=== PATIENT | male | born 1970 | race Caucasian/White ===

== ENCOUNTER 2020-06-01 19:39 | Emergency (ER) | payer MEDICAID, SELFPAY ==
--- NOTE | 2020-06-01 | CT_ITS ---
EXAMINATION: CT ABDOMEN AND PELVIS WITHOUT CONTRAST CLINICAL INFORMATION: Abdominal pain COMPARISON: None TECHNIQUE: Multidetector volumetric imaging was performed from the superior aspect of the liver through the pubic symphysis. Sagittal and coronal reformatted images were obtained on the technologist's workstation. This CT examination was performed using dose optimization techniques as appropriate, variously including the following: *Automated exposure control *Adjustment of mA and/or kV according to patient size (this includes techniques or standardized protocols for targeted exams where dose is matched to indication/reason for exam; i.e. extremities or head) *Use of iterative reconstruction technique DLP: 393 mGy-cm FINDINGS: LUNG BASES: The visualized lung bases are unremarkable. LIVER, GALLBLADDER, AND BILIARY TREE: The liver is normal in size, shape, and attenuation. No focal hepatic lesion or biliary ductal dilatation is present. The gallbladder is unremarkable with no evidence of radiopaque gallstones, gallbladder wall thickening, or obvious pericholecystic inflammatory changes. PANCREAS: Noncontrast appearance of the pancreas is normal. SPLEEN: Normal. ADRENAL GLANDS: No adrenal mass. KIDNEYS AND URETERS: 2 mm right lower pole nonobstructing renal calculus. No hydronephrosis. No hydroureter BLADDER: Streak artifact limits evaluation of the urinary bladder. GASTROINTESTINAL TRACT: Stomach and small bowel are nondilated. Normal appendix. No evidence of colitis or diverticulitis. ABDOMINAL WALL: No significant hernia is appreciated. LYMPH NODES: Normal. VASCULAR: Normal caliber abdominal aorta. PELVIC VISCERA: Prostate obscured by streak artifact. OSSEOUS STRUCTURES: Bilateral hip arthroplasties. No acute osseous abnormality. IMPRESSION: No acute CT findings. 2 mm nonobstructing right lower pole renal calculus.
[2020-06-01 20:00] VITALS: PULSE 61; RESP 18; TEMP 36.6; O2SAT 97; BMI 18.1
--- NOTE | 2020-06-01 20:25 | ED_ITS ---
HPI - Abdominal Pain General Chief Complaint: Abdominal Pain Stated Complaint: ABD PAIN Time Seen by Provider: 06/01/20 20:23 History of Present Illness HPI narrative: Patient is a 49-year-old male presents today having diffuse abdominal pain the pain is been ongoing for about a month. Getting worse the last few days. Patient had an endoscopy and colonoscopy done. Patient claims it was positive for a bacteria. He was subsequently given antibiotics. At 1st was making it better. Now the pain is getting worse again. It is cramping like it is diffuse over the entire abdomen. It is not associated with any diarrhea. His stool is normal. He is complaining of some nausea no vomiting. No travel history. No coughing or congestion or upper respiratory symptoms. No diaphoresis no chest pain. Not related with exertion. MD elicited complaint: abdominal pain Pertinent past history: gastritis Location: none Severity: moderate Pain scale (0-10): 5 Quality: cramping Radiation: none Exacerbating factors: nothing Relieving factors: nothing Associated symptoms: denies other symptoms Treatments prior to arrival: other ( Antibiotics.) Related Data Previous Rx's Medication Instructions Recorded omeprazole magnesium [Prilosec] 20 mg PO DAILY #30 ea 06/01/20 Allergies Allergy/AdvReac Type Severity Reaction Status Date / Time No Known Allergies Allergy Unverified 05/18/20 18:10 [No Known Allergies*] Review of Systems Review of Systems Yes all other systems are reviewed and are negative Eyes: Reports as per HPI Reports system reviewed and no additional complaints, except as documented Cardiovascular: Reports as per HPI Respiratory: Reports as per HPI and Reports no additional respiratory complaints Gastrointestinal: Reports as per HPI and Reports no additional gastrointestinal complaints Musculoskeletal: Reports no additional musculoskeletal complaints Reports system reviewed and no additional complaints, except as documented Psychiatric: Reports no additional psychiatric complaints Endocrine: Reports no additional endocrine complaints Hematologic/Lymphatic: Reports no additional hematologic/lymphatic complaints Allergic/Immunologic: Reports no additional allergic/immunologic complaints Physical Exam Vital Signs and I&O and Narrative: Vital Signs and I&O: Vital Signs Temp 98 F 06/01/20 20:00 Pulse 54 06/01/20 22:01 Resp 18 06/01/20 22:01 BP 134/84 06/01/20 22:01 Pulse Ox 97 06/01/20 20:00 Intake & Output 06/01/20 06/01/20 06/02/20 06:59 18:59 06:59 Weight 57.181 kg Body Mass Index 18.1 Const: General: cooperative Orientation/consciousness: oriented to person HENMT: Head: Yes normal to inspection General nose exam: Normal external nose present Face and sinus: Yes normal facial exam Eyes: General: appearance normal, both eyes and all related structures Neck: Neck: Yes normal visual inspection Chest: Chest palpation & inspection: normal inspection of the chest Resp: Effort & Inspection: normal respiratory effort Auscultation: clear to auscultation bilaterally Cardio: Jugular venous distension: no JVD GI: Inspection: Yes normal to inspection Palpation (GI): Soft to palpation, nontender, no guarding and not rigid : General: Yes no CVA tenderness Back/Spine/Pelvis: Back: no CVA tenderness Skin: General skin exam: no rashes or lesions noted Neuro: General: oriented to person Extrem: General: Yes normal to inspection Psych: Appearance: grossly normal MDM - Abdominal Pain MDM Narrative Medical decision making narrative: Patient well-appearing labs unremarkable. CT scan of the abdomen negative for any acute evidence of obstruction, abscess, perforation. No abdominal aortic aneurysm. Repeat abdominal exam is soft nontender. Patient has a history of H pylori. Has follow-up on an outpatient basis. Will discharge patient home. In stable condition. Differential Diagnosis Differential diagnosis: Likely abdominal pain, aortic dissection, acute appendicitis, bowel perforation, calculus of kidney, constipation, diverticulitis and gastroenteritis Lab Data Result diagrams: 06/01/20 21:41 06/01/20 21:41 Labs: Lab Results 06/01/20 06/01/20 06/01/20 Range/Units 21:41 21:41 21:41 WBC 5.2 (4.8-10.8) X10*3/uL RBC 4.05 L (4.60-5.80) X10*6/uL Hgb 11.4 L (14.0-18.0) g/dl Hct 34.9 L (42-52) % MCV 86.2 (80-98) fL MCH 28.1 (27.0-33.0) pg MCHC 32.7 (31.0-36.0) g/dl RDW 12.8 (11.0-16.0) % Plt Count 134 L (160-400) X10*3/uL MPV 9.1 L (9.4-12.4) fL Immature Gran % (Auto) 0.0 (0.0-0.4) % Neut % (Auto) 47.9 (45-73) % Lymph % (Auto) 40.7 H (20-40) % [place] % (Auto) 8.5 (2-11) % Eos % (Auto) 2.3 (0-4) % Baso % (Auto) 0.6 (0-2) % Neut # (Auto) 2.5 (2.0-8.3) X10*3/uL Lymph # (Auto) 2.1 (1.2-4.9) X10*3/uL [place] # (Auto) 0.4 (0.1-1.2) X10*3/uL Eos # (Auto) 0.1 (0.0-0.4) X10*3/uL Baso # (Auto) 0.0 (0.0-0.2) X10*3/uL Abs Immat Gran (auto) 0.00 (0.00-0.03) X10*3/uL Absolute Nucleated RBC 0.000 (0.0-0.012) X10*3/uL Nucleated RBC % (auto) 0.0 (0.0-0.2) /100WBC Hold Blue Top SEE NOTE Sodium 140 (135-145) mmol/L Potassium 4.1 (3.3-5.1) mmol/l Chloride 106 (96-108) mmol/L Carbon Dioxide 29 (22-29) mmol/L Anion Gap 9 L (12-20) BUN 13 (9-16) mg/dL Creatinine 0.93 (0.5-1.4) mg/dL Estim Creat Clear Calc 78.5 Estimated GFR > 60 Random Glucose 94 (60-115) mg/dL Calcium 8.7 (8.4-10.2) mg/dL Total Bilirubin 0.4 (0.0-1.0) mg/dL AST 19 (5-37) U/L ALT 10 (0-40) U/L Alkaline Phosphatase 77 (39-117) U/L Total Protein 7.0 (6.5-8.0) g/dL Albumin 4.4 (3.5-5.0) g/dL Lipase 122 H (8-78) U/L Discharge Plan Discharge Clinical Impression: Abdominal pain Patient Disposition: Home, Self-Care Instructions: Abdominal Pain (ED) Prescriptions: New Prilosec 10 mg susp,delayed release for recon 20 mg PO DAILY Qty: 30 RF: 0 Referrals: Bharath Welch MD [Primary Care Provider] - 2 days Ryanne Maharaj [Emergency Nurse] - 2 days Print Language: [facility] Past Medical History Attestation statement: The following information was validated with the patient. Social History Social History Advance Directives: No Advance Directives Information Provided: No
[2020-06-01] MEDS: Ketorolac Tromethamine 15 MG/ML VIAL IV (21:41)
[2020-06-01] MEDS: ondansetron HCL 4 MG/2 ML VIAL IVPUSH (21:42)
--- NOTE | 2020-06-01 21:43 | PC.NURSE ---
Pt resting in stretcher. pt c/o lower abd pain rating pain 7/10. pt a very difficult stick. MD aware. and labs drawn by tado. Pt states i usually get an IV in my neck Pt medicated by IM injections, for pain. Will continue to monitor pt.
[2020-06-01 21:45] LABS: MANUAL DIFF FLAG NO
[2020-06-01 21:46] LABS: Basophils Percent Auto 0.6 % (0-2); Eosinophils Absolute Auto 0.1 X10*3/uL (0.0-0.4); Eosinophils Percent Auto 2.3 % (0-4); Hematocrit 34.9 % (42-52); Hemoglobin 11.4 g/dl (14.0-18.0); Lymphocytes Absolute Auto 2.1 X10*3/uL (1.2-4.9); Lymphocytes Percent Auto 40.7 % (20-40); Mean Corpuscular HGB Conc 32.7 g/dl (31.0-36.0); Mean Corpuscular Hemoglobin 28.1 pg (27.0-33.0); Mean Corpuscular Volume 86.2 fL (80-98); Mean Platelet Volume 9.1 fL (9.4-12.4); Monocytes Absolute Auto 0.4 X10*3/uL (0.1-1.2); Monocytes Percent Auto 8.5 % (2-11); Neutrophils Absolute Auto 2.5 X10*3/uL (2.0-8.3); Neutrophils Percent Auto 47.9 % (45-73); Platelet Count 134 X10*3/uL (160-400); Red Blood Count 4.05 X10*6/uL (4.60-5.80); Red Cell Distribution Width 12.8 % (11.0-16.0); White Blood Count 5.2 X10*3/uL (4.8-10.8)
[2020-06-01 22:01] VITALS: BP 134/84; PULSE 54; RESP 18
[2020-06-01 22:22] LABS: Alanine Aminotransferase 10 U/L (0-40); Albumin Level 4.4 g/dL (3.5-5.0); Alkaline Phosphatase 77 U/L (39-117); Anion Gap 9 (12-20); Aspartate Amino Transferase 19 U/L (5-37); Bilirubin Total 0.4 mg/dL (0.0-1.0); Blood Urea Nitrogen 13 mg/dL (9-16); Calcium 8.7 mg/dL (8.4-10.2); Carbon Dioxide 29 mmol/L (22-29); Chloride 106 mmol/L (96-108); Creatinine Clr Calc Pharmacy 78.5; Estimated Glomerular Filt Rate > 60; Glucose Random 94 mg/dL (60-115); Potassium 4.1 mmol/l (3.3-5.1); Sodium 140 mmol/L (135-145)
[2020-06-01 22:33] LABS: Lipase 122 U/L (8-78)
== END 2020-06-02 00:22 | disposition home or self-care (01) ==
PROVIDERS: Emergency Provider Emergency Medicine Emergency Medical Services; PCP Internal Medicine
DX: R10.9 Unspecified abdominal pain (principal)
CPT/HCPCS: 36415; 74176; 80053; 83690; 85025; 96361; 96374; 96375; 99283; 99284; J1885; J2405

== ENCOUNTER 2020-06-19 12:16 | Outpatient (REF) | payer MEDICAID, SELFPAY ==
[2020-06-19 13:48] LABS: MANUAL DIFF FLAG NO
[2020-06-19 13:57] LABS: Basophils Absolute Auto 0.1 X10*3/uL (0.0-0.2); Basophils Percent Auto 1.1 % (0-2); Eosinophils Percent Auto 0.4 % (0-4); Hemoglobin 11.7 g/dl (14.0-18.0); Imm Gran Abs Auto 0.01 X10*3/uL (0.00-0.03); Imm Gran Pct Auto 0.2 % (0.0-0.4); Lymphocytes Absolute Auto 1.4 X10*3/uL (1.2-4.9); Lymphocytes Percent Auto 30.2 % (20-40); Mean Corpuscular HGB Conc 31.6 g/dl (31.0-36.0); Mean Corpuscular Hemoglobin 27.3 pg (27.0-33.0); Mean Corpuscular Volume 86.4 fL (80-98); Monocytes Absolute Auto 0.5 X10*3/uL (0.1-1.2); Neutrophils Absolute Auto 2.6 X10*3/uL (2.0-8.3); Neutrophils Percent Auto 57.1 % (45-73); Platelet Count 149 X10*3/uL (160-400); Red Blood Count 4.28 X10*6/uL (4.60-5.80); White Blood Count 4.5 X10*3/uL (4.8-10.8)
== END 2020-06-19 12:17 | disposition home or self-care (01) ==
LOC: HO.LAB 12:16
PROVIDERS: PCP Internal Medicine; Visit Provider Internal Medicine Gastroenterology
DX: K92.1 Melena (principal)
CPT/HCPCS: 36415; 85025

== ENCOUNTER 2020-06-28 19:30 | Emergency (ER) | payer MEDICAID, SELFPAY ==
--- NOTE | 2020-06-28 | XR_ITS ---
EXAMINATION: XR CHEST CLINICAL INFORMATION: Chest wall pain. Fever. COMPARISON: Chest x-ray 03/18/2016 TECHNIQUE: 2 views of the chest were obtained. FINDINGS: No significant abnormality is noted involving the heart, lungs, mediastinum, bony thorax or soft tissues. Orthopedic plate and screw at lower cervical spine. XR/XR chest 2V IMPRESSION: Unremarkable examination.
[2020-06-28 20:03] VITALS: BP 150/72; PULSE 80; RESP 18; TEMP 37.8; O2SAT 96; BMI 19.3
[2020-06-28 21:06] VITALS: BP 130/83; PULSE 69; RESP 17; TEMP 37.1; O2SAT 99
--- NOTE | 2020-06-28 21:08 | ED_ITS ---
HPI - General Adult General Chief complaint: General Medical Stated complaint: abdominal pain Time Seen by Provider: 06/28/20 21:08 Source: patient and interpreter and translator Mode of arrival: ambulatory Limitations: no limitations History of Present Illness HPI narrative: states 5 years ago was doing drugs and felt he had pneumonia never sought treatment and has chronic L chest sided pain daily, last two days much worse MD complaint: chronic left chest wall pain Onset (ago): year(s) (5) Location: chest Radiation: non-radiation Severity: moderate Quality: aching Pain Consistency: constant Relieving factors: none Exacerbating factors: none Associated symptoms: denies other symptoms Treatments prior to arrival: none Related Data Previous Rx's Medication Instructions Recorded omeprazole magnesium [Prilosec] 20 mg PO DAILY #30 ea 06/01/20 cyclobenzaprine 10 mg PO TID PRN #14 tab 06/28/20 lidocaine 1 patch TOPICAL DAILY PRN #10 ea 06/28/20 Allergies Allergy/AdvReac Type Severity Reaction Status Date / Time No Known Allergies Allergy Verified 06/28/20 20:03 [No Known Allergies*] Review of Systems Review of Systems: Constitutional : No Weight loss, No Fever, No Chills ENT/Mouth : No sore throat, No Rhinorrhea Eyes: No Eye Pain, No Swelling Cardiovascular : pos Chest Pain, no SOB, no Dyspnea on Exertion, No Orthopnea, No Edema, No Palpitations Respiratory : posCough, No Sputum Gastrointestinal : no Nausea, No Vomiting, No Diarrhea, No abdominal Pain, No Hematochezia, No Melena Genitourinary : No Dysuria, No Urinary Frequency Musculoskeletal : No joint pain, No Myalgias, No Joint Swelling Skin : No Skin Lesions, No rash Neuro : No Weakness, No Numbness, No Dizziness, No Headache Psych : No Anxiety/Panic, No Depression Heme/Lymph: No Bruising, No Lymphadenopathy Endocrine : No Polyuria, No Polydipsia All other systems reviewed and are negative PMFSH Past Medical History Medical History (Updated 06/28/20 @ 21:36 by Jemima Mondragon DO) Substance abuse Social History Social History Alcohol intake: never Smoked in Last 30 Days: No Use of substances other than those prescribed or required for medical reasons: Yes Substance Use Type: Marijuana Advance Directives: No Advance Directives Information Provided: No Physical Exam Vital Signs: Vital Signs: Vital Signs Temp Pulse Resp BP Pulse Ox 06/28/20 21:06 98.7 F 69 17 130/83 99 06/28/20 20:03 100.1 F 80 18 150/72 H 96 Body Mass Index 19.3 Appearance: Alert. Oriented X3. No acute distress. Eyes: Pupils equal, round and reactive to light. ENT: Pharynx normal. Neck: Normal inspection. Neck supple. CVS: Normal heart rate and rhythm. Pulses normal. Respiratory: No respiratory distress. Breath sounds normal. Abdomen: Soft and nontender. Skin: Skin warm and dry. Normal skin color. Normal skin turgor. Extremities: No lower extremity edema. No calf ttp Neuro: Oriented X 3. No motor deficit. No sensory deficit. Course Course Course Narrative: 5 years of pain, just had negative CT scan L side this month, CXR negative as well at this time will DC home with pain patches and PCP follow up Medical Decision Making MDM Narrative Medical decision making narrative: 49 yo male with chronic L sided chest pain x 5 years and cough - no prior workup, doubt ACS given chronicity, PE seems unlikely given 5 years duration, CXR ordered at this time Discharge Plan Discharge Clinical Impression: Chronic chest wall pain Patient Disposition: Home, Self-Care Instructions: Chest Wall Pain (ED) Additional Instructions: your CHEST xray was normal Prescriptions: New cyclobenzaprine 10 mg tablet 10 mg PO TID PRN (Reason: muscle spasm) Qty: 14 RF: 0 lidocaine 4 % adhesive patch,medicated 1 patch topical DAILY PRN (Reason: pain) Qty: 10 RF: 0 No Action Prilosec 10 mg susp,delayed release for recon 20 mg PO DAILY Qty: 30 RF: 0 Referrals: Bharath Welch MD [Primary Care Provider] - 2 days Stand Alone Forms: Work/School Release Print Language: [place]
== END 2020-06-28 22:45 | disposition home or self-care (01) ==
PROVIDERS: Emergency Provider Emergency Medicine; PCP Internal Medicine
DX: R07.89 Other chest pain (principal); Z79.899 Other long term (current) drug therapy
CPT/HCPCS: 71046; 99283; 99284

== ENCOUNTER 2020-07-24 09:49 | Outpatient (REF) | payer MEDICAID, SELFPAY ==
--- NOTE | 2020-07-24 09:52 | US_ITS ---
EXAMINATION: US ABDOMEN COMPLETE CLINICAL INFORMATION: Epigastric pain. COMPARISON: CT abdomen and pelvis 06/01/2020. Ultrasound abdomen 09/10/2013 and 09/23/2011. TECHNIQUE: Real-time imaging of the abdominal viscera. FINDINGS: PANCREAS: Normal in size and contour and echogenicity. Pancreatic duct is within normal, under 3 mm. There is a questionable 2 mm cyst pancreatic body. No peripancreatic fluid collection or retroperitoneal effusion. ABDOMINAL AORTA: The proximal, mid, and distal segments are normal in caliber. INFERIOR VENA CAVA: Visualized portions are normal. LIVER: Liver is normal in size and smooth in contour. The hepatic parenchymal echogenicity is borderline increased. No focal hepatic parenchymal lesion. No intrahepatic ductal dilatation. Color Doppler shows portal flow towards the liver. GALLBLADDER: No stone or sludge or wall thickening. No pericholecystic fluid. Negative sonographic Ayala's sign. COMMON BILE DUCT: Normal in caliber measuring 0.5 cm in diameter. RIGHT KIDNEY: Normal. No hydronephrosis. No renal calculi or focal parenchymal lesions. The kidney measures 10.3 cm in maximum dimension. LEFT KIDNEY: Normal. No hydronephrosis. No renal calculi or focal parenchymal lesions. The kidney measures 10.2 cm in maximum dimension. SPLEEN: Normal. The spleen measures 9.5 cm in maximum dimension. FREE FLUID: None. US/US abdomen complete IMPRESSION: 1. No cholelithiasis or biliary ductal dilatation. 2. Questionable punctate cyst pancreatic body, 2 mm. Suggest follow-up ultrasound in one year. 3. No hydronephrosis.
== END 2020-07-24 09:50 | disposition home or self-care (01) ==
LOC: HO.US 09:49
PROVIDERS: PCP Internal Medicine; Visit Provider Family Medicine
DX: R10.13 Epigastric pain (principal)
CPT/HCPCS: 76700

== ENCOUNTER 2020-07-31 09:26 | Outpatient (REF) | payer MEDICAID, SELFPAY ==
[2020-08-03 13:53] LABS: H Pylori Breath Test NOT DETECTED (NOT DETECTED)
== END 2020-07-31 09:27 | disposition home or self-care (01) ==
LOC: HO.LNP 09:26
PROVIDERS: PCP Internal Medicine; Visit Provider Internal Medicine Gastroenterology
DX: R10.13 Epigastric pain (principal); Z11.0 Encounter for screening for intestinal infectious diseases
CPT/HCPCS: 83013; 99211

== ENCOUNTER → 2020-09-14 14:36 | Outpatient (BNVA) | payer MEDICAID, SELFPAY | PROVIDERS: PCP Internal Medicine; Visit Provider Internal Medicine Pulmonary Disease | DX: R05 Cough (principal); R06.00 Dyspnea, unspecified; J47.9 Bronchiectasis, uncomplicated; Z86.11 Personal history of tuberculosis | CPT/HCPCS: 99202 ==

== ENCOUNTER 2020-09-15 | Outpatient (REF) | payer MEDICAID, SELFPAY | END 2020-09-15 00:01 | disposition home or self-care (01) | LOC: HO.LNP | PROVIDERS: Visit Provider Internal Medicine Pulmonary Disease | DX: Z13.89 Encounter for screening for other disorder (principal) | CPT/HCPCS: 87205 ==

== ENCOUNTER 2020-10-12 11:10 | Outpatient (REF) | payer MEDICAID, SELFPAY ==
--- NOTE | ~2020-10-12 | CT_ITS ---
EXAMINATION: CT CHEST WITHOUT CONTRAST CLINICAL INFORMATION: Bronchiectasis. COMPARISON: None TECHNIQUE: Multidetector volumetric CT imaging of the chest was done. Axial MIP volume rendering provided. Sagittal and coronal reformatted images were obtained. This CT examination was performed using dose optimization techniques as appropriate, variously including the following: *Automated exposure control *Adjustment of mA and/or kV according to patient size (this includes techniques or standardized protocols for targeted exams where dose is matched to indication/reason for exam; i.e. extremities or head) *Use of iterative reconstruction technique DLP: 215 mGy-cm FINDINGS: LEAD LEVEL DESIGNER: Hyperinflated lungs. LUNGS: The lungs are with mild emphysema. There is no acute pneumonic consolidation. There is no pulmonary nodule, mass or consolidation. Minimal focal atelectatic changes are seen in the right middle lobe, lingula and left lower lobe. Tiny pulmonary cysts measuring 6 mm and less are visualized in the right lower lobe. MEDIASTINUM: The thyroid lobes are symmetrical and normal. The central trachea and the bronchi are widely patent. Heart size and the great vessels are normal caliber. There are coronary artery calcifications present. No pericardial effusion seen. PLEURA: There is no pleural effusion. No pleural mass or thickening. AXILLA: There are small shotty lymph nodes in the axilla. The chest wall appears unremarkable. UPPER ABDOMEN: Visualized liver, spleen, pancreas, and bilateral adrenal glands are unremarkable. OSSEOUS STRUCTURES: Mild superior endplate deformities seen in T1 and T2 vertebra. CT/CT chest wo con IMPRESSION: Mild emphysema. Minimal atelectatic changes. There is no bronchiectasis, pulmonary nodule or abnormal lymphadenopathy. Minimal coronary artery atherosclerosis.
== END 2020-10-12 11:11 | disposition home or self-care (01) ==
LOC: HO.CT 11:10
PROVIDERS: Visit Provider Internal Medicine Pulmonary Disease
DX: J47.9 Bronchiectasis, uncomplicated (principal)
CPT/HCPCS: 71250

== ENCOUNTER 2020-10-25 07:40 | Day surgery (SDC) | payer MEDICAID, SELFPAY ==
[2020-10-19 15:29] VITALS: BMI 47.3
--- NOTE | 2020-10-23 14:28 | P.CONAN_ITS ---
Documented by User: Skylar Martins 10/24/20 14:16 HPI - Anesthesia Eval Consult details Narrative: 50yo M for Upper Endoscopy Pt seen by pulmo 09/2020 for SOB/productive cough. Chest CT obtained (see report below). Per Dr Mendez text, OK to proceed if cough has improved. Per telehealth eval, pt denies cough, SOB, or phlegm. Suboxone daily for h/o polysub abuse PMFSH Active Problems Active Problems: All Active Problems (Updated 10/19/20 @ 15:19 by Jessy Martino) Complaint of melena (Acute) Chronic cough (Acute) History of treatment for tuberculosis (Acute) Dyspnea (Acute) Bronchiectasis (Acute) Past Medical History Medical History Ambulates with cane Back pain GERD (gastroesophageal reflux disease) History of anemia History of head injury History of pineal cyst History of TB (tuberculosis) HTN (hypertension) Hx of cirrhosis Hx of hepatitis C Productive cough Seizure disorder Substance abuse Surgical History Surgical History History of bilateral total hip arthroplasty History of cervical discectomy History of esophagogastroduodenoscopy (EGD) Hx of colonoscopy Social History Social History Are you a primary respiratory care technician to a significant other at home: No Do you presently have visiting nurse or other home services: No Alcohol intake: never Smoking Status: Former smoker Smoking Quit Date: 2008 Use of substances other than those prescribed or required for medical reasons: Yes Substance Use Type: Marijuana Substance Use Type Other:: on Suboxone - Hx Heroin and Cocaine abuse Advance Directives: No Advance Directives Information Provided: No Advance Directives on File: No Recently lost weight without trying: No Meds Allergies Allergy/AdvReac Type Severity Reaction Status Date / Time No Known Allergies Allergy Verified 10/19/20 15:25 [No Known Allergies*] Home Medications Medication Instructions Recorded Confirmed Last Taken Type acetaminophen 1 - 2 tab PO Q6-8H PRN 10/19/20 10/19/20 Unknown History amitriptyline 1 - 2 tab PO BEDTIME 10/19/20 10/19/20 Unknown History buprenorphine-naloxone [Suboxone] 1 strip SUBLINGUAL BID 10/19/20 10/19/20 10/25/20 History cholecalciferol (vitamin D3) 1 tab PO DAILY 10/19/20 10/19/20 Unknown History diclofenac potassium 1 tab PO BID 10/19/20 10/19/20 Unknown History divalproex 1 tab PO BID 10/19/20 10/19/20 Unknown History duloxetine 1 cap PO DAILY 10/19/20 10/19/20 Unknown History famotidine [Acid Classification Inspector 1 tab PO BEDTIME 10/19/20 10/19/20 Unknown History (famotidine)] nystatin 5 ml PO QID 10/19/20 10/19/20 Unknown History Exam Exam Date and Time: October 23, 2020 1428 Height,Weight and Vital Signs: Height 5 ft 6 in Weight 133 kg Pertinent Lab Results Pertinent Lab Results: Laboratory Tests 06/01/20 06/19/20 21:41 13:05 WBC 4.5 L Hgb 11.7 L Hct 37.0 L Plt Count 149 L Sodium 140 Potassium 4.1 Chloride 106 Carbon Dioxide 29 BUN 13 Creatinine 0.93 Narrative Narrative: Chest CT 10/2019 CT chest wo con IMPRESSION: Mild emphysema. Minimal atelectatic changes. There is no bronchiectasis, pulmonary nodule or abnormal lymphadenopathy. Minimal coronary artery atherosclerosis. Assessment and Plan Assessment Anesthesia Assessment: Chart Reviewed Documented by User: Paulette Black 10/25/20 08:58 [facility] Past Medical History Medical History Ambulates with cane Back pain GERD (gastroesophageal reflux disease) History of anemia History of head injury History of pineal cyst History of TB (tuberculosis) HTN (hypertension) Hx of cirrhosis Hx of hepatitis C Productive cough Seizure disorder Substance abuse Surgical History Surgical History History of bilateral total hip arthroplasty History of cervical discectomy History of esophagogastroduodenoscopy (EGD) Hx of colonoscopy Social History Social History Are you a primary respiratory care technician to a significant other at home: No Do you presently have visiting nurse or other home services: No Alcohol intake: never Smoking Status: Former smoker Smoking Quit Date: 2008 Use of substances other than those prescribed or required for medical reasons: Yes Substance Use Type: Marijuana Substance Use Type Other:: on Suboxone - Hx Heroin and Cocaine abuse Advance Directives: No Advance Directives Information Provided: No Advance Directives on File: No Recently lost weight without trying: No Meds Allergies Allergy/AdvReac Type Severity Reaction Status Date / Time No Known Allergies Allergy Verified 10/19/20 15:25 [No Known Allergies*] Home Medications Medication Instructions Recorded Confirmed Last Taken Type acetaminophen 1 - 2 tab PO Q6-8H PRN 10/19/20 10/19/20 Unknown History amitriptyline 1 - 2 tab PO BEDTIME 10/19/20 10/19/20 Unknown History buprenorphine-naloxone [Suboxone] 1 strip SUBLINGUAL BID 10/19/20 10/19/20 10/25/20 History cholecalciferol (vitamin D3) 1 tab PO DAILY 10/19/20 10/19/20 Unknown History diclofenac potassium 1 tab PO BID 10/19/20 10/19/20 Unknown History divalproex 1 tab PO BID 10/19/20 10/19/20 Unknown History duloxetine 1 cap PO DAILY 10/19/20 10/19/20 Unknown History famotidine [Acid Classification Inspector 1 tab PO BEDTIME 10/19/20 10/19/20 Unknown History (famotidine)] nystatin 5 ml PO QID 10/19/20 10/19/20 Unknown History Exam Airway Mallampati Class: III TM Dist: >3cm Neck ROM: Full Heart: RRR Lungs: CTA
[2020-10-25 08:11] VITALS: BP 127/82; PULSE 69; RESP 16; TEMP 37; O2SAT 97
--- NOTE | 2020-10-25 08:40 | PC.NURSE ---
patient is a difficult stick md irvin by bedside attempting an iv insertion. patient was stuck multiple times last procedure. i attempted only once.
--- NOTE | 2020-10-25 09:06 | MHC.SHP ---
Pre-Procedural Eval Section B Chief Complaint: nausea Relevant Family History (Specify if Yes): No Relevant Social History: Other (specify) (thc) Present Medications: see Short Stay Collaborative assessment Medical History: Significant History (Ambulates with cane Back pain GERD (gastroesophageal reflux disease) History of anemia History of head injury History of pineal cyst History of TB (tuberculosis) HTN (hypertension) Hx of cirrhosis Hx of hepatitis C Productive cough Seizure disorder Substance abuse) History of Previous Operations: Relevant previous surgery/procedure and date(s) (hip and neck surgery) Allergies: Allergies Allergy/AdvReac Type Severity Reaction Status Date / Time No Known Allergies Allergy Verified 10/19/20 15:25 [No Known Allergies*] Review of Systems Sugical H&P ROS: Negative: Constitution, Cardiovascular, Respiratory, Neurological, Psychiatric, Hem-Onc, Allergic/Immunologic, Gastrointestinal, Genitourinary, Musculoskeletal, Integumentary, Endocrine and Eyes/Ears/Nose/Throat Exam Surgical H&P Exam: Normal: HEENT, Normal: Heart, Normal: Lungs, Normal: Extremities, Normal: Abdomen, Normal: Skin and Normal: Neurological Plan Diagnosis/Plan: Unchanged I have reviewed the history and physical and performed a pertinent physical examination on my patient. No changes have occurred unless specified.
--- NOTE | 2020-10-25 09:13 | PC.NURSE ---
multiple attempts by anesthesia unable to get an iv inserted for his procedure. another md to attempt. md walsh aware.
--- NOTE | 2020-10-25 09:25 | PC.NURSE ---
ANESTHESIA BY BEDSIDE WITH THE ULTRASOUND MACHINE.
--- NOTE | 2020-10-25 10:03 | PC.NURSE ---
ANESTHESIA SPOKE TO MD LAM AND MD LAM ORDERED A PICC LINE INSERTION. HE ALREADY SPOKE TO RADIOLOGY. AWAITING FOR HIS PROCEDURE.
--- NOTE | 2020-10-25 10:35 | PC.NURSE ---
Patient awaiting PICC placement with Radiology. Currently resting quietly in Pre-Op. Will continue to monitor.
--- NOTE | 2020-10-25 11:37 | PC.NURSE ---
1119AM JAYME RAZA RN IN RADIOLOGY. AWAITING FOR PROCEDURE. PATIENT REMAINS SLEEPING. AWARE OF PLAN OF CARE.
--- NOTE | 2020-10-25 11:53 | PC.NURSE ---
LUZ MARINA MCCLAIN AT THE BEDSIDE PERFORMING A PICC LINE INSERTION PER MD LAM.
--- NOTE | 2020-10-25 12:34 | HO.MIDLINE_ITS ---
PICC Line Insertion Diagnosis: PREOPERATIVE Indication: DIFFICULT IV ACCESS; NEEDS IV ACCESS PREPROCEDURE Pertinent Labs: N/A Technique: Using sterile technique including cap and mask, glove and arm drape, the RIGHT arm was prepped and draped in the usual sterile fashion of full barrier technique with [facility]. Using ultrasound guidance, CEPHALIC vein access was obtained. Over an 0.018 wire through peel-away sheath, a SINGLE LUMEN, (20G x 8CM) MIDLINE was positioned. Ultrasound was used to assess vein patency and for needle entry. Vascular [facility] Lab Technician has released the line for use and it is currently dressed with a StatLock, Tegaderm, and CHG disc. Verification has been performed for blood return and line patency. Equipment: power glide pro midline Catheter Type: 20g X 8cm single lumen non-pasv Lot #: [id number]
--- NOTE | 2020-10-25 12:47 | PM.OP ---
Brief Operative Note Date of Service: 10/25/20 Pre-op diagnosis: nausea, hx of h pylori Post-op diagnosis: same Procedure: see op note Surgeon: Heath Paniagua MD Anesthesia: MAC Estimated blood loss (mL): 0 Condition: stable Disposition: PACU
--- NOTE | 2020-10-25 12:48 | W.PM.OPN ---
Operative Note Operative Note Date of Service: 10/25/20 Narrative: Procedure Description: EGD FLEXIBLE TRANSORAL UPPER GASTROINTESTINAL ENDOSCOPY UPPER ENDOSCOPY Consent: Indications for the procedure and potential complications of bleeding, perforation, reaction to medications and missed diagnosis were discussed with the patient and informed consent was obtained. Instrument: Olympus GIF H 190 J mid size upper endoscope Monitoring: Vital signs and clinical assessment, continuous EKG monitoring, Pulse oximetry, Carbon Dioxide monitoring and blood pressure monitoring were done throughout the procedure. Procedure: The patient was placed in the left lateral decubitis position and pre-procedure medications were administered and a bite block was placed. The endoscope was inserted into the mouth and advanced under direct vision to the third part of duodenum. A careful inspection was made as the upper endoscope was withdrawn including a retroflexed examination of the proximal stomach; Findings and interventions are described below. Findings: Larynx:normal Esophagus: GE junction at 40 cm, diaphragm hiatus at 40 cm, irregular Z line with some esophagitis and possibel barretts, bx taken Stomach: Patchy gastric erythema. Biopsies were obtained as well as specimens for h pylori culture. Grade 2 flap valve on retroflexed examination of the cardia. Duodenum: Normal bulb and descending duodenum, bx taken Intervention: Biopsies as noted above Impression/Findings: gastritis esophagitis PLAN: await path results cont with PPI meantime, may have to increase dose or change preparation
[2020-10-25] MEDS: Lactated Ringers 1,000 ML 100 ML IVCONT (12:50)
--- NOTE | 2020-10-25 13:16 | HO.ANESPROP2 ---
[facility] Active Problems Active Problems: All Active Problems (Updated 10/19/20 @ 15:19 by Jessy Martino) Complaint of melena (Acute) Chronic cough (Acute) History of treatment for tuberculosis (Acute) Dyspnea (Acute) Bronchiectasis (Acute) Past Medical History Medical History Ambulates with cane Back pain GERD (gastroesophageal reflux disease) History of anemia History of head injury History of pineal cyst History of TB (tuberculosis) HTN (hypertension) Hx of cirrhosis Hx of hepatitis C Productive cough Seizure disorder Substance abuse Surgical History Surgical History History of bilateral total hip arthroplasty History of cervical discectomy History of esophagogastroduodenoscopy (EGD) Hx of colonoscopy Social History Social History Are you a primary property caretaker to a significant other at home: No Do you presently have visiting nurse or other home services: No Alcohol intake: never Smoking Status: Former smoker Smoking Quit Date: 2008 Use of substances other than those prescribed or required for medical reasons: Yes Substance Use Type: Marijuana Substance Use Type Other:: on Suboxone - Hx Heroin and Cocaine abuse Advance Directives: No Advance Directives Information Provided: No Advance Directives on File: No Recently lost weight without trying: No Meds Allergies Allergy/AdvReac Type Severity Reaction Status Date / Time No Known Allergies Allergy Verified 10/19/20 15:25 [No Known Allergies*] Active Medications: Current Medications Generic Name Dose Route Start Last Admin Trade Name Sanyaq PRN Reason Stop Dose Admin Lactated Ringer's 1,000 mls @ 100 mls/hr 10/25/20 08:00 10/25/20 12:50 Lr IVCONT 100 mls/hr .Q10H MILANA Administration Home Medications Medication Instructions Recorded Confirmed Last Taken Type acetaminophen 1 - 2 tab PO Q6-8H PRN 10/19/20 10/19/20 Unknown History amitriptyline 1 - 2 tab PO BEDTIME 10/19/20 10/19/20 Unknown History buprenorphine-naloxone [Suboxone] 1 strip SUBLINGUAL BID 10/19/20 10/19/20 10/25/20 History cholecalciferol (vitamin D3) 1 tab PO DAILY 10/19/20 10/19/20 Unknown History diclofenac potassium 1 tab PO BID 10/19/20 10/19/20 Unknown History divalproex 1 tab PO BID 10/19/20 10/19/20 Unknown History duloxetine 1 cap PO DAILY 10/19/20 10/19/20 Unknown History famotidine [Acid Endocrinology Specialist 1 tab PO BEDTIME 10/19/20 10/19/20 Unknown History (famotidine)] nystatin 5 ml PO QID 10/19/20 10/19/20 Unknown History Exam Exam Date and Time: October 25, 2020 1316 Height,Weight and Vital Signs: Height 5 ft 6 in Weight 133 kg Last Vital Signs Temp 98.6 F 10/25/20 08:11 Pulse 69 10/25/20 08:11 Resp 16 10/25/20 08:11 BP 127/82 10/25/20 08:11 Pulse Ox 97 10/25/20 08:11 Airway Mallampati Class: II TM Dist: >3cm Denture: Upper and Lower Heart: RRR Lungs: CTA
[2020-10-25 13:25] VITALS: BP 116/77; PULSE 73; RESP 16; TEMP 36.3; O2SAT 98
[2020-10-25 13:40] VITALS: BP 127/88; PULSE 69; RESP 17; TEMP 36.3; O2SAT 98
--- NOTE | 2020-10-25 14:22 | PC.NURSE ---
refused offerred cream tester AT DISCHARGE
== END 2020-10-25 13:59 | disposition home or self-care (01) ==
PROVIDERS: PCP Internal Medicine; Visit Provider Internal Medicine Gastroenterology
PROC: 0DJ08ZZ Inspection of Upper Intestinal Tract, Via Natural or Artificial Opening Endoscopic (ICD-10-PCS; CPT 43235; principal; 2020-10-25 09:20)
DX: K21.00 Gastro-esophageal reflux disease with esophagitis, without bleeding (principal); K29.50 Unspecified chronic gastritis without bleeding; K44.9 Diaphragmatic hernia without obstruction or gangrene; I10 Essential (primary) hypertension; G40.909 Epilepsy, unspecified, not intractable, without status epilepticus; Z79.899 Other long term (current) drug therapy; Z96.643 Presence of artificial hip joint, bilateral; F11.20 Opioid dependence, uncomplicated; Z87.891 Personal history of nicotine dependence; Z86.11 Personal history of tuberculosis
CPT/HCPCS: 43239; 36410; 36415; 88305; 88342

== ENCOUNTER → 2020-10-27 12:50 | Outpatient (BNVA) | payer MEDICAID, SELFPAY | PROVIDERS: PCP Internal Medicine; Visit Provider Internal Medicine Pulmonary Disease | DX: R06.00 Dyspnea, unspecified (principal); R05 Cough; J45.909 Unspecified asthma, uncomplicated | CPT/HCPCS: 99212 ==

== ENCOUNTER → 2020-11-06 08:30 | Outpatient (BNVA) | payer MEDICAID, SELFPAY | PROVIDERS: PCP Internal Medicine; Referring Provider Internal Medicine; Visit Provider Internal Medicine Gastroenterology ==

== ENCOUNTER → 2020-11-10 10:49 | Outpatient (BNVA) | payer MEDICAID, SELFPAY | PROVIDERS: PCP Internal Medicine; Visit Provider Internal Medicine Gastroenterology ==

== ENCOUNTER 2020-11-17 12:54 | Outpatient (REF) | payer MEDICAID, SELFPAY ==
--- NOTE | 2020-11-17 16:35 | PFT_ITS ---
Forced vital capacity, FEV1, BED47-84, and MVV are all normal. Post bronchodilator therapy, there is no significant change. Total lung capacity normal. Residual volume slightly increased. Diffusion capacity is slightly decreased. CONCLUSION: Normal pulmonary function test except for slight decrease in diffusion capacity. This should be correlated with clinical picture. MD SAVANAH Lopez/RENEEL / [id number]
== END 2020-11-17 12:55 | disposition home or self-care (01) ==
LOC: HO.RESP 12:54
PROVIDERS: PCP Internal Medicine; Visit Provider Internal Medicine Pulmonary Disease
DX: J45.909 Unspecified asthma, uncomplicated (principal)
CPT/HCPCS: 94060; 94727; 94729

== ENCOUNTER → 2020-11-24 09:55 | Outpatient (BNVA) | payer MEDICAID, SELFPAY | PROVIDERS: PCP Internal Medicine; Visit Provider Internal Medicine Pulmonary Disease | DX: J44.9 Chronic obstructive pulmonary disease, unspecified (principal); R05 Cough; Z87.891 Personal history of nicotine dependence | CPT/HCPCS: 99212 ==

== ENCOUNTER → 2021-01-17 07:53 | Outpatient (REF) | payer MEDICAID, SELFPAY ==
--- NOTE | ~2021-01-17 | NM_ITS ---
EXAMINATION: NM RADIONUCLIDE SOLID FOOD GASTRIC EMPTYING 4-HOUR STUDY CLINICAL INFORMATION: Epigastric pain COMPARISON: None TECHNIQUE: A standard meal consisting of 1-2 oz of Egg Beaters brand tagged with 0.79 microcuries Tc-99m Sulfur Colloid, 8 oz water and 2 slices of toast with jelly was administered orally to the patient. Images were obtained using a dual head gamma camera in the anterior and posterior projections over of the stomach immediately post ingestion and at hourly intervals up to 4 hours post ingestion. The anterior and posterior counts at each time interval were averaged using the geometric mean and expressed as percentage of the immediate post ingestion counts. FINDINGS: There is good visualization of activity in the stomach immediately post ingestion. As the study progresses, there is good clearance of activity from the stomach and visualization of progressively increasing small bowel activity. By the end of the study, there is almost no retention noted in the stomach. Retention in the stomach at each time interval was: 1 hour 81% (normal 37%-90%) 2 hours 66% (normal 30%-60%) 3 hours 26% 4 hours 9% (normal 0%-10%) NM/NM gastric emptying study IMPRESSION: Normal 4-hour solid food gastric emptying study.
== END ==
LOC: HO.NUCMED 07:53
PROVIDERS: Visit Provider Internal Medicine Gastroenterology
DX: R10.13 Epigastric pain (principal); G89.29 Other chronic pain
CPT/HCPCS: 78264; A9541

== ENCOUNTER → 2021-02-06 14:53 | Outpatient (BNVA) | payer MEDICAID, SELFPAY | PROVIDERS: PCP Internal Medicine; Visit Provider Internal Medicine Pulmonary Disease | DX: J44.9 Chronic obstructive pulmonary disease, unspecified (principal); R05 Cough | CPT/HCPCS: 99212 ==

== ENCOUNTER → 2021-03-02 10:28 | Outpatient (BNVA) | payer MEDICAID, SELFPAY | PROVIDERS: PCP Internal Medicine; Visit Provider Internal Medicine Gastroenterology ==

== ENCOUNTER → 2021-05-01 13:59 | Outpatient (BNVA) | payer MEDICAID, SELFPAY | PROVIDERS: PCP Internal Medicine; Visit Provider Internal Medicine Gastroenterology ==

== ENCOUNTER 2021-08-13 09:51 | Outpatient (REF) | payer MEDICAID, SELFPAY ==
[2021-08-15 14:10] LABS: H Pylori Breath Test Negative (Negative)
== END 2021-08-13 09:52 | disposition home or self-care (01) ==
LOC: HO.LNP 09:51
PROVIDERS: PCP Internal Medicine; Referring Provider Internal Medicine; Visit Provider Internal Medicine Gastroenterology
DX: Z11.0 Encounter for screening for intestinal infectious diseases (principal)
CPT/HCPCS: 83013; 99211

== ENCOUNTER → 2021-08-15 14:54 | Outpatient (BNVA) | payer MEDICAID, SELFPAY | PROVIDERS: PCP Internal Medicine; Visit Provider Internal Medicine Pulmonary Disease | DX: J44.9 Chronic obstructive pulmonary disease, unspecified (principal) | CPT/HCPCS: 99212 ==

== ENCOUNTER 2023-05-07 13:18 | Outpatient (AMB) | payer MEDICAID, SELFPAY ==
[2023-05-07 13:21] VITALS: BP 108/62; PULSE 75; O2SAT 96; BMI 18.8
--- NOTE | 2023-05-07 13:21 | MHC.OFFVIS ---
Intake Vital Signs 05/07/23 13:21 Height 5 ft 10 in Weight 131 lb 2.801 oz BMI 18.8 BP 108/62 Blood Pressure Location Lt brachial Position Sitting Pulse 75 Pulse Source Doppler Pulse Oximetry (%) 96 Oxygen Delivery Method Room Air Intake Visit Reasons: Asthma Allergies No Known Allergies [No Known Allergies*] Allergy (Verified 05/07/23 13:25) HPI Asthma HPI Details 52-year-old gentleman, former 25+ years smoker, quit 2007, with underlying history treated latent tuberculosis at 16 years of age followed for underlying asthma/COPD overlap syndrome. ? He continues to use Breo and albuterol MDI with good control of his underlying symptoms.? He denies any recent exacerbations. [facility] Medical History Ambulates with cane Back pain GERD (gastroesophageal reflux disease) History of anemia History of head injury History of pineal cyst History of TB (tuberculosis) HTN (hypertension) Hx of cirrhosis Hx of hepatitis C Productive cough Seizure disorder Substance abuse Surgical History History of bilateral total hip arthroplasty History of cervical discectomy History of esophagogastroduodenoscopy (EGD) Hx of colonoscopy Family History Father Cancer Social History Household Members: Other Are you a primary career guidance technician to a significant other at home: No Do you presently have visiting nurse or other home services: No Alcohol intake: current Alcohol intake frequency: does not drink Substance Use Type: Marijuana Review of Systems Const Denies daytime sleepiness, Denies excessive sweating, Denies fatigue, Denies fever(s), Denies lethargy, Denies malaise, Denies night sweats, Denies snoring and Denies weight loss Eyes Denies blurry vision and Denies itchy eyes ENT Denies nasal congestion, Denies post nasal drip, Denies sinus pain, Denies sinus pressure and Denies other ( Thrush) Card Denies chest pain, Denies pedal edema, Denies dyspnea, Denies orthopnea and Denies paroxysmal nocturnal dyspnea Resp Denies cough, Denies hemoptysis, Denies excessive phlegm production, Denies dyspnea, Denies snoring and Denies wheezing GI Denies abdominal pain and Denies heartburn Musc Denies myalgias, Denies arthralgias and Denies joint swelling Skin/Breast Denies rash Neuro Denies memory loss and Denies seizure-like activity Psych Denies abnormal sleep pattern, Denies anxiety and Denies memory loss Endo Denies excessive sweating, Denies fatigue and Denies heat intolerance Rich/Lymph Denies easy bruising Aller/Immun Denies itchy eyes, Denies seasonal rhinorrhea and Denies wheezing Physical Exam Vital Signs: Last Vital Signs Pulse 75 05/07/23 13:21 BP 108/62 05/07/23 13:21 Pulse Ox 96 05/07/23 13:21 Oxygen Delivery Method Room Air 05/07/23 13:21 BMI result Body Mass Index 18.8 Const General: no acute distress and alert Nutritional Appearance: not obese Orientation/consciousness: Other orientation findings ( oriented) HEENT Head: Yes atraumatic Eyes General: appearance normal, both eyes and all related structures Sclerae: sclerae normal EOM: EOMs intact bilaterally Neck Neck: Yes supple Lymphatic: no lymphadenopathy noted Resp Effort & Inspection: normal respiratory effort and no use of accessory muscles Auscultation: clear to auscultation bilaterally Cardio Rate: regular rate Rhythm: regular rhythm Heart sounds: no gallops, no murmurs and no rubs Skin General skin exam: other ( warm) Extrem General: No clubbing, No cyanosis and No edema Assessment & Plan Assessment & Plan (1) Asthma-COPD overlap syndrome: Code(s): J44.9 - Chronic obstructive pulmonary disease, unspecified Plan: Well controlled on current regimen of Breo and albuterol MDI. Continue current regimen. Coding Level of Care Code Est Pt Level 3 (08585) Diagnoses Asthma-COPD overlap syndrome J44.9
== END 2023-05-07 13:58 | disposition home or self-care (01) ==
PROVIDERS: PCP Internal Medicine; Visit Provider Internal Medicine Pulmonary Disease
DX: J44.9 Chronic obstructive pulmonary disease, unspecified (principal)
CPT/HCPCS: 99213

== ENCOUNTER → 2023-05-07 13:18 | Outpatient (BNVA) | payer MEDICAID, SELFPAY | PROVIDERS: PCP Internal Medicine; Visit Provider Internal Medicine Pulmonary Disease | DX: J44.9 Chronic obstructive pulmonary disease, unspecified (principal) | CPT/HCPCS: 99212 ==

== ENCOUNTER 2024-02-04 09:11 | Outpatient (REF) | payer MEDICAID, SELFPAY ==
[2024-02-04 11:48] LABS: Appearance Urine Clear; Color Urine Yellow; Glucose Urine UA Negative (Negative); Leukocyte Esterase Urine Negative (Negative); MANUAL DIFF FLAG NO; Nitrite Urine Negative (Negative); Urine Blood Negative (Negative); Urine Ketones Negative (Negative); Urine Protein Negative (Neg-Trace)
[2024-02-04 11:57] LABS: Bacteria Urine None Seen (None Seen); Basophils Absolute Auto 0.1 X10*3/uL (0.0-0.2); Eosinophils Absolute Auto 0.1 X10*3/uL (0.0-0.4); Eosinophils Percent Auto 2.3 % (0-4); Hematocrit 37.6 % (42.0-52.0); Hemoglobin 12.3 g/dl (14.0-18.0); Hyaline Casts Urine 0-2 /LPF (0-2); Imm Gran Abs Auto 0.01 X10*3/uL (0.00-0.03); Imm Gran Pct Auto 0.2 % (0.0-0.4); Lymphocytes Percent Auto 40.8 % (20-40); Mean Corpuscular HGB Conc 32.7 g/dl (31.0-36.0); Mean Corpuscular Hemoglobin 28.7 pg (27.0-33.0); Mean Corpuscular Volume 87.6 fL (80.0-98.0); Mean Platelet Volume 10.2 fL (9.4-12.4); Monocytes Absolute Auto 0.4 X10*3/uL (0.1-1.2); Neutrophils Absolute Auto 2.2 x10*3/uL (2.0-8.3); Neutrophils Percent Auto 46.7 % (45-73); Platelet Count 146 X10*3/uL (160-400); RBC Urine 0-2 /HPF (0-2); Red Blood Count 4.29 X10*6/uL (4.60-5.80); Red Cell Distribution Width 13.8 % (11.0-16.0); Squamous Epithelial Cell Urine 0-2 /HPF (0-2); WBC Urine 0-5 /HPF (0-5); White Blood Count 4.8 X10*3/uL (4.8-10.8)
[2024-02-04 12:15] LABS: Alanine Aminotransferase 12 U/L (0-40); Albumin Level 4.7 g/dL (3.5-5.0); Alkaline Phosphatase 74 U/L (39-117); Anion Gap 13 (12-20); Aspartate Amino Transferase 25 U/L (5-37); Bilirubin Total 0.5 mg/dL (0.0-1.0); Blood Urea Nitrogen 8 mg/dL (9-16); Calcium 9.6 mg/dL (8.4-10.2); Carbon Dioxide 25 mmol/L (22-29); Chloride 107 mmol/L (96-108); Estimated Glomerular Filt Rate > 60; Glucose Random 103 mg/dL (60-115); Lipase 59 U/L (8-78); Potassium 4.4 mmol/L (3.3-5.1); Sodium 141 mmol/L (135-145); Total Protein 7.6 g/dL (6.5-8.0)
[2024-02-04 12:35] LABS: HIV AB/AG Nonreactive (Nonreactive); HIV Num 1 0.06 S/CO (0.00-0.99)
[2024-02-06 14:28] LABS: HCV Log PCR <1.18 NOT DETECTED Log IU/mL (NOT DETECTED); HepC Viral Load <15 NOT DETECTED IU/mL (NOT DETECTED)
== END 2024-02-04 09:12 | disposition home or self-care (01) ==
LOC: HO.HHCL 09:11
PROVIDERS: Visit Provider Pediatrics
DX: R63.4 Abnormal weight loss (principal)
CPT/HCPCS: 36415; 80053; 81001; 83690; 84153; 84443; 85025; 87389; 87522

== ENCOUNTER 2025-02-02 13:55 | Outpatient (AMB) | payer MEDICAID, SELFPAY ==
--- OUTSIDE RECORDS SUMMARY | 2025-02-02 14:00 | XMS_ITS | Encounter Summary ---
Author Organization [facility] Address [address] [place] [address] Care Team Providers Care Vp Cardiovascular Name Role Phone Bharath Welch MD Primary Care Provider Reason for Visit * Reason Onset Date Comments Med Refill 01/31/2025 Encounter Details Date Type Department Care Team (Late st Contact Info) Description 01/31/2025 Refill [facility] [address] [place] [address] [phone] Batsheva Gates MD [address] [place] [phone] Uncomplicated opioid dependence (CMS/HCC) Social History Tobacco Use Types Packs/Day Years Used Date Smoking Tobacco: Former Cigarettes Smokeless Tobacco: Never Depression Answer Date Recorded Patient Health Questionnaire-9 Score 6 04/01/2024 Patient Health Questionnaire-9 Score 6 04/01/2024 Last PHQ-9: Questionnaire Data Not on file 0 04/01/2024 Depression Answer Date Recorded Patient Health Questionnaire-2 Score 0 04/01/2024 Sex and Gender Information Value Date Recorded Sex Assigned at Male 07/01/2022 10:21 AM EDT Legal Sex Male 10:21 AM EDT Gender Identity Male 07/01/2022 10:21 AM EDT Sexual Orientation Straight 07/01/2022 10 :21 AM EDT documented as of this encounter Plan of Treatment Upcoming Encounters Date Type Department Care Team (Late st Contact Info) Description 02/10/2025 11:00 AM EDT Clinical Support [facility] [address] [place] [phone] Fredo Solis RN [address] [place] [phone] 04/07/2025 9:30 AM EDT Clinical Support [facility] [address] [place] [phone] Rosita Calderon RN documented as of this encounter Visit Diagnoses Diagnosis Uncomplicated opioid dependence (CMS/HCC) documented in this encounter Additional Health Concerns Assessment Noted Time PHQ-9 Depression Total Score: 6 04/01/20 9:31 AM EDT documented as of this encounter Care Teams Vp Cardiovascular Relationship Specialty Start Date End Date Bharath Welch MD [address] [place] [phone] PCP - General Internal Medicine 01/21/14 documented as of this encounter
--- NOTE | 2025-02-02 14:01 | A.OFFVIS_ITS ---
Vital Signs 02/02/25 14:02 Height 5 ft 6 in Weight 134 lb BMI 21.6 BP 110/60 Blood Pressure Location Rt brachial Position Sitting Pulse 72 Pulse Source Pulse Oximeter Pulse Oximetry (%) 96 Oxygen Delivery Method Room Air Intake Visit Reasons: asthma Allergies No Known Allergies [No Known Allergies*] Allergy (Verified 05/07/23 13:25) HPI HPI asthma: Details: 54-year-old gentleman, former 25+ years smoker, quit 2007, with underlying history treated latent tuberculosis at 16 years of age followed for underlying asthma/COPD overlap syndrome. ? He has been using Symbicort and albuterol MDI with good control of his underlying symptoms. He denies any recent exacerbations. [facility] Medical History Ambulates with cane Back pain GERD (gastroesophageal reflux disease) History of anemia History of head injury History of pineal cyst History of TB (tuberculosis) HTN (hypertension) Hx of cirrhosis Hx of hepatitis C Productive cough Seizure disorder Substance abuse Surgical History History of bilateral total hip arthroplasty History of cervical discectomy History of esophagogastroduodenoscopy (EGD) Hx of colonoscopy Family History Father Cancer Social History Household Members: Other Are you a primary date night caregiver to a significant other at home: No Do you presently have visiting nurse or other home services: No Alcohol intake: current Alcohol intake frequency: does not drink Substance Use Type: Marijuana Review of Systems Const Denies daytime sleepiness, Denies excessive sweating, Denies fatigue, Denies fever(s), Denies lethargy, Denies malaise, Denies night sweats, Denies snoring and Denies weight loss Eyes Denies blurry vision and Denies itchy eyes ENT Denies nasal congestion, Denies post nasal drip, Denies sinus pain, Denies sinus pressure and Denies other ( Thrush) Card Denies chest pain, Denies pedal edema, Denies dyspnea, Denies orthopnea and Denies paroxysmal nocturnal dyspnea Resp Denies cough, Denies hemoptysis, Denies excessive phlegm production, Denies dyspnea, Denies snoring and Denies wheezing GI Denies abdominal pain and Denies heartburn Musc Denies myalgias, Denies arthralgias and Denies joint swelling Skin/Breast Denies rash Neuro Denies memory loss and Denies seizure-like activity Psych Denies abnormal sleep pattern, Denies anxiety and Denies memory loss Endo Denies excessive sweating, Denies fatigue and Denies heat intolerance Rich/Lymph Denies easy bruising Aller/Immun Denies itchy eyes, Denies seasonal rhinorrhea and Denies wheezing Physical Exam Vital Signs: Last Vital Signs Pulse 72 02/02/25 14:02 BP 110/60 02/02/25 14:02 Pulse Ox 96 02/02/25 14:02 Oxygen Delivery Method Room Air 02/02/25 14:02 BMI result Body Mass Index 21.6 Const General: no acute distress and alert Nutritional Appearance: not obese Orientation/consciousness: Other orientation findings ( oriented) HEENT Head: Yes atraumatic Eyes General: appearance normal, both eyes and all related structures Sclerae: sclerae normal EOM: EOMs intact bilaterally Neck Neck: Yes supple Lymphatic: no lymphadenopathy noted Resp Effort & Inspection: normal respiratory effort and no use of accessory muscles Auscultation: clear to auscultation bilaterally Cardio Rate: regular rate Rhythm: regular rhythm Heart sounds: no gallops, no murmurs and no rubs Skin General skin exam: other ( warm) Extrem General: No clubbing, No cyanosis and No edema Assessment & Plan Assessment & Plan (1) Asthma-COPD overlap syndrome: Code(s): J44.9 - Chronic obstructive pulmonary disease, unspecified Category: Medical Plan: Well controlled on current regimen of Symbicort and albuterol MDI. Continue current regimen. Medications: Changed From albuterol sulfate 90 mcg/actuation (ProAir HFA) 2 puffs PO Q4-6H PRN 8.5 grams 6RF for wheezing To albuterol sulfate 90 mcg/actuation 2 puffs PO Q4-6H PRN 8.5 grams 6RF for wheezing Refilled budesonide-formoterol 160-4.5 mcg/actuation (Symbicort) 2 puffs PO BID 10.2 grams 6RF Coding Level of Care Code Est Pt Level 3 (14174) Diagnoses Asthma-COPD overlap syndrome J44.9
[2025-02-02 14:02] VITALS: BP 110/60; PULSE 72; O2SAT 96; BMI 21.6
== END 2025-02-02 14:40 | disposition home or self-care (01) ==
LOC: HO.HPS 13:56
PROVIDERS: PCP Internal Medicine; Visit Provider Internal Medicine Pulmonary Disease
DX: J44.9 Chronic obstructive pulmonary disease, unspecified (principal)
CPT/HCPCS: 99213

== ENCOUNTER → 2025-02-02 13:55 | Outpatient (BNVA) | payer MEDICAID, SELFPAY | PROVIDERS: PCP Internal Medicine; Visit Provider Internal Medicine Pulmonary Disease | DX: J44.9 Chronic obstructive pulmonary disease, unspecified (principal) | CPT/HCPCS: 99212 ==

== ENCOUNTER 2025-03-27 14:57 | Emergency (ER) | payer MEDICAID, SELFPAY ==
--- NOTE | ~2025-03-27 | US_ITS ---
CLINICAL HISTORY: RUQ pain. hepatomegaly? cholecysitits? US abdomen limited Comparison: None provided Findings: The visualized pancreas is normal. The liver is normal in size and demonstrates diffusely heterogeneous echotexture. There is no intrahepatic bile duct dilatation. The common duct is 3 mm in diameter. The gallbladder is normal. There is no sonographic Ayala sign. The main portal vein is antegrade. The right kidney is 10.3 cm in length. No ascites. IMPRESSION: Heterogeneous hepatic echotexture, which is nonspecific. Otherwise negative examination. This document has been electronically signed by: Norberto Kay MD on 03/27/2025 18:05:41
--- NOTE | ~2025-03-27 | US_ITS ---
CLINICAL HISTORY: Testicular pain US Scrotum with Doppler Comparison: None provided Findings: Right testicle normal echotexture, 4.2 x 1.7 x 2.8 cm. Left testicle normal echotexture, 4.2 x 1.9 x 2.6 cm. Normal color flow and arterial/venous spectral tracing of both testicles. Right epididymal head cyst measuring 5 mm. No hydroceles or varicoceles. IMPRESSION: Normal scrotal ultrasound. No evidence of torsion. This document has been electronically signed by: Norberto Kay MD on 03/27/2025 18:04:43
[2025-03-27 15:14] VITALS: BP 135/77; PULSE 84; RESP 16; TEMP 36.8; O2SAT 95; BMI 18.3
--- NOTE | 2025-03-27 15:22 | ED.GENADULT ---
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 Carroll Carter HPI narrative: 54-year-old male with a history of hepatitis-C (treated and cured according to patient), cirrhosis who presents emergency department for evaluation of 2 days of burning with urination and whitish discharge from his penis. Patient states that he is not sexually active and last had sex 2 months prior. He states he did travel to [place] 2 weeks prior and was sick for 3 days while he was in [place] with a flu-like illness. Patient denies any lesions on his penis or rash in his body. He denies any scrotal swelling or testicular pain. Related Data Home Medications ?Medication ?Instructions ?Recorded ?Confirmed acetaminophen 500 mg tablet 1 - 2 tab PO Q6-8H PRN Pain 10/19/20 10/19/20 amitriptyline 10 mg tablet 1 - 2 tab PO BEDTIME 10/19/20 10/19/20 buprenorphine 8 mg-naloxone 2 mg 1 strip sublingual BID 10/19/20 10/19/20 sublingual film (Suboxone) cholecalciferol (vitamin D3) 25 1 tab PO DAILY 10/19/20 10/19/20 mcg (1,000 unit) tablet diclofenac potassium 50 mg tablet 1 tab PO BID 10/19/20 10/19/20 divalproex 500 mg tablet,delayed 1 tab PO BID 10/19/20 10/19/20 release duloxetine 20 mg capsule,delayed 1 cap PO DAILY 10/19/20 10/19/20 release famotidine 20 mg tablet (Acid 1 tab PO BEDTIME 10/19/20 10/19/20 Investor Relations Manager (famotidine)) nystatin 100,000 unit/mL oral 5 ml PO QID 10/19/20 10/19/20 suspension Previous Rx's ?Medication ?Instructions ?Recorded cyclobenzaprine 10 mg tablet 10 mg PO TID PRN muscle spasm #14 06/28/20 tabs lidocaine 4 % topical patch 1 patch topical DAILY PRN pain #10 06/28/20 ea ondansetron 4 mg disintegrating 4 mg PO Q8H PRN nausea and 08/10/20 tablet vomiting #14 tabs omeprazole 20 mg capsule,delayed 20 mg PO DAILY 30 days #30 caps 09/25/20 release omeprazole 40 mg capsule,delayed 40 mg PO DAILY #60 caps 11/06/20 release albuterol sulfate 90 mcg/actuation 2 puff PO Q4-6H PRN for wheezing 02/02/25 aerosol inhaler #8.5 grams budesonide-formoterol HFA 160 2 puff PO BID #10.2 grams 02/02/25 mcg-4.5 mcg/actuation aerosol inhaler (Symbicort) doxycycline hyclate 100 mg tablet 100 mg PO Q12H 10 days #20 tabs 03/27/25 Allergies Allergy/AdvReac Type Severity Reaction Status Date / Time No Known Allergies (No Known Allergy Verified 03/27/25 15:20 Allergies*) Review of Systems Review of Systems: Yes all other systems are reviewed and are negative PMFSH Past Medical History Medical History Ambulates with cane Back pain GERD (gastroesophageal reflux disease) History of anemia History of head injury History of pineal cyst History of TB (tuberculosis) HTN (hypertension) Hx of cirrhosis Hx of hepatitis C Productive cough Seizure disorder Substance abuse Surgical History History of bilateral total hip arthroplasty History of cervical discectomy History of esophagogastroduodenoscopy (EGD) Hx of colonoscopy Family History Family History Father Cancer Social History Social History Household Members: Other Are you a primary career development manager to a significant other at home: No Do you presently have visiting nurse or other home services: No Alcohol intake: current Alcohol intake frequency: does not drink Substance Use Type: Marijuana Advance Directives: No Advance Directives Information Provided: No Physical Exam ED Vital Signs: Vital Signs - 24 hr 03/27/25 15:14 03/27/25 19:26 Temperature 98.3 F 98.3 F Pulse Rate 84 84 Respiratory Rate 16 16 Blood Pressure 135/77 135/77 Pulse Oximetry 95 95 Oxygen Delivery Method Room Air Room Air BMI result Body Mass Index 18.3 Vital signs were normal Exam: Abdomen: Soft, nontender, nondistended, normoactive bowel sounds : Normal uncircumcised male penis, foreskin easily retractable, patient had a whitish discharge from the urethra, no penile lesions noted. Scrotum revealed no erythema, increased warmth or lesions. Patient's testicles both descended in the scrotum sacs, nontender, no epididymal tenderness. Course Course Course Narrative: RME: 54-year-old male with past medical history low testosterone presents to ED for testicular pain and right-sided liver pain. Patient states history received testosterone injections in [place] yesterday he was feeling bad so he bought [id number] testosterone to help with the symptoms. Patient states no relief. Patient states sperm and oozing out and testicular pain with burning. Labs ultrasound CTA mg ordered Medications Administered Discontinued Medications Generic Name Dose Route Start Last Admin Trade Name Priti PRN Reason Stop Dose Admin Ceftriaxone Sodium 500 mg/ 0 mg 03/27/25 18:05 03/27/25 19:21 Lidocaine HCl 1 ml IM 03/27/25 18:06 1 kit ONCE ONE Administration Doxycycline Monohydrate 100 mg 03/27/25 18:05 03/27/25 19:21 Doxycycline Monohydrate 100 Mg Capsule PO 03/27/25 18:06 100 mg ONCE ONE Administration Metronidazole 2,000 mg 03/27/25 18:07 03/27/25 19:21 Metronidazole 500 Mg Tablet PO 03/27/25 18:08 2,000 mg ONCE ONE Administration Medical Decision Making Medical Decision Making [facility] Narrative: 54-year-old male with a history of hepatitis-C (treated and cured according to patient), cirrhosis who presents emergency department for evaluation of 2 days of burning with urination and whitish discharge from his penis. Patient states that he is not sexually active and last had sex 2 months prior. He states he did travel to [place] 2 weeks prior and was sick for 3 days while he was in [place] with a flu-like illness. Patient denies any lesions on his penis or rash in his body. He denies any scrotal swelling or testicular pain. Vital signs were normal. Penile exam revealed a whitish penile discharge with no scrotal abnormalities, no testicular error epididymal tenderness. Differential diagnosis: ?Includes but is not limited to gonorrhea, chlamydia, Trichomonas, nonspecific urethritis, epididymitis, orchitis, Course: 18:18 My interpretation patient's laboratory evaluation is as follows: Urinalysis was negative. GC and chlamydia pending. Patient had a right upper quadrant ultrasound which did not reveal any significant disease, liver was normal in size, patient had heterogeneous hepatic echotexture which was nonspecific. Patient had a scrotal ultrasound which was normal with no evidence of torsion or epididymitis. Given the patient's penile discharge your suspect that he has urethritis. Patient was treated with ceftriaxone/lidocaine 500 mg IM, Flagyl (metronidazole) 2 g orally and doxycycline 100 mg orally here in the emergency department. He was given a prescription for doxycycline 100 mg q.12 hours times 10 days to treat chlamydial/nonspecific urethritis. Admission/Observation Consideration of admission/observation: Escalation of care including admission/observation considered (Yes) Lab Data MDM Lab Attestation statement: I reviewed the patient's lab results. Labs: Lab Results 03/27/25 Range/Units 16:17 Urine Color Yellow Urine Appearance Clear Urine pH 8.0 (5.0-9.0) Ur Specific [place] 1.010 (1.005-1.025) Urine Protein Negative (Neg-Trace) mg/dL Urine Glucose (UA) Negative (Negative) mg/dL Urine Ketones Negative (Negative) mg/dL Urine Blood Negative (Negative) Urine Nitrite Negative (Negative) Ur Leukocyte Esterase Negative (Negative) Ur N gonorrhoeae DNA (PCR) NOT DETECTED (Not Detect.) Ur Chlamydia DNA (PCR) NOT DETECTED (Not Detect.) Radiology Impression Discussion of test interpretation with radiology: I have reviewed the radiologist's reading. Radiologist Impression: US abdomen limited Comparison: None provided Findings: The visualized pancreas is normal. The liver is normal in size and demonstrates diffusely heterogeneous echotexture. There is no intrahepatic bile duct dilatation. The common duct is 3 mm in diameter. The gallbladder is normal. There is no sonographic Ayala sign. The main portal vein is antegrade. The right kidney is 10.3 cm in length. No ascites. IMPRESSION: Heterogeneous hepatic echotexture, which is nonspecific. Otherwise negative examination. This document has been electronically signed by: Norberto Kay MD on 03/27/2025 18:05:41 US Scrotum with Doppler Comparison: None provided Findings: Right testicle normal echotexture, 4.2 x 1.7 x 2.8 cm. Left testicle normal echotexture, 4.2 x 1.9 x 2.6 cm. Normal color flow and arterial/venous spectral tracing of both testicles. Right epididymal head cyst measuring 5 mm. No hydroceles or varicoceles. IMPRESSION: Normal scrotal ultrasound. No evidence of torsion. This document has been electronically signed by: Norberto Kay MD on 03/27/2025 18:04:43 Chronic Conditions Patient?s care impacted by: Other (Liver cirrhosis) Discharge Plan Discharge Clinical Impression: Urethritis, nonspecific Patient Disposition: Home, Self-Care Instructions: Urethritis (ED) Additional Instructions: Your exam is consistent with an infection of tube that you pee through (urethra). This is called urethritis. This can be caused by bacteria that gets into your penis or sexually transmitted organism such as Trichomonas, gonorrhea or chlamydia. Urethritis is treated with antibiotics. You received ceftriaxone 500 mg IM here in the emergency department-this would treat infections like gonorrhea. You received Flagyl (metronidazole) 2 g orally here in the emergency department. This would treat Trichomonas. You were given a prescription for doxycycline 100 mg pills, 1 pill every 12 hours for 10 days. This will treat infections like chlamydia. Follow-up with your doctor in 2 days. Please return to the emergency department if your symptoms get worse or if you develop any symptoms that are concerning to you. Your ultrasound of your scrotum/testicle area was normal. Your ultrasound of your liver was normal. US Scrotum with Doppler Comparison: None provided Findings: Right testicle normal echotexture, 4.2 x 1.7 x 2.8 cm. Left testicle normal echotexture, 4.2 x 1.9 x 2.6 cm. Normal color flow and arterial/venous spectral tracing of both testicles. Right epididymal head cyst measuring 5 mm. No hydroceles or varicoceles. IMPRESSION: Normal scrotal ultrasound. No evidence of torsion. This document has been electronically signed by: Norberto Kay MD on 03/27/2025 18:04:43 US abdomen limited Comparison: None provided Findings: The visualized pancreas is normal. The liver is normal in size and demonstrates diffusely heterogeneous echotexture. There is no intrahepatic bile duct dilatation. The common duct is 3 mm in diameter. The gallbladder is normal. There is no sonographic Ayala sign. The main portal vein is antegrade. The right kidney is 10.3 cm in length. No ascites. IMPRESSION: Heterogeneous hepatic echotexture, which is nonspecific. Otherwise negative examination. This document has been electronically signed by: Norberto Kay MD on 03/27/2025 18:05:41 Prescriptions: New doxycycline hyclate 100 mg tablet 100 mg PO Q12H 10 Days Qty: 20 0RF No Action ondansetron 4 mg tablet,disintegrating 4 mg PO Q8H PRN (Reason: nausea and vomiting) Qty: 14 0RF omeprazole 20 mg capsule,delayed release(DR/EC) 20 mg PO DAILY 30 Days Qty: 30 0RF cyclobenzaprine 10 mg tablet 10 mg PO TID PRN (Reason: muscle spasm) Qty: 14 0RF lidocaine 4 % adhesive patch,medicated 1 patch topical DAILY PRN (Reason: pain) Qty: 10 0RF Rx Instructions: may leave on for up to 12 hrs nystatin 100,000 unit/mL suspension 5 ml PO QID divalproex 500 mg tablet,delayed release (DR/EC) 1 tab PO BID acetaminophen 500 mg tablet 1 - 2 tab PO Q6-8H PRN (Reason: Pain) famotidine [Acid Investor Relations Manager (famotidine)] 20 mg tablet 1 tab PO BEDTIME amitriptyline 10 mg tablet 1 - 2 tab PO BEDTIME diclofenac potassium 50 mg tablet 1 tab PO BID duloxetine 20 mg capsule,delayed release(DR/EC) 1 cap PO DAILY cholecalciferol (vitamin D3) 25 mcg (1,000 unit) tablet 1 tab PO DAILY buprenorphine-naloxone [Suboxone] 8-2 mg film 1 strip sublingual BID omeprazole 40 mg capsule,delayed release(DR/EC) 40 mg PO DAILY Qty: 60 2RF budesonide-formoterol [Symbicort] 160-4.5 mcg/actuation HFA aerosol inhaler 2 puff PO BID Qty: 10.2 6RF albuterol sulfate 90 mcg/actuation HFA aerosol inhaler 2 puff PO Q4-6H PRN (Reason: for wheezing) Qty: 8.5 6RF Interventions: ED Discharge Assessment Last Done: 03/27/25 19:26 Discharge Date/Time: 03/27/25 19:27 Print Language: Ecuadorean
--- NOTE | 2025-03-27 16:26 | MHC.EDTECH ---
attempted to draw labs pt states only left ac and when i check it an arterial I attempted to explain but he states he need testosterone to make his blood flow. He seem tense and installation and repair technician pick him up for ultrasound. Rn will be notified
[2025-03-27 16:37] LABS: Appearance Urine Clear; Glucose Urine UA Negative (Negative); PH 8.0 (5.0-9.0); Specific Gravity - Urine 1.010 (1.005-1.025)
[2025-03-27] MEDS: cefTRIAXone sodium 500 MG, Lidocaine HCl 1 % MPF 1 ML IM (19:21)
[2025-03-27 19:26] VITALS: BP 135/77; PULSE 84; RESP 16; TEMP 36.8; O2SAT 95
[2025-03-28 06:05] LABS: CT PCR Urine NOT DETECTED (Not Detect.); NG PCR Urine NOT DETECTED (Not Detect.)
== END 2025-03-27 19:27 | disposition home or self-care (01) ==
PROVIDERS: Nurse Practitioner Family; Physician Assistant; Emergency Provider Emergency Medicine Emergency Medical Services; PCP Internal Medicine
DX: N34.2 Other urethritis (principal); R30.0 Dysuria; R10.2 Pelvic and perineal pain; Z79.899 Other long term (current) drug therapy
CPT/HCPCS: 36415; 76705; 76870; 81003; 87491; 87591; 93975; 96372; 99282; 99284; J0696; J2003

== ENCOUNTER → 2025-03-27 15:19 | Outpatient (BNV) | payer MEDICAID, SELFPAY | PROVIDERS: Emergency Provider Emergency Medicine Emergency Medical Services; PCP Internal Medicine; Visit Provider Radiology Diagnostic Radiology | DX: N50.819 Testicular pain, unspecified (principal); R10.11 Right upper quadrant pain | CPT/HCPCS: 76705; 93975 ==

== ENCOUNTER 2025-04-26 15:54 | Emergency (ER) | payer MEDICAID, SELFPAY ==
--- NOTE | 2025-04-26 | ECG_ITS ---
Test Reason : CP Blood Pressure : */* mmHG Vent. Rate : 72 BPM Atrial Rate : 72 BPM P-R Int : 148 ms QRS Dur : 78 ms QT Int : 378 ms P-R-T Axes : 76 13 62 degrees QTcB Int : 413 ms Normal sinus rhythm Possible Left atrial enlargement Borderline ECG When compared with ECG of 19-Nov-2018 14:59, No significant change was found Referred By: Generic ED Physician Electronically Signed By: LUIS WHITE
--- NOTE | ~2025-04-26 | XR_ITS ---
CLINICAL HISTORY: chest pain 1 view chest x-ray Comparison: None provided Findings: Lungs are clear without acute infiltrates. No pneumothorax. Heart size normal. No acute bony abnormalities. Impression: No acute processes This document has been electronically signed by: Javier Juarez MD on 04/26/2025 19:05:16
[2025-04-26 16:16] VITALS: BP 137/95; PULSE 74; RESP 16; TEMP 37.3; O2SAT 97; BMI 18.9
--- NOTE | 2025-04-26 16:43 | ED.CHESTPAIN ---
HPI - Chest Pain General Chief Complaint: Chest Pain Stated Complaint: Chest pain Time Seen by Provider: 04/26/25 21:01 Source: patient Mode of arrival: ambulatory Limitations: no limitations History of Present Illness ED Provider: Dr. Ana Bentley HPI narrative: 54-year-old male with a history of epilepsy, hypertension presenting with diffuse chest pain ongoing for the last 3 days. Describes a pressure across his entire chest that has been off and on for the last 3 days, worsening this morning. It is not associated with any particular activity or food intake. Denies associated symptoms including fever, cough or cold-type symptoms, abdominal pain, nausea, vomiting, sputum production. No leg swelling, family history of early onset heart disease or sudden cardiac . Had a recent UTI and was treated with doxycycline and admits that he finish this course. This was about 2 weeks ago. Related Data Home Medications ?Medication ?Instructions ?Recorded ?Confirmed acetaminophen 500 mg tablet 1 - 2 tab PO Q6-8H PRN Pain 10/19/20 10/19/20 amitriptyline 10 mg tablet 1 - 2 tab PO BEDTIME 10/19/20 10/19/20 buprenorphine 8 mg-naloxone 2 mg 1 strip sublingual BID 10/19/20 10/19/20 sublingual film (Suboxone) cholecalciferol (vitamin D3) 25 1 tab PO DAILY 10/19/20 10/19/20 mcg (1,000 unit) tablet diclofenac potassium 50 mg tablet 1 tab PO BID 10/19/20 10/19/20 divalproex 500 mg tablet,delayed 1 tab PO BID 10/19/20 10/19/20 release duloxetine 20 mg capsule,delayed 1 cap PO DAILY 10/19/20 10/19/20 release famotidine 20 mg tablet (Acid 1 tab PO BEDTIME 10/19/20 10/19/20 Assessment Rn (famotidine)) nystatin 100,000 unit/mL oral 5 ml PO QID 10/19/20 10/19/20 suspension Previous Rx's ?Medication ?Instructions ?Recorded cyclobenzaprine 10 mg tablet 10 mg PO TID PRN muscle spasm #14 06/28/20 tabs lidocaine 4 % topical patch 1 patch topical DAILY PRN pain #10 06/28/20 ea ondansetron 4 mg disintegrating 4 mg PO Q8H PRN nausea and 08/10/20 tablet vomiting #14 tabs omeprazole 20 mg capsule,delayed 20 mg PO DAILY 30 days #30 caps 09/25/20 release omeprazole 40 mg capsule,delayed 40 mg PO DAILY #60 caps 11/06/20 release albuterol sulfate 90 mcg/actuation 2 puff PO Q4-6H PRN for wheezing 02/02/25 aerosol inhaler #8.5 grams budesonide-formoterol HFA 160 2 puff PO BID #10.2 grams 02/02/25 mcg-4.5 mcg/actuation aerosol inhaler (Symbicort) doxycycline hyclate 100 mg tablet 100 mg PO Q12H 10 days #20 tabs 03/27/25 aluminum-mag hydroxide-simethicone 10 ml PO QID PRN chest pressure 7 04/26/25 200 mg-200 mg-20 mg/5 mL oral susp days #3,000 mL (Antacid) Allergies Allergy/AdvReac Type Severity Reaction Status Date / Time No Known Allergies (No Known Allergy Verified 04/26/25 16:20 Allergies*) Review of Systems Review of Systems: As per HPI, full review of systems performed and negative but for the above mentioned pertinent positives and negatives. [facility] Past Medical History Medical History Productive cough Ambulates with cane History of pineal cyst Back pain History of anemia GERD (gastroesophageal reflux disease) Hx of cirrhosis Hx of hepatitis C Seizure disorder History of head injury History of TB (tuberculosis) HTN (hypertension) Substance abuse Surgical History History of esophagogastroduodenoscopy (EGD) Hx of colonoscopy History of cervical discectomy History of bilateral total hip arthroplasty Family History Family History Father Cancer Social History Social History Household Members: Other Are you a primary healthcare economics consultant to a significant other at home: No Do you presently have visiting nurse or other home services: No Alcohol intake: current Alcohol intake frequency: does not drink Substance Use Type: Marijuana Physical Exam Exam: Exam: GENERAL: Well-Appearing, conversant, no acute distress. SKIN: Normal skin color for ethnicity, warm, dry, no rashes noted. HEENT: Normocephalic, atraumatic, no stridor, posterior oropharynx nonerythematous, dentition intact, EOMI. NECK: Soft, supple, full ROM, midline structures nontender, no step-offs, no deformities, no lymphadenopathy. CHEST: Heart regular rate and rhythm, no murmurs, symmetric chest rise and fall, no chest wall tenderness to palpation, no crepitus. PULMONARY: Clear to auscultation bilaterally, no labored breathing, no wheezes/rhales/rhonchi. ABDOMINAL: Soft, nondistended, nontender, positive bowel sounds in all quadrants. : Deferred. MUSCULOSKELETAL: Normal tone, full range of motion, no deformities, no peripheral edema. NEURO: Alert and oriented x3, CN II through XII intact, equal strength and sensation bilateral upper and lower extremities, no focal neurologic deficits. PSYCHIATRIC: Normal affect, fluid speech, good eye contact and appropriate demeanor. Vital Signs: Vital Signs: Last Vital Signs Temp 98.1 F 04/26/25 21:18 Pulse 60 04/26/25 21:18 Resp 17 04/26/25 21:18 BP 127/80 04/26/25 21:18 Pulse Ox 99 04/26/25 21:18 O2 Del Method Room Air 04/26/25 21:18 BMI result Body Mass Index 18.9 Medical Decision Making Medical Decision Making MDM Narrative: Patient presents today with a chief complaint of chest pain. Differential diagnosis includes, but is not limited to, acute coronary syndrome, musculoskeletal pain, pneumothorax, GERD, pleurisy, pulmonary embolism, dissection, among others. I will order EKG, chest x-ray, the laboratory workup including cardiac enzymes to further evaluate for etiology. Workup today has been reassuring. No evidence of infectious process, ACS or pulmonary pathology. Patient is totally pain-free on my exam. Admits that his pain went away spontaneously at some point while he was waiting in the emergency department. He has not taken anything for pain at home. Potential 3rd chest wall pain versus dyspepsia. Provided with Maalox prescription for home encouraged Motrin for other pains. Using shared decision making, plan for discharge home to follow-up with primary care and/or specialist. Patient understands and agrees with plan for discharge. Discharged home in stable condition. Differential Diagnosis Differential Diagnoses: The differential diagnosis associated with the presentation includes (As above) Admission/Observation Consideration of admission/observation: Escalation of care including admission/observation considered Lab Data MDM Lab Attestation statement: I reviewed the patient's lab results. 04/26/25 19:11 04/26/25 19:11 Labs: Lab Results 04/26/25 04/26/25 04/26/25 Range/Units 19:10 19:11 19:33 WBC 7.1 (4.8-10.8) X10*3/uL RBC 4.63 (4.60-5.80) X10*6/uL Hgb 13.1 L (14.0-18.0) g/dl Hct 39.2 L (42.0-52.0) % MCV 84.7 (80.0-98.0) fL MCH 28.3 (27.0-33.0) pg MCHC 33.4 (31.0-36.0) g/dl RDW 13.5 (11.0-16.0) % Plt Count 156 L (160-400) X10*3/uL MPV 9.5 (9.4-12.4) fL Immature Gran % (Auto) 0.3 (0.0-0.4) % Neut % (Auto) 57.4 (45-73) % Lymph % (Auto) 32.6 (20-40) % [place] % (Auto) 7.9 (2-11) % Eos % (Auto) 1.0 (0-4) % Baso % (Auto) 0.8 (0-2) % Lymph # (Auto) 2.3 (1.2-4.9) X10*3/uL [place] # (Auto) 0.6 (0.1-1.2) X10*3/uL Eos # (Auto) 0.1 (0.0-0.4) X10*3/uL Baso # (Auto) 0.1 (0.0-0.2) X10*3/uL Abs Immat Gran (auto) 0.02 (0.00-0.03) X10*3/uL Absolute Neuts (auto) 4.1 (2.0-8.3) x10*3/uL Absolute Nucleated RBC 0.000 (0.0-0.012) X10*3/uL Nucleated RBC % (auto) 0.0 (0.0-0.2) /100WBC PT 10.6 L (10.9-12.4) SEC INR 0.9 (0.9-1.1) APTT 29.8 (26.7-34.1) SEC Sodium 142 (135-145) mmol/L Potassium 3.9 (3.3-5.1) mmol/L Chloride 103 (96-108) mmol/L Carbon Dioxide 26 (22-29) mmol/L Anion Gap 17 (12-20) BUN 13 (9-16) mg/dL Creatinine 0.92 (0.5-1.4) mg/dL Estim Creat Clear Calc 78.6 Estimated GFR > 60 Random Glucose 112 (60-115) mg/dL Calcium 10.0 (8.4-10.2) mg/dL Total Bilirubin 0.5 (0.0-1.0) mg/dL AST 38 H (5-37) U/L ALT 17 (0-40) U/L Alkaline Phosphatase 86 (39-117) U/L Troponin I High Sens < 2.7 (<3.5-35.0) ng/L B-Natriuretic Peptide < 10 (<100) pg/mL Total Protein 8.8 H (6.5-8.0) g/dL Albumin 5.5 H (3.5-5.0) g/dL Urine Color Yellow Urine Appearance Cloudy Urine pH 8.0 (5.0-9.0) Ur Specific [place] 1.015 (1.005-1.025) Urine Protein Negative (Neg-Trace) mg/dL Urine Glucose (UA) Negative (Negative) mg/dL Urine Ketones Negative (Negative) mg/dL Urine Blood Negative (Negative) Urine Nitrite Negative (Negative) Ur Leukocyte Esterase Negative (Negative) Urine RBC 0-2 (0-2) /HPF Urine WBC 0-5 (0-5) /HPF Ur Squamous Epith Cells 0-2 (0-2) /HPF Urine Bacteria None Seen (None Seen) Hyaline Casts 0-2 (0-2) /LPF Independent Interpretation I performed an independent interpretation of an: EKG and Plain X-Ray Interpretation: My independent interpretation of the ECG reveals normal sinus rhythm with rate of 72, normal axis, normal intervals, no ST elevations or depressions to suggest ischemic changes, relatively unchanged from previous on 11/19/2018. My independent interpretation of the chest x-ray reveals no consolidations, pulmonary edema, pleural effusion, pneumothorax, obvious bony abnormalities. Radiology Impression Discussion of test interpretation with radiology: I have reviewed the radiologist's reading. Prescription Management I considered prescription management with: Pain Medication Chronic Conditions Patient?s care impacted by: Hypertension Scores Heart Score History: -0- slightly suspicious ECG: -0- normal Age: -1- >45 - <65 Risk factory: -1- 1 or 2 risk factors Troponin: -0- < or = normal limit Score: 2 Risk: 1.7% Discharge Plan Discharge Clinical Impression: Atypical chest pain Patient Disposition: Home, Self-Care Instructions: Chest Pain (ED) Additional Instructions: DIAGNOSIS & TREATMENT: You were seen in the Emergency Department for your chest discomfort. We performed an EKG, laboratory work and chest xray which did not reveal any acute abnormalities that would explain your symptoms. FURTHER CARE: We have not found any emergent physical exam or lab abnormalities that would require admission to the hospital today. Many people who come to the ER with chest discomfort do not leave with a specific diagnosis at the end of their visit. In the Emergency Department we try to make sure that there is no emergent problem that needs admission to the hospital or antibiotics right now. This does not mean that your evaluation is complete--please be sure to follow up with your regular doctor as additional testing as an outpatient may be indicated. Please be certain to drink plenty of fluids over the next several days. WHEN YOU SHOULD BE SEEN NEXT: Please follow-up with your primary care provider within the next 2-3 days for reevaluation of your symptoms. WHEN TO RETURN TO THE ED: Monitor your symptoms closely and return to the emergency department immediately for any new/worsening symptoms including: Worsening chest pain, difficulty breathing, fevers greater than 100 degrees, passing out, any new symptom that concerns you. Call 911 with any medical emergency. Prescriptions: New alum-mag hydroxide-simeth [Antacid] 200-200-20 mg/5 mL suspension 10 ml PO QID PRN (Reason: chest pressure) 7 Days Qty: 3000 0RF Rx Instructions: administer between meals and at bedtime No Action ondansetron 4 mg tablet,disintegrating 4 mg PO Q8H PRN (Reason: nausea and vomiting) Qty: 14 0RF omeprazole 20 mg capsule,delayed release(DR/EC) 20 mg PO DAILY 30 Days Qty: 30 0RF cyclobenzaprine 10 mg tablet 10 mg PO TID PRN (Reason: muscle spasm) Qty: 14 0RF lidocaine 4 % adhesive patch,medicated 1 patch topical DAILY PRN (Reason: pain) Qty: 10 0RF Rx Instructions: may leave on for up to 12 hrs nystatin 100,000 unit/mL suspension 5 ml PO QID divalproex 500 mg tablet,delayed release (DR/EC) 1 tab PO BID acetaminophen 500 mg tablet 1 - 2 tab PO Q6-8H PRN (Reason: Pain) famotidine [Acid Assessment Rn (famotidine)] 20 mg tablet 1 tab PO BEDTIME amitriptyline 10 mg tablet 1 - 2 tab PO BEDTIME diclofenac potassium 50 mg tablet 1 tab PO BID duloxetine 20 mg capsule,delayed release(DR/EC) 1 cap PO DAILY cholecalciferol (vitamin D3) 25 mcg (1,000 unit) tablet 1 tab PO DAILY buprenorphine-naloxone [Suboxone] 8-2 mg film 1 strip sublingual BID doxycycline hyclate 100 mg tablet 100 mg PO Q12H 10 Days Qty: 20 0RF omeprazole 40 mg capsule,delayed release(DR/EC) 40 mg PO DAILY Qty: 60 2RF budesonide-formoterol [Symbicort] 160-4.5 mcg/actuation HFA aerosol inhaler 2 puff PO BID Qty: 10.2 6RF albuterol sulfate 90 mcg/actuation HFA aerosol inhaler 2 puff PO Q4-6H PRN (Reason: for wheezing) Qty: 8.5 6RF Interventions: ED Discharge Assessment Last Done: 04/26/25 21:18 Discharge Date/Time: 04/26/25 21:25 Print Language: Czech
[2025-04-26 17:43] VITALS: BP 133/88; PULSE 62; RESP 10; TEMP 36.8; O2SAT 99
--- OUTSIDE RECORDS SUMMARY | 2025-04-26 17:55 | XMS_ITS | Encounter Summary ---
Author Organization [employer] [facility] Address [address] [place] [address] Care Team Providers Care Freelance Designer Name Role Phone Bharath Welch MD Primary Care Provider Adam Cesar RN Unavailable [phone] Karina Jones Unavailable Reason for Visit * Reason Comments Med Refill Encounter Details Date Type Department Care Team (Late st Contact Info) Description 01/08/2024 Refill [facility] [address] [place] [phone] Batsheva Gates MD [address] [place] [phone] Uncomplicated opioid dependence (CMS/HCC) Social History Tobacco Use Types Packs/Day Years Used Date Smoking Tobacco: Former Cigarettes Sex and Gender Information Value Date Recorded Sex Assigned at Male 07/01/2022 10:21 AM EDT Legal Sex Male 10:21 AM EDT Gender Identity Male 07/01/2022 10:21 AM EDT Sexual Orientation Straight 07/01/2022 10 :21 AM EDT documented as of this encounter Plan of Treatment Upcoming Encounters Date Type Department Care Team (Late st Contact Info) Description 06/02/2025 1:30 PM EDT Office Visit [facility] [address] [place] [phone] Batsheva Gates MD [address] [place] [phone] documented as of this encounter Visit Diagnoses Diagnosis Uncomplicated opioid dependence (CMS/HCC) documented in this encounter Care Teams Freelance Designer Relationship Specialty Start Date End Date Bharath Welch MD [address] [place] [address] PCP - General Internal Medicine 01/21/14 Adam Cesar RN [address] [place] [address] Registered Nurse Family Medicine 03/28/25 Karina Jones 03/28/25 documented as of this encounter
--- OUTSIDE RECORDS SUMMARY | 2025-04-26 17:55 | XMS_ITS | Encounter Summary ---
Author Organization [employer] Address [address] [place] [address] Care Team Providers Care Manager Orange Name Role Phone Bharath Welch MD Primary Care Provider Adam Cesar RN Unavailable [phone] Karina Jones Unavailable Reason for Visit * Reason Comments Med Refill Encounter Details Date Type Department Care Team (Late st Contact Info) Description 06/11/2024 Refill [facility] [address] [place] [address] Batsheva Gates MD [address] [place] [address] Uncomplicated opioid dependence (CMS/HCC) Social History Tobacco [...] Description 06/02/2025 1:30 PM EDT Office Visit [facility] [address] [place] [address] Batsheva Gates MD [address] [place] [address] documented as of this encounter Visit Diagnoses Diagnosis Uncomplicated opioid dependence (CMS/HCC) documented in this encounter Additional Health Concerns Assessment Noted Time PHQ-9 Depression Total Score: 6 04/01/20 24 9:31 AM EDT documented as of this encounter Care Teams Manager Orange Relationship Specialty Start Date End Date Bharath Welch MD [address] [place] [address] PCP - General Internal Medicine 01/21/14 Adam Cesar RN [address] [place], [place] [phone] Registered Nurse Family Medicine 03/28/25 Karina Jones 03/28/25 documented as of this encounter
--- OUTSIDE RECORDS SUMMARY | 2025-04-26 17:55 | XMS_ITS | Clinical Summary ---
Author Organization [employer] Address [address] [facility] 7[address] [place] [address] Care Team Providers Care Welding Equipment Repairer Name Role Phone Bharath Welch MD Primary Care Provider Adam Cesar RN Unavailable [phone] Karina Jones Unavailable Allergies No known active allergies Medications cholecalcifero l (Vitamin D-3) 25 MCG (1000 UT) capsule 09/26/19 22 Active lidocaine (Lidoderm) 5 % patchIndicatio ns:Lumbago with sciatica, right side APPLY 1 PATCH TOPICALLY TO SKIN, LEAVE ON FOR 12 HOURS AND OFF FOR 12 HOURS DIRECTED 30 patch 5 05/24/20 24 Active amitriptyline (Elavil) 10 MG tablet TAKE 1 TO 2 TABLETS BY MOUTH AT BEDTIME 60 tablet 11 06/15/20 24 Active cholecalcifero l (Vitamin D-3) 25 MCG tabletIndicati ons:Vitamin D deficiency TAKE 1 TABLET BY MOUTH EVERY DAY 90 tablet 08/13/20 24 Active Multiple Vitamin (multivitamin) tabletIndicati ons:Unintentio nal weight loss Take 1 tablet by mouth Once per day. 30 tablet 11 12/01/19 25 Active Symbicort 160-4.5 MCG/ACT inhaler Inhale 2 puffs in the morning and at bedtime. Rinse mouth with water after use to reduce aftertaste and incidence of candidiasis. Do not swallow. 1 each 3 03/14/20 25 Active divalproex (Depakote) 500 MG EC tablet TAKE 1 TABLET BY MOUTH TWICE DAILY 180 tablet 03/25/20 25 Active Suboxone 8-2 MG SL filmIndication s:Uncomplicate d opioid dependence (CMS/HCC) Place 2 Film under the tongue Once per day. 56 Film 1 03/28/20 25 025 Active mirtazapine (Remeron) 7.5 MG tabletIndicati ons:Unintentio nal weight loss,Recurrent major depressive disorder, in partial remission (CMS/HCC) Take 1 tablet (7.5 mg) by mouth at bedtime. 30 tablet 11 04/06/20 25 Active DULoxetine (Cymbalta) [address] capsuleIndicat ions:Chronic pain syndrome TAKE 2 CAPSULES BY MOUTH EVERY DAY 60 capsule 5 04/18/20 25 Active DULoxetine (Cymbalta) [address] capsule 03/05/20 22 025 Discontinued DULoxetine (Cymbalta) [address] capsuleIndicat ions:Chronic pain syndrome TAKE 2 CAPSULES BY MOUTH EVERY DAY 60 capsule 5 09/15/19 25 025 Discontinued Suboxone 8-2 MG SL filmIndication s:Uncomplicate d opioid dependence (CMS/HCC) Place 2 Film under the tongue Once per day. 56 Film 1 02/02/20 25 025 Discontinued(Re order (will not trigger notification to Pharmacy)) mirtazapine (Remeron) 7.5 MG tabletIndicati ons:Unintentio nal weight loss TAKE 1 TABLET BY MOUTH EVERY DAY AT BEDTIME 30 tablet 03/18/20 025 Discontinued(Re order (will not trigger notification to Pharmacy)) doxycycline (Vibramycin) 100 MG capsuleIndicat ions:Urethriti s Take 1 capsule (100 mg) by mouth 2 times daily for 10 days. 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 Polysubstance abuse 11/06/2012 Smoker 11/06/2012 Encounters Date Type Department Care Team Description 04/26/2025 Telephone [facility] [address] [place] [address] Bharath Welch MD Medication Question 04/20/2025 Orders Only [facility] [address] [place] [address] Bharath Welch MD Screening for colon cancer (Primary Dx) 04/19/2025 Patient Outreach [address] [address] Bharath Welch MD 04/19/2025 Patient Outreach [address] [address] Bharath Welch MD Care Coordination ([facility] f/u) 04/19/2025 Patient Outreach [address] [address] Bharath Welch MD 04/17/[address] [address] Bharath Welch MD Chronic pain syndrome 04/07/2025 9:30 AM EDT Clinical Support [address] [address] Rosita Calderon RN Uncomplicated opioid dependence ([facility]/HCC) 04/07/2025 Travel 04/06/2025 10:45 AM EDT Office Visit [facility] [address] [place] [address] Bharath Welch MD Recurrent major depressive disorder, in partial remission ([facility]) (Primary Dx); Unintentional weight loss; Annual physical exam; Urethritis 04/06/2025 Travel 04/05/2025 Telephone [facility] [address] [place] [address] Bharath Welch MD Chart Prep 04/04/2025 Plan of Care Documentation [address] [address] 04/04/2025 Patient Outreach [address] [address] Bharath Welch MD Care Management (C3- initial assessment/ enrollment) 04/04/2025 Patient Outreach [address] [address] Bharath Welch MD Care Coordination (SDOH) 04/01/2025 Patient Outreach [address] [address] Bharath Welch MD Care Coordination (CM/CHW appt reminder) 03/30/2025 Patient Outreach [address] [address] Bharath Welch MD Pre-visit Planning (SDOH screening negative and Tobacco screening negative) 03/28/2025 Patient Outreach [address] [address] Bharath Welch MD Care Coordination (CM/CHW outreach) 03/28/2025 Patient Outreach [address] [address] Bharath Welch MD Care Coordination (CHW chart review) 03/28/2025 Patient Outreach [address] [address] Bharath Welch MD Care Management ([facility]- chart review) 03/28/[address] [address] Batsheva Gates MD Uncomplicated opioid dependence (CMS/[facility]) 03/28/2025 Patient Outreach [address] [address] Bharath Welch MD 03/27/2025 Orders Only [facility] External Provider, [facility] 03/25/2025 Refill [facility] [address] [place] [address] Carter Cooney MD 03/18/2025 Refill [facility] [address] [place], [place] [id number] Bharath Welch MD Unintentional weight loss 03/14/2025 Refill [facility] [address] [place] [address] Bharath Welch MD 02/10/2025 11:00 AM EDT Clinical Support [address] [address] Fredo Solis, RN Encounter for immunization; Uncomplicated opioid dependence (CMS/HCC) 02/10/2025 Travel 02/08/2025 Patient Outreach [address] [address] Nadir Sims Recovery Supports 02/03/[address] [address] Bharath Welch MD Appointment Request 01/31/[address] [address] Batsheva Gates MD Uncomplicated opioid dependence ([facility]/HCC) from Last 3 Months Immunizations Immunization Administration Dates Next Due Hep A, Adult 02/10/2025 Hep B, adult 11/06/2012,07/02/2011,05/31/2011 Influenza Injectable Quadriv alant Preservative Free IIV4 MDCK 06/21/2020 Influenza injectable quadriv alent IIV4 with preservative 05/16/2016,05/18/2015 Influenza injectable quadriv alent preservative free 10/27/2018 Influenza, IIV3, injectable 06/01/2014 Influenza, Split (incl. quynh fied surface antigen) 05/25/2013 Moderna Covid-19 Vaccine 6+ Bivalent 10/17/2022 Pneumococcal Conjugate PCV 20 04/01/2024 Tdap 04/01/2024,05/31/2011 Social History Tobacco Use Types Packs/Day Years Used Date Smoking Tobacco: Former Cigarettes Smokeless Tobacco: Never Tobacco Cessation:Counseling Given: Not Answered Depression Answer Date Recorded Patient Health Questionnaire-9 Score 11 04/06/2025 Patient Health Questionnaire-9 Score 11 04/06/2025 Last PHQ-9: Questionnaire Data Not on file 0 04/06/2025 Housing Stability Answer Date Recorded What is your housing situation today? I have etienne patton 03/30/[address] you li ve. Do you have problems with any of the following? None of the above 03/30/2025 Food Insecurity Answer Date Recorded Within the past 12 months, y ou worried that your food would run out before you got money to buy more: Never True 03/30/2025 Within the past 12 months,th e food you bought just didn't last and you didn't have enough money to get more: Never True Transportation Answer Date Recorded In the past 12 months, has l ack of transportation kept you from medical appts, meetings, work or from getting things needed for daily living? No 03/30/2025 Utilities Answer Date Recorded In the past 12 months, has t he electric, gas, oil or water company threatened to shut off services in your home? No 03/30/2025 Depression Answer Date Recorded Patient Health Questionnaire-2 Score 2 04/06/2025 Internet Access Answer Date Recorded Internet Access Q1 Yes 03/30/2025 Internet Access Q2 Not on file 03/30/2025 Sex and Gender Information Value Date Recorded Sex Assigned at Male 07/01/2022 10:21 AM EDT Legal Sex Male 10:21 AM EDT Gender Identity Male 07/01/2022 10:21 AM EDT Sexual Orientation Straight 07/01/2022 10 :21 AM EDT Last Filed Vital Signs Vital Sign Reading Time Taken Comments Blood Pressure 141/74 04/06/2025 10:51 AM EDT Pulse 73 04/06/2025 10:51 AM EDT Temperature 36.8 C (98.2 F) 04/06/2025 10:51 AM EDT Respiratory Rate 20 04/06/2025 10:51 AM EDT Oxygen Saturation 97% 04/06/2025 10:51 AM EDT Inhaled Oxygen Concentration - - Weight 59 kg (130 lb) 04/06/2025 10:51 AM EDT Height 177.8 cm (5' 10 ) 04/06/2025 10:51 AM EDT Body Mass Index 18.65 04/06/2025 10:51 AM EDT Plan of Treatment Upcoming Encounters Date Type Department Care Team (Late st Contact Info) Description 06/02/2025 1:30 PM EDT Office Visit [facility] [address] [place] [address] Batsheva Gates MD [address] [place] [address] Health Maintenance Due Date Last Done Comments CT Colonography 1971 Dental Prophylaxis 1971 FIT DNA/Cologuard 1971 FIT 1971 FOBT 1970 Sigmoidoscopy 1970 Disability Screening 1971 Dental X-Ray: Bitewings 05/21/2012 05/20/2011 Dental Oral Exam 12/19/2020 06/19/2020, 06/19/2020 Zoster Vaccines (1 of 2) 2021 Dental X-Ray: Full Mouth 06/20/2023 06/19/2020, 05/02 COVID-19 Vaccine ( season) 2024 10/17/2022, 08/01/2021, 01/09/2021, Additional history exists Colonoscopy 03/23/2025 03/23/2020 Colorectal Cancer Screening 03/23/2025 Influenza Vaccine (#1) 2025 , 10/27/2018, 05/16/2016, Additional history exists Hepatitis A Vaccines (2 of 2 - Risk 2-dose series) 08/12/2025 02/10/2025 Depression Monitoring 10/07/2025 04/06/2025, 025 Alcohol/Substance Use Screening 04/06/2026 04/06/2025 SDOH Screening 04/06/2026 04/06/2025 Tobacco Screening 04/06/2026 04/06/2025 Lipid Panel 02/22/2027 02/22/2022 DTaP/Tdap/Td Vaccines (3 - Td or Tdap) 04/01/2034 04/01/2024, 05/31/2011 RSV Patients and Patients Aged 60 years or older (1 - 1-dose 75+ series) 2046 Hepatitis B Vaccines Completed 11/06/2012, 07/02/2011, 05/31/2011 HIV Screening Completed 02/04/2024 Pneumococcal Vaccine: 50+ Years Completed 04/01/2024 HIB Vaccines Aged Out No longer eligi ble based on patient's age to complete this topic HPV Vaccines Aged Out No longer eligi ble based on patient's age to complete this topic IPV Vaccines Aged Out No longer eligi ble based on patient's age to complete this topic Meningococcal B Vaccine Aged Out No l onger eligible based on patient's age to complete this topic Meningococcal Vaccine Aged Out No stephen juno eligible based on patient's age to complete this topic RSV under 20 months Aged Out No longe r eligible based on patient's age to complete this topic Rotavirus Vaccines Aged Out No longer eligible based on patient's age to complete this topic Goals Goal Patient Goal Type Associated Problems Recent Progress Patient-Stated? Author Improve quality of life by maintaining ongoing abstinence from all mood-altering substances General No Fredo Solis, customer service manager Procedure Name Priority Date/Time Associated Diagnosis Comments US ABDOMEN LIMITED Routine 03/27/2025 6: 05 PM EDT US SCROTUM Routine 03/27/2025 6:04 PM EDT US SCROTUM DOPPLER Routine 03/27/2025 6: 04 PM EDT POCT DILCIA-14 URINE DRUG SCREEN Routine 02/10/2025 10:58 AM EDT Uncomplicated opioid dependence (CMS/HCC) HIV 1/2 ANTIGEN/ANTIBODY, FOURTH GENERATION W/RFL Routine 02/04/2024 9:13 AM EDT Unintentional weight loss LIPID PANEL, STANDARD Routine 02/22/2022 11:05 AM EDT PANORAMIC RADIOGRAPHIC IMAGE Routine 06/19/2020 12:00 AM EDT COMPREHENSIVE ORAL EVALUATION - NEW OR ESTABLISHED PATIENT Routine 06/19/2020 12:00 AM EDT HM COLONOSCOPY Routine 03/23/2020 INTRAORAL - COMPLETE SERIES OF RADIOGRAPHIC IMAGES Routine 05/20/2011 12:00 AM EDT from Last 3 Months or Most Recently Relevant to Health Maintenance Results * US Abdomen Limited (03/27/2025 6:05 PM EDT) Anatomical Region Laterality Modality Abdomen Ultrasound 03/27/2025 6:05 PM EDT Narrative 03/27/2025 6:07 PM EDT [address] [address] Ultrasound Report Signed Patient: Fer Burrell MR#: Gabriel [id number] : 1970 Acct:[id number] Age/Sex: 54 / M ADM Date: 03/27/25 Loc: HO.ED Attending Dr: Ordering Physician: Eleuterio Castro Date of Service: 03/27/25 Procedure(s): US abdomen limited Accession Number(s): [id number] cc: Eleuterio Castro; Bharath Welch MD CLINICAL HISTORY: RUQ pain. hepatomegaly? cholecysitits? US abdomen limited Comparison: None provided Findings: The visualized pancreas is normal. The liver is normal in size and demonstrates diffusely heterogeneous echotexture. There is no intrahepatic bile duct dilatation. The common duct is 3 mm in diameter. The gallbladder is normal. There is no sonographic Ayala sign. The main portal vein is antegrade. The right kidney is 10.3 cm in length. No ascites. IMPRESSION: Heterogeneous hepatic echotexture, which is nonspecific. Otherwise negative examination. This document has been electronically signed by: Norberto Kay MD on 03/27/2025 18:05:41 Dictated By: Norberto Kay MD Signed By: <Electronically signed by Norberto Kay MD in OV> 03/27/251805 DD/ 04 TD/TT: 03/27/251804 Senior Mechanical Technician: Procedure Note Donotuseinterpreter, Image - 03/27/[address] [address] Ultrasound Report Signed Patient: Fer BurrellMR#: Gabriel [id number] : 1970Acct:[id number] Age/Sex: 54 / MADM Date: 03/27/25 Loc: HO.ED Attending Dr: Ordering Physician: Eleuterio Castro Date of Service: 03/27/25 Procedure(s): US abdomen limited Accession Number(s): [id number] cc: Eleuterio Castro; Bharath Welch MD CLINICAL HISTORY: RUQ pain. hepatomegaly? cholecysitits? US abdomen limited Comparison: None provided Findings: The visualized pancreas is normal. The liver is normal in size and demonstrates diffusely heterogeneous echotexture. There is no intrahepatic bile duct dilatation. The common duct is 3 mm in diameter. The gallbladder is normal. There is no sonographic Ayala sign. The main portal vein is antegrade. The right kidney is 10.3 cm in length. No ascites. IMPRESSION: Heterogeneous hepatic echotexture, which is nonspecific. Otherwise negative examination. This document has been electronically signed by: Norberto Kay MD on 03/27/2025 18:05:41 Dictated By: Norberto Kay MD Signed By: <Electronically signed by Norberto Kay MD in OV> 03/27/251805 DD/ 04 TD/TT: 03/27/251804 Senior Mechanical Technician: us [facility] External Provider IMG US PROCEDURES Edited Result - Final * US SCROTUM DOPPLER (03/27/2025 6:04 PM EDT) Anatomical Region Laterality Modality Abdomen Ultrasound 03/27/2025 6:04 PM EDT Narrative 03/27/2025 6:05 PM EDT [place] [address] Ultrasound Report Signed Patient: Fer Burrell MR#: M [id number] : 1970 Acct:[id number] Age/Sex: 54 / M ADM Date: 03/27/25 Loc: HO.ED Attending Dr: Ordering Physician: Eleuterio Castro Date of Service: 03/27/25 Procedure(s): US scrotum doppler Accession Number(s): [id number] cc: Eleuterio Castro; Bharath Welch MD CLINICAL HISTORY: Testicular pain US Scrotum with Doppler Comparison: None provided Findings: Right testicle normal echotexture, 4.2 x 1.7 x 2.8 cm. Left testicle normal echotexture, 4.2 x 1.9 x 2.6 cm. Normal color flow and arterial/venous spectral tracing of both testicles. Right epididymal head cyst measuring 5 mm. No hydroceles or varicoceles. IMPRESSION: Normal scrotal ultrasound. No evidence of torsion. This document has been electronically signed by: Norberto Kay MD on 03/27/2025 18:04:43 Dictated By: Norberto Kay MD Signed By: <Electronically signed by Norberto Kay MD in OV> 03/27/251804 DD/ 03 TD/TT: 03/27/251803 Senior Mechanical Technician: Procedure Note Donotuseinterpreter, Image - 03/27/2025 [place] [address] Ultrasound Report Signed Patient: Fer BurrellMR#: M [id number] : 1970Acct:[id number] Age/Sex: 54 / MADM Date: 03/27/25 Loc: HO.ED Attending Dr: Ordering Physician: Eleuterio Castro Date of Service: 03/27/25 Procedure(s): US scrotum doppler Accession Number(s): [id number] cc: Eleuterio Castro; Bharath Welch MD CLINICAL HISTORY: Testicular pain US Scrotum with Doppler Comparison: None provided Findings: Right testicle normal echotexture, 4.2 x 1.7 x 2.8 cm. Left testicle normal echotexture, 4.2 x 1.9 x 2.6 cm. Normal color flow and arterial/venous spectral tracing of both testicles. Right epididymal head cyst measuring 5 mm. No hydroceles or varicoceles. IMPRESSION: Normal scrotal ultrasound. No evidence of torsion. This document has been electronically signed by: Norberto Kay MD on 03/27/2025 18:04:43 Dictated By: Norberto Kay MD Signed By: <Electronically signed by Norberto Kay MD in OV> 03/27/251804 DD/ 03 TD/TT: 03/27/251803 Senior Mechanical Technician: us [facility] External Provider IMG US PROCEDURES Edited Result - Final * US Scrotum (03/27/2025 6:04 PM EDT) Anatomical Region Laterality Modality Body Ultrasound 03/27/2025 6:04 PM EDT Narrative 04/01/2025 11:40 AM EDT [address] [address] Ultrasound Report Signed Patient: Fer Burrell MR#: M [id number] : 1970 Acct:[id number] Age/Sex: 54 / M ADM Date: 03/27/25 Loc: .ED Attending Dr: Ordering Physician: Eleuterio Castro Date of Service: 03/27/25 Procedure(s): US scrotum Accession Number(s): [id number] cc: Eleuterio Castro; Bharath Welch MD CLINICAL HISTORY: Testicular pain US Scrotum with Doppler Comparison: None provided Findings: Right testicle normal echotexture, 4.2 x 1.7 x 2.8 cm. Left testicle normal echotexture, 4.2 x 1.9 x 2.6 cm. Normal color flow and arterial/venous spectral tracing of both testicles. Right epididymal head cyst measuring 5 mm. No hydroceles or varicoceles. IMPRESSION: Normal scrotal ultrasound. No evidence of torsion. This document has been electronically signed by: Norberto Kay MD on 03/27/2025 18:04:43 Dictated By: Norberto Kay MD Signed By: <Electronically signed by Norberto Kay MD in OV> 04/01/25 1140 DD/ 1804 TD/TT: 03/27/25 180 Senior Mechanical Technician: Procedure Note Donallegrainterpreter, Image - 04/01/[address] [address] Ultrasound Report Signed Patient: Fer BurrellMR#: M [id number] : 1970Acct:[id number] Age/Sex: 54 / MADM Date: 03/27/25 Loc: HO.ED Attending Dr: Ordering Physician: Eleuterio Castro Date of Service: 03/27/25 Procedure(s): US scrotum Accession Number(s): [id number] cc: Eleuterio Castro; Bharath Welch MD CLINICAL HISTORY: Testicular pain US Scrotum with Doppler Comparison: None provided Findings: Right testicle normal echotexture, 4.2 x 1.7 x 2.8 cm. Left testicle normal echotexture, 4.2 x 1.9 x 2.6 cm. Normal color flow and arterial/venous spectral tracing of both testicles. Right epididymal head cyst measuring 5 mm. No hydroceles or varicoceles. IMPRESSION: Normal scrotal ultrasound. No evidence of torsion. This document has been electronically signed by: Norberto Kay MD on 03/27/2025 18:04:43 Dictated By: Norberto Kay MD Signed By: <Electronically signed by Norberto Kay MD in OV> 04/01/25 1140 DD/ 180 TD/TT: 03/27/251803 Senior Mechanical Technician: [facility] External Provider IMG US PROCEDURES Final Result * POCT DILCIA-14 Urine Drug Screen (02/10/2025 10:58 AM EDT) THC Positive Cocaine Screen, Urine Negative Opiate Screen, Urine Negative Methamphetamine Screen Urine Negative Amphetamine Screen, Urine Negative Benzodiazepines Screen, Urine Negative Barbiturate Screen, Urine Negative Methadone Screen, Urine Negative Buprenophine Screen, Urine Positive TCA, Urine Negative MDMA Urine Negative ng/mL Oxycodone Screen, Urine Negative Phencyclidine (PCP), Urine Negative Fentanyl, Urine Negative Urine Urine specimen obtained by clean catch procedure / Unknown 02/10/2025 10:58 AM EDT Batsheva Gates MD POINT OF CARE TEST ENTER/GERALDO T ORDERABLES Final Result * HIV-1/2 Antigen and Antibodies, Fourth Generation, with Reflexes (02/04/2024 9:13 AM EDT) HIV AB/AG Nonreactive Nonreactive [facility] Comment:HIV-1 p24 Ag and/or HIV-1/HIV-2 Ab not detected.A test result that is nonreactive does not exclude thepossibility of exposure to or infection with HIV-1 and/orHIV-2. Nonreactive results in this assay for individualswith prior exposure to HIV-1 and/or HIV-2 may be due toantigen and antibody levels that are below the limit ofdetection of this assay.The [employer] HIV Ag/Ab Combo assay result andsupplemental assay results should be interpreted inconjunction with the patient's clinical presentation,history and other laboratory results. If the results areinconsistent with clinical evidence, additional testing issuggested to confirm the result. Blood Venous blood specimen / Unknown 02/04/2024 9:13 AM EDT 02/04/2024 11:41 AM EDT us Isa Chawla MD LAB BLOOD ORDERABLES Final Re sult [facility] [address] [place] [phone] * LIPID PANEL, STANDARD (02/22/2022 11:05 AM EDT) Pathologist [facility] Chol/HDLC Ratio 2.6 <5.0 (calc) [facility] Cholesterol, Total 181 <200 mg/dL [facility] HDL Cholesterol 70 > OR = 40 mg/dL [facility] LDL Cholesterol 94 mg/dL (calc) [facility] Comment: Reference range: <100 Desirable range <100 mg/dL for primary prevention; <70 mg/dL for patients with CHD or diabetic patients with > or = 2 CHD risk factors. LDL-C is now calculated using the Sherman-Lucia calculation, which is a validated novel method providing better accuracy than the Friedewald equation in the estimation of LDL-C. Sherman CALDERON et al. MICHELE. 2013;310(19): 2261-2725 (http://education.[employer]omix/faq/AKI680) Non-HDL Cholesterol 111 <130 mg/dL (calc) [facility] Comment: For patients with diabetes plus 1 major ASCVD risk factor, treating to a non-HDL-C goal of <100 mg/dL (LDL-C of <70 mg/dL) is considered a therapeutic option. Triglycerides 77 <150 mg/dL [facility] 02/22/2022 11:0 5 AM EDT Bharath Welch MD LAB BLOOD ORDERABLES Final Result [facility] [address] [place] [address], * Colonoscopy (03/23/2020) Colonoscopy Normal Normal Narrative Mitali Trujillo - 03/23/2020 Recommended follow up in 5 years Historical Provider HEALTH MAINTENANCE Edited Result - Final from Last 3 Months or Most Recently Relevant to Health Maintenance Insurance [facility] STAND ADULT Care Teams Welding Equipment Repairer Relationship Specialty Start Date End Date Bharath Welch MD [address] [place] [address] PCP - General Internal Medicine 01/21/14 Adam Cesar, SARAHI [address] [place] [address] Registered Nurse Family Medicine 03/28/25 Karina Jones 03/28/25
--- OUTSIDE RECORDS SUMMARY | 2025-04-26 17:55 | XMS_ITS ---
Author Organization [employer] Address [address] [facility] [address] [place] [address] Care Team Providers Care Reception Specialist Name Role Phone Bharath Welch MD Primary Care Provider [phone] Adam Cesar RN Unavailable [phone] Karina Jones Unavailable [facility] Status:Enrolled (Active) Start date:03/28/2025 Enrollment date:04/04/2025 Enrollment reason:ADT Feed Overview [facility] 03/27/25. Please outreach for enrollment. Case Team Name Relationship Phone Karina Jones(Responsible Staff) [phone] Continued Care and Services Coordination
--- OUTSIDE RECORDS SUMMARY | 2025-04-26 17:55 | XMS_ITS | Encounter Summary ---
Author Organization [employer] Address [address] [facility] [address] 7t [place] [address] Care Team Providers Care Bellhop Name Role Phone Bharath Welch MD Primary Care Provider [phone] Adam Cesar RN Unavailable [phone] Karina Jones Unavailable Encounter Details Date Type Department Care Team ([facility] Contact Info) Description 01/10/2023 Orders Only [facility] CHC MED & PEDS [address] [place], [place] [phone] Shonda Espinoza LPN Social History Tobacco Use Types Packs/Day Years Used Date Smoking Tobacco: Never Assessed Sex and Gender Information Value Date Recorded Sex Assigned at Male 07/01/2022 10:21 AM EDT Legal Sex Male 10:21 AM EDT Gender Identity Male 07/01/2022 10:21 AM EDT Sexual Orientation Straight 07/01/2022 10 :21 AM EDT COVID-19 Exposure Response Date Recorded In the last 10 days, have yo u been in contact with someone who was confirmed or suspected to have Coronavirus/COVID-19? No / Unsure 12/19/2022 10:16 AM EDT documented as of this encounter Plan of Treatment Upcoming Encounters Date Type Department Care Team ([facility] Contact Info) Description 06/02/2025 1:30 PM EDT Office Visit [facility] MEDICINE [address] [place] [address] Batsheva Gates MD [address] [place] [address] documented as of this encounter Visit Diagnoses Not on filedocumented in this encounter Care Teams Bellhop Relationship Specialty Start Date End Date Bharath Welch MD [address] [place] [address] PCP - General Internal Medicine 01/21/14 Adam Cesar RN [address] [place] [address] Registered Nurse Family Medicine 03/28/25 Karina Jones 03/28/25 documented as of this encounter
--- OUTSIDE RECORDS SUMMARY | 2025-04-26 17:55 | XMS_ITS | Encounter Summary ---
Author Organization [employer] Address [address] [facility] 7t [place] [address] Care Team Providers Care Non Clinical Advisor Name Role Phone Bharath Welch MD Primary Care Provider Adam Cesar RN Unavailable [phone] Karina Jones Unavailable Reason for Visit * Reason Onset Date Comments Medication Question 04/26/2025 Encounter Details Date Type Department Care Team ([facility] st Contact Info) Description 04/26/2025 Telephone [facility] CHC MED & PEDS [address] [place], [place] [phone] Bharath Welch MD [address] [place], [place] [phone] Medication Question Social History Tobacco Use Types Packs/Day Years [...] AM EDT documented as of this encounter Miscellaneous Notes * Telephone Encounter - Teetee Multani RN - 04/26/2025 2:25 PM EDT TC to patient. He stated he is currently having chest pain and had taken this medication before andit had helped him. Patient stated it is a chest pressure more than a pain. Confirms it runs down his left arm. Confirmed it has been fluctuating in intensity for 3 days. RN instructed patient to godirectly to ER to be evaluated. Patient stated understanding and stated he was heading [place] [facility] [place]. RN called [facility] to give expect x 2. NO answer. * Telephone Encounter - Daisha Rivera - 04/26/2025 9:00 AM EDT Tc from pt requesting a script for amlodipine 5 mg tablet. Pt stated he was prescribed this medication in the past. Denied symptoms Contact pt at [phone] (liberian) documented in this encounter Plan of Treatment Upcoming Encounters Date Type Department Care Team (Late st Contact Info) Description 06/02/2025 1:30 PM EDT Office Visit [facility] MEDICINE [address] [place] [address] Batsheva Gates MD [address] [place] [address] documented as of this encounter Goals Goal Patient Goal Type Associated Problems Recent Progress Patient-Stated? Author Improve quality of life by maintaining ongoing abstinence from all mood-altering substances General Fredo Gaitan, RN documented as of this encounter Visit Diagnoses Not on filedocumented in this encounter Additional Health Concerns Assessment Noted Time PHQ-9 Depression Total Score: 11 025 11:37 AM EDT documented as of this encounter Care Teams Non Clinical Advisor Relationship Specialty Start Date End Date Bharath Welch MD [address] [place] [address] PCP - General Internal Medicine 01/21/14 Adam Cesar, SARAHI [address] [place] [address] Registered Nurse Family Medicine 03/28/25 Karina Jones 03/28/25 documented as of this encounter
--- OUTSIDE RECORDS SUMMARY | 2025-04-26 17:55 | XMS_ITS ---
Author Organization [email or web address] [facility] Address 75 [facility] 7t [place] [address] Care Team Providers Care Machine Operator Transplanter Name Role Phone Bharath Welch MD Primary Care Provider [phone] Adam Cesar RN Unavailable [phone] Karina Jones Unavailable CM Complex Status:Enrolled (Active) Start date:03/28/2025 Enrollment date:04/04/2025 Enrollment reason:ADT Feed Overview [facility] ED 03/27/25 Case Team Name Relationship Phone Adam Cesar RN(Responsible Staff) Registered Nurse [phone] Continued Care and Services Coordination
--- OUTSIDE RECORDS SUMMARY | 2025-04-26 17:55 | XMS_ITS | Encounter Summary ---
Author Organization [employer] Address [address] [facility] 7t [place] [address] Care Team Providers Care Pyrotechnic Assembler Name Role Phone Bharath Welch MD Primary Care Provider Adam Cesar RN Unavailable [phone] Karina Jones Unavailable Encounter Details Date Type Department Care Team (Late st Contact Info) Description 04/19/2025 Patient Outreach [facility] MEDICINE [address] [place] [address] Bharath Welch MD [address] [place], [place] [phone] Social History Tobacco Use Types Packs/Day Years [...] Description 06/02/2025 1:30 PM EDT Office Visit [facility] MEDICINE [address] [place], [place] [phone] Batsheva Gates MD [address] [place] [address] documented as of this encounter Goals Goal Patient Goal Type Associated Problems Recent Progress Patient-Stated? Author Improve quality of life by maintaining ongoing abstinence from all mood-altering substances General No Fredo Solis, RN documented as of this encounter Visit Diagnoses Not on filedocumented in this encounter Additional Health Concerns Assessment Noted Time PHQ-9 Depression Total Score: 11 025 11:37 AM EDT documented as of this encounter Care Teams Pyrotechnic Assembler Relationship Specialty Start Date End Date Bharath Welch MD [address] [place] [address] PCP - General Internal Medicine 01/21/14 Adam Cesar RN [address] [place] [address] Registered Nurse Family Medicine 03/28/25 Karina Jones 03/28/25 documented as of this encounter
--- OUTSIDE RECORDS SUMMARY | 2025-04-26 17:55 | XMS_ITS | Encounter Summary ---
Author Organization [employer] [facility] Address [address] [facility] 7t [place] [address] Care Team Providers Care Drier Helper Name Role Phone Bharath Welch MD Primary Care Provider [phone] Adam Cesar RN Unavailable [phone] Karina Jones Unavailable Encounter Details Date Type Department Care Team (Late st Contact Info) Description 07/02/2023 Abstract [facility] MEDICINE [address] [place] [phone] Mitali Trujillo Social History Tobacco Use Types Packs/Day Years [...] Description 06/02/2025 1:30 PM EDT Office Visit [facility] MEDICINE [address] [place] [address] Batsheva Gates MD [address] [place] [address] documented as of this encounter Procedures Procedure Name Priority Date/Time Associated Diagnosis Comments COLONOSCOPY Routine 03/23/2020 documented in this encounter Results * Colonoscopy (03/23/2020) Colonoscopy Normal Normal Narrative Mitali Trujillo - 03/23/2020 Recommended follow up in 5 years us Historical Provider HEALTH MAINTENANCE Edited Result - Final documented in this encounter Visit Diagnoses Not on filedocumented in this encounter Care Teams Drier Helper Relationship Specialty Start Date End Date Bharath Welch MD [address] [place] [address] PCP - General Internal Medicine 01/21/14 Adam Cesar RN [address] [place] [address] Registered Nurse Family Medicine 03/28/25 Karina Jones 03/28/25 documented as of this encounter
--- OUTSIDE RECORDS SUMMARY | 2025-04-26 17:55 | XMS_ITS | Encounter Summary ---
Author Organization [employer] Address [address] [facility] 7t [place] [address] Care Team Providers Care Laborer Cheesemaking Name Role Phone Bharath Welch MD Primary Care Provider Adam Cesar RN Unavailable [phone] Karina Jones Unavailable Encounter Details Date Type Department Care Team (Late Contact Info) Description 07/22/2024 Orders Only [facility] CHC MED & PEDS [address] [place], [place] [phone] Bharath Welch MD [address] [place], [place] [phone] Unintentional weight loss (Primary Dx) Social History Tobacco Use Types Packs/Day Years [...] Encounters Date Type Department Care Team (Late Contact Info) Description 06/02/2025 1:30 PM EDT Office Visit [facility] MEDICINE [address] [place] [address] Batsheva Gates MD [address] [place] [address] Scheduled Orders Name Type Priority Associated Diagnoses Orde r Schedule Testosterone, Free (Dialysis) And Total, MS Lab Routine Unintentional weight loss Expected: 07/22/2024 (Approximate), Expires: 07/22/2025 TSH W/Reflex to FT4 Lab Routine Unintentional weight loss Expected: 07/22/2024 (Approximate), Expires: 07/22/2025 Comprehensive Metabolic Panel Lab Routine Unintentional weight loss Expected: 07/22/2024 (Approximate), Expires: 07/22/2025 documented as of this encounter Visit Diagnoses Diagnosis Unintentional weight loss- Primary Loss of weight documented in this encounter Additional Health Concerns Assessment Noted Time PHQ-9 Depression Total Score: 6 04/01/20 24 9:31 AM EDT documented as of this encounter Care Teams Laborer Cheesemaking Relationship Specialty Start Date End Date Bharath Welch MD [address] [place] [address] PCP - General Internal Medicine 01/21/14 Adam Cesar, SARAHI [address] [place] [address] Registered Nurse Family Medicine 03/28/25 Karina Jones 03/28/25 documented as of this encounter
--- OUTSIDE RECORDS SUMMARY | 2025-04-26 17:55 | XMS_ITS | Encounter Summary ---
Author Organization [employer] Address 75 [facility] 7t [place] [address] Care Team Providers Care Delta System Freight Car Cleaner Name Role Phone Bharath Welch MD Primary Care Provider Adam eCsar RN Unavailable [phone] Karina Jones Unavailable Reason for Referral * Consultation (Routine) - Authorized Specialty Diagnoses / Procedures Referred By Nina lopez Referred To Contact Gastroenterology Diagnoses Screening for colon cancer Bharath Welch MD [address] [place] [address] Phone: tel: fax: [facility] Gastroenterology [address] [facility] 3rd Floor [address] [place], [place] Phone: tel: fax: Referral ID Status Reason Start Date Expiration Date Visits Requested Visits Authorized [id number] Authorized Specialty Services Required 04/20/2025 04/20/2026 1 1 Encounter Details Date Type Department Care Team (Late st Contact Info) Description 04/20/2025 Orders Only [facility] CHC MED & PEDS [address] [place] [address] Bharath Welch MD [address] [place], [place] [phone] Screening for colon cancer (Primary Dx) Social History Tobacco Use Types [...] Description 06/02/2025 1:30 PM EDT Office Visit [facility] MEDICINE [address] [place] [address] Batsheva Gates MD [address] [place] [address] Scheduled Orders Name Type Priority Associated Diagnoses Orde r Schedule Cologuard colon cancer screening Lab Routine Screening for colon cancer Expected: 04/20/2025 (Approximate), Expires: 04/20/2026 Scheduled Referrals Name Type Priority Associated Diagnoses Order Schedule Referral to Gastroenterology Outpatient Referral Routine Screening for colon cancer Expected: 04/20/2025 (Approximate), Expires: 04/20/2026 documented as of this encounter Goals Goal Patient Goal Type Associated Problems Recent Progress Patient-Stated? Author Improve quality of life by maintaining ongoing abstinence from all mood-altering substances General Fredo Gaitan, RN documented as of this encounter Visit Diagnoses Diagnosis Screening for colon cancer- Primary Special screening for malignant neoplasms, colon documented in this encounter Additional Health Concerns Assessment Noted Time PHQ-9 Depression Total Score: 11 025 11:37 AM EDT documented as of this encounter Care Teams Delta System Freight Car Cleaner Relationship Specialty Start Date End Date Bharath Welch MD [address] [place] [address] PCP - General Internal Medicine 01/21/14 Adam Cesar, SARAHI [address] [place] [address] Registered Nurse Family Medicine 03/28/25 Karina Jones 03/28/25 documented as of this encounter
--- OUTSIDE RECORDS SUMMARY | 2025-04-26 17:55 | XMS_ITS | Encounter Summary ---
Author Organization [employer] [facility] Address [address] [facility] 7t [place] [address] Care Team Providers Care Jewelry Salesperson Name Role Phone Bharath Welch MD Primary Care Provider Adam Cesar RN Unavailable [phone] Karina Jones Unavailable Reason for Visit * Reason Comments Med Refill Encounter Details Date Type Department Care Team (Late st Contact Info) Description 09/18/2023 Refill [facility] MEDICINE [address] [place] [address] Batsheva Gates MD [address] [place] [address] Uncomplicated opioid dependence (CMS/HCC) Social History Tobacco [...] Description 06/02/2025 1:30 PM EDT Office Visit [facility] MEDICINE [address] [place] [address] Batsheva Gates MD [address] [place] [address] documented as of this encounter Visit Diagnoses Diagnosis Uncomplicated opioid dependence (CMS/HCC) documented in this encounter Care Teams Jewelry Salesperson Relationship Specialty Start Date End Date Bharath Welch MD [address] [place] [address] PCP - General Internal Medicine 01/21/14 Adam Cesar RN [address] [place] [address] Registered Nurse Family Medicine 03/28/25 Karina Jones 03/28/25 documented as of this encounter
--- OUTSIDE RECORDS SUMMARY | 2025-04-26 17:55 | XMS_ITS | Encounter Summary ---
Author Organization [employer] Address 75 [facility] 7t [place] [address] Care Team Providers Care Geotechnical Engineer Name Role Phone Bharath Welch MD Primary Care Provider Adam Cesar RN Unavailable [phone] Karina Jones Unavailable Encounter Details Date Type Department Care Team (Late Contact Info) Description 11/30/2024 Orders Only [facility] CHC MED & PEDS [address] [place], [place] [phone] Bharath Welch MD [address] [place], [place] [phone] Unintentional weight loss (Primary Dx) Social History [...] 1:30 PM EDT Office Visit [facility] MEDICINE [address] [place] [address] Batsheva Gates MD [address] [place] [address] documented as of this encounter Visit Diagnoses Diagnosis Unintentional weight loss- Primary Loss of weight documented in this encounter Additional Health Concerns Assessment Noted Time PHQ-9 Depression Total Score: 6 04/01/20 24 9:31 AM EDT documented as of this encounter Care Teams Geotechnical Engineer Relationship Specialty Start Date End Date Bharath Welch MD [address] [place] [address] PCP - General Internal Medicine 01/21/14 Adam Cesar RN [address] [place] [address] Registered Nurse Family Medicine 03/28/25 Karina Jones 03/28/25 documented as of this encounter
[2025-04-26 19:16] LABS: MANUAL DIFF FLAG NO
[2025-04-26 19:19] LABS: Hematocrit 39.2 % (42.0-52.0); Hemoglobin 13.1 g/dl (14.0-18.0); Imm Gran Abs Auto 0.02 X10*3/uL (0.00-0.03); Imm Gran Pct Auto 0.3 % (0.0-0.4); Lymphocytes Absolute Auto 2.3 X10*3/uL (1.2-4.9); Mean Corpuscular HGB Conc 33.4 g/dl (31.0-36.0); Mean Corpuscular Hemoglobin 28.3 pg (27.0-33.0); Mean Corpuscular Volume 84.7 fL (80.0-98.0); NRBC Abs Auto 0.000 X10*3/uL (0.0-0.012); NRBC Pct Auto 0.0 /100WBC (0.0-0.2); Platelet Count 156 X10*3/uL (160-400); Red Blood Count 4.63 X10*6/uL (4.60-5.80); White Blood Count 7.1 X10*3/uL (4.8-10.8)
[2025-04-26 19:42] LABS: B Type Natriuretic Peptide < 10 pg/mL (<100)
[2025-04-26 19:42] LABS: Alanine Aminotransferase 17 U/L (0-40); Albumin Level 5.5 g/dL (3.5-5.0); Alkaline Phosphatase 86 U/L (39-117); Anion Gap 17 (12-20); Aspartate Amino Transferase 38 U/L (5-37); Blood Urea Nitrogen 13 mg/dL (9-16); Calcium 10.0 mg/dL (8.4-10.2); Carbon Dioxide 26 mmol/L (22-29); Chloride 103 mmol/L (96-108); Creatinine Clr Calc Pharmacy 78.6; Estimated Glomerular Filt Rate > 60; Potassium 3.9 mmol/L (3.3-5.1); Sodium 142 mmol/L (135-145); Total Protein 8.8 g/dL (6.5-8.0)
[2025-04-26 19:46] LABS: Troponin-I High Sensitivity < 2.7 ng/L (<3.5-35.0)
[2025-04-26 19:48] LABS: Appearance Urine Cloudy; Glucose Urine UA Negative (Negative); PH 8.0 (5.0-9.0); Specific Gravity - Urine 1.015 (1.005-1.025)
[2025-04-26 20:03] LABS: INTERNATIONAL NORM RATIO 0.9 (0.9-1.1); Prothrombin Time 10.6 SEC (10.9-12.4)
[2025-04-26 20:06] LABS: Partial Thromboplastin Time 29.8 SEC (26.7-34.1)
[2025-04-26 21:18] VITALS: BP 127/80; PULSE 60; RESP 17; TEMP 36.7; O2SAT 99
== END 2025-04-26 21:25 | disposition home or self-care (01) ==
PROVIDERS: Physician Assistant; Emergency Provider Emergency Medicine; PCP Internal Medicine
DX: R07.89 Other chest pain (principal); I10 Essential (primary) hypertension; G40.802 Other epilepsy, not intractable, without status epilepticus; Z79.899 Other long term (current) drug therapy
CPT/HCPCS: 36415; 71045; 80053; 81001; 83880; 84484; 85025; 85610; 85730; 93005; 99283; 99285

== ENCOUNTER → 2025-04-26 15:59 | Outpatient (BNV) | payer MEDICAID, SELFPAY | PROVIDERS: Emergency Provider Emergency Medicine; PCP Internal Medicine; Visit Provider Internal Medicine | DX: R07.89 Other chest pain (principal) | CPT/HCPCS: 93010 ==

== ENCOUNTER → 2025-04-26 18:03 | Outpatient (BNV) | payer MEDICAID, SELFPAY | PROVIDERS: PCP Internal Medicine; Visit Provider Radiology Diagnostic Radiology | DX: R07.9 Chest pain, unspecified (principal) | CPT/HCPCS: 71045 ==

== ENCOUNTER 2025-05-23 11:53 | Outpatient (REF) | payer MEDICAID, SELFPAY ==
--- OUTSIDE RECORDS SUMMARY | 2025-05-23 10:20 | XMS_ITS | Encounter Summary ---
Author Organization [employer] Address [address] [place] [address] Care Team Providers Care Water Pump Assembler Name Role Phone Bharath Welch MD Primary Care Provider Adam Cesar RN Unavailable [phone] Karina Jones Unavailable Reason for Visit * Reason Comments Diarrhea Encounter Details Date Type Department Care Team ([facility] st Contact Info) Description 05/23/2025 10:20 AM EDT Office Visit [facility] [address] [place] [address] Phani Gupta MD [address] [place] [address] Diarrhea in adult patient (Primary Dx); Elevated blood pressure reading in office without diagnosis of hypertension Social History Tobacco Use Types Packs/Day Years [...] AM EDT documented as of this encounter Last Filed Vital Signs Vital Sign Reading Time Taken Comments Blood Pressure 148/88 05/23/2025 10:41 AM EDT Pulse 98 05/23/2025 10:41 AM EDT Temperature 36.9 C (98.4 F) 05/23/2025 10:41 AM EDT Respiratory Rate 18 05/23/2025 10:41 AM EDT Oxygen Saturation 96% 05/23/2025 10:41 AM EDT Inhaled Oxygen Concentration - - Weight 59.4 kg (131 lb) 05/23/2025 10:41 AM EDT Height - - Body Mass Index 18.8 05/11/2025 11:19 AM EDT documented in this encounter Progress Notes * Phani Gupta MD - 05/23/2025 10:20 AM EDT Subjective Patient ID: Fer Howell is a 54 y.o. male. 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 + nausea without vomiting. No fever, cough, or recent abdominal pain. He then stated that symptoms started 1 week after starting triple therapy 05/11 (symptoms started about 5 days ago) for possible H. Pylori. [facility] office note stated that he declined to give stool specimen, but wanted to be treated because he states several years ago he had H. pylori which felt the same. Stopped treatment after 1 week due to above symptoms. [place] [facility] [place]- because of diarrhea and abdominal pain. Stool specimen for C. diff reported as neg and CT scan abdominal/pelvis reported as neg. Lives roommate. No known ill contacts. Not employed. Quit smoking. 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 Negative for fever. Respiratory: Negative for shortness of breath. Cardiovascular: Negative for chest pain. Gastrointestinal: Positive for diarrhea and nausea. Negative for abdominal pain and vomiting. Skin: Negative for rash. Neurological: Negative for headaches. Objective Physical Exam Constitutional: Appearance: Normal appearance. HENT: Nose: Nose normal. Mouth/Throat: Mouth: Mucous membranes are moist. Pharynx: Oropharynx is clear. Eyes: Conjunctiva/sclera: Conjunctivae normal. Pupils: Pupils are equal, round, and reactive to light. Cardiovascular: Rate and Rhythm: Normal rate and regular rhythm. Heart sounds: No murmur heard. Pulmonary: Effort: Pulmonary effort is normal. Breath sounds: Normal breath sounds. Abdominal: General: Abdomen is flat. Palpations: Abdomen is soft. Tenderness: There is abdominal tenderness (mild epigastric). There is no guarding or rebound. Musculoskeletal: General: Normal range of motion. Cervical back: No tenderness. Skin: Findings: No rash. Neurological: Mental Status: He is alert. Gait: Gait is intact. Psychiatric: Mood and Affect: Mood normal. Behavior: Behavior normal. Procedures Assessment/Plan Diagnoses and all orders for this visit: Diarrhea in adult patient Negative rapid Covid and Influenza tests. Discussed returning to the ED, but Fer declined. Discussed restarting Suboxone in case symptoms are related to withdrawal but Fer declined. He does not want to take any opiates at this time. Stool specimen labs ordered. Will call patient with results. Prescribed Imodium. Return to clinic if not improving - Influenza A (ID NOW Rapid Molecular) - Influenza B (ID NOW Rapid Molecular) - POCT Rapid COVID Ag - Gastrointestinal panel; Future - CDiff Gene PCR; Future - Helicobacter pylori Antigen, EIA, Stool; Future - Ova and Parasites, Concentrate and Permanent Smear; Future Elevated blood pressure reading in office without diagnosis of hypertension Has home BP monitor. Reviewed BP parameters, given written BP log that includes BP parameters, to keep daily. Call if BP readings are elevated. Other orders - loperamide (Imodium A-D) 2 MG tablet; Take 1-2 tablets (2-4 mg) by mouth if needed in the morning, at noon, in the evening, and at bedtime for diarrhea for up to 5 days. documented in this encounter Plan of Treatment Upcoming Encounters Date Type Department Care Team (Late st Contact Info) Description 05/26/2025 2:45 PM EDT Office Visit [facility] [address] [place] [address] Bharath Welch MD [address] [place] [address] 06/02/2025 1:30 PM EDT Office Visit [facility] [address] [place] [address] Batsheva Gates MD [address] [place] [address] Scheduled Orders Name Type Priority Associated Diagnoses Orde r Schedule Gastrointestinal panel Microbiology Routine Diarrhea in adult patient Expected: 05/23/2025 (Approximate), Expires: 05/23/2026 CDiff Gene PCR Lab Routine Diarrhea in adult patient Expected: 05/23/2025 (Approximate), Expires: 05/23/2026 Helicobacter pylori Antigen, EIA, Stool Lab Routine Diarrhea in adult patient Expected: 05/23/2025 (Approximate), Expires: 05/23/2026 Ova and Parasites, Concentrate and Permanent Smear Microbiology Routine Diarrhea in adult patient Expected: 05/23/2025 (Approximate), Expires: 05/23/2026 documented as of this encounter Goals Goal Patient Goal Type Associated Problems Recent Progress Patient-Stated? Author Improve quality of life by maintaining ongoing abstinence from all mood-altering substances General Fredo Gaitan RN documented as of this encounter Procedures Procedure Name Priority Date/Time Associated Diagnosis Comments POCT INFLUENZA B (ID NOW RAPID MOLECULAR) Routine 05/23/2025 10:50 AM EDT Diarrhea in adult patient POCT INFLUENZA A (ID NOW RAPID MOLECULAR) Routine 05/23/2025 10:50 AM EDT Diarrhea in adult patient POCT RAPID COVID ANTIGEN Routine 05/23/2025 10:48 AM EDT Diarrhea in adult patient documented in this encounter Results * Influenza B (ID NOW Rapid Molecular) (05/23/2025 10:50 AM EDT) Influenza B Negative Negative, Indeterminate [facility] Swab 05/23/2025 10:5 0 AM EDT us Phani Gupta MD POINT OF CARE TEST ENTER/EDIT OR DERABLES Final Result Performing Organization Address [facility]/ZIP Co de Phone Number [facility] [address] [place] [phone] * Influenza A (ID NOW Rapid Molecular) (05/23/2025 10:50 AM EDT) Influenza A Negative Negative, Indeterminate [facility] Swab 05/23/2025 10:5 0 AM EDT us Phani Gupta MD POINT OF CARE TEST ENTER/EDIT OR DERABLES Final Result Performing Organization Address [facility]/ZIP Co de Phone Number [facility] [address] [place] [phone] * POCT Rapid COVID Ag (05/23/2025 10:48 AM EDT) Rapid COVID Ag Negative Swab 05/23/2025 10:4 8 AM EDT Phani Gupta MD POINT OF CARE TEST ENTER/EDIT OR DERABLES Final Result documented in this encounter Visit Diagnoses Diagnosis Diarrhea in adult patient- Primary Elevated blood pressure reading in office without diagnosis of hypertension documented in this encounter Additional Health Concerns Assessment Noted Time PHQ-9 Depression Total Score: 11 025 11:37 AM EDT documented as of this encounter Care Teams Water Pump Assembler Relationship Specialty Start Date End Date Bharath Welch MD [address] [place] [address] PCP - General Internal Medicine 01/21/14 Adam Cesar RN [address] [place] [id number] Registered Nurse Family Medicine 03/28/25 Karina Jones 03/28/25 documented as of this encounter
--- OUTSIDE RECORDS SUMMARY | 2025-05-23 14:36 | XMS_ITS | Clinical Summary ---
Author Organization [employer] Address [address] [facility] [address] [place] [address] Care Team Providers Care Lighting Adviser Name Role Phone Bharath Welch MD Primary Care Provider [phone] Adam Cesar RN Unavailable [phone] Karina Jones Unavailable Allergies No known active allergies Medications cholecalciferol (Vitamin D-3) 25 MCG (1000 UT) capsule 09/26/19 22 Active amitriptyline (Elavil) 10 MG tablet TAKE 1 TO 2 TABLETS BY MOUTH AT BEDTIME 60 tablet 11 06/15/20 24 Active cholecalciferol (Vitamin D-3) 25 MCG tabletIndication s:Vitamin D deficiency TAKE 1 TABLET BY MOUTH EVERY DAY 90 tablet 08/13/20 24 Active Multiple Vitamin (multivitamin) tabletIndication s:Unintentional weight loss Take 1 tablet by mouth [...] 03/25/20 25 Active Suboxone 8-2 MG SL filmIndications: Uncomplicated opioid dependence (CMS/HCC) Place 2 Film under the tongue Once per day. 56 Film 1 03/28/20 25 Active mirtazapine (Remeron) 7.5 MG tabletIndication s:Unintentional weight loss,Recurrent major depressive disorder, in partial remission (CMS/HCC) Take 1 tablet (7.5 mg) by mouth at bedtime. 30 tablet 11 04/06/20 25 Active DULoxetine (Cymbalta) [address] capsuleIndicatio ns:Chronic pain syndrome TAKE 2 CAPSULES BY MOUTH EVERY DAY 60 capsule 5 04/18/20 25 Active omeprazole OTC (PriLOSEC OTC) 20 MG EC tabletIndication s:History of Helicobacter pylori infection Take 1 tablet (20 mg) by mouth before breakfast and before evening meal for 14 days. Do not crush, chew, or split. 28 tablet 05/11/20 25 025 Active metroNIDAZOLE (Flagyl) 500 MG tabletIndication s:History of Helicobacter pylori infection Take 1 tablet (500 mg) by mouth 4 times daily for 14 days. 56 tablet 05/11/20 25 025 Active tetracycline 500 MG capsuleIndicatio ns:History of Helicobacter pylori infection Take 1 capsule (500 mg) by mouth 4 times daily for 14 days. 56 capsule 05/11/20 25 025 Active Bismuth Subsalicylate 525 MG tabletIndication s:History of Helicobacter pylori infection Take 525 mg by mouth 4 times daily. 56 tablet 05/11/20 25 Active lidocaine (Lidoderm) 5 % patchIndications :Lumbago with sciatica, right side APPLY 1 PATCH TOPICALLY TO SKIN, LEAVE ON FOR 12 HOURS AND OFF FOR 12 HOURS DIRECTED 30 patch 5 05/23/20 25 Active loperamide (Imodium A-D) 2 MG tablet Take 1-2 tablets (2-4 mg) by mouth if needed in the morning, at noon, in the evening, and at bedtime for diarrhea for up to 5 days. 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 Polysubstance abuse 11/06/2012 Smoker 11/06/2012 Encounters Date Type Department Care Team Description 05/23/2025 10:20 AM EDT Office Visit [facility] [address] [place] [phone] Phani Gupta MD Diarrhea in adult patient (Primary Dx); Elevated blood pressure reading in office without diagnosis of hypertension 05/23/2025 Travel 05/21/2025 Refill [facility] [address] [place] [phone] Bharath Welch MD Lumbago with sciatica, right side 05/20/2025 Patient Outreach [address] [address] Bharath Welch MD 05/20/[address] [address] Batsheva Gates MD Hospital Follow-up 05/20/2025 Patient Outreach [facility] [address] [place] [address] Bharath Welch MD Transition Of Care (Tcm) (HDF unscheduled. ) 05/18/2025 Telephone [facility] [address] [place] [address] Bharath Welch MD Nurse Triage 05/18/2025 Results Follow-Up [address] [address] Angélica Villarreal, SARAHI Cologfide colon cancer screening 05/16/2025 Patient Outreach [address] [address] Bharath Welch MD 05/11/2025 2:45 PM EDT Office Visit [facility] [address] [place] [address] Surinder, Uyen, OD Myopia of both eyes (Primary Dx) 05/11/2025 11:15 AM EDT Office Visit [facility] [address] [place] [address] Bharath Welch MD Primary hypertension (Primary Dx); History of Helicobacter pylori infection; Nausea 05/11/2025 Patient Outreach [address] [address] Bharath Welch MD Care Coordination ([facility] f/u) 05/11/2025 Patient Outreach [address] [address] Bharath Welch MD Care Management (C3CM- f/u call) 05/11/2025 Travel 05/10/2025 Telephone [facility] [address] [place] [address] Bharath Welch MD CHART PREP 05/03/2025 Telephone [facility] [address] [place] [address] Bharath Welch MD Lab Orders 04/28/2025 Patient Outreach [address] [address] Bharath Welch MD Care Management (C3- f/u call) 04/28/2025 Telephone [facility] [address] [place] [address] Bharath Welch MD stool kit. 04/26/2025 Orders Only [facility] External Provider, [facility] 04/26/2025 Telephone [facility] [address] [place] [address] Bharath Welch MD Medication Question 04/20/2025 Orders Only [facility] [address] [place] [address] Bharath Welch MD Screening for colon cancer (Primary Dx) 04/19/2025 Patient Outreach [address] [address] Bharath Welch MD 04/19/2025 Patient Outreach [address] [address] Bharath Welch MD Care Coordination (SDOH f/u) 04/19/2025 Patient Outreach [address] [address] Bharath Welch MD 04/17/[address] [address] Bharath Welch MD Chronic pain syndrome 04/07/2025 9:30 AM EDT Clinical Support [address] [address] Rosita Calderon, SARAHI Uncomplicated opioid dependence ([facility]/HCC) 04/07/2025 Travel 04/06/2025 10:45 AM EDT Office Visit [facility] [address] [place] [address] Bharath Welch MD Recurrent major depressive disorder, in partial remission ([facility]) (Primary Dx); Unintentional weight loss; Annual physical exam; Urethritis 04/06/2025 Travel 04/05/2025 Telephone [facility] [address] [place] [address] Bharath Welch MD Chart Prep 04/04/2025 Plan of Care Documentation [address] [address] 04/04/2025 Patient Outreach [address] [address] Bharath Welch MD Care Management (C3CM- initial assessment/ enrollment) 04/04/2025 Patient Outreach [address] [address] Bharath Welch MD Care Coordination (SDOH) 04/01/2025 Patient Outreach [address] [address] Bharath Welch MD Care Coordination (CM/CHW appt reminder) 03/30/2025 Patient Outreach [address] [address] Bharath Welch MD Pre-visit Planning (SDOH screening negative and Tobacco screening negative) 03/28/2025 Patient Outreach [address] [address] Bharath Welch MD Care Coordination (CM/CHW outreach) 03/28/2025 Patient Outreach [address] [address] Bharath Welch MD Care Coordination (CHW chart review) 03/28/2025 Patient Outreach [address] [address] Bharath Welch MD Care Management (C3CM- chart review) 03/28/[address] [address] Batsheva Gates MD Uncomplicated opioid dependence ([facility]) 03/28/2025 Patient Outreach [address] [address] Bharath Welch MD 03/27/2025 Orders Only [facility] External Provider, [facility] 03/25/2025 Refill [facility] [address] [place] [address] Carter Cooney MD 03/18/2025 Refill [facility] [address] [place] [address] Bharath Welch MD Unintentional weight loss 03/14/2025 Refill [facility] [address] [place] [address] Bharath Welch MD from Last 3 Months Immunizations Immunization Administration [...] (131 lb) 05/23/2025 10:41 AM EDT Height 177.8 cm (5' 10 ) 05/11/2025 11:19 AM EDT Body Mass Index 18.8 05/11/2025 11:19 AM EDT Plan of Treatment Upcoming Encounters Date Type Department Care Team (Late st Contact Info) Description 05/26/2025 2:45 PM EDT Office Visit [facility] [address] [place], [place] [phone] Bharath Welch MD [address] [place], [place] [phone] 06/02/2025 1:30 PM EDT Office Visit [facility] [address] [place] [address] Batsheva Gates MD [address] [place] [address] Health Maintenance Due Date Last Done Comments CT Colonography 1970 Dental Prophylaxis 1970 FIT 1970 Sigmoidoscopy 1970 Disability Screening 1971 Dental X-Ray: Bitewings 05/21/2012 05/20/2011 Dental Oral Exam 12/19/2020 06/19/2020, 06/19/2020 Zoster Vaccines (1 of 2) 2021 Dental X-Ray: Full Mouth 06/20/2023 06/19/2020, 05/02 Colonoscopy 03/23/2025 03/23/2020 COVID-19 Vaccine ( season) 2025 10/17/2022, 08/01/2021, 01/09/2021, Additional history exists Influenza Vaccine (#1) 2025 , 10/27/2018, 05/16/2016, Additional history exists Colorectal Cancer Screening 05/13/2025 Hepatitis A Vaccines (2 of 2 - Risk 2-dose series) 08/12/2025 02/10/2025 Depression Monitoring 10/07/2025 04/06/2025, 025 Alcohol/Substance Use Screening 04/06/2026 04/06/2025 SDOH Screening 04/06/2026 04/06/2025 FOBT 05/12/2026 05/12/2025 Tobacco Screening 05/23/2026 05/23/2025 Lipid Panel 02/22/2027 02/22/2022 FIT DNA/Cologuard 05/12/2028 05/12/2025 DTaP/Tdap/Td Vaccines (3 - Td or Tdap) [...] all mood-altering substances General No Fredo Solis, forming operator Procedure Name Priority Date/Time Associated Diagnosis Comments POCT INFLUENZA B (ID NOW RAPID MOLECULAR) Routine 05/23/2025 10:50 AM EDT Diarrhea in adult patient POCT INFLUENZA A (ID NOW RAPID MOLECULAR) Routine 05/23/2025 10:50 AM EDT Diarrhea in adult patient POCT RAPID COVID ANTIGEN Routine 05/23/2025 10:48 AM EDT Diarrhea in adult patient LAB COLOGUARD COLON CANCER SCREEN Routine 05/12/2025 10:40 AM EDT Screening for colon cancer URINALYSIS, COMPLETE, WITH REFLEX TO CULTURE Routine 04/26/2025 7:33 PM EDT APTT Routine 04/26/2025 7:11 PM EDT PROTHROMBIN TIME-INR Routine 04/26/2025 7:11 PM EDT HIGH SENSITIVITY TROPONIN I Routine 04/26/2025 7:11 PM EDT COMPREHENSIVE METABOLIC PANEL Routine 04/26/2025 7:11 PM EDT CBC WITH AUTO DIFFERENTIAL Routine 04/26/2025 7:11 PM EDT B TYPE NATRIURETIC PEPTIDE (BNP) Routine 04/26/2025 7:10 PM EDT XR CHEST 1 VIEW Routine 04/26/2025 7:05 PM EDT US ABDOMEN LIMITED Routine 03/27/2025 6: 05 PM EDT US SCROTUM Routine 03/27/2025 6:04 PM EDT US SCROTUM DOPPLER Routine 03/27/2025 6: 04 PM EDT HIV 1/2 ANTIGEN/ANTIBODY, FOURTH GENERATION W/RFL Routine [...] Recently Relevant to Health Maintenance Results * Influenza B (ID NOW Rapid Molecular) (05/23/2025 10:50 AM EDT) [facility] Influenza B Negative Negative, Indeterminate [facility] Swab 05/23/2025 10:5 0 AM EDT us Phani Gupta MD POINT OF CARE TEST ENTER/EDIT OR DERABLES Final Result Performing Organization Address [facility]/ZIP Co de Phone Number [facility] [address] [place] [phone] * Influenza A (ID NOW Rapid Molecular) (05/23/2025 10:50 AM EDT) [facility] Influenza A Negative Negative, Indeterminate [facility] Swab 05/23/2025 10:5 0 AM EDT us Phani Gupta MD POINT OF CARE TEST ENTER/EDIT OR DERABLES Final Result Performing Organization Address [facility] Co de Phone Number [facility] [address] [place] [phone] * POCT Rapid COVID Ag (05/23/2025 10:48 AM EDT) [facility] Rapid COVID Ag Negative Swab 05/23/2025 10:4 8 AM EDT us Phani Gupta MD POINT OF CARE TEST ENTER/EDIT OR DERABLES Final Result * (ABNORMAL) Cologuard?? colon cancer screening (05/12/2025 10:40 AM EDT) [facility] Cologuard Result Positive( A) Negative 05/17/2025 12:44 PM EDT [facility] (CLIA #:[id number]) Comment: The Cologuard (TM) test was performed on this specimen. POSITIVE TEST RESULT. A positive Cologuard result should be followed with a colonoscopy or visual examination of the colon. The normal value (reference range) for this assay is negative. TEST DESCRIPTION: Composite algorithmic analysis of stool DNA-biomarkers with hemoglobin immunoassay. Quantitative values of individual biomarkers are not reportable and are not associated with individual biomarker result reference ranges. Cologuard is intended for colorectal cancer screening of adults of either sex, 45 years or older, who are at average-risk for colorectal cancer (CRC). Cologuard has been approved for use by the U.S. FDA. The performance of Cologuard was established in a cross sectional study of average-risk adults aged 50-84. Cologuard performance in patients ages 45 to 49 years was estimated by sub-group analysis of near-age groups. Colonoscopies performed for a positive result may find as the most clinically significant lesion: colorectal cancer [4.0%], advanced adenoma (including sessile serrated polyps greater than or equal to 1cm diameter) [20%] or non- advanced adenoma [31%]; or no colorectal neoplasia [45%]. These estimates are derived from a prospective cross-sectional screening study of 10,000 individuals at average risk for colorectal cancer who were screened with both Cologuard and colonoscopy. (Aric Dumont. et al, N Engl J Med 2014;370(14):3719-5737.) Cologuard may produce a false negative or false positive result (no colorectal cancer or precancerous polyp present at colonoscopy follow up). A negative Cologuard test result does not guarantee the absence of CRC or advanced adenoma (pre-cancer). The current Cologuard screening interval is every 3 years. ([place] [employer] and U.S. Multi-Society Task Force). Cologuard performance data in a 10,000 patient pivotal study using colonoscopy as the reference method can be accessed at the following location: [email or web address].[email or web address]/results. Additional description of the Cologuard test process, warnings and precautions can be found at [email or web address]. Stool specimen (specimen) 05/12/2025 10:40 AM EDT 05/13/2025 9:11 AM EDT us Bharath Welch MD LAB MOLECULAR DIAGNOSTICS O RDERABLES Final Result [facility] (CLIA #:[id number]) [address] [place] [address], * Urinalysis, Complete, with Reflex to Culture (04/26/2025 7:33 PM EDT) Color Urine Yellow [facility] Appearance Urine Cloudy [facility] PH 8.0 5.0 - 9.0 [facility] Glucose Urine UA Negative Negative mg/dL [facility] Urine Blood Negative Negative [facility] Specific [place] - Urine 1.015 1.005 - 1.025 [facility] Urine Protein Negative Neg-Trace mg/dL [facility] Urine Ketones Negative Negative mg/dL [facility] Nitrite Urine Negative Negative [facility] Leukocyte Esterase Urine Negative Negative [facility] RBC Urine 0-2 0 - 2 /HPF [facility] Urine WBC 0-5 0 - 5 /HPF [facility] Urine Squamous Epithelial Cell 0-2 0 - 2 /HPF [facility] Urine Bacteria None Seen None Seen [facility] Hyaline Casts, Urine 0-2 0 - 2 /LPF [facility] 04/26/2025 7:33 PM EDT 04/26/2025 7:43 PM EDT Narrative [facility] - 04/26/2025 7:56 PM EDT [id number], Clean [employer] us Generic External Data Provider LAB URINE ORDERAB LES Final Result [facility] [address] [place] [phone] * High Sensitivity Troponin I (04/26/2025 7:11 PM EDT) TROPONIN I HIGH SENSITIVITY <2.7 <3.5 - 35.0 ng/L [facility] Comment:The [place]son high sens itivity Troponin-I results should beused in conjunction with other diagnostic information suchas ECG, clinical observations and information, and patientsymptoms to aid in the diagnosis of [place]. 04/26/2025 7:11 PM EDT 04/26/2025 7:14 PM EDT us Generic External Data Provider LAB BLOOD ORDERAB LES Final Result [facility] [address] [place] [address] [phone] * (ABNORMAL) CBC auto differential (04/26/2025 7:11 PM EDT) White Blood Count 7.1 4.8 - 10.8 X10*3/uL [facility] Red Blood Count 4.63 4.60 - 5.80 X10*6/uL [facility] Hemoglobin 13.1(L) 14.0 - 18.0 g/dl [facility] Hematocrit 39.2(L) 42.0 - 52.0 % [facility] Mean Corpuscular Volume 84.7 80.0 - 98.0 fL [facility] Mean Corpuscular Hemoglobin 28.3 27.0 - 33.0 pg [facility] Mean Corpuscular HGB Conc 33.4 31.0 - 36.0 g/dl [facility] Red Cell Distribution Width 13.5 11.0 - 16.0 % [facility] Platelet Count 156(L) 160 - 400 X10*3/uL [facility] Mean Platelet Volume 9.5 9.4 - 12.4 fL [facility] Neutrophils Percent Auto 57.4 45 - 73 % [facility] Imm Gran Pct Auto 0.3 0.0 - 0.4 % [facility] Lymphocytes Percent Auto 32.6 20 - 40 % [facility] Monocytes Percent Auto 7.9 2 - 11 % [facility] Eosinophils Percent Auto 1.0 0 - 4 % [facility] Basophils Percent Auto 0.8 0 - 2 % [facility] NRBC Pct Auto 0.0 0.0 - 0.2 /100WBC [facility] Neutrophils Absolute Auto 4.1 2.0 - 8.3 x10*3/uL [facility] Imm Gran Abs Auto 0.02 0.00 - 0.03 X10*3/uL [facility] Lymphocytes Absolute Auto 2.3 1.2 - 4.9 X10*3/uL [facility] Monocytes Absolute Auto 0.6 0.1 - 1.2 X10*3/uL [facility] Eosinophils Absolute Auto 0.1 0.0 - 0.4 X10*3/uL [facility] Basophils Absolute Auto 0.1 0.0 - 0.2 X10*3/uL [facility] NRBC Abs Auto 0.000 0.0 - 0.012 X10*3/uL [facility] 04/26/2025 7:11 PM EDT 04/26/2025 7:14 PM EDT us Generic External Data Provider LAB BLOOD ORDERAB LES Final Result Performing Organization Address City/[facility]/ZIP Co de Phone Number [facility] [address] [place] [phone] * Partial Thromboplastin Time, Activated (APTT) (04/26/2025 7:11 PM EDT) Partial Thromboplastin Time 29.8 26.7 - 34.1 SEC [facility] 04/26/2025 7:11 PM EDT 04/26/2025 7:14 PM EDT Generic External Data Provider LAB BLOOD ORDERAB LES Final Result Performing Organization Address City/[facility] Co de Phone Number [facility] [address] [place] [phone] * (ABNORMAL) Prothrombin Time-INR (04/26/2025 7:11 PM EDT) Prothrombin Time 10.6(L) 10.9 - 12.4 SEC [facility] INTERNATIONAL NORM RATIO 0.9 0.9 - 1.1 [facility] Comment:INTERNATIONAL NORMAL IZED RATIO (INR) REFERENCE RANGES Reference RangeFor patients not on anticoagulant therapy: 0.9 - 1.1INR ranges for oral anticoagulanttherapy:For prevention and treatment of venous thrombosis and pulmonary embolism: 2.0 - 3.0For acute myocardial infarction with aspirin therapy: 2.0 - 3.0For acute myocardial infarction without aspirin therapy: 3.0 - 4.0For patients with mechanical prosthetic heart valves: 2.5 - 3.5 04/26/2025 7:11 PM EDT 04/26/2025 7:14 PM EDT us Generic External Data Provider LAB BLOOD ORDERAB LES Final Result [facility] [address] [place] [phone] * (ABNORMAL) Comprehensive Metabolic Panel (04/26/2025 7:11 PM EDT) Sodium 142 135 - 145 mmol/L [facility] Potassium 3.9 3.3 - 5.1 mmol/L [facility] Comment:Slight Hemolysis.Int erpret result with caution. Chloride 103 96 - 108 mmol/L [facility] Carbon Dioxide 26 22 - 29 mmol/L [facility] Anion Gap 17 12 - 20 [facility] Urea Nitrogen (BUN) 13 9 - 16 mg/dL [facility] Creatinine, Serum 0.92 0.5 - 1.4 mg/dL [facility] Creatinine Clr Calc Pharmacy 78.6 [facility] Comment:eGFR (calculated fro m the MDRD study equation) and eCrCl(calculated from the Cockcroft-Gault equation) are based ondifferent parameters and may not yield comparable results.If eCrCl result is absurd, please check patient'sheight/weight. Estimated Glomerular Filt Rate >60 [facility] Comment:Chronic Kidney Disea se: Estimated GFR < 60 mL/min/1.24a9Hnbccv Kidney Disease: Estimated GFR < 15 mL/min/1.73m2 Glucose 112 60 - 115 mg/dL [facility] Calcium 10.0 8.4 - 10.2 mg/dL [facility] Bilirubin, Total 0.5 0.0 - 1.0 mg/dL [facility] Aspartate Amino Transferase 38(H) 5 - 37 U/L [facility] Comment:Slight Hemolysis.Int erpret result with caution. Alanine Aminotransferase 17 0 - 40 U/L [facility] Total Protein 8.8(H) 6.5 - 8.0 g/dL [facility] Albumin Level 5.5(H) 3.5 - 5.0 g/dL [facility] Alkaline Phosphatase 86 39 - 117 U/L [facility] 04/26/2025 7:11 PM EDT 04/26/2025 7:14 PM EDT us Generic External Data Provider LAB BLOOD ORDERAB LES Final Result Performing Organization Address City/[facility]/ZIP Co de Phone Number [facility] [address] [place] [phone] * B Type Natriuretic Peptide (BNP) (04/26/2025 7:10 PM EDT) B Type Natriuretic Peptide <10 <100 pg/mL [facility] 04/26/2025 7:10 PM EDT 04/26/2025 7:14 PM EDT Generic External Data Provider LAB BLOOD ORDERAB LES Final Result Performing Organization Address [facility]/ZIP Co de Phone Number [facility] [address] [place] [phone] * XR Chest 1 View (04/26/2025 7:05 PM EDT) Anatomical Region Laterality Modality Chest Radiographic Alma Rosa ging 04/26/2025 7:05 PM EDT Narrative 04/26/2025 7:07 PM EDT [address] [address] XRay Report Signed Patient: Fer Burrell MR#: Gabriel [id number] : 1970 Acct:[id number] Age/Sex: 54 / M ADM Date: 04/26/25 Loc: HO.ED Attending Dr: Ordering Physician: Eleuterio Castro Date of Service: 04/26/25 Procedure(s): XR chest 1V Accession Number(s): [id number] cc: Eleuterio Castro; Bharath Welch MD CLINICAL HISTORY: chest pain 1 view chest x-ray Comparison: None provided Findings: Lungs are clear without acute infiltrates. No pneumothorax. Heart size normal. No acute bony abnormalities. Impression: No acute processes This document has been electronically signed by: Javier Juarez MD on 04/26/2025 19:05:16 Dictated By: Javier Juarez MD Signed By: <Electronically signed by Javier Juarez MD in OV> 04/26/251905 DD/ 04 TD/TT: 04/26/251904 Script Editor: Procedure Note Donotuseinterpreter, Image - 04/26/[address] [address] XRay Report Signed Patient: Fer BurrellMR#: Gabriel [id number] : 1970Acct:[id number] Age/Sex: 54 / MADM Date: 04/26/25 Loc: .ED Attending Dr: Ordering Physician: Eleuterio Castro Date of Service: 04/26/25 Procedure(s): XR chest 1V Accession Number(s): [id number] cc: Eleuterio Castro; Bharath Welch MD CLINICAL HISTORY: chest pain 1 view chest x-ray Comparison: None provided Findings: Lungs are clear without acute infiltrates. No pneumothorax. Heart size normal. No acute bony abnormalities. Impression: No acute processes This document has been electronically signed by: Javier Juarez MD on 04/26/2025 19:05:16 Dictated By: Javier Juarez MD Signed By: <Electronically signed by Javier Juarez MD in OV> 04/26/251905 DD/ 04 TD/TT: 04/26/251904 Script Editor: us [facility] External Provider IMG XR PROCEDURES Final Result * US Abdomen Limited (03/27/2025 6:05 PM EDT) Anatomical Region Laterality Modality Abdomen Ultrasound 03/27/2025 6:05 PM EDT Narrative 03/27/2025 6:07 PM EDT [place] [address] Ultrasound Report Signed Patient: Fer Burrell MR#: [id number] : 1970 Acct:[id number] Age/Sex: 54 / M ADM Date: 03/27/25 Loc: HO.ED Attending Dr: Ordering Physician: Eleuterio Castro Date of Service: 03/27/25 Procedure(s): US abdomen limited Accession Number(s): [id number] cc: Eleuterio Castro; Bharath Welch MD CLINICAL [...] in OV> 03/27/251805 DD/ 04 TD/TT: 03/27/251804 Script Editor: Procedure Note Donotuseinterpreter, Image - 03/27/[address] [address] Ultrasound Report Signed Patient: Fer BurrellMR#: M [id number] : 1970Acct:[id number] Age/Sex: 54 / MADM Date: 03/27/25 Loc: HO.ED Attending Dr: Ordering Physician: Eleuterio Castro Date of Service: 03/27/25 Procedure(s): US abdomen limited Accession Number(s): [id number] cc: Eleuterio Castro; Bharath Welch MD CLINICAL [...] in OV> 03/27/251805 DD/ 04 TD/TT: 03/27/251804 Script Editor: us [facility] External Provider IMG US PROCEDURES Edited Result - Final * US SCROTUM DOPPLER (03/27/2025 6:04 PM EDT) Anatomical Region Laterality Modality Abdomen Ultrasound 03/27/2025 6:04 PM EDT Narrative 03/27/2025 6:05 PM EDT [address] [address] Ultrasound Report Signed Patient: Fer Burrell MR#: [id number] : 1970 Acct:[id number] Age/Sex: 54 / M ADM Date: 03/27/25 Loc: HO.ED Attending Dr: Ordering Physician: Eleuterio Castro Date of Service: 03/27/25 Procedure(s): US scrotum doppler Accession Number(s): [id number] cc: Eleuterio Castro; Bharath Welch MD CLINICAL [...] in OV> 03/27/251804 DD/ 03 TD/TT: 03/27/251803 Script Editor: Procedure Note Donotuseinterpreter, Image - 03/27/2025 [place] [address] Ultrasound Report Signed Patient: Fer BurrellMR#: M [id number] : 1970Acct:[id number] Age/Sex: 54 / MADM Date: 03/27/25 Loc: .ED Attending Dr: Ordering Physician: Eleuterio Castro Date of Service: 03/27/25 Procedure(s): US scrotum doppler Accession Number(s): [id number] cc: Eleuterio Castro; Bharath Welch MD CLINICAL [...] in OV> 03/27/251804 DD/ 03 TD/TT: 03/27/251803 Script Editor: us [facility] External Provider IMG US PROCEDURES Edited Result - Final * US Scrotum (03/27/2025 6:04 PM EDT) Anatomical Region Laterality Modality Body Ultrasound 03/27/2025 6:04 PM EDT Narrative 04/01/2025 11:40 AM EDT [place] [address] Ultrasound Report Signed Patient: Fer Burrell MR#: [id number] : 1970 Acct:[id number] Age/Sex: 54 / M ADM Date: 03/27/25 Loc: .ED Attending Dr: Ordering Physician: Eleuterio Castro Date of Service: 03/27/25 Procedure(s): US scrotum Accession Number(s): [id number] cc: Eleuterio Castro; Bharath Welch MD CLINICAL [...] Kay MD in OV> 04/01/25 1140 DD/ 03 TD/TT: 03/27/251803 Script Editor: Procedure Note Dontinmasonkirkter, Image - 04/01/2025 [place] [address] Ultrasound Report Signed Patient: Fer BurrellMR#: M [id number] : 1970Acct:[id number] Age/Sex: 54 / MADM Date: 03/27/25 Loc: HO.ED Attending Dr: Ordering Physician: Eleuterio Castro Date of Service: 03/27/25 Procedure(s): US scrotum Accession Number(s): [id number] cc: Eleuterio Castro; Bharath Welch MD CLINICAL [...] OV> 04/01/25 1140 DD/ 180 TD/TT: 03/27/251803 Script Editor: us [facility] External Provider IMG US PROCEDURES Final Result * HIV-1/2 Antigen and Antibodies, Fourth Generation, with Reflexes (02/04/2024 9:13 AM EDT) HIV AB/AG Nonreactive Nonreactive [facility] Comment:HIV-1 p24 Ag and/or HIV-1/HIV-2 Ab not detected.A test result that is nonreactive does not exclude thepossibility of exposure to or infection with HIV-1 and/orHIV-2. Nonreactive results in this assay for individualswith prior exposure to HIV-1 and/or HIV-2 may be due toantigen and antibody levels that are below the limit ofdetection of this assay.The [employer] HIV Ag/Ab Combo assay result andsupplemental assay results should be interpreted inconjunction with the patient's clinical presentation,history and other laboratory results. If the results areinconsistent with clinical evidence, additional testing issuggested to confirm the result. Blood Venous blood specimen / Unknown 02/04/2024 9:13 AM EDT 02/04/2024 11:41 AM EDT us Isa Chawla MD LAB BLOOD ORDERABLES Final Re sult [facility] [address] [place] [phone] * LIPID PANEL, STANDARD (02/22/2022 11:05 AM EDT) Chol/HDLC Ratio 2.6 <5.0 (calc) [facility] Cholesterol, Total 181 <200 mg/dL [facility] HDL Cholesterol 70 > OR = 40 mg/dL [facility] LDL Cholesterol 94 mg/dL (calc) [facility] Comment: Reference range: <100 Desirable range <100 mg/dL for primary prevention; <70 mg/dL for patients with CHD or diabetic patients with > or = 2 CHD risk factors. LDL-C is now calculated using the Sherman-Lucia calculation, which is a validated novel method providing better accuracy than the Friedewald equation in the estimation of LDL-C. Sherman SS et al. MICHELE. 2013;310(19): 6337-3074 (http://education.[address].Tapvalue/faq/PYG985) Non-HDL Cholesterol 111 <130 mg/dL (calc) [facility] Comment: For patients with diabetes plus 1 major ASCVD risk factor, treating to a non-HDL-C goal of <100 mg/dL (LDL-C of <70 mg/dL) is considered a therapeutic option. Triglycerides 77 <150 mg/dL [facility] 02/22/2022 11:0 5 AM EDT Bharath Welch MD LAB BLOOD ORDERABLES Final Result [facility] [address] [place] [address], * Colonoscopy (03/23/2020) Colonoscopy Normal Normal Narrative Mitali Trujillo - 03/23/2020 Recommended follow up in 5 years Historical Provider HEALTH MAINTENANCE Edited Result - Final from Last 3 Months or Most Recently Relevant to Health Maintenance Insurance [facility] C3 DENTAL-[employer] [facility] [facility] MEDICAID STAND ADULT * Guarantor: Fer Burrell Account Type Relation to Patient Date of Phone Billing Address Personal/[place] [address] * Guarantor: Fer Burrell Account Type Relation to Patient Date of Phone Billing Address Personal/[place] [address] * Guarantor: Fer Burrell Account Type Relation to Patient Date of Phone Billing Address Personal/Family Self Jeffry [place] Care Teams Lighting Adviser Relationship Specialty Start Date End Date Bharath Welch MD [address] [place] [address] PCP - General Internal Medicine 01/21/14 Adam Cesar, RN [address] [place] [address] Registered Nurse Family Medicine 03/28/25 Karina Jones 03/28/25
--- OUTSIDE RECORDS SUMMARY | 2025-05-23 14:36 | XMS_ITS | Encounter Summary ---
Author Organization [employer] Address [address] [facility] 7t [place] [address] Care Team Providers Care Enterprise Integration Architect Name Role Phone Bharath Welch MD Primary Care Provider Adam Cesar RN Unavailable Karina Jones Unavailable Reason for Visit * Reason Comments Med Refill Encounter Details Date Type Department Care Team (Late st Contact Info) Description 05/21/2025 Refill [facility] MEDICINE [address] [place] [address] Bharath Welch MD [address] [place], [place] [phone] Lumbago with sciatica, right side Social History Tobacco Use Types Packs/Day Years [...] Description 05/26/2025 2:45 PM EDT Office Visit [facility] CHC MED & PEDS [address] [place] [address] Bharath Welch MD [address] [place] [address] 06/02/2025 1:30 PM EDT Office Visit [facility] MEDICINE [address] [place] [address] Batsheva Gates MD [address] [place] [address] documented as of this encounter Goals Goal Patient Goal Type Associated Problems Recent Progress Patient-Stated? Author Improve quality of life by maintaining ongoing abstinence from all mood-altering substances General Fredo Gaitan, RN documented as of this encounter Visit Diagnoses Diagnosis Lumbago with sciatica, right side documented in this encounter Additional Health Concerns Assessment Noted Time PHQ-9 Depression Total Score: 11 025 11:37 AM EDT documented as of this encounter Care Teams Enterprise Integration Architect Relationship Specialty Start Date End Date Bharath Welch MD [address] [place] [address] PCP - General Internal Medicine 01/21/14 Adam Cesar, SARAHI [address] [place] [address] [place] [address] Registered Nurse Family Medicine 03/28/25 Karina Jones 03/28/25 documented as of this encounter
--- OUTSIDE RECORDS SUMMARY | 2025-05-23 14:36 | XMS_ITS | Encounter Summary ---
Author Organization [facility] Address [address] [facility] 7t [place] [address] Care Team Providers Care Ultrasound Coordinator Name Role Phone Bharath Welch MD Primary Care Provider Adam Cesar RN Unavailable [phone] Karina Jones Unavailable Reason for Visit * Reason Onset Date Comments Nurse Triage 05/18/2025 Encounter Details Date Type Department Care Team ([facility] st Contact Info) Description 05/18/2025 Telephone [facility] CHC MED & PEDS [address] [place], [place] [phone] Bharath Welch MD [address] [place], [place] [phone] Nurse Triage Social History Tobacco Use Types Packs/Day Years [...] encounter Miscellaneous Notes * Telephone Encounter - Tessie WhittMARY - 05/18/2025 2:33 PM EDT Triage call returned to patient with RADHA Carpenter [address]. Patient reports worsening symptoms since seen on 05/11/25 Patient reports he has been taking ABT and all medications as ordered at that visit. Patient reports he is unsure why he was put on ABT. Patient today feeling worse with abdominal discomfort no vomiting and reporting black stool. Previous note indicates patient contacted earlier todaywith a Cologard + testing and is being referred to GI Specialty. Appt and location for that Provider pending at time of call. Patient reports several episodes of black diarrhea today. Disposition reviewed and patient in agreement with plan. Advised to seek evaluation at ED reports he will go to [facility] ED now. Patient advised to tell ED that he had + Cologard and is now under treatment with ABT as per note from PCP appt. Patient verbalized understanding and in agreement with plan. Reviewed with ptto contact PCP office after ER evaluation for follow up appt. Pt verbalized understanding and agrees. Forwarded to PCP and team as FYI to follow up PRN Protocol Used: Abdominal Pain - Male (Adult) Protocol-Based Disposition: Go to ED Now Positive Triage Question: * Black or tarry bowel movements (Exception: Chronic-unchanged black-arreaga BMs AND is taking iron pills or Pepto-Bismol.) * All higher-acuity triage questions were negative Care Advice Discussed: * Reasons To Call Back - You become worse * Telephone Encounter - Boyd Montes - 05/18/2025 2:11 PM EDT Symptoms: Abdominal Pain - Male, Diarrhea Outcome: Schedule an urgent appointment (within 4 hours) or talk to a nurse or provider soon Reason: Getting worse The caller accepted this outcome. Contact pt at [phone] documented in this encounter Plan of Treatment Upcoming Encounters Date Type Department Care Team (Late st Contact Info) Description 05/26/2025 2:45 PM EDT Office Visit [facility] CHC MED & PEDS [address] [place], [place] [phone] Bharath Welch MD [address] [place], [place] [phone] 06/02/2025 1:30 PM EDT Office Visit [facility] MEDICINE [address] [place] [address] Batsheva Gates MD [address] [place] [address] documented as of this encounter Goals Goal [...] documented as of this encounter Care Teams Ultrasound Coordinator Relationship Specialty Start Date End Date Bharath Welch MD [address] [place] [address] PCP - General Internal Medicine 01/21/14 Adam Cesar RN [address] [place], [place] [phone] Registered Nurse Family Medicine 03/28/25 Karina Jones 03/28/25 documented as of this encounter
--- OUTSIDE RECORDS SUMMARY | 2025-05-23 14:36 | XMS_ITS | Encounter Summary ---
Author Organization [facility] Address [address] 7t [place] [address] Care Team Providers Care Engine Maintenance Mechanic Name Role Phone Bharath Welch MD Primary Care Provider Adam Cesar RN Unavailable [phone] Karina Jones Unavailable Encounter Details Date Type Department Care Team (Latest Contact Info) Description 05/23/2025 Travel Social History Tobacco Use Types Packs/Day Years [...] Description 05/26/2025 2:45 PM EDT Office Visit [facility] CHC MED & PEDS [address] [place], [place] [phone] Bharath Welch MD [address] [place], [place] [phone] 06/02/2025 1:30 PM EDT Office Visit [facility] MEDICINE [address] [place] [address] Batsheva Gates MD [address] [place] [address] documented as of this encounter Goals Goal [...] documented as of this encounter Care Teams Engine Maintenance Mechanic Relationship Specialty Start Date End Date Bharath Welch MD [address] [place] [address] PCP - General Internal Medicine 01/21/14 Adam Cesar, SARAHI [address] [place], [place] [phone] Registered Nurse Family Medicine 03/28/25 Karina Jones 03/28/25 documented as of this encounter
--- OUTSIDE RECORDS SUMMARY | 2025-05-23 14:36 | XMS_ITS | Encounter Summary ---
Author Organization [facility] Address [address] [place] [address] 7t [place] [address] Care Team Providers Care Bulk Receiver Name Role Phone Bharath Welch MD Primary Care Provider [phone] Adam Cesar RN Unavailable [phone] Karina Jones Unavailable Encounter Details Date Type Department Care Team (Late st Contact Info) Description 07/02/2023 Abstract [facility] MEDICINE [address] [place] [address] Mitali Trujillo Social History Tobacco Use Types [...] Description 05/26/2025 2:45 PM EDT Office Visit [facility] CHC MED & PEDS [address] [place], [place] [phone] Bharath Welch MD [address] [place], [place] [phone] 06/02/2025 1:30 PM EDT Office Visit [facility] MEDICINE [address] [place], [place] [phone] Batsheva Gates MD [address] [place], [place] [phone] documented as of this encounter Procedures Procedure Name Priority Date/Time Associated Diagnosis Comments HM COLONOSCOPY Routine 03/23/2020 documented in this encounter Results * Hm Colonoscopy (03/23/2020) Colonoscopy Normal Normal Narrative Mitali Trujillo - 03/23/2020 Recommended follow up in 5 years us Historical Provider HEALTH MAINTENANCE Edited Result - Final documented in this encounter Visit Diagnoses Not on filedocumented in this encounter Care Teams Bulk Receiver Relationship Specialty Start Date End Date Bharath Welch MD [address] [place] [address] PCP - General Internal Medicine 01/21/14 Adam Cesar, SARAHI [address] [place] [address] Registered Nurse Family Medicine 03/28/25 Karina Jones 03/28/25 documented as of this encounter
--- OUTSIDE RECORDS SUMMARY | 2025-05-23 14:36 | XMS_ITS | Encounter Summary ---
Author Organization [facility] Address [address] [facility] 7t [place] [address] Care Team Providers Care Senior Clinical Research Scientist Name Role Phone Bharath Welch MD Primary Care Provider Adam Cesar RN Unavailable [phone] Karina Jones Unavailable Encounter Details Date Type Department Care Team ([facility] Contact Info) Description 11/30/2024 Orders Only [facility] MED & PEDS [address] [place], [place] [phone] Bharath Welch MD [address] [place] [address] Unintentional weight loss (Primary Dx) Social History [...] Upcoming Encounters Date Type Department Care Team ([facility] Contact Info) Description 05/26/2025 2:45 PM EDT Office Visit [facility] MED & PEDS [address] [place], [place] [phone] Bharath Welch MD [address] [place] [address] 06/02/2025 1:30 PM EDT Office Visit [facility] MEDICINE [address] [place], [place] [phone] Batsheva Gates MD [address] [place], [place] [phone] documented as of this encounter Visit Diagnoses Diagnosis Unintentional weight loss- Primary Loss of weight documented in this encounter Additional Health Concerns Assessment Noted Time PHQ-9 Depression Total Score: 6 04/01/20 24 9:31 AM EDT documented as of this encounter Care Teams Senior Clinical Research Scientist Relationship Specialty Start Date End Date Bharath Welch MD [address] [place] [address] PCP - General Internal Medicine 01/21/14 Adam Cesar, RN [address] [place] [address] Registered Nurse Family Medicine 03/28/25 Karina Jones 03/28/25 documented as of this encounter
--- OUTSIDE RECORDS SUMMARY | 2025-05-23 14:36 | XMS_ITS | Encounter Summary ---
Author Organization [employer] [facility] Address [address] [facility] 7t [place] [address] Care Team Providers Care House Mover Name Role Phone Bharath Welch MD Primary Care Provider Adam Cesar RN Unavailable [phone] Karina Jones Unavailable Reason for Referral * Consultation (Routine) - Authorized Specialty Diagnoses / Procedures Referred By Nina lopez Referred To Contact Gastroenterology Diagnoses Screening for colon cancer Bharath Welch MD [address] [place] [address] Phone: tel: fax: [facility] [address] [facility] 3rd [address] [place], [place] Phone: tel: fax: Referral ID Status Reason Start Date Expiration Date Visits Requested Visits Authorized [id number] Authorized Specialty Services Required 04/20/2025 04/20/2026 1 1 Encounter Details Date Type Department Care Team (Late st Contact Info) Description 04/20/2025 Orders Only [facility] CHC MED & PEDS [address] [place] [address] Bharath Welch MD [address] [place], [place] [phone] Screening for colon cancer (Primary Dx) Social [...] Description 05/26/2025 2:45 PM EDT Office Visit [facility] CHC MED & PEDS [address] [place] [address] Bharath Welch MD [address] [place] [address] 06/02/2025 1:30 PM EDT Office Visit [facility] MEDICINE [address] [place] [address] Batsheva Gtaes MD [address] [place] [address] Scheduled Referrals Name Type Priority Associated Diagnoses [...] Procedure Name Priority Date/Time Associated Diagnosis Comments LAB COLOGUARD COLON CANCER SCREEN Routine 05/12/2025 10:40 AM EDT Screening for colon cancer documented in this encounter Results * (ABNORMAL) Cologuard?? colon cancer screening (05/12/2025 10:40 AM EDT) Cologuard Result Positive( A) Negative 05/17/2025 12:44 PM EDT [facility] (CLIA #:[id number]) Comment: The Cologuard (TM) test was performed [...] screened with both Cologuard and colonoscopy. (Aric Bergman et al, N Engl J Med 2014;370(14):7769-0561.) Cologuard may produce a false negative or false positive result (no colorectal cancer or precancerous polyp present at colonoscopy follow up). A negative Cologuard test result does not guarantee the absence of CRC or advanced adenoma (pre-cancer). The current Cologuard screening interval is every 3 years. ([place] [employer] Society and U.S. Multi-Society Task Force). Cologuard performance data in a 10,000 patient pivotal study using colonoscopy as the reference method can be accessed at the following location: www.[employer]/results. Additional description of the Cologuard test process, warnings and precautions can be found at www.[employer].RecordSled. Stool specimen (specimen) 05/12/2025 10:40 AM EDT 05/13/2025 9:11 AM EDT us Bharath Welch MD LAB MOLECULAR DIAGNOSTICS O RDERABLES Final Result [facility] (CLIA #:[id number]) [address] [place] [id number], documented in this encounter Visit Diagnoses Diagnosis Screening for colon cancer- Primary Special screening for malignant neoplasms, colon documented in this encounter Additional Health Concerns Assessment Noted Time PHQ-9 Depression Total Score: 11 025 11:37 AM EDT documented as of this encounter Care Teams House Mover Relationship Specialty Start Date End Date Bharath Welch MD [address] [place] [address] PCP - General Internal Medicine 01/21/14 Adam Cesar, SARAHI [address] [place] [address] Registered Nurse Family Medicine 03/28/25 Karina Jones 03/28/25 documented as of this encounter
--- OUTSIDE RECORDS SUMMARY | 2025-05-23 14:36 | XMS_ITS | Encounter Summary ---
Author Organization [employer] Address [address] [facility] 7t [place] [address] Care Team Providers Care Mineral Economist Name Role Phone Bharath Welch MD Primary Care Provider Adam Cesar RN Unavailable [phone] Karina Jones Unavailable Reason for Visit * Reason Comments Transition Of Care (Tcm) HDF unscheduled . Encounter Details Date Type Department Care Team ([facility] st Contact Info) Description 05/20/2025 Patient Outreach [facility] CHC MED & PEDS [address] [place], [place] [phone] Bharath Welch MD [address] [place], [place] [phone] Transition Of Care (Tcm) (HDF unscheduled. ) Social History Tobacco Use Types Packs/Day Years [...] as of this encounter Miscellaneous Notes * Significant Event - Ernestine Duckworth - 05/20/2025 10:08 AM EDT 05/20/25 0932 Hospital Discharges and Admission for [facility] Type of Visit Hospital Admission Date of Admission/Visit 05/18/25 Date of Discharge 05/19/25 Facility [facility] Diagnosis Diarrhea, unspecified Disposition Discharged Home Follow-Up Actions Follow-Up Needed Provider appointment Follow-Up Outcome Spoke to Patient;Booked Appointment Initial Contact Date 05/20/25 Patient already scheduled. documented in this encounter Plan of Treatment Upcoming Encounters Date Type Department Care Team (Late st Contact Info) Description 05/26/2025 2:45 PM EDT Office Visit [facility] CHC MED & PEDS [address] [place] [address] Bharath Welch MD [address] [place] [address] 06/02/2025 1:30 PM EDT Office Visit [facility] MEDICINE [address] [place] [address] Batsheva Gates MD [address] [place] [address] documented as of this encounter Goals Goal [...] documented as of this encounter Care Teams Mineral Economist Relationship Specialty Start Date End Date Bharath Welch MD [address] [place] [address] PCP - General Internal Medicine 01/21/14 Adam Cesar, SARAHI [address] [place] [address] Registered Nurse Family Medicine 03/28/25 Karina Jones 03/28/25 documented as of this encounter
--- OUTSIDE RECORDS SUMMARY | 2025-05-23 14:36 | XMS_ITS | Encounter Summary ---
Author Organization [facility] [facility] Address [address] [facility] 7t [place] [address] Care Team Providers Care Wax Pourer Name Role Phone Bharath Welch MD Primary Care Provider Adam Cesar RN Unavailable [phone] Karina Jones Unavailable Reason for Visit * Reason Comments Med Refill Encounter Details Date Type Department Care Team (Late st Contact Info) Description 01/08/2024 Refill [facility] MEDICINE [address] [place] [address] Batsheva Gates MD [address] [place] [address] Uncomplicated opioid dependence (CMS/HCC) Social History Tobacco [...] Description 05/26/2025 2:45 PM EDT Office Visit [facility] CHC MED & PEDS [address] [place], [place] [phone] Bharath Welch MD [address] [place], [place] [phone] 06/02/2025 1:30 PM EDT Office Visit [facility] MEDICINE [address] [place] [address] Batsheva Gates MD [address] [place] [address] documented as of this encounter Visit Diagnoses Diagnosis Uncomplicated opioid dependence (CMS/HCC) documented in this encounter Care Teams Wax Pourer Relationship Specialty Start Date End Date Bharath Welch MD [address] [place] [address] PCP - General Internal Medicine 01/21/14 Adam Cesar, SARAHI [address] [place] [address] Registered Nurse Family Medicine 03/28/25 Karina Jones 03/28/25 documented as of this encounter
--- OUTSIDE RECORDS SUMMARY | 2025-05-23 14:36 | XMS_ITS | Encounter Summary ---
Author Organization [employer] [facility] Address [address] [facility] 7t [place] [address] Care Team Providers Care Joy Operator Helper Name Role Phone Bharath Welch MD Primary Care Provider Adam Cesar RN Unavailable [phone] Karina Jones Unavailable Reason for Visit * Reason Comments Med Refill Encounter Details Date Type Department Care Team (Late st Contact Info) Description 06/11/2024 Refill [facility] MEDICINE [address] [place] [address] Batsheva Gates MD [address] [place] [address] Uncomplicated opioid dependence (CMS/HCC) Social History Tobacco [...] Description 05/26/2025 2:45 PM EDT Office Visit [facility] MED & PEDS [address] [place] [address] Bharath Welch MD [address] [place] [address] 06/02/2025 1:30 PM EDT Office Visit [facility] MEDICINE [address] [place], [place] [phone] Batsheva Gates MD [address] [place], [place] [phone] documented as of this encounter Visit Diagnoses Diagnosis Uncomplicated opioid dependence (CMS/HCC) documented in this encounter Additional Health Concerns Assessment Noted Time PHQ-9 Depression Total Score: 6 04/01/20 24 9:31 AM EDT documented as of this encounter Care Teams Joy Operator Helper Relationship Specialty Start Date End Date Bharath Welch MD [address] [place] [address] PCP - General Internal Medicine 01/21/14 Adam Cesar, SARAHI [address] [place] [address] Registered Nurse Family Medicine 03/28/25 Karina Jones 03/28/25 documented as of this encounter
--- OUTSIDE RECORDS SUMMARY | 2025-05-23 14:36 | XMS_ITS | Encounter Summary ---
Author Organization [facility] [facility] Address [address] [facility] 7t [place] [address] Care Team Providers Care Hand Weaver Name Role Phone Bharath Welch MD Primary Care Provider [phone] Adam Cesar RN Unavailable [phone] Karina Jones Unavailable Encounter Details Date Type Department Care Team ([facility] Contact Info) Description 01/10/2023 Orders Only [facility] MED & PEDS [address] [place], [place] [phone] Shonda Espinoza LPN Social History Tobacco Use [...] Upcoming Encounters Date Type Department Care Team ([facility] Contact Info) Description 05/26/2025 2:45 PM EDT Office Visit [facility] MED & PEDS [address] [place], [place] [phone] Bharath Welch MD [address] [place] [address] 06/02/2025 1:30 PM EDT Office Visit [facility] [address] [place], [place] [phone] Batsheva Gates MD 230 [place], [place] [phone] documented as of this encounter Visit Diagnoses Not on filedocumented in this encounter Care Teams Hand Weaver Relationship Specialty Start Date End Date Bharath Welch MD [address] [place] [address] PCP - General Internal Medicine 01/21/14 Adam Cesar RN 505 [place], [place] [phone] Registered Nurse Family Medicine 03/28/25 Karina Jones 03/28/25 documented as of this encounter
--- OUTSIDE RECORDS SUMMARY | 2025-05-23 14:36 | XMS_ITS ---
Author Organization [employer] Address [address] [facility] 7t [place] [address] Care Team Providers Care Shingle Catcher Name Role Phone Bharath Welch MD Primary Care Provider [phone] Adam Cesar RN Unavailable [phone] Karina Jones Unavailable [facility] Status:Enrolled (Active) Start date:03/28/2025 Enrollment date:04/04/2025 Enrollment reason:ADT Feed Overview ADT-[facility] ED 03/27/25. Please outreach for enrollment. Case Team Name Relationship Phone Karina Jones(Responsible Staff) [phone] Continued Care and Services Coordination
--- OUTSIDE RECORDS SUMMARY | 2025-05-23 14:36 | XMS_ITS | Encounter Summary ---
Author Organization [employer] [facility] Address [address] 7t [place] [address] Care Team Providers Care Hand Mexican Food Maker Name Role Phone Bharath Welch MD Primary Care Provider Adam Cesar RN Unavailable [phone] Karina Jones Unavailable Reason for Visit * Reason Onset Date Comments Hospital Follow-up 05/20/2025 Encounter Details Date Type Department Care Team (Late st Contact Info) Description 05/20/2025 Telephone [facility] MEDICINE [address] [place] [address] Batsheva Gates MD [address] [place], [place] [phone] Hospital Follow-up Social History Tobacco Use Types Packs/Day Years [...] encounter Miscellaneous Notes * Telephone Encounter - Fredo Solis RN - 05/20/2025 9:45 AM EDT Fer called looking for medication for diarrhea. Stopped Suboxone 15 days ago because he did not want to be dependent on it anymore. Was admitted to [facility] 05/18-05/19 after going to ER for diarrhea. Scheduled HDF with PCP for 05/26. Advised him to come to [facility] or return to ED if symptoms worsen prior to appt. Spoke with nurse in [facility] to give FYI. documented in this encounter Plan of Treatment Upcoming Encounters Date Type Department Care Team (Late st Contact Info) Description 05/26/2025 2:45 PM EDT Office Visit [facility] MED & PEDS [address] [place], [place] [phone] Bharath Welch MD [address] [place] [address] 06/02/2025 1:30 PM EDT Office Visit [facility] MEDICINE [address] [place] [phone] Batsheva Gates MD [address] [place], [place] [phone] documented as of this encounter Goals Goal [...] documented as of this encounter Care Teams Hand Mexican Food Maker Relationship Specialty Start Date End Date Bharath Welch MD [address] [place] [address] PCP - General Internal Medicine 01/21/14 Adam Cesar, SARAHI 505 [place] [address] Registered Nurse Family Medicine 03/28/25 Karina Jones 03/28/25 documented as of this encounter
--- OUTSIDE RECORDS SUMMARY | 2025-05-23 14:36 | XMS_ITS | Encounter Summary ---
Author Organization [employer] [facility] Address [address] [facility] 7t [place] [address] Care Team Providers Care Upholstery Instructor Name Role Phone Bharath Welch MD Primary Care Provider [phone] Adam Cesar RN Unavailable [phone] Karina Jones Unavailable Reason for Visit * Reason Onset Date Comments Results 05/18/2025 Referral 05/18/2025 Encounter Details Date Type Department Care Team (Late st Contact Info) Description 05/18/2025 Results Follow-Up [facility] MEDICINE [address] [place] [address] Angélica Villarreal, SARAHI [place] colon cancer screening Social History Tobacco Use Types Packs/Day Years [...] encounter Miscellaneous Notes * Telephone Encounter - Angélica Villarreal RN - 05/18/2025 8:49 AM EDT TC placed to pt via [employer] bus operator (Imer ID#[id number]) to inform and advise of below PCP message. Advised pt cologuard is positive and referral placed to gastroenterology to consider a colonoscopy. Pt reports they do not want to be seen in [place] and [facility] [place] [facility] Pt reports they do not like the care at [place]. Advised pt message to be sent to referrals specialist for review. Pt verbalized understanding and denies questions at this time. ----- Message from Bharath Welch MD sent at 05/17/2025 10:43 PM EDT ----- Please call to inform Mr. Fer Howell that his Cologuard is positive. He will be referredto gastroenterology to consider a colonoscopy ----- Message ----- From: Ross [email or web address] Results In Sent: 05/17/2025 5:50 PM EDT To: Bharath Welch MD documented in this encounter Plan of Treatment Upcoming Encounters Date Type Department Care Team (Late st Contact Info) Description 05/26/2025 2:45 PM EDT Office Visit [facility] MED & PEDS [address] [place], [place] [phone] Bharath Welch MD 505 [place], [place] [phone] 06/02/2025 1:30 PM EDT Office Visit [facility] MEDICINE [address] [place], [place] [phone] Batsheva Gates MD 230 [place], [place] [phone] documented as of this encounter Goals Goal [...] documented as of this encounter Care Teams Upholstery Instructor Relationship Specialty Start Date End Date Bharath Welch MD [address] [place] [address] PCP - General Internal Medicine 01/21/14 Adam Cesar, RN [address] [place] [address] Registered Nurse Family Medicine 03/28/25 Karina Jones 03/28/25 documented as of this encounter
--- OUTSIDE RECORDS SUMMARY | 2025-05-23 14:36 | XMS_ITS | Encounter Summary ---
Author Organization [employer] [facility] Address [address] [facility] 7t [place] [address] Care Team Providers Care Grey Goods Tester Name Role Phone Bharath Welch MD Primary Care Provider Adam Cesar RN Unavailable [phone] Karina Jones Unavailable Encounter Details Date Type Department Care Team ([facility] Contact Info) Description 07/22/2024 Orders Only [facility] MED & PEDS [address] [place], [place] [phone] Bharath Welch MD [address] [place] [address] Unintentional weight loss (Primary Dx) Social History [...] Upcoming Encounters Date Type Department Care Team ([facility] Contact Info) Description 05/26/2025 2:45 PM EDT Office Visit [facility] MED & PEDS [address] [place], [place] [phone] Bharath Welch MD [address] [place] [address] 06/02/2025 1:30 PM EDT Office Visit [facility] MEDICINE [address] [place], [place] [phone] Batsheva Gates MD [address] [place], [place] [phone] Scheduled Orders Name Type Priority Associated Diagnoses [...] documented as of this encounter Care Teams Grey Goods Tester Relationship Specialty Start Date End Date Bharath Welch MD [address] [place] [address] PCP - General Internal Medicine 01/21/14 Adam Cesar, SARAHI [address] [place] [address] Registered Nurse Family Medicine 03/28/25 Karina Jones 03/28/25 documented as of this encounter
--- OUTSIDE RECORDS SUMMARY | 2025-05-23 14:36 | XMS_ITS | Encounter Summary ---
Author Organization [employer] [facility] Address [address] [facility] 7t [place] [address] Care Team Providers Care [employer] Founder Name Role Phone Bharath Welch MD Primary Care Provider [phone] Adam Cesar RN Unavailable [phone] Karina Jones Unavailable Reason for Visit * Reason Comments Med Refill Encounter Details Date Type Department Care Team (Late st Contact Info) Description 09/18/2023 Refill [facility] MEDICINE [address] [place] [address] Batsheva Gates MD [address] [place] [address] Uncomplicated opioid dependence (CMS/HCC) Social History Tobacco [...] Description 05/26/2025 2:45 PM EDT Office Visit [facility] CHC MED & PEDS [address] [place], [place] [phone] Bharath Welch MD [address] [place], [place] [phone] 06/02/2025 1:30 PM EDT Office Visit [facility] MEDICINE [address] [place] [address] Batsheva Gates MD [address] [place] [address] documented as of this encounter Visit Diagnoses Diagnosis Uncomplicated opioid dependence (CMS/HCC) documented in this encounter Care Teams [employer] Founder Relationship Specialty Start Date End Date Bharath Welch MD [address] [place] [address] PCP - General Internal Medicine 01/21/14 Adam Cesar, SARAHI [address] [place] [address] Registered Nurse Family Medicine 03/28/25 Karina Jones 03/28/25 documented as of this encounter
--- OUTSIDE RECORDS SUMMARY | 2025-05-23 14:36 | XMS_ITS ---
Author Organization [employer] [facility] Address [address] [facility] 7t [place] [address] Care Team Providers Care Clay Artisan Name Role Phone Bharath Welch MD Primary Care Provider [phone] Adam Cesar RN Unavailable [phone] Karina Jones Unavailable CM Complex Status:Enrolled (Active) Start date:03/28/2025 Enrollment date:04/04/2025 Enrollment reason:ADT Feed Overview ADT-[facility] ED 03/27/25 Case Team Name Relationship Phone Adam Cesar RN(Responsible Staff) Registered Nurse [phone] Continued Care and Services Coordination
--- OUTSIDE RECORDS SUMMARY | 2025-05-23 14:36 | XMS_ITS | Encounter Summary ---
Author Organization [employer] Address [address] [facility] 7t [place] [address] Care Team Providers Care Yarn Salvager Name Role Phone Bharath Welch MD Primary Care Provider Adam Cesar RN Unavailable [phone] Karina Jones Unavailable Encounter Details Date Type Department Care Team (Late st Contact Info) Description 05/20/2025 Patient Outreach [facility] MEDICINE [address] [place] [address] Bharath Welch MD [address] [place], [place] [phone] Social History Tobacco Use Types Packs/Day Years [...] [facility] CHC MED & PEDS [address] [place] [address] Bharath Welch MD [address] [place] [address] 06/02/2025 1:30 PM EDT Office Visit [facility] MEDICINE [address] [place] [address] Batsheva Gates MD [address] [place] [address] documented as of this encounter Goals Goal [...] documented as of this encounter Care Teams Yarn Salvager Relationship Specialty Start Date End Date Bharath Welch MD [address] [place] [address] PCP - General Internal Medicine 01/21/14 Adam Cesar RN [address] [place] [address] Registered Nurse Family Medicine 03/28/25 Karina Jones 03/28/25 documented as of this encounter
--- OUTSIDE RECORDS SUMMARY | 2025-05-23 14:36 | XMS_ITS | Encounter Summary ---
Author Organization [employer] Address [address] [facility] 7t [place] [address] Care Team Providers Care Collection Specialist Name Role Phone Bharath Welch MD Primary Care Provider [phone] Adam Cesar RN Unavailable [phone] Karina Jones Unavailable Reason for Visit * Reason Onset Date Comments stool kit. 04/28/2025 Encounter Details Date Type Department Care Team ([facility] st Contact Info) Description 04/28/2025 Telephone [facility] CHC MED & PEDS [address] [place], [place] [phone] Bharath Welch MD [address] [place], [place] [phone] stool kit. Social History Tobacco Use Types Packs/Day Years [...] encounter Miscellaneous Notes * Telephone Encounter - Boyd Montes - 04/28/2025 8:44 AM EDT Tc from pt requesting a new stool kit to be mailed too [address] [facility] [address] Contact pt at [phone] (nigerian) documented in this encounter Plan of Treatment Upcoming Encounters Date Type Department Care Team ([facility] Contact Info) Description 05/26/2025 2:45 PM EDT Office Visit [facility] CHC MED & PEDS [address] [place] [address] Bharath Welch MD [address] [place] [address] 06/02/2025 1:30 PM EDT Office Visit [facility] MEDICINE [address] [place] [address] Batsheva Gates MD [address] [place] [address] documented as of this encounter Goals Goal [...] documented as of this encounter Care Teams Collection Specialist Relationship Specialty Start Date End Date Bharath Welch MD [address] [place] [address] PCP - General Internal Medicine 01/21/14 Adam Cesar RN [address] [place] [address] Registered Nurse Family Medicine 03/28/25 Karina Jones 03/28/25 documented as of this encounter
[2025-05-24 14:07] LABS: E. coli EAEC Not Detected (Not Detect.); E. coli EPEC Detected (Not Detect.); E. coli ETEC Not Detected (Not Detect.); E. coli STEC Not Detected (Not Detect.); Shigella sp./EIEC Not Detected (Not Detect.)
[2025-05-24 14:46] LABS: CDiff Gene PCR POSITIVE (Negative)
[2025-05-24 15:23] LABS: CDIFF Internal ctrl Dots and bkg OK (V); CDiff Toxin Negative (Negative)
== END 2025-05-23 11:54 | disposition home or self-care (01) ==
LOC: HO.HHCL 11:53
PROVIDERS: Emergency Medicine; PCP Internal Medicine; Visit Provider Internal Medicine
DX: R19.7 Diarrhea, unspecified (principal)
CPT/HCPCS: 87177; 87209; 87324; 87338; 87493; 87507

== ENCOUNTER 2025-05-24 08:17 | Outpatient (REF) | payer MEDICAID, SELFPAY ==
--- OUTSIDE RECORDS SUMMARY | 2025-05-23 10:20 | XMS_ITS | Encounter Summary ---
Author Organization [employer] Address [address] [place] [address] Care Team Providers Care Senior Climate Advisor Name Role Phone Bharath Welch MD Primary Care Provider Adam Cesar RN Unavailable [phone] Karina Jones Unavailable Reason for Visit * Reason Comments Diarrhea Encounter Details Date Type Department Care Team ([facility] st Contact Info) Description 05/23/2025 10:20 AM EDT Office Visit [facility] [address] [place] [address] Phani Gupta MD [address] [place] [address] Diarrhea in adult patient (Primary Dx); Elevated [...] Fer Howell is a 54 y.o. male. 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 + nausea without vomiting. No fever, cough, or recent abdominal pain. He then stated that symptoms started 1 week after starting triple therapy 05/11 (symptoms started about 5 days ago) for possible H. Pylori. [facility] office note stated that he declined to give stool specimen, but wanted to be treated because he states several years ago he had H. pylori which felt the same. Stopped treatment after 1 week due to above symptoms. Admitted to [facility] 05/18- because of diarrhea and abdominal pain. Stool specimen for C. diff reported as neg and CT scan abdominal/pelvis reported as neg. Lives roommate. No known ill contacts. Not employed. Quit smoking. Patient Active Problem List Diagnosis Date Noted Chronic obstructive lung disease ([facility]) 01/09/2021 Hypertensive disorder 10/27/2018 Hypogonadism in male 04/24/2015 Opioid dependence ([facility]) 04/12/2014 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 Seizure (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 Polysubstance abuse ([facility]) 11/06/2012 Smoker 11/06/2012 The following portions of [...] Description 05/26/2025 2:45 PM EDT Office Visit [facility] [address] [place] [address] Bharath Welch MD [address] [place] [address] 06/02/2025 1:30 PM EDT Office Visit [facility] [address] [place] [address] Batsheva Gates MD [address] [place] [address] Scheduled Orders Name Type Priority Associated Diagnoses [...] AM EDT) Influenza B Negative Negative, Indeterminate [facility] Swab 05/23/2025 10:5 0 AM EDT us Phani Gupta MD POINT OF CARE TEST ENTER/EDIT OR DERABLES Final Result Performing Organization Address [facility]/ZIP Co de Phone Number [facility] [address] [place] [phone] * Influenza A (ID NOW Rapid Molecular) (05/23/2025 10:50 AM EDT) Influenza A Negative Negative, Indeterminate [facility] Swab 05/23/2025 10:5 0 AM EDT us Phani Gupta MD POINT OF CARE TEST ENTER/EDIT OR DERABLES Final Result Performing Organization Address [facility]/ZIP Co de Phone Number [facility] [address] [place] [phone] * POCT Rapid COVID Ag (05/23/2025 [...] documented as of this encounter Care Teams Senior Climate Advisor Relationship Specialty Start Date End Date Bharath Welch MD [address] [place] [address] PCP - General Internal Medicine 01/21/14 Adam Cesar RN [address] [place] [phone] Registered Nurse Family Medicine 03/28/25 Karina Jones 03/28/25 documented as of this encounter
--- OUTSIDE RECORDS SUMMARY | 2025-05-24 09:12 | XMS_ITS | Encounter Summary ---
Author Organization [employer] [facility] Address [address] 7t [place] [address] Care Team Providers Care Sizer Machine Name Role Phone Bharath Welch MD Primary Care Provider Adam Cesar RN Unavailable [phone] Karina Jones Unavailable Encounter Details Date [...] Description 05/26/2025 2:45 PM EDT Office Visit [facility] CHC MED & PEDS [address] [place], [place] [phone] Bharath Welch MD [address] [place], [place] [phone] 06/02/2025 1:30 PM EDT Office Visit [facility] MEDICINE [address] [place] [address] Batsheva Gates MD [address] [place] [address] documented as of this encounter Goals Goal [...] documented as of this encounter Care Teams Sizer Machine Relationship Specialty Start Date End Date Bharath Welch MD 505 [place] [address] PCP - General Internal Medicine 01/21/14 Adam Cesar, SARAHI [address] [place], [place] [phone] Registered Nurse Family Medicine 03/28/25 Karina Jones 03/28/25 documented as of this encounter
--- OUTSIDE RECORDS SUMMARY | 2025-05-24 09:12 | XMS_ITS | Clinical Summary ---
Author Organization [employer] Address [address] [facility] 7t [place] [address] Care Team Providers Care Brake Repair Supervisor Name Role Phone Bharath Welch MD Primary Care Provider Adam Cesar RN Unavailable [phone] Karina Jones Unavailable Allergies No known [...] Description 05/23/2025 10:20 AM EDT Office Visit [facility] [address] [place] [phone] Phani Gupta MD Diarrhea in adult patient (Primary Dx); Elevated blood pressure reading in office without diagnosis of hypertension 05/23/2025 Travel 05/21/2025 Refill [facility] [address] [place] [address] Bharath Welch MD Lumbago with sciatica, right side 05/20/2025 Patient Outreach [address] [address] Bharath Welch MD 05/20/[address] [address] Batsheva Gates MD Hospital Follow-up 05/20/2025 Patient Outreach [facility] [address] [place] [address] Bharath Welch MD Transition Of Care (Tcm) (HDF unscheduled. ) 05/18/2025 Telephone [facility] [address] [place] [address] Bharath Welch MD Nurse Triage 05/18/2025 Results Follow-Up [address] [address] Angélica Villarreal, SARAHI Cologfide colon cancer screening 05/16/2025 Patient Outreach [address] [address] Bharath Welch MD 05/11/2025 2:45 PM EDT Office Visit [facility] [address] [place] [address] Surinder, Uyen, OD Myopia of both eyes (Primary Dx) 05/11/2025 11:15 AM EDT Office Visit [facility] [address] [place] [address] Bharath Welch MD Primary hypertension (Primary Dx); History of Helicobacter pylori infection; Nausea 05/11/2025 Patient Outreach [address] [address] Bharath Welch MD Care Coordination ([facility] f/u) 05/11/2025 Patient Outreach [address] [address] Bharath Welch MD Care Management (C3CM- f/u call) 05/11/2025 Travel 05/10/2025 Telephone [facility] [address] [place] [address] Bharath Welch MD CHART PREP 05/03/2025 Telephone [facility] [address] [place] [address] Bharath Welch MD Lab Orders 04/28/2025 Patient Outreach [address] [address] Bharath Welch MD Care Management (C3- f/u call) 04/28/2025 Telephone [facility] [address] [place] [address] Bharath Welch MD stool kit. 04/26/2025 Orders Only [facility] External Provider, [facility] 04/26/2025 Telephone [facility] [address] [place] [address] Bharath Welch MD Medication Question 04/20/2025 Orders Only [facility] [address] [place] [address] Bharath Welch MD Screening for colon cancer (Primary Dx) 04/19/2025 Patient Outreach [address] [address] Bharath Welch MD 04/19/2025 Patient Outreach [address] [address] Bharath Welch MD Care Coordination (SDOH f/u) 04/19/2025 Patient Outreach [address] [address] Bharath Welch MD 04/17/[address] [address] Bharath Welch MD Chronic pain syndrome 04/07/2025 9:30 AM EDT Clinical Support [address] [address] Rosita Calderon, SARAHI Uncomplicated opioid dependence ([facility]/HCC) 04/07/2025 Travel 04/06/2025 10:45 AM EDT Office Visit [facility] [address] [place] [address] Bharath Welch MD Recurrent major depressive disorder, in partial remission ([facility]) (Primary Dx); Unintentional weight loss; Annual physical exam; Urethritis 04/06/2025 Travel 04/05/2025 Telephone [facility] [address] [place] [address] Bharath Welch MD Chart Prep 04/04/2025 Plan of Care Documentation [address] [address] 04/04/2025 Patient Outreach [address] [address] Bharath Welch MD Care Management (C3CM- initial assessment/ enrollment) 04/04/2025 Patient Outreach [address] [address] Bharath Welch MD Care Coordination (SDOH) 04/01/2025 Patient Outreach [address] [address] Bharath Welch MD Care Coordination (CM/CHW appt reminder) 03/30/2025 Patient Outreach [address] [address] Bharath Welch MD Pre-visit Planning (SDOH screening negative and Tobacco screening negative) 03/28/2025 Patient Outreach [address] [address] Bharath Welch MD Care Coordination (CM/CHW outreach) 03/28/2025 Patient Outreach [address] [address] Bharath Welch MD Care Coordination (CHW chart review) 03/28/2025 Patient Outreach [address] [address] Bharath Welch MD Care Management (C3CM- chart review) 03/28/[address] [address] Batsheva Gates MD Uncomplicated opioid dependence ([facility]) 03/28/2025 Patient Outreach [address] [address] Bharath Welch MD 03/27/2025 Orders Only [facility] External Provider, [facility] 03/25/2025 Refill [facility] [address] [place] [address] Carter Cooney MD 03/18/2025 Refill [facility] [address] [place] [address] Bharath Welch MD Unintentional weight loss 03/14/2025 Refill [facility] [address] [place] [address] Bharath Welch MD from Last 3 Months [...] Description 05/26/2025 2:45 PM EDT Office Visit [facility] [address] [place], [place] [phone] Bharath Welch MD [address] [place], [place] [phone] 06/02/2025 1:30 PM EDT Office Visit [facility] [address] [place] [address] Batsheva Gates MD [address] [place] [address] Health Maintenance Due Date Last Done Comments [...] all mood-altering substances General No 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, 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 Procedure Name Priority Date/Time Associated Diagnosis Comments [...] NOW Rapid Molecular) (05/23/2025 10:50 AM EDT) [facility] Influenza B Negative Negative, Indeterminate [facility] Swab 05/23/2025 10:5 0 AM EDT us Phani Gupta MD POINT OF CARE TEST ENTER/EDIT OR DERABLES Final Result Performing Organization Address [facility]/ZIP Co de Phone Number [facility] [address] [place] [phone] * Influenza A (ID NOW Rapid Molecular) (05/23/2025 10:50 AM EDT) [facility] Influenza A Negative Negative, Indeterminate [facility] Swab 05/23/2025 10:5 0 AM EDT us Phani Gupta MD POINT OF CARE TEST ENTER/EDIT OR DERABLES Final Result Performing Organization Address [facility] Co de Phone Number [facility] [address] [place] [phone] * POCT Rapid COVID Ag (05/23/2025 10:48 AM EDT) [facility] Rapid COVID Ag Negative Swab 05/23/2025 10:4 8 AM EDT us Phani Gupta MD POINT OF CARE TEST ENTER/EDIT OR DERABLES Final Result * (ABNORMAL) Cologuard?? colon cancer screening (05/12/2025 10:40 AM EDT) [facility] Cologuard Result Positive( A) Negative 05/17/2025 12:44 PM EDT [employer] (CLIA #:[id number]) Comment: The Cologuard (TM) test was performed [...] Dumont. et al, N Engl J Med 2014;370(14):1508-2305.) Cologuard may produce a false negative or false positive result (no colorectal cancer or precancerous polyp present at colonoscopy follow up). A negative Cologuard test result does not guarantee the absence of CRC or advanced adenoma (pre-cancer). The current Cologuard screening interval is every 3 years. ([place] [employer] Society and U.S. Multi-Society Task Force). Cologuard performance data in a 10,000 patient pivotal study using colonoscopy as the reference method can be accessed at the following location: [email or web address]/results. Additional description of the Cologuard test process, warnings and precautions can be found at www.aaTagoguard.com. Stool specimen (specimen) 05/12/2025 10:40 AM EDT 05/13/2025 9:11 AM EDT us Bharath Welch MD LAB MOLECULAR DIAGNOSTICS O RDERABLES Final Result [employer] (CLIA #:[id number]) [address] [place] [address], * Urinalysis, Complete, with Reflex to Culture (04/26/2025 7:33 PM EDT) Color Urine Yellow [facility] Appearance Urine Cloudy [facility] PH 8.0 5.0 - 9.0 [facility] Glucose Urine UA Negative Negative mg/dL [facility] Urine Blood Negative Negative [facility] Specific [place] - Urine 1.015 1.005 - 1.025 [facility] Urine Protein Negative Neg-Trace mg/dL [facility] Urine Ketones Negative Negative mg/dL [facility] Nitrite Urine Negative Negative [facility] Leukocyte Esterase Urine Negative Negative [facility] RBC Urine 0-2 0 - 2 /HPF [facility] Urine WBC 0-5 0 - 5 /HPF [facility] Urine Squamous Epithelial Cell 0-2 0 - 2 /HPF [facility] Urine Bacteria None Seen None Seen [facility] Hyaline Casts, Urine 0-2 0 - 2 /LPF [facility] 04/26/2025 7:33 PM EDT 04/26/2025 7:43 PM EDT Narrative [facility] - 04/26/2025 7:56 PM EDT [id number], Clean Catch us Generic External Data Provider LAB URINE ORDERAB LES Final Result [facility] [address] [place] [phone] * High Sensitivity Troponin I (04/26/2025 7:11 PM EDT) TROPONIN I HIGH SENSITIVITY <2.7 <3.5 - 35.0 ng/L [facility] Comment:The Dodson high sens itivity Troponin-I results should beused in conjunction with other diagnostic information suchas ECG, clinical observations and information, and patientsymptoms to aid in the diagnosis of [place]. 04/26/2025 7:11 PM EDT 04/26/2025 7:14 PM EDT us Generic External Data Provider LAB BLOOD ORDERAB LES Final Result [facility] [address] [place] [address] [phone] * (ABNORMAL) CBC auto differential (04/26/2025 7:11 PM EDT) White Blood Count 7.1 4.8 - 10.8 X10*3/uL [facility] Red Blood Count 4.63 4.60 - 5.80 X10*6/uL [facility] Hemoglobin 13.1(L) 14.0 - 18.0 g/dl [facility] Hematocrit 39.2(L) 42.0 - 52.0 % [facility] Mean Corpuscular Volume 84.7 80.0 - 98.0 fL [facility] Mean Corpuscular Hemoglobin 28.3 27.0 - 33.0 pg [facility] Mean Corpuscular HGB Conc 33.4 31.0 - 36.0 g/dl [facility] Red Cell Distribution Width 13.5 11.0 - 16.0 % [facility] Platelet Count 156(L) 160 - 400 X10*3/uL [facility] Mean Platelet Volume 9.5 9.4 - 12.4 fL [facility] Neutrophils Percent Auto 57.4 45 - 73 % [facility] Imm Gran Pct Auto 0.3 0.0 - 0.4 % [facility] Lymphocytes Percent Auto 32.6 20 - 40 % [facility] Monocytes Percent Auto 7.9 2 - 11 % [facility] Eosinophils Percent Auto 1.0 0 - 4 % [facility] Basophils Percent Auto 0.8 0 - 2 % [facility] NRBC Pct Auto 0.0 0.0 - 0.2 /100WBC [facility] Neutrophils Absolute Auto 4.1 2.0 - 8.3 x10*3/uL [facility] Imm Gran Abs Auto 0.02 0.00 - 0.03 X10*3/uL [facility] Lymphocytes Absolute Auto 2.3 1.2 - 4.9 X10*3/uL [facility] Monocytes Absolute Auto 0.6 0.1 - 1.2 X10*3/uL [facility] Eosinophils Absolute Auto 0.1 0.0 - 0.4 X10*3/uL [facility] Basophils Absolute Auto 0.1 0.0 - 0.2 X10*3/uL [facility] NRBC Abs Auto 0.000 0.0 - 0.012 X10*3/uL [facility] 04/26/2025 7:11 PM EDT 04/26/2025 7:14 PM EDT us Generic External Data Provider LAB BLOOD ORDERAB LES Final Result Performing Organization Address City/[facility]/ZIP Co de Phone Number [facility] [address] [place] [phone] * Partial Thromboplastin Time, Activated (APTT) (04/26/2025 7:11 PM EDT) Partial Thromboplastin Time 29.8 26.7 - 34.1 SEC [facility] 04/26/2025 7:11 PM EDT 04/26/2025 7:14 PM EDT Generic External Data Provider LAB BLOOD ORDERAB LES Final Result Performing Organization Address City/[facility] Co de Phone Number [facility] [address] [place] [phone] * (ABNORMAL) Prothrombin Time-INR (04/26/2025 7:11 PM EDT) Prothrombin Time 10.6(L) 10.9 - 12.4 SEC [facility] INTERNATIONAL NORM RATIO 0.9 0.9 - 1.1 [facility] Comment:INTERNATIONAL NORMAL IZED RATIO (INR) REFERENCE [...] Provider LAB BLOOD ORDERAB LES Final Result [facility] [address] [place] [phone] * (ABNORMAL) Comprehensive Metabolic Panel (04/26/2025 7:11 PM EDT) Sodium 142 135 - 145 mmol/L [facility] Potassium 3.9 3.3 - 5.1 mmol/L [facility] Comment:Slight Hemolysis.Int erpret result with caution. Chloride 103 96 - 108 mmol/L [facility] Carbon Dioxide 26 22 - 29 mmol/L [facility] Anion Gap 17 12 - 20 [facility] Urea Nitrogen (BUN) 13 9 - 16 mg/dL [facility] Creatinine, Serum 0.92 0.5 - 1.4 mg/dL [facility] Creatinine Clr Calc Pharmacy 78.6 [facility] Comment:eGFR (calculated fro m the MDRD study equation) and eCrCl(calculated from the Cockcroft-Gault equation) are based ondifferent parameters and may not yield comparable results.If eCrCl result is absurd, please check patient'sheight/weight. Estimated Glomerular Filt Rate >60 [facility] Comment:Chronic Kidney Disea se: Estimated GFR < 60 mL/min/1.81v4Imeaih Kidney Disease: Estimated GFR < 15 mL/min/1.73m2 Glucose 112 60 - 115 mg/dL [facility] Calcium 10.0 8.4 - 10.2 mg/dL [facility] Bilirubin, Total 0.5 0.0 - 1.0 mg/dL [facility] Aspartate Amino Transferase 38(H) 5 - 37 U/L [facility] Comment:Slight Hemolysis.Int erpret result with caution. Alanine Aminotransferase 17 0 - 40 U/L [facility] Total Protein 8.8(H) 6.5 - 8.0 g/dL [facility] Albumin Level 5.5(H) 3.5 - 5.0 g/dL [facility] Alkaline Phosphatase 86 39 - 117 U/L [facility] 04/26/2025 7:11 PM EDT 04/26/2025 7:14 PM EDT us Generic External Data Provider LAB BLOOD ORDERAB LES Final Result Performing Organization Address City/[facility]/ZIP Co de Phone Number [facility] [address] [place] [phone] * B Type Natriuretic Peptide (BNP) (04/26/2025 7:10 PM EDT) B Type Natriuretic Peptide <10 <100 pg/mL [facility] 04/26/2025 7:10 PM EDT 04/26/2025 7:14 PM EDT Generic External Data Provider LAB BLOOD ORDERAB LES Final Result Performing Organization Address [facility]/ZIP Co de Phone Number [facility] [address] [place] [phone] * XR Chest 1 View (04/26/2025 7:05 PM EDT) Anatomical Region Laterality Modality Chest Radiographic Alma Rosa ging 04/26/2025 7:05 PM EDT Narrative 04/26/2025 7:07 PM EDT [address] [address] XRay Report Signed Patient: Fer Burrell MR#: Gabriel [id number] : 1970 Acct:[id number] Age/Sex: 54 / M ADM Date: 04/26/25 Loc: HO.ED Attending Dr: Ordering Physician: Eleuterio Castro Date of Service: 04/26/25 Procedure(s): XR chest 1V Accession Number(s): [id number] cc: Eleuterio Castro; Bharath Welch MD CLINICAL [...] in OV> 04/26/251905 DD/ 04 TD/TT: 04/26/251904 Conservation Assistant: Procedure Note Donotuseinterpreter, Image - 04/26/[address] [address] XRay Report Signed Patient: Fer BurrellMR#: Gabriel [id number] : 1970Acct:[id number] Age/Sex: 54 / MADM Date: 04/26/25 Loc: .ED Attending Dr: Ordering Physician: Eleuterio Castro Date of Service: 04/26/25 Procedure(s): XR chest 1V Accession Number(s): [id number] cc: Eleuterio Castro; Bharath Welch MD CLINICAL [...] in OV> 04/26/251905 DD/ 04 TD/TT: 04/26/251904 Conservation Assistant: us [facility] External Provider IMG XR PROCEDURES Final Result * US Abdomen Limited (03/27/2025 6:05 PM EDT) Anatomical Region Laterality Modality Abdomen Ultrasound 03/27/2025 6:05 PM EDT Narrative 03/27/2025 6:07 PM EDT [place] [address] Ultrasound Report Signed Patient: Fer Burrell MR#: M [id number] : 1970 Acct:[id number] Age/Sex: 54 / M ADM Date: 03/27/25 Loc: HO.ED Attending Dr: Ordering Physician: Eleuterio Castro Date of Service: 03/27/25 Procedure(s): US abdomen limited Accession Number(s): [id number] cc: Eleuterio Castro; Bharath Welch MD CLINICAL [...] in OV> 03/27/251805 DD/ 04 TD/TT: 03/27/251804 Conservation Assistant: Procedure Note Donotuseinterpreter, Image - 03/27/[address] [address] Ultrasound Report Signed Patient: Fer BurrellMR#: M [id number] : 1970Acct:[id number] Age/Sex: 54 / MADM Date: 03/27/25 Loc: HO.ED Attending Dr: Ordering Physician: Eleuterio Castro Date of Service: 03/27/25 Procedure(s): US abdomen limited Accession Number(s): [id number] cc: Eleuterio Castro; Bharath Welch MD CLINICAL [...] in OV> 03/27/251805 DD/ 04 TD/TT: 03/27/251804 Conservation Assistant: us [facility] External Provider IMG US PROCEDURES Edited Result - Final * US SCROTUM DOPPLER (03/27/2025 6:04 PM EDT) Anatomical Region Laterality Modality Abdomen Ultrasound 03/27/2025 6:04 PM EDT Narrative 03/27/2025 6:05 PM EDT [address] [address] Ultrasound Report Signed Patient: Fer Burrell MR#: M [id number] : 1970 Acct:[id number] Age/Sex: 54 / M ADM Date: 03/27/25 Loc: HO.ED Attending Dr: Ordering Physician: Eleuterio Castro Date of Service: 03/27/25 Procedure(s): US scrotum doppler Accession Number(s): [id number] cc: Eleuterio Castro; Bharath Welch MD CLINICAL [...] in OV> 03/27/251804 DD/ 03 TD/TT: 03/27/251803 Conservation Assistant: Procedure Note Donotuseinterpreter, Image - 03/27/2025 [place] [address] Ultrasound Report Signed Patient: Fer BurrellMR#: M [id number] : 1970Acct:[id number] Age/Sex: 54 / MADM Date: 03/27/25 Loc: .ED Attending Dr: Ordering Physician: Eleuterio Castro Date of Service: 03/27/25 Procedure(s): US scrotum doppler Accession Number(s): [id number] cc: Eleuterio Castro; Bharath Welch MD CLINICAL [...] in OV> 03/27/251804 DD/ 03 TD/TT: 03/27/251803 Conservation Assistant: us [facility] External Provider IMG US PROCEDURES Edited Result - Final * US Scrotum (03/27/2025 6:04 PM EDT) Anatomical Region Laterality Modality Body Ultrasound 03/27/2025 6:04 PM EDT Narrative 04/01/2025 11:40 AM EDT [place] [address] Ultrasound Report Signed Patient: Fer Burrell MR#: M [id number] : 1970 Acct:[id number] Age/Sex: 54 / M ADM Date: 03/27/25 Loc: .ED Attending Dr: Ordering Physician: Eleuterio Castro Date of Service: 03/27/25 Procedure(s): US scrotum Accession Number(s): [id number] cc: Eleuterio Castro; Bharath Welch MD CLINICAL [...] OV> 04/01/25 1140 DD/ 03 TD/TT: 03/27/251803 Conservation Assistant: Procedure Note Dontinmasonkirkter, Image - 04/01/2025 [place] [address] Ultrasound Report Signed Patient: Fer BurrellMR#: M [id number] : 1970Acct:[id number] Age/Sex: 54 / MADM Date: 03/27/25 Loc: HO.ED Attending Dr: Ordering Physician: Eleuterio Castro Date of Service: 03/27/25 Procedure(s): US scrotum Accession Number(s): [id number] cc: Eleuterio Castro; Bharath Welch MD CLINICAL [...] OV> 04/01/25 1140 DD/ 180 TD/TT: 03/27/251803 Conservation Assistant: us [facility] External Provider IMG US PROCEDURES Final Result * HIV-1/2 Antigen and Antibodies, Fourth Generation, with Reflexes (02/04/2024 9:13 AM EDT) HIV AB/AG Nonreactive Nonreactive [facility] Comment:HIV-1 p24 Ag and/or HIV-1/HIV-2 Ab not detected.A test result that is nonreactive does not exclude thepossibility of exposure to or infection with HIV-1 and/orHIV-2. Nonreactive results in this assay for individualswith prior exposure to HIV-1 and/or HIV-2 may be due toantigen and antibody levels that are below the limit ofdetection of this assay.The [employer] HIV Ag/Ab Combo assay result andsupplemental assay results should be interpreted inconjunction with the patient's clinical presentation,history and other laboratory results. If the results areinconsistent with clinical evidence, additional testing issuggested to confirm the result. Blood Venous blood specimen / Unknown 02/04/2024 9:13 AM EDT 02/04/2024 11:41 AM EDT us Isa Chalwa MD LAB BLOOD ORDERABLES Final Re sult [facility] [address] [place] [phone] * LIPID PANEL, STANDARD (02/22/2022 11:05 [...] LDL-C. Sherman SS et al. MICHELE. 2013;310(19): 2551-2791 (http://education.geolad.[employer]/faq/CBG402) Non-HDL Cholesterol 111 <130 mg/dL (calc) [facility] Comment: For patients with diabetes plus 1 major ASCVD risk factor, treating to a non-HDL-C goal of <100 mg/dL (LDL-C of <70 mg/dL) is considered a therapeutic option. Triglycerides 77 <150 mg/dL [facility] 02/22/2022 11:0 5 AM EDT Bharath Welch MD LAB BLOOD ORDERABLES Final Result [facility] [address] [place] [address], * Colonoscopy (03/23/2020) Colonoscopy Normal Normal Narrative Mitali Trujillo - 03/23/2020 Recommended follow up in 5 years Historical Provider HEALTH MAINTENANCE Edited Result - Final from Last 3 Months or Most Recently Relevant to Health Maintenance Insurance [facility] C3 DENTAL-[facility] MEDICAID STAND ADULT * Guarantor: Fer Burrell Account Type Relation to Patient Date of Phone Billing Address Personal/[place] [address] * Guarantor: Fer Brurell Account Type Relation to Patient Date of Phone Billing Address Personal/[place] [address] * Guarantor: Fer Burrell Account Type Relation to Patient Date of Phone Billing Address Personal/Family Self Jeffry Marianikhil Ivanke [place] Care Teams Brake Repair Supervisor Relationship Specialty Start Date End Date Bharath Welch MD [address] [place] [address] PCP - General Internal Medicine 01/21/14 Adam Cesar, RN [address] [place] [address] Registered Nurse Family Medicine 03/28/25 Karina Jones 03/28/25
--- OUTSIDE RECORDS SUMMARY | 2025-05-24 09:12 | XMS_ITS | Encounter Summary ---
Author Organization [facility] [facility] Address 75 [facility] 7t [place] [address] Care Team Providers Care Sales Representative Cash Registers Name Role Phone Bharath Welch MD Primary Care Provider Adam Cesar RN Unavailable [phone] Karina Jones Unavailable Encounter Details Date Type Department Care Team ([facility] Contact Info) Description 01/10/2023 Orders Only [facility] MED & PEDS 505 [place], [place] [phone] Shonda Espinoza LPN Social History Tobacco Use [...] Upcoming Encounters Date Type Department Care Team ([facility] Contact Info) Description 05/26/2025 2:45 PM EDT Office Visit [facility] 505 [place], [place] [phone] Bharath Welch MD 505 [place] [address] 06/02/2025 1:30 PM EDT Office Visit [facility] 230 [place], [place] [phone] Batsheva Gates MD 230 [place], [place] [phone] documented as of this encounter Visit Diagnoses Not on filedocumented in this encounter Care Teams Sales Representative Cash Registers Relationship Specialty Start Date End Date Bharath Welch MD 505 [place] [address] PCP - General Internal Medicine 01/21/14 Adam Cesar RN 505 [place], [place] [phone] Registered Nurse Family Medicine 03/28/25 Karina Jones 03/28/25 documented as of this encounter
--- OUTSIDE RECORDS SUMMARY | 2025-05-24 09:12 | XMS_ITS | Encounter Summary ---
Author Organization [facility] [facility] Address [address] [facility] 7t [place] [address] Care Team Providers Care Respiratory Technician Name Role Phone Bharath Welch MD Primary Care Provider Adam Cesar RN Unavailable Karina Jones Unavailable Reason for Visit * Reason Comments Med Refill Encounter Details Date Type Department Care Team (Late st Contact Info) Description 06/11/2024 Refill [facility] MEDICINE 230 [place] [address] Batsheva Gates MD 230 [place] [address] Uncomplicated opioid dependence (CMS/HCC) Social History Tobacco [facility] 505 [place] [address] Bharath Welch MD 505 [place] [address] 06/02/2025 1:30 PM EDT Office Visit [facility] 230 [place], [place] [phone] Batsheva Gates MD 230 [place], [place] [phone] documented as of this encounter Visit Diagnoses Diagnosis Uncomplicated opioid dependence (CMS/HCC) documented in this encounter Additional Health Concerns Assessment Noted Time PHQ-9 Depression Total Score: 6 04/01/20 24 9:31 AM EDT documented as of this encounter Care Teams Respiratory Technician Relationship Specialty Start Date End Date Bharath Welch MD 505 [place] [address] PCP - General Internal Medicine 01/21/14 Adam Cesar, SARAHI [address] [place] [address] Registered Nurse Family Medicine 03/28/25 Karina Jones 03/28/25 documented as of this encounter
--- OUTSIDE RECORDS SUMMARY | 2025-05-24 09:12 | XMS_ITS | Encounter Summary ---
Author Organization [employer] [facility] Address [address] [facility] 7t [place] [address] Care Team Providers Care Spray Worker Name Role Phone Bharath Welch MD Primary Care Provider Adam Cesar RN Unavailable [phone] Karina Jones Unavailable Reason for Visit * Reason Onset Date Comments Results 05/18/2025 Referral 05/18/2025 Encounter Details Date Type Department Care Team (Late st Contact Info) Description 05/18/2025 Results Follow-Up [facility] MEDICINE [address] [place] [address] Angélica Villarreal, SARAHI [place] colon cancer screening [...] AM EDT TC placed to pt via [facility] pharmacy messenger (Imer ID#[id number]) to inform and advise of below PCP message. Advised pt cologuard is positive and referral placed to gastroenterology to consider a colonoscopy. Pt reports they do not want to be seen in [place] and [facility] [place] [facility] Pt reports they do not like the care at [place]. Advised pt message to be sent to referrals specialist for review. Pt verbalized understanding and denies questions at this time. ----- Message from Bharath Welch MD sent at 05/17/2025 10:43 PM EDT ----- Please call to inform Mr. Fer Howell that his Cologuard is positive. He will be referredto gastroenterology to consider a colonoscopy ----- Message ----- From: [facility] Results In Sent: 05/17/2025 5:50 PM EDT To: Bharath Welch MD documented in this encounter Plan of Treatment Upcoming Encounters Date Type Department Care Team (Late st Contact Info) Description 05/26/2025 2:45 PM EDT Office Visit [facility] 505 [place], [place] [phone] Bharath Welch MD 505 [place], [place] [phone] 06/02/2025 1:30 PM EDT Office Visit [facility] 230 [place], [place] [phone] Batsheva Gates MD 230 [place], [place] [phone] documented as of this encounter Goals Goal [...] documented as of this encounter Care Teams Spray Worker Relationship Specialty Start Date End Date Bharath Welch MD 505 [place] [address] PCP - General Internal Medicine 01/21/14 Adam Cesar, RN 505 [place] [address] Registered Nurse Family Medicine 03/28/25 Karina Jones 03/28/25 documented as of this encounter
--- OUTSIDE RECORDS SUMMARY | 2025-05-24 09:12 | XMS_ITS ---
Author Organization [email or web address] Address [address] [facility] 7t [place] [address] Care Team Providers Care Exhibit Carpenter Name Role Phone Bharath Welch MD Primary Care Provider [phone] Adam Cesar RN Unavailable [phone] Karina Jones Unavailable [facility] Status:Enrolled (Active) Start date:03/28/2025 Enrollment date:04/04/2025 Enrollment reason:ADT Feed Overview [facility] ED 03/27/25. Please outreach for enrollment. Case Team Name Relationship Phone Karina Jones(Responsible Staff) [phone] Continued Care and Services Coordination
--- OUTSIDE RECORDS SUMMARY | 2025-05-24 09:12 | XMS_ITS | Encounter Summary ---
Author Organization [employer] [facility] Address [address] [facility] 7t [place] [address] Care Team Providers Care Timber Selector Name Role Phone Bharath Welch MD Primary Care Provider [phone] Adam Cesar RN Unavailable [phone] Karina Jones Unavailable Encounter Details Date Type Department Care Team ([facility] Contact Info) Description 07/22/2024 Orders Only [facility] MED & PEDS 505 [place], [place] [phone] Bharath Welch MD 505 [place] [address] Unintentional weight loss (Primary Dx) Social History [...] Upcoming Encounters Date Type Department Care Team ([facility] Contact Info) Description 05/26/2025 2:45 PM EDT Office Visit [facility] MED & PEDS 505 [place], [place] [phone] Bharath Welch MD 505 [place] [address] 06/02/2025 1:30 PM EDT Office Visit [facility] MEDICINE 230 [place], [place] [phone] Batsheva Gates MD 230 [place], [place] [phone] Scheduled Orders Name Type Priority Associated Diagnoses [...] documented as of this encounter Care Teams Timber Selector Relationship Specialty Start Date End Date Bharath Welch MD 505 [place] [address] PCP - General Internal Medicine 01/21/14 Adam Cesar, SARAHI 505 [place] [address] Registered Nurse Family Medicine 03/28/25 Karina Jones 03/28/25 documented as of this encounter
--- OUTSIDE RECORDS SUMMARY | 2025-05-24 09:12 | XMS_ITS | Encounter Summary ---
Author Organization [employer] [facility] Address [address] [place] [address] 7t [place] [address] Care Team Providers Care Marketing Operations Manager Name Role Phone Bharath Welch MD Primary Care Provider [phone] Adam Cesar RN Unavailable [phone] Karina Jones Unavailable Encounter Details Date Type Department Care Team (Late st Contact Info) Description 07/02/2023 Abstract [facility] MEDICINE [address] [place] [address] Mitali Trujillo Social History Tobacco Use Types [...] Description 05/26/2025 2:45 PM EDT Office Visit [facility] MED & PEDS 505 [place], [place] [phone] Bharath Welch MD 505 [place], [place] [phone] 06/02/2025 1:30 PM EDT Office Visit [facility] 230 [place], [place] [phone] Batsheva Gates MD 230 [place], [place] [phone] documented as of this encounter Procedures Procedure Name Priority Date/Time Associated Diagnosis Comments [facility] COLONOSCOPY Routine 03/23/2020 documented in this encounter Results * Hm Colonoscopy (03/23/2020) Colonoscopy Normal Normal Narrative Mitali Trujillo - 03/23/2020 Recommended follow up in 5 years us Historical Provider HEALTH MAINTENANCE Edited Result - Final documented in this encounter Visit Diagnoses Not on filedocumented in this encounter Care Teams Marketing Operations Manager Relationship Specialty Start Date End Date Bharath Welch MD 505 [place] [address] PCP - General Internal Medicine 01/21/14 Adam Cesar, SARAHI 505 [place] [address] Registered Nurse Family Medicine 03/28/25 Karina Jones 03/28/25 documented as of this encounter
--- OUTSIDE RECORDS SUMMARY | 2025-05-24 09:12 | XMS_ITS | Encounter Summary ---
Author Organization [employer] [facility] Address 75 [facility] 7t [place] [address] Care Team Providers Care Dining Services Director Name Role Phone Bharath Welch MD Primary Care Provider Adam Cesar RN Unavailable [phone] Karina Jones Unavailable Reason for Visit * Reason Onset Date Comments Nurse Triage 05/18/2025 Encounter Details Date Type Department Care Team ([facility] st Contact Info) Description 05/18/2025 Telephone [facility] CHC MED & PEDS 505 [place], [place] [phone] Bharath Welch MD 505 [place], [place] [phone] Nurse Triage Social History Tobacco Use Types [...] call returned to patient with RADHA Carpenter [phone]. Patient reports worsening symptoms since seen on [...] at ED reports he will go to [facility] ED now. Patient advised to tell ED [...] caller accepted this outcome. Contact pt at [phone] documented in this encounter Plan of Treatment Upcoming Encounters Date Type Department Care Team (Late st Contact Info) Description 05/26/2025 2:45 PM EDT Office Visit [facility] MED & PEDS 505 [place], [place] [phone] Bharath Welch MD 505 [place], [place] [phone] 06/02/2025 1:30 PM EDT Office Visit [facility] MEDICINE 230 [place] [address] Batsheva Gates MD 230 [place] [address] documented as of this encounter Goals Goal [...] documented as of this encounter Care Teams Dining Services Director Relationship Specialty Start Date End Date Bharath Welch MD 505 [place] [address] PCP - General Internal Medicine 01/21/14 Adam Cesar RN 505 [place], [place] [phone] Registered Nurse Family Medicine 03/28/25 Karina Jones 03/28/25 documented as of this encounter
--- OUTSIDE RECORDS SUMMARY | 2025-05-24 09:12 | XMS_ITS | Encounter Summary ---
Author Organization [employer] Address 75 [facility] 7t [place] [address] Care Team Providers Care Christian Science Nurse Name Role Phone Bharath Welch MD Primary Care Provider Adam Cesar RN Unavailable [phone] Karina Jones Unavailable Reason for Visit * Reason Comments Transition Of Care (Tcm) HDF unscheduled . Encounter Details Date Type Department Care Team ([facility] st Contact Info) Description 05/20/2025 Patient Outreach [facility] CH[facility] MED & PEDS 505 [place], [place] [phone] Bharath Welch MD 505 [place], [place] [phone] Transition Of Care (Tcm) (HDF unscheduled. ) [...] Admission/Visit 05/18/25 Date of Discharge 05/19/25 Facility [facility] Diagnosis Diarrhea, unspecified Disposition Discharged Home Follow-Up Actions Follow-Up Needed Provider appointment Follow-Up Outcome Spoke to Patient;Booked Appointment Initial Contact Date 05/20/25 Patient already scheduled. documented in this encounter Plan of Treatment Upcoming Encounters Date Type Department Care Team (Late st Contact Info) Description 05/26/2025 2:45 PM EDT Office Visit [facility] MED & PEDS 505 [place] [address] Bharath Welch MD 505 [place] [address] 06/02/2025 1:30 PM EDT Office Visit [facility] MEDICINE 230 [place] [address] Batsheva Gates MD 230 [place] [address] documented as of this encounter Goals Goal [...] documented as of this encounter Care Teams Christian Science Nurse Relationship Specialty Start Date End Date Bharath Welch MD 505 [place] [address] PCP - General Internal Medicine 01/21/14 Adam Cesar, SARAHI 505 [place] [address] Registered Nurse Family Medicine 03/28/25 Karina Jones 03/28/25 documented as of this encounter
--- OUTSIDE RECORDS SUMMARY | 2025-05-24 09:12 | XMS_ITS | Encounter Summary ---
Author Organization [employer] [facility] Address [address] [facility] 7t [place] [address] Care Team Providers Care Emblem Drawer In Name Role Phone Bharath Welch MD Primary Care Provider [phone] Adam Cesar RN Unavailable [phone] Karina Jones Unavailable Reason for Visit * Reason Comments Med Refill Encounter Details Date Type Department Care Team (Late st Contact Info) Description 01/08/2024 Refill [facility] MEDICINE 230 [place] [address] Batsheva Gates MD 230 [place] [address] Uncomplicated opioid dependence (CMS/HCC) Social History Tobacco [...] Description 05/26/2025 2:45 PM EDT Office Visit [facility] CHC MED & PEDS 505 [place], [place] [phone] Bharath Welch MD 505 [place], [place] [phone] 06/02/2025 1:30 PM EDT Office Visit [facility] MEDICINE 230 [place] [address] Batsheva Gates MD 230 [place] [address] documented as of this encounter Visit Diagnoses Diagnosis Uncomplicated opioid dependence (CMS/HCC) documented in this encounter Care Teams Emblem Drawer In Relationship Specialty Start Date End Date Bharath Welch MD 505 [place] [address] PCP - General Internal Medicine 01/21/14 Adam Cesar, SARAHI 505 [place] [address] Registered Nurse Family Medicine 03/28/25 Karina Jones 03/28/25 documented as of this encounter
--- OUTSIDE RECORDS SUMMARY | 2025-05-24 09:12 | XMS_ITS | Encounter Summary ---
Author Organization [employer] [facility] Address [address] [facility] [address] 7t [place] [address] Care Team Providers Care Information Services Consultant Name Role Phone Bharath Welch MD Primary Care Provider [phone] Adam Cesar RN Unavailable [phone] Karina Jones Unavailable Reason for Visit * Reason Onset Date Comments Hospital Follow-up 05/20/2025 Encounter Details Date Type Department Care Team (Late st Contact Info) Description 05/20/2025 Telephone [facility] MEDICINE 230 [place] [address] Batsheva Gates MD 230 [place], [place] [phone] Hospital Follow-up Social History Tobacco Use Types [...] dependent on it anymore. Was admitted to [facility] 05/18-05/19 after going to ER for diarrhea. Scheduled HDF with PCP for 05/26. Advised him to come to [facility] or return to ED if symptoms worsen prior to appt. Spoke with nurse in [facility] to give FYI. documented in this encounter Plan of Treatment Upcoming Encounters Date Type Department Care Team (Late st Contact Info) Description 05/26/2025 2:45 PM EDT Office Visit [facility] MED & PEDS 505 [place], [place] [phone] Bharath Welch MD 505 [place] [address] 06/02/2025 1:30 PM EDT Office Visit [facility] MEDICINE [address] [place] [phone] Batsheva Gates MD 230 [place], [place] [phone] documented as of this encounter Goals Goal [...] documented as of this encounter Care Teams Information Services Consultant Relationship Specialty Start Date End Date Bharath Welch MD 505 [place] [address] PCP - General Internal Medicine 01/21/14 Adam Cesar, SARAHI 505 [place] [address] Registered Nurse Family Medicine 03/28/25 Karina Jones 03/28/25 documented as of this encounter
--- OUTSIDE RECORDS SUMMARY | 2025-05-24 09:12 | XMS_ITS | Encounter Summary ---
Author Organization [employer] [facility] Address 75 [facility] 7t [place] [address] Care Team Providers Care Solar Field Service Technician Name Role Phone Bharath Welch MD Primary Care Provider Adam Cesar RN Unavailable [phone] Karina Jones Unavailable Reason for Visit * Reason Comments Med Refill Encounter Details Date Type Department Care Team (Late st Contact Info) Description 09/18/2023 Refill [facility] MEDICINE 230 [place] [address] Batsheva Gates MD 230 [place] [address] Uncomplicated opioid dependence (CMS/HCC) Social History Tobacco [...] Description 05/26/2025 2:45 PM EDT Office Visit [facility] CHC MED & PEDS 505 [place], [place] [phone] Bharath Welch MD 505 [place], [place] [phone] 06/02/2025 1:30 PM EDT Office Visit [facility] MEDICINE 230 [place] [address] Batsheva Gates MD 230 [place] [address] documented as of this encounter Visit Diagnoses Diagnosis Uncomplicated opioid dependence (CMS/HCC) documented in this encounter Care Teams Solar Field Service Technician Relationship Specialty Start Date End Date Bharath Welch MD 505 [place] [address] PCP - General Internal Medicine 01/21/14 Adam Cesar, SARAHI 505 [place] [address] Registered Nurse Family Medicine 03/28/25 Karina Jones 03/28/25 documented as of this encounter
--- OUTSIDE RECORDS SUMMARY | 2025-05-24 09:12 | XMS_ITS | Encounter Summary ---
Author Organization [employer] [facility] Address 75 [facility] 7t [place] [address] Care Team Providers Care Coal Crusher Operator Name Role Phone Bharath Welch MD Primary Care Provider Adam Cesar RN Unavailable [phone] Karina Jones Unavailable Reason for Referral * Consultation (Routine) - Authorized Specialty Diagnoses / Procedures Referred By Nina lopez Referred To Contact Gastroenterology Diagnoses Screening for colon cancer Bharath Welch MD 505 [place] [address] Phone: tel: fax: [facility] [address] [facility] 3rd Floor [address] [place], [place] Phone: tel: fax: Referral ID Status Reason Start Date Expiration Date Visits Requested Visits Authorized [id number] Authorized Specialty Services Required 04/20/2025 04/20/2026 1 1 Encounter Details Date Type Department Care Team (Late st Contact Info) Description 04/20/2025 Orders Only [facility] MED & PEDS 505 [place] [address] Bharath Welch MD 505 [place], [place] [phone] Screening for colon cancer (Primary Dx) Social [...] Description 05/26/2025 2:45 PM EDT Office Visit [facility] CH[facility] MED & PEDS 505 [place] [address] Bharath Welch MD 505 [place] [address] 06/02/2025 1:30 PM EDT Office Visit [facility] MEDICINE 230 [place] [address] Batsheva Gates MD 230 [place] [address] Scheduled Referrals Name Type Priority Associated Diagnoses [...] Positive( A) Negative 05/17/2025 12:44 PM EDT [employer] (CLIA #:[id number]) Comment: The Cologuard (TM) test was performed [...] Bergman et al, N Engl J Med 2014;370(14):8058-7206.) Cologuard may produce a false negative or false positive result (no colorectal cancer or precancerous polyp present at colonoscopy follow up). A negative Cologuard test result does not guarantee the absence of CRC or advanced adenoma (pre-cancer). The current Cologuard screening interval is every 3 years. ([place] [employer] Society and U.S. Multi-Society Task Force). Cologuard performance data in a 10,000 patient pivotal study using colonoscopy as the reference method can be accessed at the following location: www.[employer]Cookies/results. Additional description of the Cologuard test process, warnings and precautions can be found at www.TermSyncogLuminescentrd.eCozy. Stool specimen (specimen) 05/12/2025 10:40 AM EDT 05/13/2025 9:11 AM EDT us Bharath Welch MD LAB MOLECULAR DIAGNOSTICS O RDERABLES Final Result [employer] (CLIA #:[id number]) [address] [place] [address], documented in this encounter Visit Diagnoses Diagnosis Screening for colon cancer- Primary Special screening for malignant neoplasms, colon documented in this encounter Additional Health Concerns Assessment Noted Time PHQ-9 Depression Total Score: 11 025 11:37 AM EDT documented as of this encounter Care Teams Coal Crusher Operator Relationship Specialty Start Date End Date Bharath Welch MD 505 [place] [address] PCP - General Internal Medicine 01/21/14 Adam Cesar, SARAHI 505 [place] [address] Registered Nurse Family Medicine 03/28/25 Karina Jones 03/28/25 documented as of this encounter
--- OUTSIDE RECORDS SUMMARY | 2025-05-24 09:12 | XMS_ITS | Encounter Summary ---
Author Organization [employer] Address [address] [facility] 7t [place] [address] Care Team Providers Care Spreader Box Operator Name Role Phone Bharath Welch MD Primary Care Provider Adam Cesar RN Unavailable [phone] Karina Jones Unavailable Reason for Visit * Reason Comments Med Refill Encounter Details Date Type Department Care Team (Late st Contact Info) Description 05/21/2025 Refill [facility] MEDICINE 230 [place] [address] Bharath Welch MD 505 [place], [place] [phone] Lumbago with sciatica, right side Social History [...] Description 05/26/2025 2:45 PM EDT Office Visit [facility] CHC MED & PEDS 505 [place] [address] Bharath Welch MD 505 [place] [address] 06/02/2025 1:30 PM EDT Office Visit [facility] MEDICINE 230 [place] [address] Batsheva Gates MD 230 [place] [address] documented as of this encounter Goals Goal [...] documented as of this encounter Care Teams Spreader Box Operator Relationship Specialty Start Date End Date Bharath Welch MD 505 [place] [address] PCP - General Internal Medicine 01/21/14 Adam Cesar, SARAHI [address] [place] [address] [place] [address] Registered Nurse Family Medicine 03/28/25 Karina Jones 03/28/25 documented as of this encounter
--- OUTSIDE RECORDS SUMMARY | 2025-05-24 09:12 | XMS_ITS | Encounter Summary ---
Author Organization [employer] Address 75 [facility] 7t [place] [address] Care Team Providers Care Laboratory Tester Name Role Phone Bharath Welch MD Primary Care Provider Adam Cesar RN Unavailable [phone] Karina Jones Unavailable Reason for Visit * Reason Onset Date Comments stool kit. 04/28/2025 Encounter Details Date Type Department Care Team ([facility] st Contact Info) Description 04/28/2025 Telephone [facility] CHC MED & PEDS 505 [place], [place] [phone] Bharath Welch MD 505 [place], [place] [phone] stool kit. Social History Tobacco Use Types [...] stool kit to be mailed too [address] [facility] [address] Contact pt at [phone] (montserratian) documented in this encounter Plan of Treatment Upcoming Encounters Date Type Department Care Team ([facility] Contact Info) Description 05/26/2025 2:45 PM EDT Office Visit [facility] CHC MED & PEDS 505 [place] [address] Bharath Welch MD 505 [place] [address] 06/02/2025 1:30 PM EDT Office Visit [facility] MEDICINE 230 [place] [address] Batsheva Gates MD 230 [place] [address] documented as of this encounter Goals Goal [...] documented as of this encounter Care Teams Laboratory Tester Relationship Specialty Start Date End Date Bharath Welch MD 505 [place] [address] PCP - General Internal Medicine 01/21/14 Adam Cesar RN 505 [place] [address] Registered Nurse Family Medicine 03/28/25 Karina Jones 03/28/25 documented as of this encounter
--- OUTSIDE RECORDS SUMMARY | 2025-05-24 09:12 | XMS_ITS | Encounter Summary ---
Author Organization [employer] [facility] Address [address] [facility] 7t [place] [address] Care Team Providers Care Tinsmith Helper Name Role Phone Bharath Welch MD Primary Care Provider Adam Cesar RN Unavailable [phone] Karina Jones Unavailable Encounter Details Date Type Department Care Team ([facility] Contact Info) Description 11/30/2024 Orders Only [facility] MED & PEDS [address] [place], [place] [phone] Bharath Welch MD [address] [place] [address] Unintentional weight loss (Primary Dx) Social History [...] Upcoming Encounters Date Type Department Care Team ([facility] Contact Info) Description 05/26/2025 2:45 PM EDT Office Visit [facility] MED [facility] PEDS [address] [place], [place] [phone] Bharath Welch MD [address] [place] [address] 06/02/2025 1:30 PM EDT Office Visit [facility] [address] [place], [place] [phone] Batsheva Gates MD [address] [place], [place] [phone] documented as of this encounter Visit Diagnoses Diagnosis Unintentional weight loss- Primary Loss of weight documented in this encounter Additional Health Concerns Assessment Noted Time PHQ-9 Depression Total Score: 6 04/01/20 24 9:31 AM EDT documented as of this encounter Care Teams Tinsmith Helper Relationship Specialty Start Date End Date Bharath Welch MD [address] [place] [address] PCP - General Internal Medicine 01/21/14 Adam Cesar, RN [address] [place] [address] Registered Nurse Family Medicine 03/28/25 Karina Jones 03/28/25 documented as of this encounter
--- OUTSIDE RECORDS SUMMARY | 2025-05-24 09:12 | XMS_ITS ---
Author Organization [employer] [facility] Address [address] [facility] 7t [place] [address] Care Team Providers Care Behavioral Health Specialist Name Role Phone Bharath Welch MD Primary Care Provider [phone] Adam Cesar RN Unavailable [phone] Karina Jones Unavailable CM Complex Status:Enrolled (Active) Start date:03/28/2025 Enrollment date:04/04/2025 Enrollment reason:ADT Feed Overview [facility] 03/27/25 Case Team Name Relationship Phone Adam Cesar RN(Responsible Staff) Registered Nurse [phone] Continued Care and Services Coordination
--- OUTSIDE RECORDS SUMMARY | 2025-05-24 09:12 | XMS_ITS | Encounter Summary ---
Author Organization [employer] Address [address] [facility] [address] [place] [address] Care Team Providers Care Assistant Women'S Tennis Coach Name Role Phone Bharath Welch MD Primary Care Provider [phone] Adam Cesar RN Unavailable [phone] Karina Jones Unavailable Encounter Details Date Type Department Care Team (Late st Contact Info) Description 05/20/2025 Patient Outreach [facility] [address] [place] [address] Bharath Welch MD [address] [place], [place] [phone] Social History Tobacco Use Types Packs/Day Years [...] Description 05/26/2025 2:45 PM EDT Office Visit [facility] MED & PEDS [address] [place] [address] Bharath Welch MD [address] [place] [address] 06/02/2025 1:30 PM EDT Office Visit [facility] [address] [place] [address] Batsheva Gates MD [address] [place] [address] documented as of this encounter Goals Goal [...] documented as of this encounter Care Teams Assistant Women'S Tennis Coach Relationship Specialty Start Date End Date Bharath Welch MD [address] [place] [address] PCP - General Internal Medicine 01/21/14 Adam Cesar RN [address] [place] [address] Registered Nurse Family Medicine 03/28/25 Karina Jones 03/28/25 documented as of this encounter
== END 2025-05-24 08:18 | disposition home or self-care (01) ==
LOC: HO.HHCL 08:17
PROVIDERS: PCP Internal Medicine; Visit Provider Emergency Medicine
DX: Z13.89 Encounter for screening for other disorder (principal)

== ENCOUNTER 2025-06-11 11:43 | Inpatient (IN) | payer MEDICAID, SELFPAY ==
--- NOTE | ~2025-06-11 | CT_ITS ---
CLINICAL HISTORY: GI upset chronic diarrhea CT abdomen and pelvis with IV contrast. COMPARISON: CT abdomen and pelvis dated 06/11/25 at 14:03 EDT FINDINGS: Partially visualized lung bases are unremarkable. No focal hepatic lesion. Gallbladder is contracted. Normal spleen. Normal pancreas. Normal adrenal glands. Symmetric renal enhancement. No hydronephrosis. Normal appendix. Moderate amount of stool within the cecum and ascending colon. No bowel obstruction. Thickening of the mucosa of the descending and sigmoid colon. No mesenteric or retroperitoneal lymphadenopathy. Normal abdominal aorta. 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 Urinary bladder is obscured. No inguinal lymphadenopathy. No acute fracture or suspicious bone lesion. IMPRESSION: 1. Colitis involving the descending and sigmoid colon. No bowel obstruction. This document has been electronically signed by: Lincoln Dunn MD on 06/11/2025 15:51:28
[2025-06-11 11:47] VITALS: BP 137/81; PULSE 91; RESP 18; TEMP 36.9; O2SAT 97; BMI 18.7
--- NOTE | 2025-06-11 11:47 | ED.GENADULT ---
HPI - General Adult General Chief complaint: General Medical Stated complaint: fall head inj and diarrhea for a month Time Seen by Provider: 06/11/25 12:12 Source: patient Mode of arrival: ambulatory Limitations: no limitations History of Present Illness ED Provider: HPI narrative: 54-year-old male, reports diarrhea for about a month, fall and head injury on the 04 of June, he states he stood up from a seated position too quickly and then fell down, denies LOC not on blood thinners, he is complaining primarily of the fact that he is still has loose stool 3-4 times daily, nonbloody nonmucoid, reports using antibiotics and stopped a week ago but continues to have loose bowel movements and increased gas when he eats. Has had no traveling outside [facility] when he developed these symptoms, no chest pain or shortness of breath reported. Related Data Home Medications ?Medication ?Instructions ?Recorded ?Confirmed acetaminophen 500 mg tablet 1 - 2 tab PO Q6-8H PRN Pain 10/19/20 10/19/20 amitriptyline 10 mg tablet 1 - 2 tab PO BEDTIME 10/19/20 10/19/20 buprenorphine 8 mg-naloxone 2 mg 1 strip sublingual BID 10/19/20 10/19/20 sublingual film (Suboxone) cholecalciferol (vitamin D3) 25 1 tab PO DAILY 10/19/20 10/19/20 mcg (1,000 unit) tablet diclofenac potassium 50 mg tablet 1 tab PO BID 10/19/20 10/19/20 divalproex 500 mg tablet,delayed 1 tab PO BID 10/19/20 10/19/20 release duloxetine 20 mg capsule,delayed 1 cap PO DAILY 10/19/20 10/19/20 release famotidine 20 mg tablet (Acid 1 tab PO BEDTIME 10/19/20 10/19/20 Regional Project Manager (famotidine)) nystatin 100,000 unit/mL oral 5 ml PO QID 10/19/20 10/19/20 suspension Previous Rx's ?Medication ?Instructions ?Recorded cyclobenzaprine 10 mg tablet 10 mg PO TID PRN muscle spasm #14 06/28/20 tabs lidocaine 4 % topical patch 1 patch topical DAILY PRN pain #10 06/28/20 ea ondansetron 4 mg disintegrating 4 mg PO Q8H PRN nausea and 08/10/20 tablet vomiting #14 tabs omeprazole 20 mg capsule,delayed 20 mg PO DAILY 30 days #30 caps 09/25/20 release omeprazole 40 mg capsule,delayed 40 mg PO DAILY #60 caps 11/06/20 release albuterol sulfate 90 mcg/actuation 2 puff PO Q4-6H PRN for wheezing 02/02/25 aerosol inhaler #8.5 grams budesonide-formoterol HFA 160 2 puff PO BID #10.2 grams 02/02/25 mcg-4.5 mcg/actuation aerosol inhaler (Symbicort) doxycycline hyclate 100 mg tablet 100 mg PO Q12H 10 days #20 tabs 03/27/25 aluminum-mag hydroxide-simethicone 10 ml PO QID PRN chest pressure 7 04/26/25 200 mg-200 mg-20 mg/5 mL oral susp days #3,000 mL (Antacid) lactobacillus combo no.11 15 1 cap PO DAILY #30 caps 06/11/25 billion cell sprinkle capsule (Probiotic) peg 3350-electrolytes 236 240 ml PO Q10M #4,000 mL 06/11/25 gram-22.74 gram-6.74 gram-5.86 gram solution (Golytely) Allergies Allergy/AdvReac Type Severity Reaction Status Date / Time No Known Allergies (No Known Allergy Verified 06/11/25 11:50 Allergies*) Review of Systems Constitutional: Constitutional: Reports as per HPI [facility] Past Medical History Medical History Productive cough Ambulates with cane History of pineal cyst Back pain History of anemia GERD (gastroesophageal reflux disease) Hx of cirrhosis Hx of hepatitis C Seizure disorder History of head injury History of TB (tuberculosis) HTN (hypertension) Substance abuse Surgical History History of esophagogastroduodenoscopy (EGD) Hx of colonoscopy History of cervical discectomy History of bilateral total hip arthroplasty Family History Family History Father Cancer Social History Social History Household Members: Other Are you a primary child care to a significant other at home: No Do you presently have visiting nurse or other home services: No Alcohol intake: current Alcohol intake frequency: does not drink Smoked in Last 30 Days: No Use of substances other than those prescribed or required for medical reasons: No Substance Use Type: Marijuana Advance Directives: No Advance Directives Information Provided: No Do you have a plan to hurt others: No Plan Physical Exam ED Vital Signs: Vital Signs - 24 hr 06/11/25 11:47 06/11/25 14:00 06/11/25 16:11 Temperature 98.5 F 98.2 F Pulse Rate 91 77 82 Respiratory Rate 18 18 16 Blood Pressure 137/81 133/84 115/61 Pulse Oximetry 97 99 99 Oxygen Delivery Method Room Air Room Air Room Air BMI result Body Mass Index 18.7 Const Other: General: ?Appears of stated age ? no scleral icterus ? Neck: Supple, no LAD, tenderness along left occipital area on the left without hematomas ? ?CV: RRR, no obvious murmurs appreciated ? ?Resp: ?No wheezing rales rhonchi no stridor moving air well ? Abd: ?Bowel sounds are present, no tenderness no rebound no rigidity ? ?MSK: FROM, strength 5/5 all extremities ? Skin: Warm, dry, intact, no jaundice ? ?Neuro: ?Alert and oriented x3, moving upper and lower extremities symmetrically, no obvious facial asymmetry noted, cranial nerves 2-12 intact Course Course Course Narrative: This is a Rapid Medical Examination (RME) performed by Carlie Colmenares PA-C in triage. Full HPI, ROS, assessment and treatment plan per primary provider in the Main ED. Hx: 54 yo M here for eval of diarrhea x3 months. previously seen for this, prescribed abx and taking imodium daily however diarrhea persists, around 4 BMs daily. normal PO intake. also reports fall w/ head strike on 06/04/25 while ascending the stairs, felt light headed - did not seek medical attention at that time. blacked out for a few seconds , witnessed by friend. no thinners. no head or neck pain. Plan: labs Reevaluation(s) Reevaluation #1: DR. Mcguire's progress note: I assumed care for this patient at 16:[address] which shows diffuse colitis patient is findings were reviewed patient do not meet criteria for sepsis, will start the patient on antibiotic and give 1 dose of prednisone, and IV fluids. Case discussed with Rocio Jones to be admitted to the hospitalist service. Time: 16:33 Medications Administered Generic Name Dose Route Start Last Admin Trade Name Freq PRN Reason Stop Dose Admin Lactated Ringer's 1,000 mls @ 0 mls/hr 06/11/25 12:45 06/11/25 15:46 Lr IV Infused .Q0M MILANA Infusion Wide Open Discontinued Medications Generic Name Dose Route Start Last Admin Trade Name Freq PRN Reason Stop Dose Admin Belladonna Alkaloids/Phenobarbital 10 ml 06/11/25 12:45 06/11/25 13:55 Phenobarb/Hyoscy/Atropine/Scop 10 Ml Elixir PO 06/11/25 12:46 10 ml ONCE ONE Administration Iohexol 100 ml 06/11/25 14:32 06/11/25 14:33 Iohexol 350 Mg/Ml 100 Ml Infus..Btl IV 06/11/25 14:33 85 ml ONCE ONE Administration Ketorolac Tromethamine 15 mg 06/11/25 12:45 06/11/25 13:55 Ketorolac Tromethamine 15 Mg/Ml Vial IVPUSH 06/11/25 12:46 15 mg ONCE ONE Administration Loperamide HCl 4 mg 06/11/25 12:45 06/11/25 13:55 Loperamide Hcl 2 Mg Capsule PO 06/11/25 12:46 4 mg ONCE ONE Administration Medical Decision Making Medical Decision Making [facility] Narrative: 12:57 PM 06/11/2025 (Dr. Denys Martínez): I reviewed the patient's studies it seems that on May 23 he has been diagnosed with EPEC E/coli and had a course of antibiotics I am not sure whether he had doxycycline, and he also has toxin B gene with the interpretation right likely colonization, I do what we would like to obtain CT imaging to evaluate for presence of any obvious masses that may be causing his symptoms, some of the considerations include malignancies of the GI, pancreatic and small-bowel cancers. Carcinoid tumor is a consideration, did not feel imaging of the head is indicated at this time, we will obtain ECG though sounds like he has had a orthostatic event, will check for electrolyte derangements. On initial evaluation patient declined having blood work drawn, went back to speak with the patient and did educate him regarding some of the considerations as well as CT with IV contrast and at this that this time he is agreeable to further workup Differential Diagnosis Differential Diagnoses: The differential diagnosis associated with the presentation includes (See above) Admission/Observation Consideration of admission/observation: Escalation of care including admission/observation considered Lab Data MDM Lab Attestation statement: I reviewed the patient's lab results. 06/11/25 13:44 06/11/25 13:44 Labs: Lab Results 06/11/25 06/11/25 06/11/25 Range/Units 12:16 13:44 13:44 WBC 7.5 (4.8-10.8) X10*3/uL RBC 4.36 L (4.60-5.80) X10*6/uL Hgb 12.2 L (14.0-18.0) g/dl Hct 37.8 L (42.0-52.0) % MCV 86.7 (80.0-98.0) fL MCH 28.0 (27.0-33.0) pg MCHC 32.3 (31.0-36.0) g/dl RDW 13.4 (11.0-16.0) % Plt Count 182 (160-400) X10*3/uL MPV 9.4 (9.4-12.4) fL Immature Gran % (Auto) 0.3 (0.0-0.4) % Neut % (Auto) 66.8 (45-73) % Lymph % (Auto) 19.5 L (20-40) % [place] % (Auto) 11.5 H (2-11) % Eos % (Auto) 1.2 (0-4) % Baso % (Auto) 0.7 (0-2) % Lymph # (Auto) 1.5 (1.2-4.9) X10*3/uL [place] # (Auto) 0.9 (0.1-1.2) X10*3/uL Eos # (Auto) 0.1 (0.0-0.4) X10*3/uL Baso # (Auto) 0.1 (0.0-0.2) X10*3/uL Abs Immat Gran (auto) 0.02 (0.00-0.03) X10*3/uL Absolute Neuts (auto) 5.0 (2.0-8.3) x10*3/uL Absolute Nucleated RBC 0.000 (0.0-0.012) X10*3/uL Nucleated RBC % (auto) 0.0 (0.0-0.2) /100WBC Sodium 144 (135-145) mmol/L Potassium 3.6 (3.3-5.1) mmol/L Chloride 108 (96-108) mmol/L Carbon Dioxide 30 H (22-29) mmol/L Anion Gap 10 L (12-20) BUN 15 (9-16) mg/dL Creatinine 0.85 (0.5-1.4) mg/dL Estim Creat Clear Calc 84.0 Estimated GFR > 60 Random Glucose 99 (60-115) mg/dL Calcium 9.3 D (8.4-10.2) mg/dL Magnesium 2.2 (1.6-2.6) mg/dL Total Bilirubin 0.5 (0.0-1.0) mg/dL AST 25 (5-37) U/L ALT 20 (0-40) U/L Alkaline Phosphatase 94 (39-117) U/L Total Protein 7.7 (6.5-8.0) g/dL Albumin 4.9 (3.5-5.0) g/dL Lipase 29 Cancelled (8-78) U/L Urine Color Yellow Urine Appearance Clear Urine pH 6.5 (5.0-9.0) Ur Specific Butler 1.015 (1.005-1.025) Urine Protein Negative (Neg-Trace) mg/dL Urine Glucose (UA) Negative (Negative) mg/dL Urine Ketones Negative (Negative) mg/dL Urine Blood Negative (Negative) Urine Nitrite Negative (Negative) Ur Leukocyte Esterase Negative (Negative) Prescription Management I considered prescription management with: Antibiotic Discharge Plan Discharge Clinical Impression: Loose stools, Syncope, Colitis Patient Disposition: Admitted As Inpatient Additional Instructions: Take GoLYTELY as prescribed, as discussed with the you it seems that the diarrhea you are describing is due to significant stool burden in your colon and so the only thing that makes it by the heart stool is liquid stool, I would like you to drink GoLYTELY 1 cup every 20 minutes until you have a bowel movement after that you can stop, then you can start taking probiotic. Please follow up with the PCP Your blood work has been reassuring Print Language: British
--- NOTE | 2025-06-11 11:50 | ECG_ITS ---
Test Reason : LIGHT HEADED Blood Pressure : */* mmHG Vent. Rate : 87 BPM Atrial Rate : 87 BPM P-R Int : 160 ms QRS Dur : 80 ms QT Int : 354 ms P-R-T Axes : 68 36 59 degrees QTcB Int : 425 ms Normal sinus rhythm Normal ECG When compared with ECG of 26-Apr-2025 15:59, No significant change was found Referred By: Chio Colmenares Electronically Signed By: TOO SORENSON MD
--- NOTE | 2025-06-11 12:03 | MHC.EDTECH ---
PATIENT REFUSED BLOOD WORK.
--- OUTSIDE RECORDS SUMMARY | 2025-06-11 12:07 | XMS_ITS | Encounter Summary ---
Author Organization [employer] [facility] Address [address] [facility] 7t [place] [address] Care Team Providers Care Vegetable Loader Machine Operator Name Role Phone Bharath Welch MD Primary Care Provider Adam Cesar RN Unavailable [phone] Karina Jones Unavailable Reason for Visit * Reason Comments Med Refill Encounter Details Date Type Department Care Team (Late st Contact Info) Description 06/11/2024 Refill [facility] [address] [place] [address] Batsheva Gates MD [address] [place] [address] Uncomplicated opioid dependence (CMS/HCC) Social History Tobacco [...] as of this encounter Plan of Treatment Not on file documented as of this encounter Visit Diagnoses Diagnosis Uncomplicated opioid dependence (CMS/HCC) (HCC) documented in this encounter Additional Health Concerns Assessment Noted Time PHQ-9 Depression Total Score: 6 04/01/20 24 9:31 AM EDT documented as of this encounter Care Teams Vegetable Loader Machine Operator Relationship Specialty Start Date End Date Bharath Welch MD [address] [place] [address] PCP - General Internal Medicine 01/21/14 Adam Cesar RN [address] [place] [address] Registered Nurse Family Medicine 03/28/25 Karina Jones 03/28/25 documented as of this encounter
--- OUTSIDE RECORDS SUMMARY | 2025-06-11 12:07 | XMS_ITS | Encounter Summary ---
Author Organization [employer] [facility] Address [address] [facility] 7t [place] [address] Care Team Providers Care Front End Loader Driver Name Role Phone Bharath Welch MD Primary Care Provider Adam Cesar RN Unavailable [phone] Karina Jones Unavailable Reason for Visit * Reason Onset Date Comments Nurse Triage 06/10/2025 Encounter Details Date Type Department Care Team ([facility] st Contact Info) Description 06/10/2025 Telephone [facility] MED & PEDS [address] [place], [place] [phone] Bharath Welch MD [address] [place], [place] [phone] Nurse Triage Social History Tobacco Use Types [...] encounter Miscellaneous Notes * Telephone Encounter - Janiya Fermin RN - 06/10/2025 2:08 PM EDT Return call to pt. Pt had called triage line to report that he had a fall on 06/04/25. States he didnot seek medical attention following the [place]. [place] in [place] and he tripped on cement stairs and landed on his head. States he lost consciousness for a few moments and couldn't see for a few minutes afterwards. States I never get headaches but my head hurts a lot since then. Pt denies dizziness, denies any visual changes since initial fall and denies N/V. Pt instructed to go to emergencyroom now. Pt states he will go . Protocol Used: Headache (Adult) Protocol-Based Disposition: Go to ED Now Positive Triage Question: * Severe headache (e.g., excruciating) and states worst headache of life * All higher-acuity triage questions were negative * Telephone Encounter - Boyd Montes - 06/10/2025 1:41 PM EDT Symptoms: Headache, Fall Outcome: Transfer to a nurse or provider NOW! Reason: Sudden worst headache of life now The caller accepted this outcome. Contact pt at [phone] (malian) documented in this encounter Plan of Treatment Not on file documented as of this encounter Goals Goal [...] documented as of this encounter Care Teams Front End Loader Driver Relationship Specialty Start Date End Date Bharath Welch MD [address] [place] [address] PCP - General Internal Medicine 01/21/14 Adam Cesar, SARAHI [address] [place] [address] Registered Nurse Family Medicine 03/28/25 Karina Jones 03/28/25 documented as of this encounter
--- OUTSIDE RECORDS SUMMARY | 2025-06-11 12:07 | XMS_ITS | Encounter Summary ---
Author Organization [employer] Address [address] [facility] [address]t [place] [address] Care Team Providers Care Sr. Manager Name Role Phone Bharath Welch MD Primary Care Provider Adam Cesar RN Unavailable [phone] Karina Jones Unavailable Reason for Visit * Reason Onset Date Comments stool kit. 04/28/2025 Encounter Details Date Type Department Care Team ([facility] st Contact Info) Description 04/28/2025 Telephone [facility] MED & PEDS [address] [place], [place] [phone] Bharath Welch MD [address] [place], [place] [phone] stool kit. Social History Tobacco Use Types [...] stool kit to be mailed too [address] [place] [address] Contact pt at [phone] (taiwanese) documented in this encounter Plan of Treatment [...] documented as of this encounter Care Teams Sr. Manager Relationship Specialty Start Date End Date Bharath Welch MD [address] [place] [address] PCP - General Internal Medicine 01/21/14 Adam Cesar, SARAHI [address] [place] [address] Registered Nurse Family Medicine 03/28/25 Karina Jones 03/28/25 documented as of this encounter
--- OUTSIDE RECORDS SUMMARY | 2025-06-11 12:07 | XMS_ITS | Encounter Summary ---
Author Organization [employer] [facility] Address [address] [facility] 7t [place] [address] Care Team Providers Care Stack Clerk Name Role Phone Bharath Welch MD Primary Care Provider Adam Cesar RN Unavailable [phone] Karina Jones Unavailable Reason for Referral * Consultation (Routine) - Authorized Specialty Diagnoses / Procedures Referred By Nina lopez Referred To Contact Gastroenterology Diagnoses Screening for colon cancer Bharath Welch MD [address] [place] [address] Phone: tel: fax: [facility] Gastroenterology [address] [facility] 3rd Floor [address] [place], [place] Phone: tel: fax: Referral ID Status Reason Start Date Expiration Date Visits Requested Visits Authorized [id number] Authorized Specialty Services Required 04/20/2025 04/20/2026 1 1 Encounter Details Date Type Department Care Team (Late st Contact Info) Description 04/20/2025 Orders Only [facility] MED & PEDS [address] [place] [address] Bharath Welch MD [address] [place], [place] [phone] Screening for colon cancer (Primary Dx) Social [...] as of this encounter Plan of Treatment Scheduled Referrals Name Type Priority Associated Diagnoses Order Schedule Referral to Gastroenterology Outpatient Referral Routine Screening for colon cancer Expected: 04/20/2025 (Approximate), Expires: 04/20/2026 documented as of this encounter Goals Goal Patient Goal Type Associated Problems Recent Progress Patient-Stated? Author Improve quality of life by maintaining ongoing abstinence from all mood-altering substances General No Fredo Solis, RN documented as of this encounter Procedures Procedure Name Priority Date/Time Associated Diagnosis Comments LAB COLOGUARD COLON CANCER SCREEN Routine 05/12/2025 10:40 AM EDT Screening for colon cancer documented in this encounter Results * (ABNORMAL) Cologuard?? colon cancer screening (05/12/2025 10:40 AM EDT) Cologuard Result Positive( A) Negative 05/17/2025 12:44 PM EDT [place] (CLIA #:[id number]) Comment: The Cologuard (TM) test was performed [...] screened with both Cologuard and colonoscopy. (Aric Garay al, N Engl J Med 2014;370(14):9894-5412.) Cologuard may produce a false negative or false positive result (no colorectal cancer or precancerous polyp present at colonoscopy follow up). A negative Cologuard test result does not guarantee the absence of CRC or advanced adenoma (pre-cancer). The current Cologuard screening interval is every 3 years. ([place] [employer] and U.S. Multi-Society Task Force). Cologuard performance data in a 10,000 patient pivotal study using colonoscopy as the reference method can be accessed at the following location: www.[employer]/results. Additional description of the Cologuard test process, warnings and precautions can be found at www.cologuard.com. Stool specimen (specimen) 05/12/2025 10:40 AM EDT 05/13/2025 9:11 AM EDT Bharath Welch MD LAB MOLECULAR DIAGNOSTICS O RDERABLES Final Result [place] (CLIA #:[id number]) [address] [place] [address], documented in this encounter Visit Diagnoses Diagnosis Screening for colon cancer- Primary Special screening for malignant neoplasms, colon documented in this encounter Additional Health Concerns Assessment Noted Time PHQ-9 Depression Total Score: 11 025 11:37 AM EDT documented as of this encounter Care Teams Stack Clerk Relationship Specialty Start Date End Date Bharath Welch MD [address] [place] [address] PCP - General Internal Medicine 01/21/14 Adam Cesar, SARAHI [address] [place] [address] Registered Nurse Family Medicine 03/28/25 Karina Jones 03/28/25 documented as of this encounter
--- OUTSIDE RECORDS SUMMARY | 2025-06-11 12:07 | XMS_ITS | Encounter Summary ---
Author Organization [employer] Address [address] [facility] 7t [place] [address] Care Team Providers Care Clamshell Engineer Name Role Phone Bharath Welch MD Primary Care Provider Adam Cesar RN Unavailable [phone] Karina Jones Unavailable Reason for Visit * Reason Comments Care Management C3CM- f/u call #2. U nable to leave v/m. Encounter Details Date Type Department Care Team ([facility] st Contact Info) Description 06/08/2025 Patient Outreach [facility] MED[facility]INE [address] [place] [address] Bharath Welch MD [address] [place], [place] [phone] Care Management (C3CM- f/u call #2. Unable to leave v/m.) Social History Tobacco Use Types Packs/Day Years [...] AM EDT documented as of this encounter Progress Notes * Adam Cesar RN - 06/08/2025 9:47 AM EDT CM Adam Cesar RN placed outbound call for a follow up call to patient. No answer at this time. CM was unable to leave a voicemail as mailbox not set up. CM will follow up with patient within 10 business days. documented in this encounter Plan of Treatment Not on file documented as of this encounter Goals Goal Patient Goal Type Associated Problems Recent Progress Patient-Stated? Author Improve quality of life by maintaining ongoing abstinence from all mood-altering substances General No Fredo Solis, SARAHI documented as of this encounter Visit Diagnoses Not on filedocumented in this encounter Additional Health Concerns Assessment Noted Time PHQ-9 Depression Total Score: 11 025 11:37 AM EDT documented as of this encounter Care Teams Clamshell Engineer Relationship Specialty Start Date End Date Bharath Welch MD [address] [place] [address] PCP - General Internal Medicine 01/21/14 Adam Cesar RN [address] [place] [address] Registered Nurse Family Medicine 03/28/25 Karina Jones 03/28/25 documented as of this encounter
--- OUTSIDE RECORDS SUMMARY | 2025-06-11 12:07 | XMS_ITS | Encounter Summary ---
Author Organization [employer] [facility] Address [address] [facility] 7t [place] [address] Care Team Providers Care Traveling Construction Superintendent Name Role Phone Bharath Welch MD Primary Care Provider Adam Cesar RN Unavailable [phone] Karina Jones Unavailable Reason for Visit * Reason Onset Date Comments Results 05/18/2025 Referral 05/18/2025 Encounter Details Date Type Department Care Team (Late st Contact Info) Description 05/18/2025 Results Follow-Up [facility] MED[facility]INE [address] [place] [address] Angélica Villarreal, SARAHI [place] colon cancer screening [...] AM EDT TC placed to pt via [employer] diplomatic interpreter/translator (Imer ID#[id number]) to inform and advise of below PCP message. Advised pt cologuard is positive and referral placed to gastroenterology to consider a colonoscopy. Pt reports they do not want to be seen in [place] and [facility] [place] [facility] Pt reports they do not like the care at [place]. Advised pt message to be sent to referrals specialist for review. Pt verbalized understanding and denies questions at this time. ----- Message from Bharath Welch MD sent at 05/17/2025 10:43 PM EDT ----- Please call to inform Mr. Fer Howell that his Cologuard is positive. He will be referredto gastroenterology to consider a colonoscopy ----- Message ----- From: Ross [employer] Results In Sent: 05/17/2025 5:50 PM EDT [...] documented as of this encounter Care Teams Traveling Construction Superintendent Relationship Specialty Start Date End Date Bharath Welch MD 505 [place] [address] PCP - General Internal Medicine 01/21/14 Adam Cesar RN 505 [place] [address] Registered Nurse Family Medicine 03/28/25 Karina Jones 03/28/25 documented as of this encounter
--- OUTSIDE RECORDS SUMMARY | 2025-06-11 12:07 | XMS_ITS | Encounter Summary ---
Author Organization [employer] Address [address] [facility] [address] 7t [place] [address] Care Team Providers Care Management Accounts Manager Name Role Phone Bharath Welch MD Primary Care Provider Adam Cesar RN Unavailable [phone] Karina Jones Unavailable Encounter Details Date Type Department Care Team (Latest Contact Info) Description 05/25/2025 Results Follow-Up [facility]ED[facility] [address] [place], [place] [phone] Phani Gupta MD 230 [place] [address] Gastrointestinal panel Social History Tobacco Use Types Packs/Day Years [...] as of this encounter Miscellaneous Notes * Result Encounter Note - Phani Gupta MD - 05/25/2025 8:05 AM EDT Hi Patrick--we notified Fer of the lab results, and I prescribed vancomycin. We encouraged frequent handwashing, etc. in told him to return or call [facility] if not improving. Thanks documented in this encounter Plan of Treatment [...] documented as of this encounter Care Teams Management Accounts Manager Relationship Specialty Start Date End Date Bharath Welch MD 505 [place] [address] PCP - General Internal Medicine 01/21/14 Adam Cesar, SARAHI [address] [place] [address] Registered Nurse Family Medicine 03/28/25 Karina Jones 03/28/25 documented as of this encounter
--- OUTSIDE RECORDS SUMMARY | 2025-06-11 12:07 | XMS_ITS | Encounter Summary ---
Author Organization [email or web address] Address [address] [facility] [address] 7t [place] [address] Care Team Providers Care Web Sizer Name Role Phone Bharath Welch MD Primary Care Provider Adam Cesar RN Unavailable [phone] Karina Jones Unavailable Encounter Details Date Type Department Care Team (Late st Contact Info) Description 05/24/2025 Orders Only [facility] [address] [place], [place] [phone] Phani Gupta MD 230 [place] [address] Social History Tobacco Use Types Packs/Day Years [...] documented as of this encounter Care Teams Web Sizer Relationship Specialty Start Date End Date Bharath Welch MD 505 [place] [address] PCP - General Internal Medicine 01/21/14 Adam Cesar, SARAHI [address] [place] [address] Registered Nurse Family Medicine 03/28/25 Karina Jones 03/28/25 documented as of this encounter
--- OUTSIDE RECORDS SUMMARY | 2025-06-11 12:07 | XMS_ITS | Encounter Summary ---
Author Organization [employer] Address 75 [facility] 7t [place] [address] Care Team Providers Care Tank Car Mechanic Name Role Phone Bharath Welch MD Primary Care Provider [phone] Adam Cesar RN Unavailable [phone] Karina Jones Unavailable Encounter Details Date Type Department Care Team (Late st Contact Info) Description 11/30/2024 Orders Only [facility] [address] [place], [place] [phone] Bharath Welch MD [address] [place], [place] [phone] Unintentional weight loss (Primary Dx) Social History [...] documented as of this encounter Care Teams Tank Car Mechanic Relationship Specialty Start Date End Date Bharath Welch MD [address] [place] [address] PCP - General Internal Medicine 01/21/14 Adam Cesar RN 505 [place] [address] Registered Nurse Family Medicine 03/28/25 Karina Jones 03/28/25 documented as of this encounter
--- OUTSIDE RECORDS SUMMARY | 2025-06-11 12:07 | XMS_ITS | Encounter Summary ---
Author Organization [employer] Address 75 [facility] 7t [place] [address] Care Team Providers Care Diamond Powder Technician Name Role Phone Bharath Welch MD Primary Care Provider Adam Cesar RN Unavailable [phone] Karina Jones Unavailable Reason for Visit * Reason Comments Care Coordination SDOH f/u Encounter Details Date Type Department Care Team (Latest Contact Info) Description 06/08/2025 Patient Outreach [facility] MEDICINE [address] [place] [address] Bharath Welch MD 505 [place] [address] Care Coordination (SDOH f/u) Social History Tobacco Use Types Packs/Day Years [...] as of this encounter Progress Notes * Karina Jones - 06/08/2025 9:52 AM EDT CHW Karina Jones/CM Adam Cesar RN placed outbound call to patient for follow up call on SDOH needs. No answer at this time. LVM introducing herself from [facility] CM Department. Requested call back. CHW reinforced direct contact information or for any additional questions or concerns and extended clinic hours on Mondays and Wednesdays, and Walk-In Urgent Care Located in [facility]. Patient provided with after-hours line for [facility], , which offer night time triage service and option to transfer to data conversion operator provider if needed. CHW will attempt another follow up call within 10 days. documented in this encounter Plan of [...] documented as of this encounter Care Teams Diamond Powder Technician Relationship Specialty Start Date End Date Bharath Welch MD [address] [place] [address] PCP - General Internal Medicine 01/21/14 Adam Cesar RN [address] [place] [address] Registered Nurse Family Medicine 03/28/25 Karina Jones 03/28/25 documented as of this encounter
--- OUTSIDE RECORDS SUMMARY | 2025-06-11 12:07 | XMS_ITS | Encounter Summary ---
Author Organization [employer] Address 75 [facility] 7t [place] [address] Care Team Providers Care Property Disposal Manager Name Role Phone Bharath Welch MD Primary Care Provider Adam Cesar RN Unavailable [phone] Karina Jones Unavailable Encounter Details Date Type Department Care Team ([facility] st Contact Info) Description 07/22/2024 Orders Only [facility] [address] [place], [place] [phone] Bharath Welch MD [address] [place], [place] [phone] Unintentional weight loss (Primary Dx) Social History [...] of this encounter Plan of Treatment Scheduled Orders Name Type Priority Associated Diagnoses [...] documented as of this encounter Care Teams Property Disposal Manager Relationship Specialty Start Date End Date Bharath Welch MD [address] [place] [address] PCP - General Internal Medicine 01/21/14 Adam Cesar RN [address] [place] [address] Registered Nurse Family Medicine 03/28/25 Karina Jones 03/28/25 documented as of this encounter
--- OUTSIDE RECORDS SUMMARY | 2025-06-11 12:08 | XMS_ITS | Encounter Summary ---
Author Organization [employer] [facility] Address [address] [place] [address] 7t [place] [address] Care Team Providers Care Plastic Jig And Fixture Builder Name Role Phone Bharath Welch MD Primary Care Provider Adam Cesar RN Unavailable [phone] Karina Jones Unavailable Reason for Visit * Reason Comments Med Refill Encounter Details Date Type Department Care Team ([facility] st Contact Info) Description 01/08/2024 Refill [facility] MEDICINE [address] [place] [address] Batsheva Gates MD [address] [place] [address] Uncomplicated opioid dependence (CMS/HCC) Social History Tobacco [...] dependence (CMS/HCC) (HCC) documented in this encounter Care Teams Plastic Jig And Fixture Builder Relationship Specialty Start Date End Date Bharath Welch MD 505 [place] [address] PCP - General Internal Medicine 01/21/14 Adam Cesar RN 505 [place], [place] [phone] Registered Nurse Family Medicine 03/28/25 Karina Jones 03/28/25 documented as of this encounter
--- OUTSIDE RECORDS SUMMARY | 2025-06-11 12:08 | XMS_ITS | Encounter Summary ---
Author Organization [employer] [facility] Address [address] [facility] 7t [place] [address] Care Team Providers Care Agronomy Location Manager Name Role Phone Bharath Welch MD Primary Care Provider Adam Cesar RN Unavailable [phone] Karina Jones Unavailable Encounter Details Date Type Department Care Team (Late st Contact Info) Description 07/02/2023 Abstract [facility] [address] [place] [address] Mitali Trujillo Social History Tobacco Use Types [...] on file documented as of this encounter Procedures Procedure Name Priority Date/Time Associated Diagnosis Comments COLONOSCOPY Routine 03/23/2020 documented in this encounter Results * Colonoscopy (03/23/2020) Colonoscopy Normal Normal Narrative Mitali Trujillo - 03/23/2020 Recommended follow up in 5 years us Historical Provider HEALTH MAINTENANCE Edited Result - Final documented in this encounter Visit Diagnoses Not on filedocumented in this encounter Care Teams Agronomy Location Manager Relationship Specialty Start Date End Date Bharath Welch MD [address] [place] [address] PCP - General Internal Medicine 01/21/14 Adam Cesar RN [address] [place] [address] Registered Nurse Family Medicine 03/28/25 Karina Jones 03/28/25 documented as of this encounter
--- OUTSIDE RECORDS SUMMARY | 2025-06-11 12:08 | XMS_ITS ---
Author Organization [email or web address] [facility] Address [address] [facility] 7t [place] [address] Care Team Providers Care Technical Laboratory Asst Name Role Phone Bharath Welch MD Primary Care Provider [phone] Adam Cesar RN Unavailable [phone] Karina Jones Unavailable CM Complex Status:Enrolled (Active) Start date:03/28/2025 Enrollment date:04/04/2025 Enrollment reason:ADT Feed Overview [facility] ED 03/27/25 Case Team Name Relationship Phone Adam Cesar RN(Responsible Staff) Registered Nurse [phone] Continued Care and Services Coordination
--- OUTSIDE RECORDS SUMMARY | 2025-06-11 12:08 | XMS_ITS | Encounter Summary ---
Author Organization [employer] [facility] Address [address] [facility] 7t [place] [address] Care Team Providers Care Welt Trimming Machine Operator Name Role Phone Bharath Welch MD Primary Care Provider [phone] Adam Cesar RN Unavailable [phone] Karina Jones Unavailable Encounter Details Date Type Department Care Team ([facility] st Contact Info) Description 01/10/2023 Orders Only [facility]S [address] [place], [place] [phone] Shonda sEpinoza LPN Social History Tobacco Use Types Packs/Day [...] on filedocumented in this encounter Care Teams Welt Trimming Machine Operator Relationship Specialty Start Date End Date Bharath Welch MD 505 [place] [address] PCP - General Internal Medicine 01/21/14 Adam Cesar RN [address] [place] [address] Registered Nurse Family Medicine 03/28/25 Karina Jones 03/28/25 documented as of this encounter
--- OUTSIDE RECORDS SUMMARY | 2025-06-11 12:08 | XMS_ITS | Encounter Summary ---
Author Organization [employer] [facility] Address [address] [place] [address] 7t [place] [address] Care Team Providers Care Quality Assurance Director Name Role Phone Bharath Welch MD Primary Care Provider [phone] Adam Cesar RN Unavailable [phone] Karina Jones Unavailable Reason for Visit * Reason Comments Med Refill Encounter Details Date Type Department Care Team ([facility] st Contact Info) Description 09/18/[address] [facility] MEDICINE [address] [place] [address] Batsheva Gates MD [address] [place] [address] Uncomplicated opioid dependence (CMS/HCC) Social History Tobacco [...] (HCC) documented in this encounter Care Teams Quality Assurance Director Relationship Specialty Start Date End Date Bharath Welch MD 505 [place] [address] PCP - General Internal Medicine 01/21/14 Adam Cesar RN 505 [place], [place] [phone] Registered Nurse Family Medicine 03/28/25 Karina Jones 03/28/25 documented as of this encounter
--- OUTSIDE RECORDS SUMMARY | 2025-06-11 12:08 | XMS_ITS | Clinical Summary ---
Author Organization [employer] Address [address] [facility] [address] [place] [address] Care Team Providers Care Television Writer Name Role Phone Bharath Welch MD Primary Care Provider Adam Cesar RN Unavailable [phone] Karina Jones Unavailable Allergies No known active allergies Medications amitriptyline (Elavil) 10 MG tablet TAKE 1 [...] MG SL filmIndications: Uncomplicated opioid dependence (CMS/HCC) (HCC) Place 2 Film under the tongue Once [...] DAY 60 capsule 5 04/18/20 25 Active lidocaine (Lidoderm) 5 % patchIndications :Lumbago with sciatica, right side APPLY 1 PATCH TOPICALLY TO SKIN, LEAVE ON FOR 12 HOURS AND OFF FOR 12 HOURS DIRECTED 30 patch 5 05/23/20 25 Active hydrOXYzine HCl (Atarax) 25 MG tabletIndication s:Primary insomnia Take 1 tablet (25 mg) by mouth every 8 (eight) hours if needed for anxiety for up to 15 days. 30 tablet 05/24/20 25 Active amLODIPine (Norvasc) 10 MG tabletIndication s:Primary hypertension Take 1 tablet (10 mg) by mouth Once per day. 30 tablet 11 05/24/20 25 2025 Active Ventolin HFA 108 (90 Base) MCG/ACT inhaler Inhale 2 puffs Every 4-6 hours as needed for wheezing. 05/12/20 25 Active Diclofenac Sodium 1 % gelIndications:B ilateral hip pain To apply to the affected area 3 times a day 100 g 1 05/26/20 25 Active cholecalciferol (Vitamin D-3) 25 MCG (1000 UT) capsule 09/26/19 22 2024 Discontinued(D uplicate order (will not trigger notification to Pharmacy)) lidocaine (Lidoderm) 5 % patchIndications :Lumbago with sciatica, right side APPLY 1 PATCH TOPICALLY TO SKIN, LEAVE ON FOR 12 HOURS AND OFF FOR 12 HOURS DIRECTED 30 patch 5 05/24/20 24 2024 Discontinued omeprazole OTC (PriLOSEC OTC) 20 MG EC tabletIndication s:History of Helicobacter pylori infection Take 1 tablet (20 mg) by mouth before breakfast and before evening meal for 14 days. Do not crush, chew, or split. 28 tablet 05/11/20 25 2024 Discontinued(S mart effects) metroNIDAZOLE (Flagyl) 500 MG tabletIndication s:History of Helicobacter pylori infection Take 1 tablet (500 mg) by mouth 4 times daily for 14 days. 56 tablet 05/11/20 25 2024 Discontinued(S mart effects) tetracycline 500 MG capsuleIndicatio ns:History of Helicobacter pylori infection Take 1 capsule (500 mg) by mouth 4 times daily for 14 days. 56 capsule 05/11/20 25 2024 Bismuth Subsalicylate 525 MG tabletIndication s:History of Helicobacter pylori infection Take 525 mg by mouth 4 times daily. 56 tablet 05/11/20 25 2024 Discontinued(S mart effects) loperamide (Imodium A-D) 2 MG tablet Take 1-2 tablets (2-4 mg) by mouth if needed in the morning, at noon, in the evening, and at bedtime for diarrhea for up to 5 days. 15 tablet 05/23/20 25 2024 amLODIPine (Norvasc) 10 MG tabletIndication s:Primary hypertension Take 1 tablet (10 mg) by mouth Once per day. 30 tablet 11 05/24/20 25 2024 Discontinued(R eorder (will not trigger notification to Pharmacy)) vancomycin (Vancocin) 125 MG capsule Take 1 capsule (125 mg) by mouth 4 times daily for 10 days. 40 capsule 05/24/20 25 2024 acetaminophen (Tylenol 8 Hour) 650 MG ER tabletIndication s:Bilateral hip pain Take 1 tablet (650 mg) by mouth every 8 (eight) hours if needed for mild pain for up to 10 days. Do not crush, chew, or split. 30 tablet 05/26/20 25 2024 Active Problems Problem Noted Date Diagnosed Date Primary insomnia 05/24/2025 Assessment & Plan (05/24/2025 4:00 PM EDT): Counseling was done I decided to prescribe hydroxyzine we can take it every 8 hours as needed for anxiety and at bedtime for insomnia Chronic obstructive lung disease 01/09/2021 Hypertensive disorder 10/27/2018 Assessment & Plan (05/24/2025 4:00 PM EDT): I prescribed for him again his amlodipine 10 mg, I advised low-sodium diet and to take his medication every day without missing any dose follow-up with PCP Hypogonadism in male 04/24/2015 Opioid dependence 04/12/2014 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 Seizure (CMS/HCC) 05/25/2013 HCV (hepatitis C virus) 11/06/2012 Anemia 11/06/2012 Chronic low back pain 11/06/2012 Major depressive disorder 11/06/2012 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 Unable to leave v/m.) 05/27/2025 Patient Outreach [address] [address] Bharath Welch MD Care Management (C3CM- f/u call) 05/26/2025 2:45 PM EDT Office Visit [facility] [address] [place] [address] Bharath Welch MD Bilateral hip pain (Primary Dx); C. difficile colitis 05/26/2025 Travel 05/26/2025 Patient Outreach [address] [address] Bharath Welch MD Care Coordination (CM/CHW outreach) 05/25/2025 Telephone [facility] [address] [place] [address] Bharath Welch MD Chart Prep 05/25/2025 Results Follow-Up [facility] [address] [place] [address] Phani Gupta MD Gastrointestinal panel 05/24/2025 2:00 PM EDT Office Visit [facility] [address] [place] [phone] Maryann Gregory MD Primary insomnia; Primary hypertension 05/24/2025 Results Follow-Up [facility] [address] [place] [address] Phani Gupta MD CDiff Gene PCR, CDiff Toxin 05/24/2025 Orders Only [facility] [address] [place] [address] Phani Gupta MD 05/24/2025 Refill [facility] [address] [place] [address] Bharath Welch MD Primary hypertension 05/24/2025 Telephone [facility] [address] [place] [address] Bharath Welch MD Medication Question 05/23/2025 10:20 AM EDT Office Visit [facility] [address] [place] [phone] Phani Gupta MD Diarrhea in adult patient (Primary Dx); Elevated blood pressure reading in office without diagnosis of hypertension 05/23/2025 Orders Only [facility] [address] [place] [phone] Phani Gupta MD 05/23/2025 Travel 05/21/2025 Refill [facility] [address] [place] [address] Bharath Welch MD Lumbago with sciatica, right side 05/20/2025 Patient Outreach [facility] [address] [place] [phone] Bharath Welch MD 05/20/2025 Telephone [facility] [address] [place] [phone] Batsheva Gates MD Hospital Follow-up 05/20/2025 Patient Outreach [facility] [address] [place] [address] Bharath Welch MD Transition Of Care (Tcm) (HDF unscheduled. ) 05/18/2025 Telephone [facility] [address] [place] [address] Bharath Welch MD Nurse Triage 05/18/2025 Results Follow-Up [address] [address] Angélica Villarreal, [facility] 05/16/2025 Patient Outreach [address] [address] Bharath Welch MD 05/11/2025 2:45 PM EDT Office Visit [facility] OPTOMET[facility] [address] [place] [address] Uyen Cadena, OD Myopia of both eyes (Primary Dx) 05/11/2025 11:15 AM EDT Office Visit [facility] [address] [place] [address] Bharath Welch MD Primary hypertension (Primary Dx); History of Helicobacter pylori infection; Nausea 05/11/2025 Patient Outreach [address] [address] Bharath Welch MD Care Coordination ([facility] f/u) 05/11/2025 Patient Outreach [address] [address] Bharath Welch MD Care Management (C3CM- f/u call) 05/11/2025 Travel 05/10/2025 Telephone [facility] [address] [place] [address] Bharath Welch MD CHART PREP 05/03/2025 Telephone [facility] [address] [place] [address] Bharath Welch MD Lab Orders 04/28/2025 Patient Outreach [address] [address] Bharath Welch MD Care Management (C3CM- f/u call) 04/28/2025 Telephone [facility] [address] [place] [address] Bharath Welch MD stool kit. 04/26/2025 Orders Only [facility] External Provider, [facility] 04/26/2025 Telephone [facility] [address] [place] [address] Bharath Welch MD Medication Question 04/20/2025 Orders Only [facility] [address] [place] [address] Bharath Welch MD Screening for colon cancer (Primary Dx) 04/19/2025 Patient Outreach [address] [address] Bharath Welch MD 04/19/2025 Patient Outreach [address] [address] Bharath Welch MD Care Coordination ([facility] f/u) 04/19/2025 Patient Outreach [address] [address] Bharath Welch MD 04/17/[address] [address] Bharath Welch MD Chronic pain syndrome 04/07/2025 9:30 AM EDT Clinical Support [address] [address] Rosita Calderon RN Uncomplicated opioid dependence (CMS/HCC) 04/07/2025 Travel 04/06/2025 10:45 AM EDT Office Visit [facility] [address] [place] [address] Bharath Welch MD Recurrent major depressive disorder, in partial remission (CMS/HCC) (Primary Dx); Unintentional weight loss; Annual physical exam; Urethritis 04/06/2025 Travel 04/05/2025 Telephone [facility] [address] [place] [address] Bharath Welch MD Chart Prep 04/04/2025 Plan of Care Documentation [address] [address] 04/04/2025 Patient Outreach [address] [address] Bharath Welch MD Care Management (C3CM- initial assessment/ enrollment) 04/04/2025 Patient Outreach [address] [address] Bharath Welch MD Care Coordination (SDOH) 04/01/2025 Patient Outreach [address] [address] Bharath Welch MD Care Coordination (CM/CHW appt reminder) 03/30/2025 Patient Outreach [address] [address] Bharath Welch MD Pre-visit Planning (SDOH screening negative and Tobacco screening negative) 03/28/2025 Patient Outreach [address] [address] Bharath Welch MD Care Coordination (CM/CHW outreach) 03/28/2025 Patient Outreach [address] [address] Bharath Welch MD Care Coordination (CHW chart review) 03/28/2025 Patient Outreach [address] [address] Bharath Welch MD Care Management (C3- chart review) 03/28/[address] [address] Batsheva Gates MD Uncomplicated opioid dependence (CMS/[facility]) 03/28/2025 Patient Outreach [address] [address] Bharath Welch MD 03/27/2025 Orders Only [facility] External Provider, [facility] 03/25/2025 Refill [facility] [address] [place] [address] Carter Cooney MD 03/18/2025 Refill [facility] [address], [place] [phone] Bharath Welch MD Unintentional weight loss 03/14/2025 Refill [facility] [address] [place] [address] Bharath Welch MD from Last 3 Months [...] Sign Reading Time Taken Comments Blood Pressure 144/89 05/26/2025 2:45 PM EDT Pulse 107 05/26/2025 2:45 PM EDT Temperature 36.8 C (98.3 F) 05/24/2025 1:54 PM EDT Respiratory Rate 20 05/26/2025 2:45 PM EDT Oxygen Saturation 99% 05/26/2025 2:45 PM EDT Inhaled Oxygen Concentration - - Weight 58.5 kg (129 lb) 05/26/2025 2:45 PM EDT Height 177.8 cm (5' 10 ) 05/26/2025 2:45 PM EDT Body Mass Index 18.51 05/26/2025 2:45 PM EDT Plan of Treatment Health Maintenance Due Date Last Done Comments [...] 04/06/2026 04/06/2025 FOBT 05/12/2026 05/12/2025 Tobacco Screening 05/26/2026 05/26/2025 Lipid Panel 02/22/2027 02/22/2022 FIT DNA/Cologuard 05/12/2028 [...] all mood-altering substances General No 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, 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 Procedure Name Priority Date/Time Associated Diagnosis Comments HELICOBACTER PYLORI AG, EIA, STOOL Routine 05/23/2025 2:30 PM EDT Diarrhea in adult patient CDIFF TOXIN Routine 05/23/2025 1:22 PM EDT CDIFF GENE PCR Routine 05/23/2025 1:22 PM EDT GASTROINTESTINAL PANEL Routine 1:22 PM EDT Diarrhea in adult patient POCT INFLUENZA B (ID NOW RAPID MOLECULAR) Routine 05/23/2025 10:50 AM EDT Diarrhea in adult patient POCT INFLUENZA A (ID NOW RAPID MOLECULAR) Routine 05/23/2025 10:50 AM EDT Diarrhea in adult patient POCT RAPID COVID ANTIGEN Routine 025 10:48 AM EDT Diarrhea in adult patient OVA AND PARASITES, CONC AND PERM SMEAR Routine 05/23/2025 7:42 AM EDT Diarrhea in adult patient LAB [...] Recently Relevant to Health Maintenance Results * Helicobacter pylori??Antigen, EIA, Stool (05/23/2025 2:30 PM EDT) H pylori Ag Stool SEE NOTE [facility] Comment:HELICOBACTER PYLORI AG, EIA, STOOL Micro Number: [id number] Test Status: Final Specimen Source: Stool Specimen Quality: Adequate H.pylori Ag: Not Detected Antimicrobials, proton pump inhibitors, and bismuth preparations inhibit H. pylori and ingestion up to two weeks prior to testing may cause false negative results. If clinically indicated the test should be repeated on a new specimen obtained two weeks after discontinuing treatment. Reference Range: Not DetectedTHIS TEST WAS PERFORMED AT:[facility] [address] [id number] CURRY MD Stool Rectal contents / Unknown 05/23/2025 2:30 PM EDT 05/24/2025 11:42 AM EDT us Phani Gupta MD LAB BODY FLUIDS AND STOOLS ORDER NOEL Final Result [facility] [address] [place] [phone] * CDiff Toxin (05/23/2025 1:22 PM EDT) CDiff Toxin Negative Negative [facility] CDIFF Interpretation SEE NOTE [facility] Comment:Likely C. difficile colonization. Continue contactprecautions. 05/23/2025 1:22 PM EDT 05/24/2025 11:45 AM EDT us Phani Gupta MD LAB BODY FLUIDS AND STOOLS ORDER NOEL Final Result Performing Organization Address [facility] Co de Phone Number [facility] [address] [place] [phone] * (ABNORMAL) CDiff Gene PCR (05/23/2025 1:22 PM EDT) [facility] CDiff Gene PCR POSITIVE(A A) Negative [facility] Comment:Additional C. diffic ile toxin testing to be performed. 05/23/2025 1:22 PM EDT 05/24/2025 11:45 AM EDT us Phani Gupta MD LAB BODY FLUIDS AND STOOLS ORDER NOEL Final Result Performing Organization Address [facility] de Phone Number [facility] [address] [place] [phone] * (ABNORMAL) Gastrointestinal panel (05/23/2025 1:22 PM EDT) [facility] Campylobacter Not Detected Not Detect. [facility] Plesiomonas shigelloides Not Detected Not Detect. [facility] Salmonella Not Detected Not Detect. [facility] Vibrio Not Detected Not Detect. [facility] Vibrio cholerae Not Detected Not Detect. [facility] YERSINIA ENTEROCOLITICA Not Detected Not Detect. [facility] Enteroaggregative E. coli (EAEC) Not Detected Not Detect. [facility] Enteropathogenic E. coli (EPEC) Detected(A) Not Detect. [facility] Enterotoxigenic E. coli (ETEC) lt/st Not Detected Not Detect. [facility] Shiga-like toxin-producing E. coli (STEC) stx1/stx2 Not Detected Not Detect. [facility] E coli O157 Not applicable Not Detect. [facility] Comment:E. coli containing t he O157 antigen are a subset ofShiga-like toxin- producing E. coli (STEC). Shigella/Enteroinvasive E. coli (EIEC) Not Detected Not Detect. [facility] Cryptosporidium Not Detected Not Detect. [facility] Cyclospora cayetanensis Not Detected Not Detect. [facility] Entamoeba histolytica Not Detected Not Detect. [facility] Giardia lamblia Not Detected Not Detect. [facility] Adenovirus F 40/41 Not Detected Not Detect. [facility] Astrovirus Not Detected Not Detect. [facility] Norovirus GI/GII Not Detected Not Detect. [facility] Rotavirus A Not Detected Not Detect. [facility] Sapovirus Not Detected Not Detect. [facility] Comment: All results must be correlated with clinical findings.Negative results do not exclude the possibility ofgastrointestinal infection and should not be used as thesole basis for diagnosis, treatment, or other managementdecisions. Virus, bacteria, and parasite nucleic acid maypersist in vivo independently of organism viability.Additionally, some organisms may be carriedasymptomatically.Detection of organism targets does not imply that thecorresponding organisms are infectious or are the causativeagents for clinical symptoms. There is a risk of falsenegative values due to the presence of sequence variants inthe gene targets of the assay, amplification inhibitors inspecimens, or inadequate numbers of organisms foramplification.The identification of several diarrheagenic E. colipathotypes has historically relied upon phenotypiccharacteristics. This panel targets genetic determinantscharacteristic of most pathogenic strains, but may notdetect all strains having phenotypic characteristics of apathotype.The performance of this test has not been established formonitoring treatment of infection with any of the panelorganisms.This assay is performed by Multiplexed PCR, utilizing Upplication Array. Stool Rectal contents / Unknown 05/23/2025 1:22 PM EDT 05/24/2025 11:42 AM EDT us Phani Gupta MD LAB MICROBIOLOGY - GENERAL ORDER NOEL Final Result Performing Organization Address [facility]/ZIP Co de Phone Number [facility] [address] [place] [phone] * Influenza B (ID NOW Rapid Molecular) (05/23/2025 10:50 AM EDT) Influenza B Negative Negative, Indeterminate [facility] Swab 05/23/2025 10:5 0 AM EDT us Phani Gupta MD POINT OF CARE TEST ENTER/EDIT OR DERABLES Final Result Performing Organization Address [facility] Co de Phone Number [facility] [address] [place] [phone] * Influenza A (ID NOW Rapid Molecular) (05/23/2025 10:50 AM EDT) Influenza A Negative Negative, Indeterminate [facility] Swab 05/23/2025 10:5 0 AM EDT us Phani Gupta MD POINT OF CARE TEST ENTER/EDIT OR DERABLES Final Result Performing Organization Address [facility] Co de Phone Number [facility] [address] [place] [phone] * POCT Rapid COVID Ag (05/23/2025 10:48 AM EDT) Rapid COVID Ag Negative Swab 05/23/2025 10:4 8 AM EDT us Phani Gupta MD POINT OF CARE TEST ENTER/EDIT OR DERABLES Final Result * Ova and Parasites,??Concentrate and Permanent Smear (05/23/2025 7:42 AM EDT) Ova and Parasite Trichrome SEE NOTE [facility] Comment: OVA AND PARASITES, CONC AND PERM SMEAR Micro Number: [id number] Test Status: Final Specimen Source: Stool Specimen Quality: Adequate CONCENTRATION 1: No ova or parasites seen TRICHROME 1: No ova or parasites seen Routine Ova and Parasite exam may not detect some parasites that occasionally cause diarrheal illness. Cryptosporidium Antigen and/or Cyclospora and Isospora Exam may be ordered to detect these parasites. One negative sample does not necessarily rule out the presence of a parasitic infection. For additional information, please refer to https://education.[employer]/faq/EAC822 (This link is being provided for informational/ educational purposes only.)THIS TEST WAS PERFORMED AT:[facility] [place] [id number] CURRY MD Stool Rectal contents / Unknown 05/23/2025 7:42 AM EDT 05/24/2025 11:42 AM EDT Phani Gupta MD LAB MICROBIOLOGY - GENERAL ORDER NOEL Final Result [facility] [address] [place] [phone] * (ABNORMAL) Cologuard?? colon cancer screening (05/12/2025 10:40 AM EDT) Cologuard Result Positive( A) Negative 05/17/2025 12:44 PM EDT [facility] (CLIA #:[id number]) Comment: The Cologuard (TM) test was performed [...] (Aric Garay al, N Engl J Med 2014;370(14):9472-9366.) Cologuard may produce a false negative or false positive result (no colorectal cancer or precancerous polyp present at colonoscopy follow up). A negative Cologuard test result does not guarantee the absence of CRC or advanced adenoma (pre-cancer). The current Cologuard screening interval is every 3 years. ([place] [employer] and U.S. Multi-Society Task Force). Cologuard performance data in a 10,000 patient pivotal study using colonoscopy as the reference method can be accessed at the following location: [email or web address]/results. Additional description of the Cologuard test process, warnings and precautions can be found at www.[email or web address].com. Stool specimen (specimen) 05/12/2025 10:40 AM EDT 05/13/2025 9:11 AM EDT Bharath Welch MD LAB MOLECULAR DIAGNOSTICS O RDERABLES Final Result [facility] (CLIA #:[id number]) [address] [place] [address], * Urinalysis, Complete, with Reflex to Culture (04/26/2025 7:33 PM EDT) Color Urine Yellow [facility] Appearance Urine Cloudy [facility] PH 8.0 5.0 - 9.0 [facility] Glucose Urine UA Negative Negative mg/dL [facility] Urine Blood Negative Negative [facility] Specific Bayard - Urine 1.015 1.005 - 1.025 [facility] Urine Protein Negative Neg-Trace mg/dL [facility] Urine Ketones Negative Negative mg/dL [facility] Nitrite Urine Negative Negative [facility] Leukocyte Esterase Urine Negative Negative [facility] RBC Urine 0-2 0 - 2 /HPF [facility] Urine WBC 0-5 0 - 5 /HPF [facility] Urine Squamous Epithelial Cell 0-2 0 - 2 /HPF [facility] Urine Bacteria None Seen None Seen [facility] Hyaline Casts, Urine 0-2 0 - 2 /LPF [facility] 04/26/2025 7:33 PM EDT 04/26/2025 7:43 PM EDT Narrative [facility] - 04/26/2025 7:56 PM EDT [id number], [employer] us Generic External Data Provider LAB URINE ORDERAB LES Final Result Performing Organization Address [facility]/ZIP Co de Phone Number [facility] [address] [place] [phone] * High Sensitivity Troponin I (04/26/2025 7:11 PM EDT) TROPONIN I HIGH SENSITIVITY <2.7 <3.5 - 35.0 ng/L [facility] Comment:The Dodson high sens itivity Troponin-I results should beused in conjunction with other diagnostic information suchas ECG, clinical observations and information, and patientsymptoms to aid in the diagnosis of DE. 04/26/2025 7:11 PM EDT 04/26/2025 7:14 PM EDT us Generic External Data Provider LAB BLOOD ORDERAB LES Final Result Performing Organization Address [facility]/ZIP Co de Phone Number [facility] [address] [place] [phone] * (ABNORMAL) CBC auto differential (04/26/2025 7:11 PM EDT) White Blood Count 7.1 4.8 - 10.8 X10*3/uL [facility] Red Blood Count 4.63 4.60 - 5.80 X10*6/uL [facility] Hemoglobin 13.1(L) 14.0 - 18.0 g/dl [facility] Hematocrit 39.2(L) 42.0 - 52.0 % [facility] Mean Corpuscular Volume 84.7 80.0 - 98.0 fL [facility] Mean Corpuscular Hemoglobin 28.3 27.0 - 33.0 pg [facility] Mean Corpuscular HGB Conc 33.4 31.0 - 36.0 g/dl [facility] Red Cell Distribution Width 13.5 11.0 - 16.0 % [facility] Platelet Count 156(L) 160 - 400 X10*3/uL [facility] Mean Platelet Volume 9.5 9.4 - 12.4 fL [facility] Neutrophils Percent Auto 57.4 45 - 73 % [facility] Imm Gran Pct Auto 0.3 0.0 - 0.4 % [facility] Lymphocytes Percent Auto 32.6 20 - 40 % [facility] Monocytes Percent Auto 7.9 2 - 11 % [facility] [facility] Eosinophils Percent Auto 1.0 0 - 4 % [facility] Basophils Percent Auto 0.8 0 - 2 % [facility] NRBC Pct Auto 0.0 0.0 - 0.2 /100WBC [facility] Neutrophils Absolute Auto 4.1 2.0 - 8.3 x10*3/uL [facility] Imm Gran Abs Auto 0.02 0.00 - 0.03 X10*3/uL [facility] Lymphocytes Absolute Auto 2.3 1.2 - 4.9 X10*3/uL [facility] Monocytes Absolute Auto 0.6 0.1 - 1.2 X10*3/uL [facility] Eosinophils Absolute Auto 0.1 0.0 - 0.4 X10*3/uL [facility] Basophils Absolute Auto 0.1 0.0 - 0.2 X10*3/uL [facility] NRBC Abs Auto 0.000 0.0 - 0.012 X10*3/uL [facility] 04/26/2025 7:11 PM EDT 04/26/2025 7:14 PM EDT Generic External Data Provider LAB BLOOD ORDERAB LES Final Result Performing Organization Address City/[facility]/ZIP Co de Phone Number [facility] [address] [place] [phone] * Partial Thromboplastin Time, Activated (APTT) (04/26/2025 7:11 PM EDT) Partial Thromboplastin Time 29.8 26.7 - 34.1 SEC [facility] 04/26/2025 7:11 PM EDT 04/26/2025 7:14 PM EDT Generic External Data Provider LAB BLOOD ORDERAB LES Final Result Performing Organization Address [facility] Co de Phone Number [facility] [address] [place] [phone] * (ABNORMAL) Prothrombin Time-INR (04/26/2025 7:11 PM EDT) Prothrombin Time 10.6(L) 10.9 - 12.4 SEC [facility] INTERNATIONAL NORM RATIO 0.9 0.9 - 1.1 [facility] Comment:INTERNATIONAL NORMAL IZED RATIO (INR) [...] Provider LAB BLOOD ORDERAB LES Final Result [facility] [address] [place] [phone] * (ABNORMAL) Comprehensive Metabolic Panel (04/26/2025 7:11 PM EDT) Sodium 142 135 - 145 mmol/L [facility] Potassium 3.9 3.3 - 5.1 mmol/L [facility] Comment:Slight Hemolysis.Int erpret result with caution. Chloride 103 96 - 108 mmol/L [facility] Carbon Dioxide 26 22 - 29 mmol/L [facility] Anion Gap 17 12 - 20 [facility] Urea Nitrogen (BUN) 13 9 - 16 mg/dL [facility] Creatinine, Serum 0.92 0.5 - 1.4 mg/dL [facility] Creatinine Clr Calc Pharmacy 78.6 [facility] Comment:eGFR (calculated fro m the MDRD study equation) and eCrCl(calculated from the Cockcroft-Gault equation) are based ondifferent parameters and may not yield comparable results.If eCrCl result is absurd, please check patient'sheight/weight. Estimated Glomerular Filt Rate >60 [facility] Comment:Chronic Kidney Disea se: Estimated GFR < 60 mL/min/1.07c6Efsuiy Kidney Disease: Estimated GFR < 15 mL/min/1.73m2 Glucose 112 60 - 115 mg/dL [facility] Calcium 10.0 8.4 - 10.2 mg/dL [facility] Bilirubin, Total 0.5 0.0 - 1.0 mg/dL [facility] Aspartate Amino Transferase 38(H) 5 - 37 U/L [facility] Comment:Slight Hemolysis.Int erpret result with caution. Alanine Aminotransferase 17 0 - 40 U/L [facility] Total Protein 8.8(H) 6.5 - 8.0 g/dL [facility] Albumin Level 5.5(H) 3.5 - 5.0 g/dL [facility] Alkaline Phosphatase 86 39 - 117 U/L [facility] 04/26/2025 7:11 PM EDT 04/26/2025 7:14 PM EDT us Generic External Data Provider LAB BLOOD ORDERAB LES Final Result Performing Organization Address [facility] Co de Phone Number [facility] [address] [place] [phone] * B Type Natriuretic Peptide (BNP) (04/26/2025 7:10 PM EDT) B Type Natriuretic Peptide <10 <100 pg/mL [facility] 04/26/2025 7:10 PM EDT 04/26/2025 7:14 PM EDT Generic External Data Provider LAB BLOOD ORDERAB LES Final Result Performing Organization Address [facility] Co de Phone Number [facility] [address] [place] [phone] * XR Chest 1 View (04/26/2025 7:05 PM EDT) Anatomical Region Laterality Modality Chest Radiographic Alma Rosa ging 04/26/2025 7:05 PM EDT Narrative 04/26/2025 7:07 PM EDT [address] [address] XRay Report Signed Patient: Fer Burrell MR#: M [id number] : 1970 Acct:[id number] Age/Sex: 54 / M ADM Date: 04/26/25 Loc: .ED Attending Dr: Ordering Physician: Eleuterio Castro Date of Service: 04/26/25 Procedure(s): XR chest 1V Accession Number(s): [id number] cc: Eleuterio Castro; Bharath Welch MD CLINICAL [...] in OV> 04/26/251905 DD/ 04 TD/TT: 04/26/251904 Button Breaker: Procedure Note Donotuseinterpreter, Image - 04/26/2025 [place] [address] XRay Report Signed Patient: Fer BurrellMR#: M [id number] : 1970Acct:[id number] Age/Sex: 54 / MADM Date: 04/26/25 Loc: .ED Attending Dr: Ordering Physician: Eleuterio Castro Date of Service: 04/26/25 Procedure(s): XR chest 1V Accession Number(s): [id number] cc: Eleuterio Castro; Bharath Welch MD CLINICAL [...] in OV> 04/26/251905 DD/ 04 TD/TT: 04/26/251904 Button Breaker: [facility] External Provider IMG XR PROCEDURES Final Result * US Abdomen Limited (03/27/2025 6:05 PM EDT) Anatomical Region Laterality Modality Abdomen Ultrasound 03/27/2025 6:05 PM EDT Narrative 03/27/2025 6:07 PM EDT [address] [address] Ultrasound Report Signed Patient: Fer Burrell MR#: M [id number] : 1970 Acct:[id number] Age/Sex: 54 / M ADM Date: 03/27/25 Loc: HO.ED Attending Dr: Ordering Physician: Eleuterio Castro Date of Service: 03/27/25 Procedure(s): US abdomen limited Accession Number(s): [id number] cc: Eleuterio Castro; Bharath Welch MD CLINICAL [...] in OV> 03/27/251805 DD/ 04 TD/TT: 03/27/251804 Button Breaker: Procedure Note Donotuseinterpreter, Image - 03/27/[address] [address] Ultrasound Report Signed Patient: Fer BurrellMR#: Gabriel [id number] : 1970Acct:[id number] Age/Sex: 54 / MADM Date: 03/27/25 Loc: HO.ED Attending Dr: Ordering Physician: Eleuterio Castro Date of Service: 03/27/25 Procedure(s): US abdomen limited Accession Number(s): [id number] cc: Eleuterio Castro; Bharath Welch MD CLINICAL [...] in OV> 03/27/251805 DD/ 04 TD/TT: 03/27/251804 Button Breaker: us [facility] External Provider IMG US PROCEDURES Edited Result - Final * US SCROTUM DOPPLER (03/27/2025 6:04 PM EDT) Anatomical Region Laterality Modality Abdomen Ultrasound 03/27/2025 6:04 PM EDT Narrative 03/27/2025 6:05 PM EDT [place] [address] Ultrasound Report Signed Patient: Fer Burrell MR#: M [id number] : 1970 Acct:[id number] Age/Sex: 54 / M ADM Date: 03/27/25 Loc: HO.ED Attending Dr: Ordering Physician: Eleuterio Castro Date of Service: 03/27/25 Procedure(s): US scrotum doppler Accession Number(s): [id number] cc: Eleuterio Castro; Bharath Welch MD CLINICAL [...] in OV> 03/27/251804 DD/ 03 TD/TT: 03/27/251803 Button Breaker: Procedure Note Donotuseinterpreter, Image - 03/27/2025 [place] [address] Ultrasound Report Signed Patient: Fer BurrellMR#: M [id number] : 1970Acct:[id number] Age/Sex: 54 / MADM Date: 03/27/25 Loc: HO.ED Attending Dr: Ordering Physician: Eleuterio Castro Date of Service: 03/27/25 Procedure(s): US scrotum doppler Accession Number(s): [id number] cc: Eleuterio Castro; Bharath Welch MD CLINICAL [...] in OV> 03/27/251804 DD/ 03 TD/TT: 03/27/251803 Button Breaker: us [facility] External Provider IMG US PROCEDURES Edited Result - Final * US Scrotum (03/27/2025 6:04 PM EDT) Anatomical Region Laterality Modality Body Ultrasound 03/27/2025 6:04 PM EDT Narrative 04/01/2025 11:40 AM EDT [address] [address] Ultrasound Report Signed Patient: Fer Burrell MR#: Gabriel [id number] : 1970 Acct:[id number] Age/Sex: 54 / M ADM Date: 03/27/25 Loc: HO.ED Attending Dr: Ordering Physician: Eleuterio Castro Date of Service: 03/27/25 Procedure(s): US scrotum Accession Number(s): [id number] cc: Eleuterio Castro; Bharath Welch MD CLINICAL [...] 04/01/25 1140 DD/ 1804 TD/TT: 03/27/25 180 Button Breaker: Procedure Note Donotuseinterpreter, Image - 04/01/[address] [address] Ultrasound Report Signed Patient: Fer BurrellMR#: Gabriel [id number] : 1970Acct:[id number] Age/Sex: 54 / MADM Date: 03/27/25 Loc: HO.ED Attending Dr: Ordering Physician: Eleuterio Castro Date of Service: 03/27/25 Procedure(s): US scrotum Accession Number(s): [id number] cc: Eleuterio Castro; Bharath Welch MD CLINICAL [...] 04/01/25 1140 DD/ 1804 TD/TT: 03/27/25 180 Button Breaker: us [facility] External Provider IMG US PROCEDURES Final Result * HIV-1/2 Antigen and Antibodies, Fourth Generation, with Reflexes (02/04/2024 9:13 AM EDT) HIV AB/AG Nonreactive Nonreactive [facility] Comment:HIV-1 p24 Ag and/or HIV-1/HIV-2 Ab not detected.A test result that is nonreactive does not exclude thepossibility of exposure to or infection with HIV-1 and/orHIV-2. Nonreactive results in this assay for individualswith prior exposure to HIV-1 and/or HIV-2 may be due toantigen and antibody levels that are below the limit ofdetection of this assay.The [employer] HIV Ag/Ab Combo assay result andsupplemental assay results should be interpreted inconjunction with the patient's clinical presentation,history and other laboratory results. If the results areinconsistent with clinical evidence, additional testing issuggested to confirm the result. Blood Venous blood specimen / Unknown 02/04/2024 9:13 AM EDT 02/04/2024 11:41 AM EDT us Isa Chawla MD LAB BLOOD ORDERABLES Final Re sult [facility] [address] [place] [phone] * LIPID PANEL, STANDARD (02/22/2022 11:05 [...] factors. LDL-C is now calculated using the Sherman-Myers calculation, which is a validated novel method providing better accuracy than the Friedewald equation in the estimation of LDL-C. Sherman SS et al. MICHELE. 2013;310(19): 3842-1199 (http://education.[employer].Valcon/faq/NAH118) Non-HDL Cholesterol 111 <130 mg/dL (calc) [facility] Comment: For patients with diabetes plus 1 major ASCVD risk factor, treating to a non-HDL-C goal of <100 mg/dL (LDL-C of <70 mg/dL) is considered a therapeutic option. Triglycerides 77 <150 mg/dL [facility] 02/22/2022 11:0 5 AM EDT us Bharath Welch MD LAB BLOOD ORDERABLES Final Result [facility] [address] [place] [address], * Hm Colonoscopy (03/23/2020) Colonoscopy Normal Normal Narrative Mitali Trujillo - 03/23/2020 Recommended follow up in 5 years us Historical Provider HEALTH MAINTENANCE Edited Result - Final from Last 3 Months or Most Recently Relevant to Health Maintenance Insurance Care Teams Television Writer Relationship Specialty Start Date End Date Bharath Welch MD [address] [place] [address] PCP - General Internal Medicine 01/21/14 Adam Cesar RN [address] [place] [address] Registered Nurse Family Medicine 03/28/25 Karina Jones 03/28/25
--- OUTSIDE RECORDS SUMMARY | 2025-06-11 12:08 | XMS_ITS ---
Author Organization [employer] Address [address] [facility] [address] [place] [address] Care Team Providers Care Tooth Clerk Name Role Phone Bharath Welch MD Primary Care Provider [phone] Adam Cesar RN Unavailable [phone] Karina Jones Unavailable [facility] Status:Enrolled (Active) Start date:03/28/2025 Enrollment date:04/04/2025 Enrollment reason:ADT Feed Overview [facility] ED 03/27/25. Please outreach for enrollment. Case Team Name Relationship Phone Karina Jones(Responsible Staff) [phone] Continued Care and Services Coordination
--- NOTE | 2025-06-11 12:10 | PC.NURSE ---
Pt refusing blood draws. States he will only provide for a urine or stool sample. Educated pt on importance of lab draws/testing, continues to refuse stating I'm not letting anyone take my blood .
[2025-06-11 12:36] LABS: Appearance Urine Clear; Glucose Urine UA Negative (Negative); PH 6.5 (5.0-9.0); Specific Gravity - Urine 1.015 (1.005-1.025)
--- NOTE | 2025-06-11 12:45 | ECG_ITS ---
Test Reason : SYNCOPE Blood Pressure : */* mmHG Vent. Rate : 84 BPM Atrial Rate : 84 BPM P-R Int : 134 ms QRS Dur : 76 ms QT Int : 362 ms P-R-T Axes : 76 28 52 degrees QTcB Int : 427 ms Normal sinus rhythm Normal ECG When compared with ECG of 11-Jun-2025 11:58, No significant change was found Referred By: Denys Martínez Electronically Signed By: TOO SORENSON MD
[2025-06-11 13:47] LABS: MANUAL DIFF FLAG NO
[2025-06-11 13:49] LABS: Hematocrit 37.8 % (42.0-52.0); Hemoglobin 12.2 g/dl (14.0-18.0); Imm Gran Abs Auto 0.02 X10*3/uL (0.00-0.03); Imm Gran Pct Auto 0.3 % (0.0-0.4); Lymphocytes Absolute Auto 1.5 X10*3/uL (1.2-4.9); Mean Corpuscular HGB Conc 32.3 g/dl (31.0-36.0); Mean Corpuscular Hemoglobin 28.0 pg (27.0-33.0); Mean Corpuscular Volume 86.7 fL (80.0-98.0); NRBC Abs Auto 0.000 X10*3/uL (0.0-0.012); NRBC Pct Auto 0.0 /100WBC (0.0-0.2); Platelet Count 182 X10*3/uL (160-400); Red Blood Count 4.36 X10*6/uL (4.60-5.80); White Blood Count 7.5 X10*3/uL (4.8-10.8)
[2025-06-11] MEDS: PHENobarb/Hyoscy/Atropine/Scop 10 ML ELIXIR PO (13:55)
[2025-06-11 14:00] VITALS: BP 133/84; PULSE 77; RESP 18; TEMP 36.8; O2SAT 99
[2025-06-11] MEDS: Lactated Ringers 1,000 ML 999 ML IV ×2 (14:00→18:44)
[2025-06-11 14:02] LABS: Alanine Aminotransferase 20 U/L (0-40); Albumin Level 4.9 g/dL (3.5-5.0); Alkaline Phosphatase 94 U/L (39-117); Anion Gap 10 (12-20); Aspartate Amino Transferase 25 U/L (5-37); Blood Urea Nitrogen 15 mg/dL (9-16); Calcium 9.3 mg/dL (8.4-10.2); Carbon Dioxide 30 mmol/L (22-29); Chloride 108 mmol/L (96-108); Creatinine Clr Calc Pharmacy 84.0; Estimated Glomerular Filt Rate > 60; Lipase 29 U/L (8-78); Magnesium 2.2 mg/dL (1.6-2.6); Potassium 3.6 mmol/L (3.3-5.1); Sodium 144 mmol/L (135-145); Total Protein 7.7 g/dL (6.5-8.0)
[2025-06-11] MEDS: iohexoL 350 MG/ML 100 ML INFUS..BTL IV (14:33)
[2025-06-11 16:11] VITALS: BP 115/61; PULSE 82; RESP 16; O2SAT 99
--- NOTE | 2025-06-11 16:59 | MHC.EDTECH ---
went in patient room to do more labs and patient refused and stated that he is leaving. Nurse aware
--- NOTE | 2025-06-11 17:01 | PM.IMHP ---
History of Present Illness Date of Service: 06/11/25 Chief Complaint: Diarrhea 54 year old man presenting with diarrhea over the last 3 months he states from drinking water in [place]. Labs showed cdiff on 05/23 and he was started on oral vancomycin and completed course. He has c/o nonbloody, loose stools 3-4 times daily. He also mentioned that he had a fall on 06/04 where he stool up and had a fall eight after, he denied LOC or any injury. He denied chest pain, nausea, vomiting, diarrhea, fever, recent travel or sick contacts. In the ED, Vital signs are stable, labs with all within acceptable limits. Patient was given Levaquin along with Toradol, Imodium, Solu-Medrol, IV fluid. He will be admitted for further management and treatment of acute colitis with recent C diff infection. Review of Systems Review of Systems: Denies any recent fever chills or decrease in appetite respiratory denies any shortness of breath or cough cardiovascular Denied chest pain See HPI GI see HPi genitourinary denies any dysuria frequency or hematuria musculoskeletal denies any joint pain or swelling neuropsych denies any weakness or seizures all other systems reviewed are negative [facility] Medical History (Updated 06/11/25 @ 17:15 by Rocio Jones NP) Ambulates with cane History of pineal cyst Back pain History of anemia GERD (gastroesophageal reflux disease) Hx of cirrhosis Hx of hepatitis C Seizure disorder History of head injury History of TB (tuberculosis) HTN (hypertension) Substance abuse Family History Father Cancer Surgical History History of esophagogastroduodenoscopy (EGD) Hx of colonoscopy History of cervical discectomy History of bilateral total hip arthroplasty Social History Household Members: Other Are you a primary long term care pharmacist to a significant other at home: No Do you presently have visiting nurse or other home services: No Alcohol intake: current Alcohol intake frequency: does not drink Smoked in Last 30 Days: No Use of substances other than those prescribed or required for medical reasons: No Substance Use Type: Marijuana Advance Directives: No Advance Directives Information Provided: No Do you have a plan to hurt others: No Plan Meds Allergies Allergy/AdvReac Type Severity Reaction Status Date / Time No Known Allergies (No Known Allergy Verified 06/11/25 11:50 Allergies*) Active Medications: Current Medications Lactated Ringer's (Lr) 1,000 mls @ 0 mls/hr IV .Q0M [facility] Last Infusion: 06/11/25 15:46 Dose: Infused Lactated Ringer's (Lr) 1,000 mls @ 999 mls/hr IV .Q1H1M [place] Stop: 06/11/25 17:45 Metronidazole (Flagyl) 500 mg in 100 mls @ 100 mls/hr IV ONCE ONE Stop: 06/11/25 17:33 Levofloxacin (Levaquin) 750 mg in 150 mls @ 100 mls/hr IV ONCE ONE Stop: 06/11/25 18:03 Home Medications ?Medication ?Instructions ?Recorded ?Confirmed ?Last Taken ?Type acetaminophen 500 mg tablet 1 - 2 tab PO Q6-8H PRN Pain 10/19/20 06/11/25 Unknown History divalproex 500 mg tablet,delayed 1 tab PO BID 10/19/20 06/11/25 Unknown History release duloxetine 20 mg capsule,delayed 1 cap PO DAILY 10/19/20 06/11/25 Unknown History release famotidine 20 mg tablet (Acid 1 tab PO BEDTIME 10/19/20 06/11/25 Unknown History Business Practices Officer (famotidine)) albuterol sulfate 90 mcg/actuation 2 puff inhalation Q4-6H PRN 06/11/25 06/11/25 Unknown History aerosol inhaler (Ventolin HFA) Wheezing amlodipine 10 mg tablet 10 mg PO DAILY 06/11/25 06/11/25 Unknown History mirtazapine 7.5 mg tablet 7.5 mg PO BEDTIME 06/11/25 06/11/25 06/10/25 History multivitamin 1 tab PO DAILY 06/11/25 06/11/25 Unknown History multivitamin 1 tab PO DAILY 06/11/25 06/11/25 Unknown History Physical Exam Vital Signs and Narrative: Vital Signs: Last Vital Signs Temp 98.2 F 06/11/25 14:00 Pulse 82 06/11/25 16:11 Resp 16 06/11/25 16:11 BP 115/61 06/11/25 16:11 Pulse Ox 99 06/11/25 16:11 O2 Del Method Room Air 06/11/25 16:11 BMI result Body Mass Index 18.7 Appearing in no acute distress head is normocephalic atraumatic eyes pupils are PERRLA sclera is anicteric mouth throat mucous membranes are intact and moist neck is supple no lymphadenopathy, no JVD noted lung sounds are clear to auscultation heart regular rate rhythm, clear S1, S2 positive bowel sounds, abdomen is soft, nontender neuro patient is alert x3, no focal deficits Results Labs 06/11/25 13:44 06/11/25 13:44 Labs: Laboratory Results - last 24 hr 06/11/25 06/11/25 06/11/25 12:16 13:44 13:44 MCV 86.7 MCH 28.0 MCHC 32.3 RDW 13.4 Plt Count 182 MPV 9.4 Immature Gran % (Auto) 0.3 Neut % (Auto) 66.8 Lymph % (Auto) 19.5 L [place] % (Auto) 11.5 H Eos % (Auto) 1.2 Baso % (Auto) 0.7 Lymph # (Auto) 1.5 [place] # (Auto) 0.9 Eos # (Auto) 0.1 Baso # (Auto) 0.1 Abs Immat Gran (auto) 0.02 Absolute Neuts (auto) 5.0 Absolute Nucleated RBC 0.000 Nucleated RBC % (auto) 0.0 Anion Gap 10 L Estim Creat Clear Calc 84.0 Estimated GFR > 60 Random Glucose 99 Calcium 9.3 D Magnesium 2.2 Total Bilirubin 0.5 AST 25 ALT 20 Alkaline Phosphatase 94 Total Protein 7.7 Albumin 4.9 Lipase 29 Cancelled Urine Color Yellow Urine Appearance Clear Urine pH 6.5 Ur Specific [place] 1.015 Urine Protein Negative Urine Glucose (UA) Negative Urine Ketones Negative Urine Blood Negative Urine Nitrite Negative Ur Leukocyte Esterase Negative Assessment and Plan (1) Colitis: Status: Acute Plan 54 year old man admitted with colitis, possibly cdiff related Colitis, acute with diarrhea Had a positive cdiff test on 05/23/25 and treated with oral vancomycin abd and pelvic CT showing colitis without obstruction s/p levaquin and flagyl in the ED start Rocephin and add oral vancomycin to cover empirically for cdiff IV fluids clear diet today and advance as tolerated cdiff pcr pending ID consult for recurrent infection GI consult for colitis Hypertension stable blood pressure continue amlodipine Asthma/COPD overlap No exacerbation Continue inhalers as needed Mental health continue home medications GERD PPI Normocytic anemia Stable H&H, no need for transfusion DVT prophylaxis with Lovenox Full code Quality Stroke Does the patient have a stroke diagnosis?: No VTE Prior VTE?: No VTE Risk Level:: Medical - moderate - high VTE Device Contraindication: Treatment Not Indicated VTE Drug Contraindication: N/A - Med Ordered
--- NOTE | 2025-06-11 17:49 | PC.NURSE ---
Pt continues to refuse blood culture draws or any lab draws. Charge nurse, RN and multiple techs in to explain need for labs to patient. Pt requesting to leave AMA several times and then deciding to stay several times. MD notified and at bedside to discuss plan of care with pt.
--- NOTE | 2025-06-11 18:03 | HO.NURTONUR ---
Fer is a 54 yo male with NKA, full code who came to ED for c/o diarrhea for about 1 month, states 4-5 bowel movements/day, and a fall on 06/04 with no LOC. No BM's while in ED. Reports no N/V. PMH includes GERD substance abuse, cirrhosis, hep c, and seizures. Had + c-diff 05/23 U/A -, WBC 7.5, Abd CT showed colitis Pt A/O x 3 U/S guided IV to L FA ambulatory/continent
--- NOTE | 2025-06-11 18:07 | PHA.MEDREC ---
Addendum entered by Dakota Huynh, [place] 06/11/25 18:29: MED REC CHECKED BY [facility] Original Note: Pharmacy Consult ? Medication Reconciliation Pharmacy has completed the medication reconciliation. Confirmed medication list with patient using a entry level buyer. Patient claims he takes meds when he thinks he needs them . Patient claims he is no longer using symbacort or taking suboxone and vitamin D3 supplement.
[2025-06-11 19:11] VITALS: BP 128/77; PULSE 77; RESP 12; TEMP 36.6; O2SAT 97
[2025-06-11 19:37] VITALS: BMI 21.2
[2025-06-11] MEDS: Lactated Ringers 1,000 ML 100 ML IVCONT (20:25)
[2025-06-11] MEDS: metroNIDAZOLE/NS 500 MG/100 ML PIGGYBACK 100 MG IV (20:26)
[2025-06-12 03:34] VITALS: BP 108/56; PULSE 87; RESP 16; TEMP 36.4; O2SAT 97
[2025-06-12 06:55] LABS: Hematocrit 37.9 % (42.0-52.0); Hemoglobin 12.1 g/dl (14.0-18.0); Mean Corpuscular HGB Conc 31.9 g/dl (31.0-36.0); Mean Corpuscular Hemoglobin 28.1 pg (27.0-33.0); Mean Corpuscular Volume 88.1 fL (80.0-98.0); NRBC Abs Auto 0.000 X10*3/uL (0.0-0.012); NRBC Pct Auto 0.0 /100WBC (0.0-0.2); Platelet Count 159 X10*3/uL (160-400); Red Blood Count 4.30 X10*6/uL (4.60-5.80); White Blood Count 5.5 X10*3/uL (4.8-10.8)
--- NOTE | 2025-06-12 07:17 | HO.PM.IMPN ---
Subjective Subjective Date of Service: 06/12/25 Interval History: Patient tolerating p.o. diet brought in by family without knowledge Patient reports no further diarrheal episodes Family at the bedside We will continue antibiotics We will hold Imodium Thus far C diff and GI panel unremarkable Independent to ambulation likely we will not need any services Review of Systems Review of Systems: Yes all other systems are reviewed and are negative Physical Exam Exam: Exam: GENERAL: Well-Appearing, conversant, no acute distress. CHEST: Heart regular rate and rhythm, no murmurs, symmetric chest rise and fall, no chest wall tenderness to palpation, no crepitus. PULMONARY: Clear to auscultation bilaterally, no labored breathing, no wheezes/rhales/rhonchi. ABDOMINAL: Soft, nondistended, nontender, positive bowel sounds in all quadrants. NEURO: Alert and oriented x3, no focal neurologic deficits. PSYCHIATRIC: Normal affect, fluid speech, good eye contact and appropriate demeanor. Vital Signs: Vital Signs: Last Vital Signs Temp 97.6 F 06/12/25 03:34 Pulse 87 06/12/25 03:34 Resp 16 06/12/25 03:34 BP 108/56 L 06/12/25 03:34 Pulse Ox 97 06/12/25 03:34 O2 Del Method Room Air 06/12/25 03:34 BMI result Body Mass Index 21.2 Objective Data Active Medications Acetaminophen (Acetaminophen 325 Mg Tablet) 650 mg PO Q6H PRN PRN Reason: Pain, Mild 1-3,fever,headache Albuterol Sulfate (Albuterol Sulfate 90 Mcg 8 Gm Inhaler) 2 puff INHALE Q4H PRN PRN Reason: Wheezing Amlodipine Besylate (Amlodipine Besylate 10 Mg Tablet) 10 mg PO DAILY [facility]; Protocol Calcium Carbonate (Calcium Carbonate 750 Mg Tab.Chew) 750 mg PO Q4H PRN PRN Reason: Heartburn Ceftriaxone Sodium (Ceftriaxone Sodium 1 Gm Vial) 1 gm IVPUSH Q24H [facility] Last Admin: 06/11/25 18:43 Dose: 1 gm Documented By: RODRI Divalproex Sodium (Divalproex Sodium 500 Mg Tablet.) 500 mg PO BID [facility] Last Admin: 06/11/25 20:26 Dose: 500 mg Documented By: JIN Duloxetine HCl (Duloxetine Hcl 20 Mg Capsule.) 20 mg PO DAILY [facility] Enoxaparin Sodium (Enoxaparin Sodium 40 Mg/0.4 Ml Syringe) 40 mg SUBCUT Q24H [facility] Last Admin: 06/11/25 18:45 Dose: 40 mg Documented By: RODRI Lactated Ringer's (Lr) 1,000 mls @ 100 mls/hr IVCONT .Q10H [facility] Last Admin: 06/12/25 06:38 Dose: Not Given Documented By: JIN Non-Admin Reason: IV Running Magnesium Hydroxide (Milk Of Magnesia 30 Ml Oral.Susp) 30 ml PO DAILY PRN PRN Reason: Constipation Melatonin (Melatonin 3 Mg Tablet) 6 mg PO BEDTIME PRN PRN Reason: Insomnia Mirtazapine (Mirtazapine 7.5 Mg Tablet) 7.5 mg PO BEDTIME [facility] Last Admin: 06/11/25 20:26 Dose: 7.5 mg Documented By: JIN Omeprazole (Omeprazole 20 Mg Capsule.) 20 mg PO DAILY@0630 [facility] Last Admin: 06/12/25 05:46 Dose: 20 mg Documented By: JIN Ondansetron HCl (Ondansetron Hcl 4 Mg/2 Ml Vial) 4 mg IVPUSH Q8H PRN PRN Reason: Nausea and Vomiting Sodium Chloride (0.9 % Sodium Chloride Flush 3 Ml Syringe) 3 ml IVFLUSH QSHIFT [facility] Last Admin: 06/12/25 00:14 Dose: Not Given Documented By: JIN Non-Admin Reason: IV Running Vancomycin HCl (Vancomycin Hcl 125 Mg Capsule) 125 mg PO Q6H [facility] Last Admin: 06/12/25 05:46 Dose: 125 mg Documented By: JIN Labs 06/12/25 06:48 06/12/25 08:37 Labs: Laboratory Results - last 24 hr 06/11/25 06/11/25 06/11/25 12:16 13:44 13:44 MCV 86.7 MCH 28.0 MCHC 32.3 RDW 13.4 Plt Count 182 MPV 9.4 Immature Gran % (Auto) 0.3 Neut % (Auto) 66.8 Lymph % (Auto) 19.5 L [place] % (Auto) 11.5 H Eos % (Auto) 1.2 Baso % (Auto) 0.7 Lymph # (Auto) 1.5 [place] # (Auto) 0.9 Eos # (Auto) 0.1 Baso # (Auto) 0.1 Abs Immat Gran (auto) 0.02 Absolute Neuts (auto) 5.0 Absolute Nucleated RBC 0.000 Nucleated RBC % (auto) 0.0 Anion Gap 10 L Estim Creat Clear Calc 84.0 Estimated GFR > 60 Random Glucose 99 Lactic Acid Calcium 9.3 D Magnesium 2.2 Total Bilirubin 0.5 AST 25 ALT 20 Alkaline Phosphatase 94 Total Protein 7.7 Albumin 4.9 Lipase 29 Cancelled Urine Color Yellow Urine Appearance Clear Urine pH 6.5 Ur Specific [place] 1.015 Urine Protein Negative Urine Glucose (UA) Negative Urine Ketones Negative Urine Blood Negative Urine Nitrite Negative Ur Leukocyte Esterase Negative 06/11/25 06/12/25 18:20 06:48 MCV 88.1 MCH 28.1 MCHC 31.9 RDW 13.3 Plt Count 159 L MPV 9.3 L Immature Gran % (Auto) Neut % (Auto) Lymph % (Auto) [place] % (Auto) Eos % (Auto) Baso % (Auto) Lymph # (Auto) [place] # (Auto) Eos # (Auto) Baso # (Auto) Abs Immat Gran (auto) Absolute Neuts (auto) Absolute Nucleated RBC 0.000 Nucleated RBC % (auto) 0.0 Anion Gap Estim Creat Clear Calc Estimated GFR Random Glucose Lactic Acid 1.1 Calcium Magnesium Total Bilirubin AST ALT Alkaline Phosphatase Total Protein Albumin Lipase Urine Color Urine Appearance Urine pH Ur Specific [place] Urine Protein Urine Glucose (UA) Urine Ketones Urine Blood Urine Nitrite Ur Leukocyte Esterase Assessment and Plan (1) Loose stools: Status: Acute Plan Day 2 54-year-old man , French speaking with conversant in [place], reports acute on chronic diarrhea, s/p p.o. antibiotics. Patient reports that he had 2 days of nonbloody loose bowel movements, responded to Imodium at home and here with no further ongoing diarrhea. Diarrhea likely viral-no further episodes hence could not do C diff and GI panel (had EPEC on 05/23/2025) C diff positive 05/23/2025- currently on p.o. vanc For now we will continue IV antibiotics for possible colitis Patient tolerating p.o. intake well, we will challenge with p.o. diet , switch to p.o. antibiotics and if continues to remain hemodynamically stable , we will advised to follow up with outpatient DC fluids If he has another bowel movement check C diff and GI panel Asthma COPD overlap-not in acute exacerbation-continue p.r.n. nebs Seizure meds-continue Depakote Continue Remeron Continue omeprazole for GERD DVT prophylaxis with Lovenox We will challenge with p.o. diet and if able to clinically improve with no further diarrheal episodes, we will likely discharge the patient on p.o. antibiotics and follow up with PCP Quality Stroke Does the patient have a stroke diagnosis?: No VTE Prior VTE?: No VTE Risk Level:: Medical - moderate - high VTE Device Contraindication: Treatment Not Indicated VTE Drug Contraindication: N/A - Med Ordered
[2025-06-12] MEDS: Lactated Ringers 1,000 ML 100 ML IVCONT (08:07)
[2025-06-12 08:09] VITALS: BP 122/71
[2025-06-12 08:12] VITALS: BP 122/71; PULSE 96; RESP 18; TEMP 36.7; O2SAT 96
[2025-06-12 09:10] LABS: Anion Gap 11 (12-20); Blood Urea Nitrogen 10 mg/dL (9-16); Calcium 9.5 mg/dL (8.4-10.2); Carbon Dioxide 24 mmol/L (22-29); Chloride 111 mmol/L (96-108); Creatinine Clr Calc Pharmacy 110.9; Estimated Glomerular Filt Rate > 60; Potassium 3.9 mmol/L (3.3-5.1); Sodium 142 mmol/L (135-145)
[2025-06-12 15:17] VITALS: BP 125/67; PULSE 74; RESP 18; TEMP 36.3; O2SAT 96
--- NOTE | 2025-06-12 15:23 | MHC.CM.PN ---
Patient lives in an apt w/ a roommate. Ambulates w/ a cane, walker at times, otherwise independent. No services. PCP Dr Welch No HCP. CM provided education and offered assistance. Patient declined. DP: Goal is home, potential need for new services, [facility] preferred. Roommate can transport. CM will continue to follow.
[2025-06-12] MEDS: Sulfamethox/Trimeth 800/160 TABLET 1 TAB PO (17:32)
[2025-06-12 19:47] VITALS: BP 120/63; PULSE 97; RESP 14; TEMP 36.6; O2SAT 96
[2025-06-12] MEDS: 0.9 % Sodium Chloride Flush 3 ML SYRINGE IVFLUSH (21:04)
--- NOTE | 2025-06-12 22:31 | CONS_ITS ---
DATE OF SERVICE: 06/12/2025 REFERRING PHYSICIAN: Rocio Jones NP REASON FOR CONSULTATION: Colitis. HISTORY OF PRESENT ILLNESS: The patient is a pleasant 54-year-old man seen today in consultation at the request of Rocio Jones. He has a history of diarrhea which has been present for 3 months and was previously treated for C diff with oral vancomycin. He presented to the emergency room with complaints of rectal diarrhea with nonbloody stools occurring up to 3 to 4 times per day and was evaluated with imaging studies, which are reviewed. Abdominopelvic CT was obtained which was interpreted as showing colitis involving the descending and sigmoid colon. Since admission, he has been treated with antibiotics including ceftriaxone and vancomycin. Diagnostic stool testing has been obtained and his C diff test shows a positive toxin B gene, but negative toxin A and B and a stool GI panel was not obtained and will be ordered. Infectious Disease consultation has been ordered as well. The patient has been previously followed by Dr. Paniagua and last underwent colonoscopy in 2019 which was normal. Five year followup was recommended. PAST MEDICAL HISTORY: 1. Gastroesophageal reflux disease. 2. Hepatitis C/cirrhosis. 3. Tuberculosis. 4. Hypertension. 5. Seizure disorder with history of head injury. 6. Substance abuse, currently in remission. 7. Pineal cyst. 8. Back pain. CURRENT MEDICATIONS: His current medication list is reviewed in the chart. ALLERGIES: THERE ARE NONE REPORTED. FAMILY HISTORY: This is reviewed in the electronic medical record and is noncontributory. SOCIAL HISTORY: There is no current tobacco, alcohol, or substance abuse according to the patient. REVIEW OF SYSTEMS: SKIN: No pruritus. HEENT: Negative. CARDIOPULMONARY: No shortness of breath or chest pain. GASTROINTESTINAL: As above. GENITOURINARY: Negative. NEUROPSYCHIATRIC: Negative. PHYSICAL EXAMINATION: GENERAL: Shows a pleasant male, sitting comfortably in a chair. VITAL SIGNS: Reviewed in the electronic medical record and are stable. SKIN: Anicteric. HEENT: Shows no scleral icterus. NECK: Without lymphadenopathy or thyromegaly. LUNGS: Clear. HEART: Shows a regular rate and rhythm. S1, S2. No murmur. ABDOMEN: Soft without focal masses or tenderness. Bowel sounds are present. No organomegaly is noted. EXTREMITIES: Without edema. LABORATORY DATA AND IMAGING STUDIES: Reviewed. IMPRESSION: 1. Colitis. 2. History of Clostridium difficile infection. The findings on CT could be related to his recent C diff infection and antibiotic therapy seems to be helping. I would recommend continuing this with recommendations of ID consultation. He will likely need followup colonoscopy at some point because of his history of diarrhea and a Clostridium difficile infection as well as his prior colonoscopy results. This can be arranged as an outpatient once he has improved. Thanks for asking me to see him. I will follow him in the hospital with you. MD ROHINI Lee/RODOLFO / [phone]
[2025-06-13 03:26] VITALS: BP 116/69; PULSE 99; RESP 15; TEMP 36.2
[2025-06-13] MEDS: Sulfamethox/Trimeth 800/160 TABLET 1 TAB PO (05:42)
--- NOTE | 2025-06-13 07:16 | P.PNIM_ITS ---
Subjective Subjective Date of Service: 06/13/25 Interval History: Stool EPEC + as before on 05/23/25 , We will check C diff PCR (although patient was positive in prior admission on 05/23/2025) Patient appears to be quite frustrated by his diarrhea although I tried to explain that viral infectious etiology we will likely be only symptomatic management He said ?find out what is causing the diarrhea?, ?I do not like the antibiotics you giving me? ?I have been having antibiotics for the past 3 months? Explained to him rationale behind not using antibiotics for viral etiology and that we just got a bowel stool sample today and GI panel was pending at the time of my interaction in the morning Symptomatic treatment Review of Systems Review of Systems: Yes all other systems are reviewed and are negative Physical Exam 2 Vital Signs: Vital Signs: Last Vital Signs Temp 97.2 F 06/13/25 03:26 Pulse 99 06/13/25 03:26 Resp 15 06/13/25 03:26 BP 116/69 06/13/25 03:26 Pulse Ox 96 06/12/25 19:47 O2 Del Method Room Air 06/12/25 19:47 BMI result Body Mass Index 21.2 Objective Data Active Medications Acetaminophen (Acetaminophen 325 Mg Tablet) 650 mg PO Q6H PRN PRN Reason: Pain, Mild 1-3,fever,headache Albuterol Sulfate (Albuterol Sulfate 90 Mcg 8 Gm Inhaler) 2 puff INHALE Q4H PRN PRN Reason: Wheezing Amlodipine Besylate (Amlodipine Besylate 10 Mg Tablet) 10 mg PO DAILY [facility]; Protocol Last Admin: 06/12/25 08:09 Dose: 10 mg Documented By: CR Calcium Carbonate (Calcium Carbonate 750 Mg Tab.Chew) 750 mg PO Q4H PRN PRN Reason: Heartburn Divalproex Sodium (Divalproex Sodium 500 Mg Tablet.) 500 mg PO BID [facility] Last Admin: 06/12/25 21:04 Dose: 500 mg Documented By: SARAI Duloxetine HCl (Duloxetine Hcl 20 Mg Capsule.) 20 mg PO DAILY [facility] Last Admin: 06/12/25 08:09 Dose: 20 mg Documented By: CR Enoxaparin Sodium (Enoxaparin Sodium 40 Mg/0.4 Ml Syringe) 40 mg SUBCUT Q24H [facility] Last Admin: 06/12/25 17:22 Dose: Not Given Documented By: CR Non-Admin Reason: Patient Refused Magnesium Hydroxide (Milk Of Magnesia 30 Ml Oral.Susp) 30 ml PO DAILY PRN PRN Reason: Constipation Melatonin (Melatonin 3 Mg Tablet) 6 mg PO BEDTIME PRN PRN Reason: Insomnia Mirtazapine (Mirtazapine 7.5 Mg Tablet) 7.5 mg PO BEDTIME [facility] Last Admin: 06/12/25 21:04 Dose: 7.5 mg Documented By: SARAI Omeprazole (Omeprazole 20 Mg Capsule.) 20 mg PO DAILY@0630 [facility] Last Admin: 06/13/25 05:42 Dose: 20 mg Documented By: SARAI Ondansetron HCl (Ondansetron Hcl 4 Mg/2 Ml Vial) 4 mg IVPUSH Q8H PRN PRN Reason: Nausea and Vomiting Sodium Chloride (0.9 % Sodium Chloride Flush 3 Ml Syringe) 3 ml IVFLUSH QSHIFT [facility] Last Admin: 06/12/25 21:04 Dose: 3 ml Documented By: SARAI Trimethoprim/Sulfamethoxazole (Sulfamethox/Trimeth 800/160 Tablet) 1 tab PO Q12H [facility] Last Admin: 06/13/25 05:42 Dose: 1 tab Documented By: SARAI Vancomycin HCl (Vancomycin Hcl 125 Mg Capsule) 125 mg PO Q6H [facility] Last Admin: 06/13/25 05:42 Dose: 125 mg Documented By: SARAI Labs 06/12/25 06:48 06/12/25 08:37 Labs: Laboratory Results - last 24 hr 06/12/25 08:37 Anion Gap 11 L Estim Creat Clear Calc 110.9 Estimated GFR > 60 Random Glucose 193 H Calcium 9.5 Microbiology Microbiology Results: Microbiology 06/11/25 18:20 Blood Culture - Preliminary Blood - Venous No growth after 24 hours. 06/11/25 18:20 Blood Culture - Preliminary Blood - Venous No growth after 24 hours. Assessment and Plan (1) Loose stools: Status: Acute Plan Day 3 54-year-old man , [place]ymra[place] speaking with conversant in [place], reports acute on chronic diarrhea, s/p p.o. antibiotics. Patient reports that he had 2 days of nonbloody loose bowel movements, responded to Imodium at home and here with no further ongoing diarrhea. Diarrhea likely viral-no further episodes hence could not do C diff and GI panel (had EPEC +Cdiff colonization on 05/23/2025) C diff positive 05/23/2025- currently on p.o. vanc DC antibiotics as the patient has E coli diarrhea-symptomatic management, encouraged the patient to hydrate Patient appears quite frustrated by his diarrhea-explained to him that colonoscopy is warranted given his age-likely will happen outpatient Explained to him that he was taking antibiotics for 3 months prior to this admission and hence he likely had colonization with C diff and travel history related E coli diarrhea-patient appears frustrated about diarrhea when not using Imodium Advised the patient that he should not be using Imodium during any infectious etiology for her diarrhea If patient continues to tolerate p.o. intake, hemodynamically stable, given soft abdomen and no risk of fulminant C diff, all medication is p.o. and he can likely be discharged Patient appeared quite frustrated that he is being discharged-explained that it is likely symptomatic management-patient not receptive of the current idea. Asthma COPD overlap-not in acute exacerbation-continue p.r.n. nebs Seizure meds-continue Depakote Continue Remeron Continue omeprazole for GERD DVT prophylaxis with Lovenox We will challenge with p.o. diet and if able to clinically improve with no further diarrheal episodes, we will likely discharge the patient on p.o. antibiotics and follow up with PCP Colonoscopy outpatient given no alarming risk factors This note is constructed using voice recognition software. While every effort has been made to ensure accuracy, philosophy instructor errors may have been included. Quality Stroke Does the patient have a stroke diagnosis?: No VTE Prior VTE?: No VTE Risk Level:: Medical - moderate - high VTE Device Contraindication: Treatment Not Indicated VTE Drug Contraindication: N/A - Med Ordered
[2025-06-13 07:56] VITALS: BP 135/78; PULSE 89; RESP 18; TEMP 36.7; O2SAT 98
[2025-06-13] MEDS: 0.9 % Sodium Chloride Flush 3 ML SYRINGE IVFLUSH (08:38)
[2025-06-13 09:21] LABS: E. coli EAEC Not Detected (Not Detect.); E. coli EPEC Detected (Not Detect.); E. coli ETEC Not Detected (Not Detect.); E. coli STEC Not Detected (Not Detect.); Shigella sp./EIEC Not Detected (Not Detect.)
--- NOTE | 2025-06-13 14:54 | MHC.CM.PN ---
Patient medically cleared for dc home self care. Roommate at bedside to transport.
[2025-06-13 15:16] VITALS: BP 132/77; PULSE 92; RESP 16; TEMP 36.8; O2SAT 98
--- NOTE | 2025-06-13 15:56 | PM.DS ---
DS: Providers Provider Date of Service: 06/13/25 Date of admission: 06/11/25 16:38 Date of discharge: 06/13/25 Primary care physician: Bharath Welch MD Consults: 06/11/25 18:16 Consult to Infectious Diseases Routine Consulting Provider: [facility] Reason for consultation: colitis, cdiff 06/11/25 18:17 Consult to Gastroenterology Routine Consulting Provider: [facility] Reason for consultation: colitis DS: Diagnosis Discharge Diagnosis (1) Loose stools: Status: Acute DS: Summary Hospital Course Hospital Course: 54-year-old man , Panamanian speaking with conversant in French, reports acute on chronic diarrhea, s/p 3 months chronic p.o. antibiotics (pt assumes abx is the rx for any form of diarrhea). Patient reports that he had 2 days of nonbloody stools. C diff positive 05/23/2025- currently on p.o. vanc X 10 days for non-fulminant Cdiff colonization (likely 2/2 >3 months of chronic abx). DC antibiotics as the patient has E coli diarrhea-symptomatic management, encouraged the patient to hydrate- Patient appears quite frustrated by his diarrhea-explained to him that colonoscopy is warranted given his age-likely will happen outpatient Explained to him that he was taking antibiotics for 3 months prior to this admission and hence he likely had colonization with C diff and travel history related E coli diarrhea-patient appears frustrated about diarrhea when not using Imodium Advised the patient that he should not be using Imodium during any infectious etiology for her diarrhea pt has been having significant po intake since admission, no N/V, abd beningn throughput the hosp. Bedside RN and heel caser witnessed the entire conversation and patient and family member at the bedside agreement for the current management Patient advised to consult new GI physicians-[facility] referral placed and he needs to follow-up outpatient. Patient was hemodynamically stable, able to tolerate p.o. intake, mild asymptomatic diarrhea(1 episode since admission), benign abdomen. Hence I felt comfortable based on my clinical judgment that he can be on p.o. vancomycin for C diff treatment Asthma COPD overlap-not in acute exacerbation-continue p.r.n. nebs Seizure meds-continue Depakote Continue Remeron Continue omeprazole for GERD DVT prophylaxis with Lovenox Colonoscopy outpatient given no alarming risk factors This note is constructed using voice recognition software. While every effort has been made to ensure accuracy, sheet metal welder errors may have been included. Time spent discussing smoking cessation with patient: more than 10 minutes Status at Discharge Functional status at discharge: independent ambulation Overall status at discharge: patient is back to baseline Time Attestation Discharge Coordination Time (in mins): 55 MINS Quality: Safe Use of Opioids Does Pt have an Active Cancer Diagnosis on the Problem List?: No Quality: Stroke Does the patient have a stroke diagnosis?: No Physical Exam Vital Signs: Vital Signs: Last Vital Signs Temp 98.2 F 06/13/25 15:16 Pulse 92 06/13/25 15:16 Resp 16 06/13/25 15:16 BP 132/77 06/13/25 15:16 Pulse Ox 98 06/13/25 15:16 O2 Del Method Room Air 06/13/25 15:16 BMI result Body Mass Index 21.2 DS: Data Data Completed and Pending Labs on day of discharge: Laboratory Results - last 24 hr 06/13/25 00:30 Stl C. cayetanensis PCR Not Detected Stool Rotavirus A PCR Not Detected Stl Adenov F 40/41 PCR Not Detected Stool Astrovirus (PCR) Not Detected Stool Campylobacter PCR Not Detected Stool Cryptosporidium PCR Not Detected Stl Sh Tox Pr E STEC PCR Not Detected Stool E coli O157 PCR Not applicable Stl Enterotoxigenic E PCR Not Detected Stool EPEC (PCR) Detected A Stool EAEC (PCR) Not Detected Stl E. histolytica PCR Not Detected Stool Giardia Lamblia PCR Not Detected Stl P. shigelloides PCR Not Detected Stool Salmonella PCR Not Detected Stool Sapovirus (PCR) Not Detected Stl Shigella/EIEC PCR Not Detected St Y.enterocolitica PCR Not Detected Stool Vibrio (PCR) Not Detected Stl Vibrio cholerae PCR Not Detected Stl Norovirus GI/GII PCR Not Detected Preliminary micro results at discharge 06/11/25 18:20 Blood Culture - Preliminary Blood - Venous No growth after 24 hours. 06/11/25 18:20 Blood Culture - Preliminary Blood - Venous No growth after 24 hours. Discharge Plan Discharge Anticipated Discharge Date/Time: 06/13/25 14:30 Patient Disposition: Home, Self-Care Discharge Diagnosis: Viral gastroenteritis, C diff colonization Referrals: [facility] [Outside] - 1 Week Referral Note: needs Colonoscopy Bharath Welch MD [Primary Care Provider, Medical] - 2 weeks Problems: Loose stools; Syncope Discharge Medications: New vancomycin 250 mg capsule 250 mg PO BID 10 Days Qty: 20 0RF Continued ondansetron 4 mg tablet,disintegrating 4 mg PO Q8H PRN (Reason: nausea and vomiting) Qty: 14 0RF omeprazole 20 mg capsule,delayed release(DR/EC) 20 mg PO DAILY 30 Days Qty: 30 0RF lidocaine 4 % adhesive patch,medicated 1 patch topical DAILY PRN (Reason: pain) Qty: 10 0RF Rx Instructions: may leave on for up to 12 hrs divalproex 500 mg tablet,delayed release (DR/EC) 1 tab PO BID acetaminophen 500 mg tablet 1 - 2 tab PO Q6-8H PRN (Reason: Pain) famotidine [Acid Strategic Planning Manager (famotidine)] 20 mg tablet 1 tab PO BEDTIME duloxetine 20 mg capsule,delayed release(DR/EC) 1 cap PO DAILY amlodipine 10 mg tablet 10 mg PO DAILY multivitamin Tablet 1 tab PO DAILY mirtazapine 7.5 mg tablet 7.5 mg PO BEDTIME multivitamin Tablet 1 tab PO DAILY albuterol sulfate [Ventolin HFA] 90 mcg/actuation Hfa Aerosol Inhaler 2 puff INHALATION Q4-6H PRN (Reason: Wheezing) alum-mag hydroxide-simeth [Antacid] 200-200-20 mg/5 mL suspension 10 ml PO QID PRN (Reason: chest pressure) 7 Days Qty: 3000 0RF Rx Instructions: administer between meals and at bedtime Discharge Orders: Discharge Order (Routine); Ordered 06/13/25 Ordered By: Fariba Vizcarra Diet: Advance to usual diet Activity on Discharge: As tolerated Stand Alone Forms: Patient Portal Discharge page Print Language: Panamanian Activity Restrictions/Additional Instructions: [Please take Vancomycin 250mg po BID for primary Cdiff inf\ STOP ALL IMODIUM as this will worsen your inf Please ensure adequate hydration OP colonoscopy Care Plan Goals: Colonoscopy OP - referral placed Hydration - po intake avoid imodium patience as Health Concerns: See above Plan of Treatment: see above Assessment: see above Discharge Date/Time: 06/13/25 16:07
== END 2025-06-13 16:07 | disposition home or self-care (01) | DRG 249 ==
LOC: HO.ED 17:09 → HO.EDOVER 17:43 → HO.S3 18:01
PROVIDERS: Emergency Medicine; Nurse Practitioner Family; Physician Assistant Medical; Admitting Provider Nurse Practitioner Acute Care; Emergency Provider Emergency Medicine; PCP Internal Medicine; Visit Provider Student in an Organized Health Care Education/Training Program
DX: A08.4 Viral intestinal infection, unspecified (principal); D64.9 Anemia, unspecified; I10 Essential (primary) hypertension; J44.9 Chronic obstructive pulmonary disease, unspecified; K21.9 Gastro-esophageal reflux disease without esophagitis; G40.909 Epilepsy, unspecified, not intractable, without status epilepticus; Z22.1 Carrier of other intestinal infectious diseases; Z79.899 Other long term (current) drug therapy
CPT/HCPCS: 36415; 74177; 80048; 80053; 81003; 83605; 83690; 83735; 85025; 85027; 87040; 87507; 93005; 99285; J0696; J1650; J1836; J1885; J1956; J2919; J7120; Q9967

== ENCOUNTER → 2025-06-11 11:50 | Outpatient (BNV) | payer MEDICAID, SELFPAY | PROVIDERS: Admitting Provider Nurse Practitioner Acute Care; Emergency Provider Emergency Medicine; PCP Internal Medicine; Visit Provider Internal Medicine Cardiovascular Disease | DX: R42 Dizziness and giddiness (principal); R55 Syncope and collapse | CPT/HCPCS: 93010 ==

== ENCOUNTER → 2025-06-11 12:44 | Outpatient (BNV) | payer MEDICAID, SELFPAY | PROVIDERS: Emergency Provider Emergency Medicine; PCP Internal Medicine; Visit Provider Radiology Diagnostic Radiology | DX: K52.9 Noninfective gastroenteritis and colitis, unspecified (principal) | CPT/HCPCS: 74177 ==

== ENCOUNTER → 2025-06-11 16:38 | Outpatient (BNV) | payer MEDICAID, SELFPAY | PROVIDERS: Admitting Provider Nurse Practitioner Acute Care; Emergency Provider Emergency Medicine; PCP Internal Medicine; Visit Provider Student in an Organized Health Care Education/Training Program | DX: R19.5 Other fecal abnormalities (principal) | CPT/HCPCS: 99232; 99239; 99499 ==

== ENCOUNTER 2025-07-06 14:08 | Outpatient (AMB) | payer MEDICAID, SELFPAY ==
--- NOTE | 2025-07-06 14:08 | A.OFFVIS_ITS ---
Vital Signs 07/06/25 14:41 Height 5 ft 7 in Weight 137 lb BMI 21.5 Pulse 79 Pulse Source Pulse Oximeter Pulse Oximetry (%) 99 Oxygen Delivery Method Room Air Intake Visit Reasons: hhc reff c diff Continuity Coordinator Required: Yes Continuity Coordinator Services: Continuity Coordinator Present Continuity Coordinator Name: Modesto Jones CMA Information Interpreted: clinical only Vineyard Worker: Vineyard Worker Present Allergies No Known Allergies (No Known Allergies*) Allergy (Verified 07/06/25 14:42) HPI HPI hhc reff c diff: Details: History of Present Illness The patient is a 54-year-old male presenting for a hospital discharge follow-up concerning acute on chronic diarrhea following a recent diagnosis of Clostridioides difficile colitis. He was admitted and treated with vancomycin and has completed a 10-day course. The patient initially reported two loose bowel movements daily but is now symptom-free and feeling well. Notably, stool tests revealed enteropathogenic Escherichia coli (EPEC) but he believes this was contracted while traveling in [place]. His past medical history includes opioid dependence, hepatitis C, and other chronic conditions managed on several medications, with a noted polysubstance abuse history. Review of Systems - Gastrointestinal: Reports resolved diarrhea; no current bowel movement issues. - General: Reports feeling well. - Infectious: Denies current infections; HIV negative. Physical Exam - Vital Signs- Stable. - General- Appears well. - Oropharynx- Clear. - Respiratory- Lungs clear. - Cardiovascular- Heart rate and rhythm normal. - Abdominal- Soft and non-tender. - Musculoskeletal- Extremities non-tender. - Neurologic- Non-focal examination. - Skin- Clear. Results - Labs: Positive stool PCR for C. difficile on May 23; Negative for C. difficile toxin on the same date. - Tests: Stool sample indicated presence of Enteropathogenic E. coli on June 13. Plan Patient was informed and verbally consented to the use of an ambient scribe for clinic note documentation during this visit. 1. Enterocolitis due to Clostridium difficile, not specified as recurrent A04.72 The 10-day course of oral vancomycin was completed, effectively resolving symptoms. Follow-up monitoring will focus on potential recurrence. 2. Acute On Chronic Diarrhea Following vancomycin treatment for C. difficile colitis, symptoms resolved. EPEC presence is noted but requires no specific treatment; the patient has no current diarrhea. Discussion Notes I discussed the diagnosis of Clostridioides difficile colitis and its resolution following oral vancomycin treatment, and the incidental finding of EPEC, believed to be contracted in [place]. A conservative management approach was agreed upon, as EPEC typically self-resolves. The patient is advised to monitor for any reappearance of symptoms and seek prompt care if necessary, und erstanding the self-limiting nature of the infection. Medical Decision Making My clinical assessment determined the primary diagnosis of Clostridioides difficile colitis, which responded positively to a 10-day vancomycin regimen. The presence of EPEC in the stool sample requires no further intervention. The patient's comprehensive history, including travel and possible exposure risks, informed my management decisions. The treatment plan includes observation and reassurance, highlighting the importance of monitoring for symptom recurrence. Patient Instructions - Always wash your hands with soap and water to prevent infection spread. - Watch for any recurrence of diarrhea or other symptoms. - Avoid consuming potentially contaminated water. - Follow a healthy diet and maintain hydration. - Contact the clinic if symptoms return or worsen. [facility] Medical History (Updated 06/21/25 @ 00:00 by Gomez Aden) Ambulates with cane History of pineal cyst Back pain History of anemia GERD (gastroesophageal reflux disease) Hx of cirrhosis Hx of hepatitis C Seizure disorder History of head injury History of TB (tuberculosis) HTN (hypertension) Substance abuse Surgical History History of esophagogastroduodenoscopy (EGD) Hx of colonoscopy History of cervical discectomy History of bilateral total hip arthroplasty Family History Father Cancer Social History Household Members: Other Household Members Other:: My Roomate Housing: Apartment Are you a primary animal care provider to a significant other at home: No Do you presently have visiting nurse or other home services: No Alcohol intake: current Alcohol intake frequency: does not drink Patient Tobacco Use Status: Never used Tobacco Substance Use Type: Marijuana service: No Physical Exam Vital Signs: Last Vital Signs Pulse 79 07/06/25 14:41 Pulse Ox 99 07/06/25 14:41 Oxygen Delivery Method Room Air 07/06/25 14:41 BMI result Body Mass Index 21.5 Assessment & Plan Assessment & Plan (1) Complaint of melena: Code(s): K92.1 - Melena Category: Medical Plan: na (2) Loose stools: Code(s): R19.5 - Other fecal abnormalities Category: Medical Plan: as above Coding Level of Care Code New Pt Level 3 (01786) Diagnoses Complaint of melena K92.1 Loose stools R19.5
[2025-07-06 14:41] VITALS: PULSE 79; O2SAT 99; BMI 21.5
--- OUTSIDE RECORDS SUMMARY | 2025-07-06 17:19 | XMS_ITS | Encounter Summary ---
Author Organization [employer] Address [address] [place] [address] Care Team Providers Care Crisis Manager Name Role Phone Bharath Welch MD Primary Care Provider Adam Cesar RN Unavailable [phone] Karina Jones Unavailable Reason for Visit * Reason Onset Date Comments Hospital Follow-up 06/14/2025 Encounter Details Date Type Department Care Team (Late st Contact Info) Description 06/14/2025 Telephone [facility] MEDICINE [address] [place] [address] Bharath Welch MD [address] [place], [place] [phone] Hospital Follow-up Social History Tobacco Use Types [...] encounter Miscellaneous Notes * Telephone Encounter - Marychuy Luong - 06/14/2025 8:52 AM EDT Tc from pt requesting a F appt. Hospital: [facility] Date of admission: 06/11 Discharge date: 06/13 Diagnosed: Colitis *Send message to [place] Clinical Care Coordinators documented in this encounter Plan of Treatment Upcoming Encounters Date Type Department Care Team (Late st Contact Info) Description 07/21/2025 9:00 AM EST Medication Management [facility] MED & PEDS [address] [place] [address] Mariella Luna, PharmD [address] [place] [address] 08/01/2025 10:00 AM EST Office Visit [facility] MED & PEDS [address] [place] [address] Bharath Welch MD [address] [place] [address] documented as of this encounter Goals Goal [...] documented as of this encounter Care Teams Crisis Manager Relationship Specialty Start Date End Date Bharath Welch MD [address] [place] [address] PCP - General Internal Medicine 01/21/14 Adam Cesar RN [address] [place] [address] Registered Nurse Family Medicine 03/28/25 Karina Jones 03/28/25 documented as of this encounter
--- OUTSIDE RECORDS SUMMARY | 2025-07-06 17:19 | XMS_ITS | Encounter Summary ---
Author Organization [facility] Address [address] [place] [address] Care Team Providers Care Technical Support Manager Name Role Phone Bharath Welch MD Primary Care Provider Adam Cesar RN Unavailable [phone] Karina Jones Unavailable Reason for Visit * Reason Comments Med Refill Encounter Details Date Type Department Care Team (Late st Contact Info) Description 01/08/2024 Refill [facility] MEDICINE [address] [place] [address] Batsheva Gates MD [address] [place] [address] Uncomplicated opioid dependence (CMS/HCC) Social History Tobacco [...] Description 07/21/2025 9:00 AM EST Medication Management [facility] MED & PEDS [address] [place], [place] [phone] Mariella Luna PharmD [address] [place] [address] 08/01/2025 10:00 AM EST Office Visit [facility] MED & PEDS [address] [place], [place] [phone] Bharath Welch MD [address] [place] [address] documented as of this encounter Visit Diagnoses Diagnosis Uncomplicated opioid dependence (CMS/HCC) (HCC) documented in this encounter Care Teams Technical Support Manager Relationship Specialty Start Date End Date Bharath Welch MD [address] [place] [address] PCP - General Internal Medicine 01/21/14 Adam Cesar, SARAHI [address] [place] [address] Registered Nurse Family Medicine 03/28/25 Karina Jones 03/28/25 documented as of this encounter
--- OUTSIDE RECORDS SUMMARY | 2025-07-06 17:19 | XMS_ITS | Encounter Summary ---
Author Organization [facility] Address [address] [place] [address] Care Team Providers Care Charcoal Unloader Name Role Phone Bharath Welch MD Primary Care Provider Adam Cesar RN Unavailable [phone] Karina Jones Unavailable Encounter Details Date Type Department Care Team ([facility] Contact Info) Description 01/10/2023 Orders Only [facility] MED & PEDS [address] [place], [place] [phone] Shonda Espinoza LPN Social History Tobacco Use [...] Upcoming Encounters Date Type Department Care Team ([facility] Contact Info) Description 07/21/2025 9:00 AM EST Medication Management [facility] MED & PEDS [address] [place] [address] Mariella Luna, PharmD [address] [place] [address] 08/01/2025 10:00 AM EST Office Visit [facility] MED & PEDS [address] [place] [address] Bharath Welch MD [address] [place] [address] documented as of this encounter Visit Diagnoses Not on filedocumented in this encounter Care Teams Charcoal Unloader Relationship Specialty Start Date End Date Bharath Welch MD [address] [place] [address] PCP - General Internal Medicine 01/21/14 Adam Cesar RN [address] [facility] [place] [address] Registered Nurse Family Medicine 03/28/25 Karina Jones 03/28/25 documented as of this encounter
--- OUTSIDE RECORDS SUMMARY | 2025-07-06 17:19 | XMS_ITS | Clinical Summary ---
Author Organization [employer] Address [address] [place] [address] Care Team Providers Care Information Systems Supervisor Name Role Phone Bharath Welch MD Primary Care Provider Adam Cesar RN Unavailable [phone] Karina Jones Unavailable Allergies No known active allergies Medications amitriptyline (Elavil) 10 MG tablet TAKE 1 TO 2 TABLETS BY MOUTH AT BEDTIME 60 tablet 11 06/15/20 24 Active cholecalciferol (Vitamin D-3) 25 MCG tabletIndicatio ns:Vitamin D deficiency TAKE 1 TABLET BY MOUTH EVERY DAY 90 tablet 08/13/20 24 Active Multiple Vitamin (multivitamin) tabletIndicatio ns:Unintentiona l weight loss Take 1 tablet by mouth [...] 03/25/20 25 Active Suboxone 8-2 MG SL filmIndications :Uncomplicated opioid dependence (CMS/HCC) (HCC) Place 2 Film under the tongue Once per day. 56 Film 1 03/28/20 25 Active lidocaine (Lidoderm) 5 % patchIndication s:Lumbago with sciatica, right side APPLY 1 PATCH TOPICALLY TO SKIN, LEAVE ON FOR 12 HOURS AND OFF FOR 12 HOURS DIRECTED 30 patch 5 05/23/20 25 Active amLODIPine (Norvasc) 10 MG tabletIndicatio ns:Primary hypertension Take 1 tablet (10 mg) by mouth Once per day. 30 tablet 05/24/20 25 026 Active Ventolin HFA 108 (90 Base) MCG/ACT inhaler Inhale 2 puffs Every 4-6 hours as needed for wheezing. 05/12/20 Active Diclofenac Sodium 1 % gelIndications: Bilateral hip pain To apply to the affected area 3 times a day 100 g 1 05/26/20 Active mirtazapine (Remeron) 7.5 MG tabletIndicatio ns:Unintentiona l weight loss,Recurrent major depressive disorder, in partial remission (CMS/HCC) Take 1 tablet (7.5 mg) by mouth at bedtime. 30 tablet 06/20/20 Active Acetaminophen Extra Strength 500 MG tabletIndicatio ns:Chronic midline low back pain without sciatica TAKE 1 TABLET BY MOUTH EVERY 6 HOURS NEEDED FOR MILD PAIN FOR UP TO 10 DAYS 30 tablet 06/30/20 Active mirtazapine (Remeron) 7.5 MG tabletIndicatio ns:Unintentiona l weight loss,Recurrent major depressive disorder, in partial remission (CMS/HCC) Take 1 tablet (7.5 mg) by mouth at bedtime. 30 tablet 11 04/06/20 25 025 Discontinued(R eorder (will not trigger notification to Pharmacy)) DULoxetine (Cymbalta) [address] capsuleIndicati ons:Chronic pain syndrome TAKE 2 CAPSULES BY MOUTH EVERY DAY 60 capsule 5 04/18/20 25 025 Discontinued(O ther) hydrOXYzine HCl (Atarax) 25 MG tabletIndicatio ns:Primary insomnia Take 1 tablet (25 mg) by mouth every 8 (eight) hours if needed for anxiety for up to 15 days. 30 tablet 05/24/20 25 025 Discontinued(T herapy completed) acetaminophen (Tylenol Extra Strength) 500 MG tabletIndicatio ns:Chronic midline low back pain without sciatica Take 1 tablet (500 mg) by mouth every 6 (six) hours if needed for mild pain for up to 10 days. 30 tablet 06/20/20 25 025 Discontinued Active Problems Problem Noted Date [...] Encounters Date Type Department Care Team Description 06/29/2025 Patient Outreach [facility] [address] [place] [phone] Bharath Welch MD Care Coordination (SDOH f/u) 06/29/2025 Patient Outreach [address] [address] Bharath Welch MD Care Management (C3CM- f/u call) 06/29/2025 Refill [facility] [address] [place] [address] Bharath Welch MD Chronic midline low back pain without sciatica 06/20/2025 10:15 AM EDT Office Visit [facility] [address] [place] [address] Bharath Welch MD Diarrhea of infectious origin (Primary Dx); Hypogonadism in male; Primary hypertension; C. difficile colitis; Unintentional weight loss; Recurrent major depressive disorder, in partial remission (CMS/HCC); Chronic midline low back pain without sciatica 06/20/2025 Travel 06/20/2025 Patient Outreach [address] [address] Bharath Welch MD Care Management (C3- f/u call) 06/17/2025 Telephone [facility] [address] [place] [address] Bharath Welch MD Chart Prep 06/15/2025 Telephone [facility] [address] [place] [address] Bharath Welch MD Call Back Request 06/15/2025 Patient Outreach [address] [address] Bharath Welch MD 06/14/[address] [address] Bharath Welch MD Hospital Follow-up 06/14/2025 Patient Outreach [facility] [address] [place] [phone] Bharath Welch MD Transition Of Care (Tcm) (HDF scheduled. ) 06/13/2025 Patient Outreach [address] [address] Bharath Welch MD 06/11/2025 Orders Only GENERIC EXTERNAL DATA DEPARTMENT Provider, Generic External Data 06/10/2025 Telephone [facility] [address] [place] [phone] Bharath Welch MD Nurse Triage 06/08/2025 Patient Outreach [address] [address] Bharath Welch MD Care Coordination ([facility] f/u) 06/08/2025 Patient Outreach [address] [address] Bharath Welch MD Care Management (C3- f/u call #2. Unable to leave v/m.) 05/27/2025 Patient Outreach [address] [address] Bharath Welch MD Care Management (C3- f/u call) 05/26/2025 2:45 PM EDT Office Visit [facility] [address] [place] [address] Bharath Welch MD Bilateral hip pain (Primary Dx); C. difficile colitis 05/26/2025 Travel 05/26/2025 Patient Outreach [facility] [address] [place] [phone] Bharath Welch MD Care Coordination (CM/CHW outreach) 05/25/2025 Telephone [facility] [address] [place] [address] Bharath Welch MD Chart Prep 05/25/2025 Results Follow-Up [facility] [address] [place] [address] Phani Gupta MD Gastrointestinal panel 05/24/2025 2:00 PM EDT Office Visit [facility] [address] [address] Maryann Gregory MD Primary insomnia; Primary hypertension 05/24/2025 Results Follow-Up [facility] [address] [place] [address] Phani Gupta MD CDiff Gene PCR, CDiff Toxin 05/24/2025 Orders Only [facility] [address] [place] [address] Phani Gupta MD 05/24/2025 Refill [facility] [address] [place] [address] Bharath Welch MD Primary hypertension 05/24/2025 Telephone [facility] [address] [place] [address] Bharath Welch MD Medication Question 05/23/2025 10:20 AM EDT Office Visit [facility] [address] [place] [phone] Phani Gupta MD Diarrhea in adult patient (Primary Dx); Elevated blood pressure reading in office without diagnosis of hypertension 05/23/2025 Orders Only [facility] [address] [place] [phone] Phani Gupta MD 05/23/2025 Travel 05/21/[address] [address] Bharath Welch MD Lumbago with sciatica, right side 05/20/2025 Patient Outreach [address] [address] Bharath Welch MD 05/20/[address] [address] Batsheva Gates MD Hospital Follow-up 05/20/2025 Patient Outreach [facility] [address] [place] [address] Bharath Welch MD Transition Of Care (Tcm) (HDF unscheduled. ) 05/18/2025 Telephone [facility] [address] [place] [address] Bharath Welch MD Nurse Triage 05/18/2025 Results Follow-Up [address] [address] Angélica Villarreal[facility] 05/16/2025 Patient Outreach [address] [address] Bharath Welch MD 05/11/2025 2:45 PM EDT Office Visit [facility] [address] [place] [address] Surinder, Uyen, OD Myopia of both eyes (Primary Dx) 05/11/2025 11:15 AM EDT Office Visit [facility] [address] [place] [address] Bharath Welch MD Primary hypertension (Primary Dx); History of Helicobacter pylori infection; Nausea 05/11/2025 Patient Outreach [address] [address] Bharath Welch MD Care Coordination (SDOH f/u) 05/11/2025 Patient Outreach [address] [address] Bharath Welch MD Care Management (C3CM- f/u call) 05/11/2025 Travel 05/10/2025 Telephone [facility] [address] [place] [address] Bharath Welch MD CHART PREP 05/03/2025 Telephone [facility] [address] [place] [address] Bharath Welch MD Lab Orders 04/28/2025 Patient Outreach [address] [address] Bharath Welch MD Care Management (C3- f/u call) 04/28/2025 Telephone [facility] [address] [place] [address] Bharath Welch MD stool kit. 04/26/2025 Orders Only [facility] External Provider, [facility] 04/26/2025 Telephone [facility] [address] [place] [address] Bharath Welch MD Medication Question 04/20/2025 Orders Only [facility] [address] [place] [address] Bharath Welch MD Screening for colon cancer (Primary Dx) 04/19/2025 Patient Outreach [address] [address] Bharath Welch MD 04/19/2025 Patient Outreach [address] [address] Bharath Welch MD Care Coordination ([facility] f/u) 04/19/2025 Patient Outreach [address] [address] Bharath Reis MD 04/17/[address] [address] Bharath Welch MD Chronic pain syndrome 04/07/2025 9:30 AM EDT Clinical Support [address] [place] [address] Rosita Calderon RN Uncomplicated opioid dependence ([facility]/HCC) 04/07/2025 Travel 04/06/2025 10:45 AM EDT Office Visit [facility] [address] [place] [address] Bharath Welch MD Recurrent major depressive disorder, in partial remission ([facility]) (Primary Dx); Unintentional weight loss; Annual physical exam; Urethritis 04/06/2025 Travel 04/05/2025 Telephone [facility] [address] [place] [address] Bharath Welch MD Chart Prep from Last 3 Months Immunizations Immunization Administration [...] Sign Reading Time Taken Comments Blood Pressure 142/87 06/20/2025 10:27 AM EDT Pulse 91 06/20/2025 10:27 AM EDT Temperature 36.8 C (98.3 F) 05/24/2025 1:54 PM EDT Respiratory Rate 20 06/20/2025 10:27 AM EDT Oxygen Saturation 98% 06/20/2025 10:27 AM EDT Inhaled Oxygen Concentration - - Weight 59.9 kg (132 lb) 06/20/2025 10:27 AM EDT Height 177.8 cm (5' 10 ) 06/20/2025 10:27 AM EDT Body Mass Index 18.94 06/20/2025 10:27 AM EDT Plan of Treatment Upcoming Encounters Date Type Department Care Team (Late st Contact Info) Description 07/21/2025 9:00 AM EST Medication Management [facility] [address] [place] [address] Mariella Luna, PharmD [address] [place] [address] 08/01/2025 10:00 AM EST Office Visit [facility] [address] [place] [address] Bharath Welch MD [address] [place] [address] Health Maintenance Due Date Last Done Comments [...] all mood-altering substances General No 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 Solis, 22 dealer Procedure Name Priority Date/Time Associated Diagnosis Comments CT ABDOMEN PELVIS W CONTRAST Routine 06/11/2025 3:51 PM EDT LIPASE Routine 06/11/2025 1:44 PM EDT MAGNESIUM Routine 06/11/2025 1:44 PM EDT COMPREHENSIVE METABOLIC PANEL Routine 06/11/2025 1:44 PM EDT CBC WITH AUTO DIFFERENTIAL Routine 06/11/2025 1:44 PM EDT URINALYSIS WITH REFLEX MICROSCOPIC Routine 06/11/2025 12:16 PM EDT HELICOBACTER PYLORI AG, EIA, STOOL Routine 05/23/2025 [...] 1 VIEW Routine 04/26/2025 7:05 PM EDT HIV 1/2 ANTIGEN/ANTIBODY, FOURTH GENERATION [...] Recently Relevant to Health Maintenance Results * CT Abdomen Pelvis w/ Contrast (06/11/2025 3:51 PM EDT) Anatomical Region Laterality Modality Body, Pelvis, Abdomen Computed T omography 06/11/2025 3:51 PM EDT Narrative 06/11/2025 3:52 PM EDT [address] [address] [address] Scan Report Signed Patient: Fer Burrell MR#: [id number] : 1970 Acct:[id number] Age/Sex: 54 / M ADM Date: 06/11/25 Loc: HO.ED Attending Dr: Ordering Physician: Denys Martínez DO Date of Service: 06/11/25 Procedure(s): CT abdomen pelvis w IV con Accession Number(s): [id number] cc: Bharath Welch MD; Denys Martínez DO Report Number: [id number]: Total DLP = 423.00 mGy-cm Reason for Exam: GI upset chronic diarrhea CLINICAL HISTORY: GI upset chronic diarrhea CT abdomen and pelvis with IV contrast. COMPARISON: CT abdomen and pelvis dated 06/11/25 at 14:03 EDT FINDINGS: Partially visualized lung bases are unremarkable. No focal hepatic lesion. Gallbladder is contracted. Normal spleen. Normal pancreas. Normal adrenal glands. Symmetric renal enhancement. No hydronephrosis. Normal appendix. Moderate amount of stool within the cecum and ascending colon. No bowel obstruction. Thickening of the mucosa of the descending and sigmoid colon. No mesenteric or retroperitoneal lymphadenopathy. Normal abdominal aorta. 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 Urinary bladder is obscured. No inguinal lymphadenopathy. No acute fracture or suspicious bone lesion. IMPRESSION: 1. Colitis involving the descending and sigmoid colon. No bowel obstruction. This document has been electronically signed by: Lincoln Dunn MD on 06/11/2025 15:51:28 Dictated By: Lincoln Dunn MD Signed By: <Electronically signed by Lincoln Dunn MD in OV> 06/11/252 DD/ TD/TT: 06/11/25 1551 Home Paraprofessional: Procedure Note Donotuseinterpreter, Image - 06/11/[address] [address] [address] Scan Report Signed Patient: Fer BurrellMR#: M [id number] : 1970Acct:[id number] Age/Sex: 54 / MADM Date: 06/11/25 Loc: .ED Attending Dr: Ordering Physician: Denys Martínez DO Date of Service: 06/11/25 Procedure(s): CT abdomen pelvis w IV con Accession Number(s): [id number] cc: Bharath Welch MD; Denys Martínez DO Report Number: [id number]: Total DLP = 423.00 mGy-cm Reason for Exam: GI upset chronic diarrhea CLINICAL HISTORY: GI upset chronic diarrhea CT abdomen and pelvis with IV contrast. COMPARISON: CT abdomen and pelvis dated 06/11/25 at 14:03 EDT FINDINGS: Partially visualized lung bases are unremarkable. No focal hepatic lesion. Gallbladder is contracted. Normal spleen. Normal pancreas. Normal adrenal glands. Symmetric renal enhancement. No hydronephrosis. Normal appendix. Moderate amount of stool within the cecum and ascending colon. No bowel obstruction. Thickening of the mucosa of the descending and sigmoid colon. No mesenteric or retroperitoneal lymphadenopathy. Normal abdominal aorta. 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 Urinary bladder is obscured. No inguinal lymphadenopathy. No acute fracture or suspicious bone lesion. IMPRESSION: 1. Colitis involving the descending and sigmoid colon. No bowel obstruction. This document has been electronically signed by: Lincoln Dunn MD on 06/11/2025 15:51:28 Dictated By: Lincoln Dunn MD Signed By: <Electronically signed by Lincoln Dunn MD in OV> 06/11/25 155 DD/ 50 TD/TT: 06/11/251550 Home Paraprofessional: [facility] External Provider IMG CT PROCEDURES Final Result * (ABNORMAL) CBC auto differential (06/11/2025 1:44 PM EDT) Only the most recent of2 resultswithin the time period is included. White Blood Count 7.5 4.8 - 10.8 X10*3/uL [facility] Red Blood Count 4.36(L) 4.60 - 5.80 X10*6/uL [facility] Hemoglobin 12.2(L) 14.0 - 18.0 g/dl [facility] Hematocrit 37.8(L) 42.0 - 52.0 % [facility] Mean Corpuscular Volume 86.7 80.0 - 98.0 fL [facility] Mean Corpuscular Hemoglobin 28.0 27.0 - 33.0 pg [facility] Mean Corpuscular HGB Conc 32.3 31.0 - 36.0 g/dl [facility] Red Cell Distribution Width 13.4 11.0 - 16.0 % [facility] Platelet Count 182 160 - 400 X10*3/uL [facility] Mean Platelet Volume 9.4 9.4 - 12.4 fL [facility] Neutrophils Percent Auto 66.8 45 - 73 % [facility] Imm Gran Pct Auto 0.3 0.0 - 0.4 % [facility] Lymphocytes Percent Auto 19.5(L) 20 - 40 % [facility] Monocytes Percent Auto 11.5(H) 2 - 11 % [facility] Eosinophils Percent Auto 1.2 0 - 4 % [facility] Basophils Percent Auto 0.7 0 - 2 % [facility] NRBC Pct Auto 0.0 0.0 - 0.2 /100WBC [facility] Neutrophils Absolute Auto 5.0 2.0 - 8.3 x10*3/uL [facility] Imm Gran Abs Auto 0.02 0.00 - 0.03 X10*3/uL [facility] Lymphocytes Absolute Auto 1.5 1.2 - 4.9 X10*3/uL [facility] Monocytes Absolute Auto 0.9 0.1 - 1.2 X10*3/uL [facility] Eosinophils Absolute Auto 0.1 0.0 - 0.4 X10*3/uL [facility] Basophils Absolute Auto 0.1 0.0 - 0.2 X10*3/uL [facility] NRBC Abs Auto 0.000 0.0 - 0.012 X10*3/uL [facility] 06/11/2025 1:44 PM EDT 06/11/2025 1:46 PM EDT [facility] - 06/11/2025 1:49 PM EDT PATIENT REFUSED LABS us Generic External Data Provider LAB BLOOD ORDERAB LES Final Result Performing Organization Address City/[facility]/ZIP Co de Phone Number [facility] [address] [place] [phone] * Magnesium (06/11/2025 1:44 PM EDT) Magnesium 2.2 1.6 - 2.6 mg/dL [facility] 06/11/2025 1:44 PM EDT 06/11/2025 1:46 PM EDT [facility] - 06/11/2025 2:02 PM EDT PATIENT REFUSED LABS us Generic External Data Provider LAB BLOOD ORDERAB LES Final Result Performing Organization Address City/[facility]/ZIP Co de Phone Number [facility] [address] [place] [phone] * Lipase (06/11/2025 1:44 PM EDT) Lipase 29 8 - 78 U/L [facility] 06/11/2025 1:44 PM EDT 06/11/2025 1:46 PM EDT Narrative [facility] - 06/11/2025 2:02 PM EDT PATIENT REFUSED LABS us Generic External Data Provider LAB BLOOD ORDERAB LES Final Result [facility] [address] [place] [address] [phone] * (ABNORMAL) Comprehensive Metabolic Panel (06/11/2025 1:44 PM EDT) Only the most recent of2 resultswithin the time period is included. Sodium 144 135 - 145 mmol/L [facility] Potassium 3.6 3.3 - 5.1 mmol/L [facility] Chloride 108 96 - 108 mmol/L [facility] Carbon Dioxide 30(H) 22 - 29 mmol/L [facility] Anion Gap 10(L) 12 - 20 [facility] Urea Nitrogen (BUN) 15 9 - 16 mg/dL [facility] Creatinine, Serum 0.85 0.5 - 1.4 mg/dL [facility] Creatinine Clr Calc Pharmacy 84.0 [facility] Comment:eGFR (calculated fro m the MDRD study equation) and eCrCl(calculated from the Cockcroft-Gault equation) are based ondifferent parameters and may not yield comparable results.If eCrCl result is absurd, please check patient'sheight/weight. Estimated Glomerular Filt Rate >60 [facility] Comment:Chronic Kidney Disea se: Estimated GFR < 60 mL/min/1.61l1[place] Kidney Disease: Estimated GFR < 15 mL/min/1.73m2 Glucose 99 60 - 115 mg/dL [facility] Calcium 9.3 8.4 - 10.2 mg/dL [facility] Bilirubin, Total 0.5 0.0 - 1.0 mg/dL [facility] Aspartate Amino Transferase 25 5 - 37 U/L [facility] Alanine Aminotransferase 20 0 - 40 U/L [facility] Total Protein 7.7 6.5 - 8.0 g/dL [facility] Albumin Level 4.9 3.5 - 5.0 g/dL [facility] Alkaline Phosphatase 94 39 - 117 U/L [facility] 06/11/2025 1:44 PM EDT 06/11/2025 1:46 PM EDT [facility] - 06/11/2025 2:02 PM EDT PATIENT REFUSED LABS Generic External Data Provider LAB BLOOD ORDERAB LES Final Result Performing Organization Address City/[facility]/ZIP Co de Phone Number [facility] [address] [place] [address] [phone] * Urinalysis w/reflex microscopic (06/11/2025 12:16 PM EDT) Color Urine Yellow [facility] Appearance Urine Clear [facility] PH 6.5 5.0 - 9.0 [facility] Glucose Urine UA Negative Negative mg/dL [facility] Urine Blood Negative Negative [facility] Specific [place] - Urine 1.015 1.005 - 1.025 [facility] Urine Protein Negative Neg-Trace mg/dL [facility] Urine Ketones Negative Negative mg/dL [facility] Nitrite Urine Negative Negative [facility] Leukocyte Esterase Urine Negative Negative [facility] 06/11/2025 12:1 6 PM EDT 06/11/2025 12:31 PM EDT [facility] - 06/11/2025 12:37 PM EDT Urine, Clean Catch us Generic External Data Provider LAB URINE ORDERAB LES Final Result Performing Organization Address City/[facility]/ZIP Co de Phone Number [facility] [address] [place] [address] [phone] * Helicobacter pylori??Antigen, EIA, Stool (05/23/2025 2:30 PM EDT) H pylori Ag Stool SEE NOTE [facility] Comment:HELICOBACTER PYLORI AG, EIA, STOOL Micro Number: [id number] Test Status: Final Specimen Source: Stool Specimen Quality: Adequate H.pylori Ag: Not Detected Antimicrobials, proton pump inhibitors, and bismuth preparations inhibit H. pylori and ingestion up to two weeks prior to testing may cause false negative results. If clinically indicated the test should be repeated on a new specimen obtained two weeks after discontinuing treatment. Reference Range: Not DetectedTHIS TEST WAS PERFORMED AT:[facility] [employer] [address] [phone] CURRY MD Stool Rectal contents / Unknown 05/23/2025 2:30 PM EDT 05/24/2025 11:42 AM EDT us Phani Gupta MD LAB BODY FLUIDS AND STOOLS ORDER NOEL Final Result Performing Organization Address [facility] Co de Phone Number [facility] [address] [place] [phone] * CDiff Toxin (05/23/2025 1:22 PM EDT) CDiff Toxin Negative Negative [facility] CDIFF Interpretation SEE NOTE [facility] Comment:Likely C. difficile colonization. Continue contactprecautions. 05/23/2025 1:22 PM EDT 05/24/2025 11:45 AM EDT us Phani Gupta MD LAB BODY FLUIDS AND STOOLS ORDER NOEL Final Result Performing Organization Address [facility] Co de Phone Number [facility] [address] [place] [phone] * (ABNORMAL) CDiff Gene PCR (05/23/2025 1:22 PM EDT) CDiff Gene PCR POSITIVE(A A) Negative [facility] Comment:Additional C. diffic ile toxin testing to be performed. 05/23/2025 1:22 PM EDT 05/24/2025 11:45 AM EDT us Phani Gupta MD LAB BODY FLUIDS AND STOOLS ORDER NOEL Final Result [facility] [address] [place] [phone] * (ABNORMAL) Gastrointestinal panel (05/23/2025 1:22 PM EDT) Campylobacter Not Detected Not Detect. [facility] Plesiomonas shigelloides Not Detected Not Detect. [facility] Salmonella Not Detected Not Detect. [facility] Vibrio Not Detected Not Detect. [facility] Vibrio cholerae Not Detected Not Detect. [facility] YERSINIA ENTEROCOLITICA Not Detected Not Detect. [facility] Enteroaggregative E. coli (EAEC) Not Detected Not Detect. [facility] Enteropathogenic E. coli (EPEC) Detected(A) Not Detect. [facility] Enterotoxigenic E. coli (ETEC) lt/st Not Detected Not Detect. [facility] Shiga-like toxin-producing E. coli (STEC) stx1/stx2 Not Detected Not Detect. [facility] E coli O157 Not applicable Not Detect. [facility] Comment:E. coli containing t he O157 antigen are a subset ofShiga-like toxin- producing E. coli (STEC). Shigella/Enteroinvasive E. coli (EIEC) Not Detected Not Detect. [facility] Cryptosporidium Not Detected Not Detect. [facility] Cyclospora cayetanensis Not Detected Not Detect. [facility] Entamoeba histolytica Not Detected Not Detect. [facility] Giardia lamblia Not Detected Not Detect. [facility] Adenovirus F 40/41 Not Detected Not Detect. [facility] Astrovirus Not Detected Not Detect. [facility] Norovirus GI/GII Not Detected Not Detect. [facility] Rotavirus A Not Detected Not Detect. [facility] Sapovirus Not Detected Not Detect. [facility] Comment: All results must be [...] assay is performed by Multiplexed PCR, utilizing [employer] Array. Stool Rectal contents / Unknown 05/23/2025 1:22 PM EDT 05/24/2025 11:42 AM EDT us Phani Gupta MD LAB MICROBIOLOGY - GENERAL ORDER NOEL Final Result Performing Organization Address [facility]/ZIP Co de Phone Number [facility] [address] [place] [phone] * Influenza B (ID NOW Rapid Molecular) (05/23/2025 10:50 AM EDT) Pathologist [facility] Influenza B Negative Negative, Indeterminate [facility] Swab 05/23/2025 10:5 0 AM EDT us Phani Gupta MD POINT OF CARE TEST ENTER/EDIT OR DERABLES Final Result Performing Organization Address [facility] Co de Phone Number [facility] [address] [place] [address] [phone] * Influenza A (ID NOW Rapid Molecular) (05/23/2025 10:50 AM EDT) Pathologist [facility] Influenza A Negative Negative, Indeterminate [facility] Swab 05/23/2025 10:5 0 AM EDT us Phani Gupta MD POINT OF CARE TEST ENTER/EDIT OR DERABLES Final Result Performing Organization Address [facility] Co de Phone Number [facility] [address] [place] [address] [phone] * POCT Rapid COVID Ag (05/23/2025 10:48 AM EDT) Rapid COVID Ag Negative Swab 05/23/2025 10:4 8 AM EDT us Phani Gupta MD POINT OF CARE TEST ENTER/EDIT OR DERABLES Final Result * Ova and Parasites,??Concentrate and Permanent Smear (05/23/2025 7:42 AM EDT) Ova and Parasite Trichrome SEE NOTE [facility] Comment: OVA AND PARASITES, CONC AND PERM SMEAR Micro Number: [id number] Test Status: Final Specimen Source: Stool Specimen [...] infection. For additional information, please refer to https://education.[employer]/faq/YGJ809 (This link is being provided for informational/ educational purposes only.)THIS TEST WAS PERFORMED AT:[facility] [place] [phone] CURRY MD Stool Rectal contents / Unknown 05/23/2025 7:42 AM EDT 05/24/2025 11:42 AM EDT us Phani Gupta MD LAB MICROBIOLOGY - GENERAL ORDER NOEL Final Result Performing Organization Address City/[facility]/ZIP Co de Phone Number [facility] [address] [place] [address] [phone] * (ABNORMAL) Cologuard?? colon cancer screening (05/12/2025 10:40 AM EDT) Cologuard Result Positive( A) Negative 05/17/2025 12:44 PM EDT [facility] (CLIA #:[id number]) Comment: The Cologuard (TM) test was performed [...] (Aric Garay al, N Engl J Med 2014;370(14):5657-3838.) Cologuard may produce a false negative or false positive result (no colorectal cancer or precancerous polyp present at colonoscopy follow up). A negative Cologuard test result does not guarantee the absence of CRC or advanced adenoma (pre-cancer). The current Cologuard screening interval is every 3 years. ([employer] Cancer Society and U.S. Multi-Society Task Force). Cologuard performance data in a 10,000 patient pivotal study using colonoscopy as the reference method can be accessed at the following location: www.[employer].com/results. Additional description of the Cologuard test process, warnings and precautions can be found at www.colCinelanrd.com. Stool specimen (specimen) 05/12/2025 10:40 AM EDT 05/13/2025 9:11 AM EDT us Bharath Welch MD LAB MOLECULAR DIAGNOSTICS O RDERABLES Final Result [facility] (CLIA #:[id number]) [address] [place] [address], * Urinalysis, Complete, with Reflex to Culture (04/26/2025 7:33 PM EDT) Color Urine Yellow [facility] Appearance Urine Cloudy [facility] PH 8.0 5.0 - 9.0 [facility] Glucose Urine UA Negative Negative mg/dL [facility] Urine Blood Negative Negative [facility] Specific [place] - Urine 1.015 1.005 - 1.025 [facility] Urine Protein Negative Neg-Trace mg/dL [facility] Urine Ketones Negative Negative mg/dL [facility] Nitrite Urine Negative Negative [facility] Leukocyte Esterase Urine Negative Negative [facility] RBC Urine 0-2 0 - 2 /HPF [facility] Urine WBC 0-5 0 - 5 /HPF [facility] Urine Squamous Epithelial Cell 0-2 0 - 2 /HPF [facility] Urine Bacteria None Seen None Seen [facility] Hyaline Casts, Urine 0-2 0 - 2 /LPF [facility] 04/26/2025 7:33 PM EDT 04/26/2025 7:43 PM EDT Narrative [facility] - 04/26/2025 7:56 PM EDT [id number], [employer] us Generic External Data Provider LAB URINE ORDERAB LES Final Result Performing Organization Address [facility] de Phone Number [facility] [address] [place] [address] [phone] * High Sensitivity Troponin I (04/26/2025 7:11 PM EDT) Pathologist [facility] TROPONIN I HIGH SENSITIVITY <2.7 <3.5 - 35.0 ng/L [facility] Comment:The Dodson high sens itivity Troponin-I results should beused in conjunction with other diagnostic information suchas ECG, clinical observations and information, and patientsymptoms to aid in the diagnosis of MT. 04/26/2025 7:11 PM EDT 04/26/2025 7:14 PM EDT Generic External Data Provider LAB BLOOD ORDERAB LES Final Result Performing Organization Address [facility] Number [facility] [address] [place] [address] [phone] * Partial Thromboplastin Time, Activated (APTT) (04/26/2025 7:11 PM EDT) [facility] Partial Thromboplastin Time 29.8 26.7 - 34.1 SEC [facility] 04/26/2025 7:11 PM EDT 04/26/2025 7:14 PM EDT Generic External Data Provider LAB BLOOD ORDERAB LES Final Result Performing Organization Address [facility] de Phone Number [facility] [address] [place] [address] [phone] * (ABNORMAL) Prothrombin Time-INR (04/26/2025 7:11 PM EDT) Pathologist [facility] Prothrombin Time 10.6(L) 10.9 - 12.4 SEC [facility] INTERNATIONAL NORM RATIO 0.9 0.9 - 1.1 [facility] Comment:INTERNATIONAL NORMAL IZED RATIO (INR) [...] ORDERAB LES Final Result Performing Organization Address [facility] Co de Phone Number [facility] [address] [place] [address] [phone] * B Type Natriuretic Peptide (BNP) (04/26/2025 7:10 PM EDT) B Type Natriuretic Peptide <10 <100 pg/mL [facility] 04/26/2025 7:10 PM EDT 04/26/2025 7:14 PM EDT [email or web address] External Data Provider LAB BLOOD ORDERAB LES Final Result Performing Organization Address [facility] Co de Phone Number [facility] [address] [place] [address] [phone] * XR Chest 1 View (04/26/2025 7:05 PM EDT) Anatomical Region Laterality Modality Chest Radiographic Alma Rosa ging 04/26/2025 7:05 PM EDT Narrative 04/26/2025 7:07 PM EDT [address] [address] XRay Report Signed Patient: eFr Burrell MR#: [id number] : 1970 Acct:[id number] Age/Sex: 54 / M ADM Date: 04/26/25 Loc: .ED Attending Dr: Ordering Physician: Eleuterio Castro Date of Service: 04/26/25 Procedure(s): XR chest 1V Accession Number(s): [id number] cc: Eleuterio Castro; Bharath Welch MD CLINICAL [...] in OV> 04/26/251905 DD/ 04 TD/TT: 04/26/251904 Home Paraprofessional: Procedure Note Donotmasoninterpreter, Image - 04/26/2025 [place] [address] XRay Report Signed Patient: Fer BurrellMR#: [id number] : 1970Acct:[id number] Age/Sex: 54 / MADM Date: 04/26/25 Loc: .ED Attending Dr: Ordering Physician: Eleuterio Castro Date of Service: 04/26/25 Procedure(s): XR chest 1V Accession Number(s): [id number] cc: Eleuterio Castro; Bharath Welch MD CLINICAL [...] in OV> 04/26/251905 DD/ 04 TD/TT: 04/26/251904 Home Paraprofessional: [facility] External Provider IMG XR PROCEDURES Final Result * HIV-1/2 Antigen and Antibodies, Fourth Generation, with Reflexes (02/04/2024 9:13 AM EDT) HIV AB/AG Nonreactive Nonreactive [facility] Comment:HIV-1 p24 Ag and/or HIV-1/HIV-2 Ab not detected.A test result that is nonreactive does not exclude thepossibility of exposure to or infection with HIV-1 and/orHIV-2. Nonreactive results in this assay for individualswith prior exposure to HIV-1 and/or HIV-2 may be due toantigen and antibody levels that are below the limit ofdetection of this assay.The Kimble HIV Ag/Ab Combo assay result andsupplemental assay results should be interpreted inconjunction with the patient's clinical presentation,history and other laboratory results. If the results areinconsistent with clinical evidence, additional testing issuggested to confirm the result. Blood Venous blood specimen / Unknown 02/04/2024 9:13 AM EDT 02/04/2024 11:41 AM EDT us Isa Chawla MD LAB BLOOD ORDERABLES Final Re sult [facility] [address] [place] [address] [phone] * LIPID PANEL, STANDARD (02/22/2022 11:05 [...] factors. LDL-C is now calculated using the Chuck calculation, which is a validated novel method providing better accuracy than the Friedewald equation in the estimation of LDL-C. Sherman CALDERON et al. MICHELE. 2013;310(19): 9112-0013 (http://education.E[employer]/faq/HWJ492) Non-HDL Cholesterol 111 <130 mg/dL (calc) [facility] Comment: For patients with diabetes plus 1 major ASCVD risk factor, treating to a non-HDL-C goal of <100 mg/dL (LDL-C of <70 mg/dL) is considered a therapeutic option. Triglycerides 77 <150 mg/dL [facility] 02/22/2022 11:0 5 AM EDT Bharath Welch MD LAB BLOOD ORDERABLES Final Result [facility] [address] * Colonoscopy (03/23/2020) Colonoscopy Normal Normal Narrative Mitali Trujillo - 03/23/2020 Recommended follow up in 5 years Historical Provider HEALTH MAINTENANCE Edited Result - Final from Last 3 Months or Most Recently Relevant to Health Maintenance Insurance [facility] STAND ADULT Care Teams Information Systems Supervisor Relationship Specialty Start Date End Date Bharath Welch MD [address] [place] [address] PCP - General Internal Medicine 01/21/14 Adam Cesar, RN [address] [place] [address] Registered Nurse Family Medicine 03/28/25 Karina Jones 03/28/25
--- OUTSIDE RECORDS SUMMARY | 2025-07-06 17:19 | XMS_ITS | Encounter Summary ---
Author Organization [employer] Address [address] 7t [place] [address] Care Team Providers Care Buildings And Grounds Supervisor Name Role Phone Bharath Welch MD Primary Care Provider Adam Cesar RN Unavailable Karina Jones Unavailable Encounter Details Date Type Department Care Team (Late st Contact Info) Description 05/24/2025 Orders Only [facility] CHC MED & PEDS [address] [place], [place] [phone] Phani Gupta MD [address] [place] [address] Social History Tobacco Use Types Packs/Day Years [...] Description 07/21/2025 9:00 AM EST Medication Management [facility] MED & PEDS [address] [place] [address] Mariella Luna PharmD [address] [place] [address] 08/01/2025 10:00 AM EST Office Visit [facility] MED & PEDS [address] [place] [address] Bharath Welch MD [address] [place] [address] documented as of this encounter Goals Goal [...] documented as of this encounter Care Teams Buildings And Grounds Supervisor Relationship Specialty Start Date End Date Bharath Welch MD [address] [place] [address] PCP - General Internal Medicine 01/21/14 Adam Cesar RN [address] [place] [address] Registered Nurse Family Medicine 03/28/25 Karina Jones 03/28/25 documented as of this encounter
--- OUTSIDE RECORDS SUMMARY | 2025-07-06 17:19 | XMS_ITS | Encounter Summary ---
Author Organization [facility] Address [address] [facility] 7t [place] [address] Care Team Providers Care Physicians Assistant Name Role Phone Bharath Welch MD Primary Care Provider Adam Cesar RN Unavailable [phone] Karina Jones Unavailable Encounter Details Date Type Department Care Team (Late st Contact Info) Description 07/02/2023 Abstract [facility] [address] [place] [address] Mitali Trujillo Social History Tobacco Use Types [...] Description 07/21/2025 9:00 AM EST Medication Management [facility] MED & PEDS [address] [place] [address] Mariella Luna, PharmD [address] [place] [address] 08/01/2025 10:00 AM EST Office Visit [facility] MED & PEDS [address] [place] [address] Bharath Welch MD [address] [place] [address] documented as of this encounter Procedures Procedure Name Priority Date/Time Associated Diagnosis Comments HM COLONOSCOPY Routine 03/23/2020 documented in this encounter Results * Hm Colonoscopy (03/23/2020) Colonoscopy Normal Normal Narrative Mitali Trujillo - 03/23/2020 Recommended follow up in 5 years us Historical Provider HEALTH MAINTENANCE Edited Result - Final documented in this encounter Visit Diagnoses Not on filedocumented in this encounter Care Teams Physicians Assistant Relationship Specialty Start Date End Date Bharath Welch MD [address] [place] [address] PCP - General Internal Medicine 01/21/14 Adam Cesar, SARAHI [address] [place] [address] Registered Nurse Family Medicine 03/28/25 Karina Jones 03/28/25 documented as of this encounter
--- OUTSIDE RECORDS SUMMARY | 2025-07-06 17:19 | XMS_ITS | Encounter Summary ---
Author Organization [employer] Address [address] [place] [address] Care Team Providers Care Engine Assembler Name Role Phone Bharath Welch MD Primary Care Provider Adam Cesar RN Unavailable [phone] Karina Jones Unavailable Encounter Details Date Type Department Care Team (Latest Contact Info) Description 05/25/2025 Results Follow-Up [facility] MED & PEDS [address] [place], [place] [phone] Phani Gupta MD [address] [place] [address] Gastrointestinal panel Social History Tobacco Use Types [...] in told him to return or call [facility] if not improving. Thanks documented in this encounter Plan of Treatment Upcoming Encounters Date Type Department Care Team (Late st Contact Info) Description 07/21/2025 9:00 AM EST Medication Management [facility] MED & PEDS [address] [place] [address] Mariella Luna, PharmD [address] [place] [address] 08/01/2025 10:00 AM EST Office Visit [facility] MED & PEDS [address] [place] [address] Bharath Welch MD [address] [place] [address] documented as of this encounter Goals Goal [...] as of this encounter Care Teams Engine Assembler Relationship Specialty Start Date End Date Bharath Welch MD [address] [place] [address] PCP - General Internal Medicine 01/21/14 Adam Cesar RN 505 [place] [address] Registered Nurse Family Medicine 03/28/25 Karina Jones 03/28/25 documented as of this encounter
--- OUTSIDE RECORDS SUMMARY | 2025-07-06 17:19 | XMS_ITS | Encounter Summary ---
Author Organization [employer] [facility] Address [address] [facility] 7t [place] [address] Care Team Providers Care Multi Slide Machine Tender Name Role Phone Bharath Welch MD Primary Care Provider [phone] Adam Cesar RN Unavailable [phone] Karina Jones Unavailable Reason for Visit * Reason Comments Med Refill Encounter Details Date Type Department Care Team (Late st Contact Info) Description 09/18/2023 Refill [facility] MEDICINE [address] [place] [address] Batsheva Gates MD [address] [place] [address] Uncomplicated opioid dependence (CMS/HCC) Social History Tobacco [...] Description 07/21/2025 9:00 AM EST Medication Management [facility] CHC MED & PEDS [address] [place], [place] [phone] Mariella Luna PharmD [address] [place] [address] 08/01/2025 10:00 AM EST Office Visit [facility] MED & PEDS [address] [place], [place] [phone] Bharath Welch MD [address] [place] [address] documented as of this encounter Visit Diagnoses Diagnosis Uncomplicated opioid dependence (CMS/HCC) (HCC) documented in this encounter Care Teams Multi Slide Machine Tender Relationship Specialty Start Date End Date Bharath Welch MD [address] [place] [address] PCP - General Internal Medicine 01/21/14 Adam Cesar, SARAHI [address] [place] [address] Registered Nurse Family Medicine 03/28/25 Karina Jones 03/28/25 documented as of this encounter
--- OUTSIDE RECORDS SUMMARY | 2025-07-06 17:19 | XMS_ITS ---
Author Organization [employer] [facility] Address [address] 7t [place] [address] Care Team Providers Care Set Builder Name Role Phone Bharath Welch MD Primary Care Provider [phone] Adam Cesar RN Unavailable [phone] Karina Jones Unavailable CM Complex Status:Enrolled (Active) Start date:03/28/2025 Enrollment date:04/04/2025 Enrollment reason:ADT Feed Overview ADT[facility] 03/27/25 Case Team Name Relationship Phone Adam Cesar RN(Responsible Staff) Registered Nurse [phone] Continued Care and Services Coordination
--- OUTSIDE RECORDS SUMMARY | 2025-07-06 17:19 | XMS_ITS | Encounter Summary ---
Author Organization [employer] Address [address] [facility] 7t [place] [address] Care Team Providers Care Cosmetics Demonstrator Name Role Phone Bharath Welch MD Primary Care Provider Adam Cesar RN Unavailable [phone] Karina Jones Unavailable Reason for Visit * Reason Onset Date Comments Call Back Request 06/15/2025 Encounter Details Date Type Department Care Team ([facility] st Contact Info) Description 06/15/2025 Telephone [facility] CHC MED & PEDS [address] [place], [place] [phone] Bharath Welch MD [address] [place], [place] [phone] Call Back Request Social History Tobacco Use Types Packs/Day Years [...] * Telephone Encounter - Boyd Montes - 06/15/2025 8:20 AM EDT Tc from pt requesting a call back due to being charged 600$ for a Cologuard , and is requesting if provider can fill something out so he is not charged. Contact pt at [phone] (zimbabwean) documented in this encounter Plan of Treatment Upcoming Encounters Date Type Department Care Team ([facility] st Contact Info) Description 07/21/2025 9:00 AM EST Medication Management [facility] MED & PEDS [address] [place] [address] Mariella Luna, PharmD 230 [place] [address] 08/01/2025 10:00 AM EST Office Visit [facility] MED & PEDS [address] [place], [place] [phone] Bharath Welch MD [address] [place] [address] documented as of this encounter Goals Goal Patient Goal Type Associated Problems Recent Progress Patient-Stated? Author Improve quality of life by maintaining ongoing abstinence from all mood-altering substances General No Divincenzo, Gene, RN documented as of this encounter Visit Diagnoses Not on filedocumented in this encounter Additional Health Concerns Assessment Noted Time PHQ-9 Depression Total Score: 11 025 11:37 AM EDT documented as of this encounter Care Teams Cosmetics Demonstrator Relationship Specialty Start Date End Date Bharath Welch MD [address] [place] [address] PCP - General Internal Medicine 01/21/14 Adam Cesar, SARAHI [address] [place] [address] Registered Nurse Family Medicine 03/28/25 Karina Jones 03/28/25 documented as of this encounter
--- OUTSIDE RECORDS SUMMARY | 2025-07-06 17:19 | XMS_ITS | Encounter Summary ---
Author Organization [employer] Address [address] [facility] 7t [place] [address] Care Team Providers Care Golf Cart Assembler Name Role Phone Bharath Welch MD Primary Care Provider [phone] Adam Cesar RN Unavailable [phone] Karina Jones Unavailable Reason for Visit * Reason Comments Med Refill Encounter Details Date Type Department Care Team (Late st Contact Info) Description 06/11/2024 Refill [facility] MEDICINE [address] [place] [address] Batsheva Gates MD [address] [place] [address] Uncomplicated opioid dependence (CMS/HCC) Social History Tobacco [...] Description 07/21/2025 9:00 AM EST Medication Management [facility] CHC MED & PEDS [address] [place], [place] [phone] Mariella Luna PharmD [address] [place] [address] 08/01/2025 10:00 AM EST Office Visit [facility] CHC MED & PEDS [address] [place] [address] Bharath Welch MD [address] [place], [place] [phone] documented as of this encounter Visit Diagnoses Diagnosis Uncomplicated opioid dependence (CMS/HCC) (HCC) documented in this encounter Additional Health Concerns Assessment Noted Time PHQ-9 Depression Total Score: 6 04/01/20 24 9:31 AM EDT documented as of this encounter Care Teams Golf Cart Assembler Relationship Specialty Start Date End Date Bharath Welch MD [address] [place] [address] PCP - General Internal Medicine 01/21/14 Adam Cesar, SARAHI [address] [place] [address] Registered Nurse Family Medicine 03/28/25 Karina Jones 03/28/25 documented as of this encounter
--- OUTSIDE RECORDS SUMMARY | 2025-07-06 17:19 | XMS_ITS | Encounter Summary ---
Author Organization [employer] [facility] Address [address] [facility] 7t [place] [address] Care Team Providers Care Human Resource Analyst Name Role Phone Bharath Welch MD Primary Care Provider [phone] Adam Cesar RN Unavailable [phone] Karina Jones Unavailable Encounter Details Date Type Department Care Team (Late Contact Info) Description 07/22/2024 Orders Only [facility] MED & PEDS [address] [place], [place] [phone] Bharath Welch MD [address] [place], [place] [phone] Unintentional weight loss (Primary Dx) Social History [...] Department Care Team (Late Contact Info) Description 07/21/2025 9:00 AM EST Medication Management [facility] MED & PEDS [address] [place], [place] [phone] Mariella Luna, PharmD [address] [place] [address] 08/01/2025 10:00 AM EST Office Visit [facility] CHC MED & PEDS [address] [place] [address] Bharath Welch MD [address] [place] [address] Scheduled Orders Name Type Priority Associated Diagnoses [...] documented as of this encounter Care Teams Human Resource Analyst Relationship Specialty Start Date End Date Bharath Welch MD [address] [place] [address] PCP - General Internal Medicine 01/21/14 Adam Cesar, SARAHI [address] [place] [address] Registered Nurse Family Medicine 03/28/25 Karina Jones 03/28/25 documented as of this encounter
--- OUTSIDE RECORDS SUMMARY | 2025-07-06 17:19 | XMS_ITS | Encounter Summary ---
Author Organization [employer] [facility] Address [address] [facility] 7t [place] [address] Care Team Providers Care Body Hanger Name Role Phone Bharath Welch MD Primary Care Provider Adam Cesar RN Unavailable [phone] Karina Jones Unavailable Encounter Details Date Type Department Care Team (Late Contact Info) Description 11/30/2024 Orders Only [facility] MED & PEDS [address] [place], [place] [phone] Bharath Welch MD [address] [place], [place] [phone] Unintentional weight loss (Primary Dx) Social History [...] 07/21/2025 9:00 AM EST Medication Management [facility] MED & PEDS [address] [place], [place] [phone] Mariella Luna, PharmD [address] [place] [address] 08/01/2025 10:00 AM EST Office Visit [facility] CHC MED & PEDS [address] [place] [address] Bharath Welch MD [address] [place] [address] documented as of this encounter Visit Diagnoses Diagnosis Unintentional weight loss- Primary Loss of weight documented in this encounter Additional Health Concerns Assessment Noted Time PHQ-9 Depression Total Score: 6 04/01/20 24 9:31 AM EDT documented as of this encounter Care Teams Body Hanger Relationship Specialty Start Date End Date Bharath Welch MD [address] [place] [address] PCP - General Internal Medicine 01/21/14 Adam Cesar, RN [address] [place] [address] Registered Nurse Family Medicine 03/28/25 Karina Jones 03/28/25 documented as of this encounter
--- OUTSIDE RECORDS SUMMARY | 2025-07-06 17:19 | XMS_ITS | Encounter Summary ---
Author Organization [employer] Address [address] [facility] 7t [place] [address] Care Team Providers Care Supervisor Typesetting Name Role Phone Bharath Welch MD Primary Care Provider Adam Cesar RN Unavailable [phone] Karina Jones Unavailable Reason for Visit * Reason Onset Date Comments stool kit. 04/28/2025 Encounter Details Date Type Department Care Team ([facility] st Contact Info) Description 04/28/2025 Telephone [facility] CHC MED & PEDS [address], [place] [phone] Bharath Welch MD [address] [place], [place] [phone] stool kit. Social History Tobacco Use Types [...] stool kit to be mailed too [address] [facility] [address] Contact pt at [phone] (tamazight) documented in this encounter Plan of Treatment Upcoming Encounters Date Type Department Care Team ([facility] st Contact Info) Description 07/21/2025 9:00 AM EST Medication Management [facility] MED & PEDS [address] [place] [address] Mariella Luna, PharmD [address] [place] [address] 08/01/2025 10:00 AM EST Office Visit [facility] MED & PEDS [address], [place] [phone] Bharath Welch MD [address] [place], [place] [phone] documented as of this encounter Goals Goal [...] documented as of this encounter Care Teams Supervisor Typesetting Relationship Specialty Start Date End Date Bharath Welch MD [address] [place] [address] PCP - General Internal Medicine 01/21/14 Adam Cesar RN [address] [place] [address] Registered Nurse Family Medicine 03/28/25 Karina Jones 03/28/25 documented as of this encounter
--- OUTSIDE RECORDS SUMMARY | 2025-07-06 17:19 | XMS_ITS | Encounter Summary ---
Author Organization [email or web address] [facility] Address [address] [facility] 7t [place] [address] Care Team Providers Care System Operation Superintendent Name Role Phone Bharath Welch MD Primary Care Provider Adam Cesar RN Unavailable [phone] Karina Jones Unavailable Reason for Referral * Consultation (Routine) - Authorized Specialty Diagnoses / Procedures Referred By Nina lopez Referred To Contact Gastroenterology Diagnoses Screening for colon cancer Bharath Welch MD [address] [place] [address] Phone: tel: fax: [facility] Gastroenterology [address] [facility] 3rd Floor [address] [place], [place] Phone: tel: fax: Referral ID Status Reason Start Date Expiration Date Visits Requested Visits Authorized [id number] Authorized Specialty Services Required 04/20/2025 04/20/2026 1 1 Encounter Details Date Type Department Care Team (Late st Contact Info) Description 04/20/2025 Orders Only [facility] CHC MED & PEDS [address] [place] [address] Bharath Welch MD [address] [place] [address] Screening for colon cancer (Primary Dx) Social [...] Description 07/21/2025 9:00 AM EST Medication Management [facility] MED & PEDS [address] [place] [address] Mariella Luna, PharmD [address] [place] [address] 08/01/2025 10:00 AM EST Office Visit [facility] MED & PEDS [address] [place] [address] Bharath Welch MD [address] [place] [address] Scheduled Referrals Name Type Priority Associated Diagnoses [...] Positive( A) Negative 05/17/2025 12:44 PM EDT [facility] (CLIA #:[id number]) Comment: The Cologuard (TM) test was performed [...] Bergman et al, N Engl J Med 2014;370(14):8415-3978.) Cologuard may produce a false negative or false positive result (no colorectal cancer or precancerous polyp present at colonoscopy follow up). A negative Cologuard test result does not guarantee the absence of CRC or advanced adenoma (pre-cancer). The current Cologuard screening interval is every 3 years. ([place] Cancer Society and U.S. Multi-Society Task Force). Cologuard performance data in a 10,000 patient pivotal study using colonoscopy as the reference method can be accessed at the following location: www.pfwaterworks/results. Additional description of the Cologuard test process, warnings and precautions can be found at www.SkypazogRebiotixrd.SellrBuyr [employer] [place]. Stool specimen (specimen) 05/12/2025 10:40 AM EDT 05/13/2025 9:11 AM EDT us Bharath Welch MD LAB MOLECULAR DIAGNOSTICS O RDERABLES Final Result [facility] (CLIA #:[id number]) [address] [place] [address], documented in this encounter Visit Diagnoses Diagnosis Screening for colon cancer- Primary Special screening for malignant neoplasms, colon documented in this encounter Additional Health Concerns Assessment Noted Time PHQ-9 Depression Total Score: 11 025 11:37 AM EDT documented as of this encounter Care Teams System Operation Superintendent Relationship Specialty Start Date End Date Bharath Welch MD [address] [place] [address] PCP - General Internal Medicine 01/21/14 Adam Cesar, SARAHI [address] [place] [address] Registered Nurse Family Medicine 03/28/25 Karina Jones 03/28/25 documented as of this encounter
--- OUTSIDE RECORDS SUMMARY | 2025-07-06 17:19 | XMS_ITS ---
Author Organization [employer] Address [address] [facility] [address] 7[address] [place] [address] Care Team Providers Care College Specialist Name Role Phone Bharath Welch MD Primary Care Provider [phone] Adam Cesar RN Unavailable [phone] Karina Jones Unavailable [facility] Complex Status:Enrolled (Active) Start date:03/28/2025 Enrollment date:04/04/2025 Enrollment reason:ADT Feed Overview ADT-[facility] ED 03/27/25. Please outreach for enrollment. Case Team Name Relationship Phone Karina Jones(Responsible Staff) [phone] Continued Care and Services Coordination
--- OUTSIDE RECORDS SUMMARY | 2025-07-06 17:19 | XMS_ITS | Encounter Summary ---
Author Organization [employer] [facility] Address [address] 7t [place] [address] Care Team Providers Care Nurse Midwife/Clinical Instructor Name Role Phone Bharath Welch MD Primary Care Provider Adam Cesar RN Unavailable Karina Jones Unavailable Reason for Visit * Reason Onset Date Comments Results 05/18/2025 Referral 05/18/2025 Encounter Details Date Type Department Care Team ([facility] st Contact Info) Description 05/18/2025 Results Follow-Up [facility] MEDICINE [address] [place] [address] Angélica Villarreal, SARAHI [place] colon cancer screening [...] AM EDT TC placed to pt via [employer] assembler brazer (Imer ID#[id number]) to inform and advise of below PCP message. Advised pt cologuard is positive and referral placed to gastroenterology to consider a colonoscopy. Pt reports they do not want to be seen in [place] and [facility] [place] [facility] Pt reports they do not like the care at [place]. Advised pt message to be sent to referrals specialist for review. Pt verbalized understanding and denies questions at this time. ----- Message from Bharath Welch MD sent at 05/17/2025 10:43 PM EDT ----- Please call to inform Mr. Fer Howell that his Cologuard is positive. He will be referredto gastroenterology to consider a colonoscopy ----- Message ----- From: [employer] Social Results In Sent: 05/17/2025 5:50 PM EDT To: Bharath Welch MD documented in this encounter Plan of Treatment Upcoming Encounters Date Type Department Care Team (Late st Contact Info) Description 07/21/2025 9:00 AM EST Medication Management [facility] MED & PEDS [address] [place], [place] [phone] Mariella Luna, PharmD [address] [place], [place] [phone] 08/01/2025 10:00 AM EST Office Visit [facility] MED & PEDS [address] [place], [place] [phone] Bharath Welch MD [address] [place], [place] [phone] documented as of this encounter Goals Goal [...] documented as of this encounter Care Teams Nurse Midwife/Clinical Instructor Relationship Specialty Start Date End Date Bharath Welch MD 505 [place] [address] PCP - General Internal Medicine 01/21/14 Adam Cesar, RN [address] [place] [address] Registered Nurse Family Medicine 03/28/25 Karina Jones 03/28/25 documented as of this encounter
== END 2025-07-06 15:24 | disposition home or self-care (01) ==
LOC: HO.HID 14:08
PROVIDERS: PCP Internal Medicine; Visit Provider Internal Medicine
DX: K92.1 Melena (principal); R19.5 Other fecal abnormalities
CPT/HCPCS: 99203

== ENCOUNTER → 2025-07-06 14:08 | Outpatient (BNVA) | payer MEDICAID, SELFPAY | PROVIDERS: PCP Internal Medicine; Visit Provider Internal Medicine | DX: K92.1 Melena (principal) | CPT/HCPCS: 99202 ==

== ENCOUNTER 2025-08-02 13:03 | Outpatient (AMB) | payer MEDICAID, SELFPAY ==
--- NOTE | 2025-08-02 13:27 | A.OFFVIS_ITS ---
Vital Signs 08/02/25 13:28 Height 5 ft 7 in Weight 138 lb 14.259 oz BMI 21.8 BP 122/80 Blood Pressure Location Rt brachial Position Sitting Pulse 85 Pulse Source Pulse Oximeter Pulse Oximetry (%) 96 Oxygen Delivery Method Room Air Intake Visit Reasons: Hypogonadism Intake Note: NEW Patient present here today to establish treatment for Hypogonadism: Derrick Boat Lever Operator Required: No Accompanied by: Self / Same As Patient Allergies No Known Allergies (No Known Allergies*) Allergy (Verified 08/02/25 13:29) HPI Comments Details: 54 years old male with past medical history of asthma COPD overlap, GERD, hepatitis-C, hypertension, substance abuse, seen in the office for initial evaluation of hypogonadism. The patient was referred by his primary care physician due to concerns regarding testosterone. The patient reports a history of hypogonadism after using a OTC supplement. He last used testosterone injections 6?7 years. He is unsure if he currently has a problem but states he feels well overall. He denies any recent training or use of testosterone beyond his prior regimen. The patient reports no symptoms suggestive of hypogonadism at this time. No fatigue, no muscle wasting or weakness, no hot flashes. Reports normal erection during intercourse and spontaneous erections in the morning. He states that the referral was prompted by a recent episode where he was found to have four bacterial infections after consuming contaminated water, but he does not believe this is related to his testosterone use. He denies any sleep difficulties and reports feeling well. The patient demonstrates understanding that exogenous testosterone can suppress endogenous production, potentially leading to infertility and testicular atrophy. Physical exam: General: thinl appearing. NAD. Neck/Thyroid: Thyroid not palpable, no nodules. CV: RRR, no murmur. No edema. Resp:Lungs clear to auscultation bilaterally Abdomen: Soft, nontender. nondistended Extremities/Neuro: No weakness or tremor of outstretched hands Diabetic Foot Exam: sensation to monofilament exam Laboratory Tests 06/12/25 06/12/25 06:48 08:37 WBC 5.5 RBC 4.30 L Hgb 12.1 L Hct 37.9 L MCV 88.1 Plt Count 159 L Sodium 142 Potassium 3.9 Chloride 111 H Carbon Dioxide 24 Anion Gap 11 L BUN 10 Creatinine 0.73 Estim Creat Clear Calc 110.9 Estimated GFR > 60 PFSH Medical History Ambulates with cane History of pineal cyst Back pain History of anemia GERD (gastroesophageal reflux disease) Hx of cirrhosis Hx of hepatitis C Seizure disorder History of head injury History of TB (tuberculosis) HTN (hypertension) Substance abuse Surgical History History of esophagogastroduodenoscopy (EGD) Hx of colonoscopy History of cervical discectomy History of bilateral total hip arthroplasty Family History Father Cancer Social History Household Members: Other Household Members Other:: My Roomate Housing: Apartment Are you a primary personal care assistant to a significant other at home: No Do you presently have visiting nurse or other home services: No Alcohol intake: current Alcohol intake frequency: does not drink Patient Tobacco Use Status: Never used Tobacco Substance Use Type: Marijuana service: No Physical Exam Vital Signs: Last Vital Signs Pulse 85 08/02/25 13:28 BP 122/80 08/02/25 13:28 Pulse Ox 96 08/02/25 13:28 Oxygen Delivery Method Room Air 08/02/25 13:28 BMI result Body Mass Index 21.8 Assessment & Plan Assessment & Plan (1) History of hypogonadism: Code(s): Z86.39 - Personal history of other endocrine, nutritional and metabolic disease Category: Medical Plan: Patient has a history of hypogonadism after he take imkk-smu-nmjuqvy supplements (unknown the name), he was using testosterone injections for a few months, and then it was stopped and he did not have any symptoms. He said that he had not required testosterone supplementation for the last 5 or 6 years, and he denies any symptoms concerning for hypogonadism. Plan Check total/free testosterone, sex hormone binding globulin, LH, FSH, CBC fasting Follow-up in 1 month to review results. Plan 30 minutes spent reviewing previous records, labs, imaging, education and documenting in the chart Orders: Orders Testosterone, Total Today Z86.39 - Personal history of other endocrine, nutritional and metabolic disease Lutenizing Hormone Today Z86.39 - Personal history of other endocrine, nutritio nal and metabolic disease Hemoglobin Today Z86.39 - Personal history of other endocrine, nutritional and metabolic disease Testosterone, Free/Total Today Z86.39 - Personal history of other endocrine, nutritional and metabolic disease Sex Hormone Binding Globulin Today Z86.39 - Personal history of other endocrine, nutritional and metabolic disease Follicle Stimulating Hormone Today Z86.39 - Personal history of other endocrine, nutritional and metabolic disease Coding Level of Care Code Complex visit Add On G2211 Diagnoses History of hypogonadism Z86.39
[2025-08-02 13:28] VITALS: BP 122/80; PULSE 85; O2SAT 96; BMI 21.8
--- OUTSIDE RECORDS SUMMARY | 2025-08-02 15:00 | XMS_ITS | Encounter Summary ---
Author Organization [employer] [facility] Address [address] [facility] 7t [place] [address] Care Team Providers Care Drying Supervisor Name Role Phone Bharath Welch MD Primary Care Provider Adam Cesar RN Unavailable [phone] Karina Jones Unavailable Reason for Referral * Consultation (Routine) - Authorized Specialty Diagnoses / Procedures Referred By Nina lopez Referred To Contact Gastroenterology Diagnoses Screening for colon cancer Bharath Welch MD [address] [place] [address] Phone: tel: fax: [facility] Gastroenterology [address] [facility] 3rd [address] [place], [place] Phone: tel: fax: Referral ID Status Reason Start Date Expiration Date Visits Requested Visits Authorized [id number] Authorized Specialty Services Required 04/20/2025 04/20/2026 1 1 Encounter Details Date Type Department Care Team (Late st Contact Info) Description 04/20/2025 Orders Only [facility] CHC MED & PEDS [address] [place] [address] Bharath Welch MD [address] [place] [address] Screening for colon cancer (Primary Dx) Social [...] Care Team (Late st Contact Info) Description 09/08/2025 9:30 AM EST Medication Management [facility] MED & PEDS [address] [place] [address] Mariella Luna, PharmD [address] [place] [address] 09/13/2025 10:00 AM EST Office Visit [facility] MED & PEDS [address] [place] [address] Bharath Welch MD [address] [place] [address] 11/02/2025 9:00 AM EST Office Visit [facility] OPTOMETRY [address] [place] [address] Uyen Cadena, OD [address] [place] [address] Scheduled Referrals Name Type Priority Associated Diagnoses [...] Positive( A) Negative 05/17/2025 12:44 PM EDT [facility] (CLIA #:[id number]) Comment: The Cologuard (TM) test was performed [...] screened with both Cologuard and colonoscopy. (Aric Lopez. et al, N Engl J Med 2014;370(14):4779-5656.) Cologuard may produce a false negative or false positive result (no colorectal cancer or precancerous polyp present at colonoscopy follow up). A negative Cologuard test result does not guarantee the absence of CRC or advanced adenoma (pre-cancer). The current Cologuard screening interval is every 3 years. ([place] Cancer Society and U.S. Multi-Society Task Force). Cologuard performance data in a 10,000 patient pivotal study using colonoscopy as the reference method can be accessed at the following location: www.[employer]/results. Additional description of the Cologuard test process, warnings and precautions can be found at www.Socialtyzerd.MWI. Stool specimen (specimen) 05/12/2025 10:40 AM EDT 05/13/2025 9:11 AM EDT Bharath Welch MD LAB MOLECULAR DIAGNOSTICS O RDERABLES Final Result [facility] (CLIA #:[id number]) [address] [place] [address], documented in this encounter Visit Diagnoses Diagnosis Screening for colon cancer- Primary Special screening for malignant neoplasms, colon documented in this encounter Additional Health Concerns Assessment Noted Time PHQ-9 Depression Total Score: 11 025 11:37 AM EDT documented as of this encounter Care Teams Drying Supervisor Relationship Specialty Start Date End Date Bharath Welch MD [address] [place] [address] PCP - General Internal Medicine 01/21/14 Adam Cesar, RN [address] [place] [address] [place] [address] Registered Nurse Family Medicine 03/28/25 07/13/25 Karina Jones 03/28/25 08/01/25 documented as of this encounter
--- OUTSIDE RECORDS SUMMARY | 2025-08-02 15:01 | XMS_ITS | Encounter Summary ---
Author Organization [employer] Address [address] 7t [place] [address] Care Team Providers Care Fancy Needleworker Name Role Phone Bharath Welch MD Primary Care Provider [phone] Karina Jones Encounter Details Date Type Department Care Team (Late st Contact Info) Description 07/20/2025 Orders Only [facility] CHC MED & PEDS [address] [place], [place] [phone] ProviderHoward MD Social History Tobacco Use Types Packs/Day Years [...] Upcoming Encounters Date Type Department Care Team ([facility] st Contact Info) Description 09/08/2025 9:30 AM EST Medication Management [facility] MED & PEDS [address] [place] [address] Mariella Luna, PharmD [address] [place] [address] 09/13/2025 10:00 AM EST Office Visit [facility] MED & PEDS [address] [place] [address] Bharath Welch MD [address] [place] [address] 11/02/2025 9:00 AM EST Office Visit [facility] OPTOMETRY [address] [place] [address] Surinder, Uyen, OD [address] [place] [address] documented as of this encounter Goals Goal Patient Goal Type Associated Problems Recent Progress Patient-Stated? Author Improve quality of life by maintaining ongoing abstinence from all mood-altering substances General No Fredo Solis, RN documented as of this encounter Procedures Procedure Name Priority Date/Time Associated Diagnosis Comments HM COLONOSCOPY Routine 07/19/2025 documented in this encounter Results * Hm Colonoscopy (07/19/2025) us Historical Provider HEALTH MAINTENANCE Final Result documented in this encounter Visit Diagnoses Not on filedocumented in this encounter Additional Health Concerns Assessment Noted Time PHQ-9 Depression Total Score: 11 025 11:37 AM EDT documented as of this encounter Care Teams Fancy Needleworker Relationship Specialty Start Date End Date Bharath Welch MD [address] [place] [address] PCP - General Internal Medicine 01/21/14 Karina Jones 03/28/25 08/01/25 documented as of this encounter
--- OUTSIDE RECORDS SUMMARY | 2025-08-02 15:01 | XMS_ITS | Encounter Summary ---
Author Organization [employer] [facility] Address [address] [facility] 7t [place] [address] Care Team Providers Care Building Construction Foreman Name Role Phone Bharath Welch MD Primary Care Provider Adam Cesar RN Unavailable [phone] Karina Jones Unavailable Reason for Visit * Reason Comments Med Refill Encounter Details Date Type Department Care Team (Late st Contact Info) Description 09/18/2023 Refill [facility] MEDICINE [address] [place] [address] Batsheva Gates MD [address] [place] [address] Uncomplicated opioid dependence (CMS/HCC) Social History Tobacco [...] Description 09/08/2025 9:30 AM EST Medication Management [facility] CHC MED & PEDS [address] [place], [place] [phone] Mariella Luna PharmD [address] [place] [address] 09/13/2025 10:00 AM EST Office Visit [facility] MED & PEDS [address] [place], [place] [phone] Bharath Welch MD [address] [place] [address] 11/02/2025 9:00 AM EST Office Visit [facility] OPTOMETRY [address] [place] [address] Surinder Uyen, OD [address] [place] [address] documented as of this encounter Visit Diagnoses Diagnosis Uncomplicated opioid dependence (CMS/HCC) (HCC) documented in this encounter Care Teams Building Construction Foreman Relationship Specialty Start Date End Date Bharath Welch MD [address] [place] [address] PCP - General Internal Medicine 01/21/14 Adam Cesar RN [address] [place] [address] Registered Nurse Family Medicine 03/28/25 07/13/25 Karina Jones 03/28/25 08/01/25 documented as of this encounter
--- OUTSIDE RECORDS SUMMARY | 2025-08-02 15:01 | XMS_ITS | Encounter Summary ---
Author Organization [employer] Address [address] [facility] [facility] [address] 7t [place] [address] Care Team Providers Care Dairy Bar Manager Name Role Phone Bharath Welch MD Primary Care Provider Adam Cesar RN Unavailable [phone] Karina Jones Unavailable Encounter Details Date Type Department Care Team (Late st Contact Info) Description 05/24/2025 Orders Only [facility] CHC MED & PEDS [address] [place], [place] [phone] Phani Gupta MD [address] [place] [address] Social History Tobacco Use Types Packs/Day Years [...] Description 09/08/2025 9:30 AM EST Medication Management [facility] MED & PEDS [address] [place] [address] Mariella Luna, PharmD [address] [place] [address] 09/13/2025 10:00 AM EST Office Visit [facility] MED & PEDS [address] [place] [address] Bharath Welch MD [address] [place] [address] 11/02/2025 9:00 AM EST Office Visit [facility] OPTOMETRY [address] [place] [address] Uyen Cadena, OD [address] [place] [address] documented as of this encounter Goals Goal [...] documented as of this encounter Care Teams Dairy Bar Manager Relationship Specialty Start Date End Date Bharath Welch MD [address] [place] [address] PCP - General Internal Medicine 01/21/14 Adam Cesar RN [address] [place] [address] Registered Nurse Family Medicine 03/28/25 07/13/25 Karina Jones 03/28/25 08/01/25 documented as of this encounter
--- OUTSIDE RECORDS SUMMARY | 2025-08-02 15:01 | XMS_ITS | Encounter Summary ---
Author Organization [employer] Address [address] 7t [place] [address] Care Team Providers Care Tc Operator Name Role Phone Bharath Welch MD Primary Care Provider Adam Cesar RN Unavailable [phone] Kairna Jones Unavailable Reason for Visit * Reason Onset Date Comments Hospital Follow-up 06/14/2025 Encounter Details Date Type Department Care Team (Late st Contact Info) Description 06/14/2025 Telephone [facility] MEDICINE [address] [place] [address] Bharath Welch MD [address] [place], [place] [phone] Hospital Follow-up Social History Tobacco Use Types [...] from pt requesting a F appt. Hospital: [facility] Date of admission: 06/11 Discharge date: 06/13 Diagnosed: Colitis *Send message to [facility] Clinical Care Coordinators documented in this encounter Plan of Treatment Upcoming Encounters Date Type Department Care Team (Late st Contact Info) Description 09/08/2025 9:30 AM EST Medication Management [facility] MED [facility] PEDS [address] [place] [address] Mariella Luna, PharmD [address] [place] [address] 09/13/2025 10:00 AM EST Office Visit [facility] CHC MED & PEDS [address] [place] [address] Bharath Welch MD [address] [place] [address] 11/02/2025 9:00 AM EST Office Visit [facility] OPTOMETRY [address] [place] [address] Uyen Cadena, OD [address] [place] [address] documented as of this encounter Goals Goal [...] documented as of this encounter Care Teams Tc Operator Relationship Specialty Start Date End Date Bharath Welch MD [address] [place] [address] PCP - General Internal Medicine 01/21/14 Adam Cesar, SARAHI [address] [place] [address] Registered Nurse Family Medicine 03/28/25 07/13/25 Karina Jones 03/28/25 08/01/25 documented as of this encounter
--- OUTSIDE RECORDS SUMMARY | 2025-08-02 15:01 | XMS_ITS ---
Author Organization [employer] Address [address] [facility] 7t [place] [address] Care Team Providers Care Streetsweeper Operator Name Role Phone Bharath Welch MD Primary Care Provider [facility] Status:Closed (Closed) Start date:03/28/2025 Enrollment date:04/04/2025 Enrollment reason:ADT Feed End date:08/01/2025 Close reason:Goals Met Overview ADT-[facility] ED 03/27/25. Please outreach for enrollment. Continued Care and Services Coordination
--- OUTSIDE RECORDS SUMMARY | 2025-08-02 15:01 | XMS_ITS | Encounter Summary ---
Author Organization [employer] [facility] Address [address] [facility] 7t [place] [address] Care Team Providers Care Bench Patternmaker Metal Name Role Phone Bharath Welch MD Primary Care Provider Adam Cesar RN Unavailable [phone] Karina Jones Unavailable Encounter Details Date Type Department Care Team (Late st Contact Info) Description 07/02/2023 Abstract [facility] MEDICINE [address] [place] [address] Mitali Trujillo Social History Tobacco Use Types [...] Description 09/08/2025 9:30 AM EST Medication Management [facility] MED & PEDS [address] [place] [address] Mariella Luna, PharmD 230 [place] [address] 09/13/2025 10:00 AM EST Office Visit [facility] MED & PEDS [address] [place] [address] Bharath Welch MD [address] [place] [address] 11/02/2025 9:00 AM EST Office Visit [facility] OPTOMETRY [address] [place], [place] [phone] Uyen Cadena, OD [address] [place] [address] documented as of this encounter Procedures Procedure Name Priority Date/Time Associated Diagnosis Comments COLONOSCOPY Routine 03/23/2020 documented in this encounter Results * Hm Colonoscopy (03/23/2020) Colonoscopy Normal Normal Narrative Osmany Trujilloba - 03/23/2020 Recommended follow up in 5 years us Historical Provider [facility] Result - Final documented in this encounter Visit Diagnoses Not on filedocumented in this encounter Care Teams Bench Patternmaker Metal Relationship Specialty Start Date End Date Bharath Welch MD [address] [place] [address] PCP - General Internal Medicine 01/21/14 Adam Cesar, SARAHI 505 [place], [place] [phone] Registered Nurse Family Medicine 03/28/25 07/13/25 Karina Jones 03/28/25 08/01/25 documented as of this encounter
--- OUTSIDE RECORDS SUMMARY | 2025-08-02 15:01 | XMS_ITS | Encounter Summary ---
Author Organization [employer] [facility] Address [address] [facility] 7t [place] [address] Care Team Providers Care Stoker Installation Mechanic Name Role Phone Bharath Welch MD Primary Care Provider Adam Cesar RN Unavailable [phone] Karina Jones Unavailable Encounter Details Date Type Department Care Team (Late Contact Info) Description 07/22/2024 Orders Only [facility]EDS [address] [place], [place] [phone] Bharath Welch MD [address] [place], [place] [phone] Unintentional weight loss (Primary Dx) Social History [...] Department Care Team (Late Contact Info) Description 09/08/2025 9:30 AM EST Medication Management [facility] MED & PEDS [address] [place], [place] [phone] Mariella Luna, PharmD 230 [place] [address] 09/13/2025 10:00 AM EST Office Visit [facility] CHC MED & PEDS [address] [place] [address] Bharath Welch MD [address] [place] 11/02/2025 9:00 AM EST Office Visit [facility] OPTOMETRY [address] [place] [address] Surinder, Uyen, OD [address] [place] [address] Scheduled Orders Name Type Priority Associated Diagnoses [...] documented as of this encounter Care Teams Stoker Installation Mechanic Relationship Specialty Start Date End Date Bharath Welch MD 505 [place], [place] [phone] PCP - General Internal Medicine 01/21/14 Adam Cesar, SARAHI [address] [place] [address] [id number] Registered Nurse Family Medicine 03/28/25 07/13/25 Karina Jones 03/28/25 08/01/25 documented as of this encounter
--- OUTSIDE RECORDS SUMMARY | 2025-08-02 15:01 | XMS_ITS | Encounter Summary ---
Author Organization [facility] [facility] Address [address] [facility] 7t [place] [address] Care Team Providers Care Manager Program Name Role Phone Bharath Welch MD Primary Care Provider [phone] Adam Cesar RN Unavailable [phone] Karina Jones Unavailable Encounter Details Date Type Department Care Team (Late Contact Info) Description 11/30/2024 Orders Only [facility] MED & PEDS [address] [place], [place] [phone] Bharath Welch MD 505 [place], [place] [phone] Unintentional weight loss (Primary Dx) Social History [...] Description 09/08/2025 9:30 AM EST Medication Management [facility] MED & PEDS [address] [place], [place] [phone] Mariella Luna, PharmD 230 [place] [address] 09/13/2025 10:00 AM EST Office Visit [facility] CHC MED & PEDS 505 [place] [address] Bharath Welch MD 505 [place] [address] 11/02/2025 9:00 AM EST Office Visit [facility] OPTOMETRY [address] [place] [address] Surinder, Uyen, OD 230 [place] [address] documented as of this encounter Visit Diagnoses Diagnosis Unintentional weight loss- Primary Loss of weight documented in this encounter Additional Health Concerns Assessment Noted Time PHQ-9 Depression Total Score: 6 04/01/20 24 9:31 AM EDT documented as of this encounter Care Teams Manager Program Relationship Specialty Start Date End Date Bharath Welch MD 505 [place] [address] PCP - General Internal Medicine 01/21/14 Adam Cesar RN [address] [place] [address] Registered Nurse Family Medicine 03/28/25 07/13/25 Karina Jones 03/28/25 08/01/25 documented as of this encounter
--- OUTSIDE RECORDS SUMMARY | 2025-08-02 15:01 | XMS_ITS | Encounter Summary ---
Author Organization [employer] Address [address] [facility] 7t [place] [address] Care Team Providers Care Black Top Machine Operator Name Role Phone Bharath Welch MD Primary Care Provider [phone] Adam Cesar RN Unavailable [phone] Karina Jones Unavailable Reason for Visit * Reason Onset Date Comments stool kit. 04/28/2025 Encounter Details Date Type Department Care Team ([facility] st Contact Info) Description 04/28/2025 Telephone [facility] CHC MED & PEDS 505 [place], [place] [phone] Bharath Welch MD 505 [place], [place] [phone] stool kit. Social History Tobacco Use Types [...] stool kit to be mailed too [facility] [address] Contact pt at [phone] (serbian) documented in this encounter Plan of Treatment Upcoming Encounters Date Type Department Care Team ([facility] Contact Info) Description 09/08/2025 9:30 AM EST Medication Management [facility] MED & PEDS [address] [place] [address] Mariella Luna, PharmD 230 [place] [address] 09/13/2025 10:00 AM EST Office Visit [facility] MED & PEDS 505 [place] [address] Bharath Welch MD 505 [place] [address] 11/02/2025 9:00 AM EST Office Visit [facility] OPTOMETRY [address] [place] [address] Uyen Cadena, OD [address] [place] [address] documented as of this encounter Goals Goal [...] documented as of this encounter Care Teams Black Top Machine Operator Relationship Specialty Start Date End Date Bharath Welch MD 505 [place] [address] PCP - General Internal Medicine 01/21/14 Adam Cesar, SARAHI 505 [place] [address] Registered Nurse Family Medicine 03/28/25 07/13/25 Karina Jones 03/28/25 08/01/25 documented as of this encounter
--- OUTSIDE RECORDS SUMMARY | 2025-08-02 15:01 | XMS_ITS | Encounter Summary ---
Author Organization [employer] Address 75 [facility] 7t [place] [address] Care Team Providers Care Monument Setter Helper Name Role Phone Bharath Welch MD Primary Care Provider Adam Cesar RN Unavailable [phone] Karina Jones Unavailable Reason for Visit * Reason Onset Date Comments Call Back Request 06/15/2025 Encounter Details Date Type Department Care Team ([facility] st Contact Info) Description 06/15/2025 Telephone [facility] CHC MED & PEDS [address] [place], [place] [phone] Bharath Welch MD 505 [place], [place] [phone] Call Back Request Social History Tobacco Use [...] he is not charged. Contact pt at [phone] (fijian) documented in this encounter Plan of Treatment Upcoming Encounters Date Type Department Care Team ([facility] st Contact Info) Description 09/08/2025 9:30 AM EST Medication Management [facility] MED & PEDS [address] [place] [address] Mariella Luna, PharmD [address] [place] [address] 09/13/2025 10:00 AM EST Office Visit [facility] CHC MED & PEDS [address] [place] [address] Bharath Welch MD 505 [place] [address] 11/02/2025 9:00 AM EST Office Visit [facility] OPTOMETRY [address] [place] [address] Uyen Cadena, OD [address] [place] [address] documented as of this encounter Goals Goal [...] documented as of this encounter Care Teams Monument Setter Helper Relationship Specialty Start Date End Date Bharath Welch MD 505 [place] [address] PCP - General Internal Medicine 01/21/14 Adam Cesar RN 505 [place] [address] Registered Nurse Family Medicine 03/28/25 07/13/25 Karina Jones 03/28/25 08/01/25 documented as of this encounter
--- OUTSIDE RECORDS SUMMARY | 2025-08-02 15:01 | XMS_ITS | Encounter Summary ---
Author Organization [employer] Address [address] [facility] 7t [place] [address] Care Team Providers Care Supervisor Concrete Stone Finishing Name Role Phone Bharath Welch MD Primary Care Provider [phone] Adam Cesar RN Unavailable [phone] Karina Jones Unavailable Reason for Visit * Reason Comments Med Refill Encounter Details Date Type Department Care Team (Late st Contact Info) Description 06/11/2024 Refill [facility] MEDICINE [address] [place] [address] Batsheva Gates MD [address] [place] [address] Uncomplicated opioid dependence (CMS/HCC) Social History Tobacco [...] Description 09/08/2025 9:30 AM EST Medication Management [facility] CHC MED & PEDS [address] [place], [place] [phone] Mariella Luna PharmD 230 [place] [address] 09/13/2025 10:00 AM EST Office Visit [facility] CHC MED & PEDS 505 [place] [address] Bharath Welch MD 505 [place], [place] [phone] 11/02/2025 9:00 AM EST Office Visit [facility] OPTOMETRY [address] [place] [address] SurinderUyen pruitt, OD [address] [place], [place] [phone] documented as of this encounter Visit Diagnoses Diagnosis Uncomplicated opioid dependence (CMS/HCC) (HCC) documented in this encounter Additional Health Concerns Assessment Noted Time PHQ-9 Depression Total Score: 6 04/01/20 24 9:31 AM EDT documented as of this encounter Care Teams Supervisor Concrete Stone Finishing Relationship Specialty Start Date End Date Bharath Welch MD 505 [place] [address] PCP - General Internal Medicine 01/21/14 Adam Cesar, RN 505 [place] [address] Registered Nurse Family Medicine 03/28/25 07/13/25 Karina Jones 03/28/25 08/01/25 documented as of this encounter
--- OUTSIDE RECORDS SUMMARY | 2025-08-02 15:01 | XMS_ITS | Encounter Summary ---
Author Organization [employer] [facility] Address [address] [facility] [address] [address] [place] [address] Care Team Providers Care Rnp Name Role Phone Bharath Welch MD Primary Care Provider Adam Cesar RN Unavailable [phone] Karina Jones Unavailable Encounter Details Date Type Department Care Team ([facility] Contact Info) Description 01/10/2023 Orders Only [facility] MED & PEDS [address] [place], [place] [phone] Shonda Espinoza LPN Social History Tobacco Use [...] Upcoming Encounters Date Type Department Care Team ([facility] Contact Info) Description 09/08/2025 9:30 AM EST Medication Management [facility] MED & PEDS [address] [place] [address] Mariella Luna, PharmD [address] [place] [address] 09/13/2025 10:00 AM EST Office Visit [facility] MED & PEDS [address] [place] [address] Bharath Welch MD 505 [place] [address] 11/02/2025 9:00 AM EST Office Visit [facility] OPTOMETRY [address] [place] [address] Surinder, Uyen, OD [address] [place] [address] documented as of this encounter Visit Diagnoses Not on filedocumented in this encounter Care Teams Rnp Relationship Specialty Start Date End Date Bharath Welch MD 505 [place], [place] [phone] PCP - General Internal Medicine 01/21/14 Adam Cesar RN 505 [place] [address] Registered Nurse Family Medicine 03/28/25 07/13/25 Karina Jones 03/28/25 08/01/25 documented as of this encounter
--- OUTSIDE RECORDS SUMMARY | 2025-08-02 15:01 | XMS_ITS | Encounter Summary ---
Author Organization [employer] Address [address] [facility] 7t [place] [address] Care Team Providers Care Caltrans Equipment Operator Name Role Phone Bharath Welch MD Primary Care Provider Karina Jones Unavailable Reason for Visit * Reason Comments Care Coordination SDOH f/u Encounter Details Date Type Department Care Team (Latest Contact Info) Description 08/01/2025 Patient Outreach [facility] MEDICINE [address] [place] [address] Bharath Welch MD 505 [place], [place] [phone] Care Coordination (SDOH f/u) Social History Tobacco [...] 09/08/2025 9:30 AM EST Medication Management [facility] MED & PEDS [address] [place] [address] Mariella Luna, PharmD 230 [place] [address] 09/13/2025 10:00 AM EST Office Visit [facility] MED & PEDS [address] [place] [address] Bharath Welch MD 505 [place] [address] 11/02/2025 9:00 AM EST Office Visit [facility] OPTOMETRY [address] [place] [address] Uyen Cadena, OD [address] [place] [address] documented as of this encounter Goals Goal [...] documented as of this encounter Care Teams Caltrans Equipment Operator Relationship Specialty Start Date End Date Bharath Welch MD [address] [place] [address] PCP - General Internal Medicine 01/21/14 Karina Jones 03/28/25 08/01/25 documented as of this encounter
--- OUTSIDE RECORDS SUMMARY | 2025-08-02 15:01 | XMS_ITS | Encounter Summary ---
Author Organization [employer] [facility] Address [address] [facility] 7t [place] [address] Care Team Providers Care Slip Dumper Name Role Phone Bharath Welch MD Primary Care Provider Adam Cesar RN Unavailable [phone] Karina Jones Unavailable Reason for Visit * Reason Comments Med Refill Encounter Details Date Type Department Care Team (Late st Contact Info) Description 01/08/2024 Refill [facility] MEDICINE [address] [place] [address] Batsheva Gates MD 230 [place] [address] Uncomplicated opioid dependence (CMS/HCC) Social History Tobacco [...] Description 09/08/2025 9:30 AM EST Medication Management [facility] CHC MED & PEDS [address] [place], [place] [phone] Mariella Luna PharmD [address] [place] [address] 09/13/2025 10:00 AM EST Office Visit [facility] MED & PEDS [address] [place], [place] [phone] Bharath Welch MD 505 [place] [address] 11/02/2025 9:00 AM EST Office Visit [facility] OPTOMETRY [address] [place] [address] Surinder Uyen, OD [address] [place] [address] documented as of this encounter Visit Diagnoses Diagnosis Uncomplicated opioid dependence (CMS/HCC) (HCC) documented in this encounter Care Teams Slip Dumper Relationship Specialty Start Date End Date Bharath Welch MD 505 [place] [address] PCP - General Internal Medicine 01/21/14 Adam Cesar RN 505 [place] [address] Registered Nurse Family Medicine 03/28/25 07/13/25 Karina Jones 03/28/25 08/01/25 documented as of this encounter
--- OUTSIDE RECORDS SUMMARY | 2025-08-02 15:01 | XMS_ITS | Clinical Summary ---
Author Organization [employer] Address [address] [place] [address] Care Team Providers Care Beater Room Supervisor Name Role Phone Bharath Welch MD Primary Care Provider Allergies No known active allergies Medications Multiple Vitamin (multivitamin) tabletIndicatio ns:Unintentiona l weight loss Take 1 tablet by mouth Once per day. 30 tablet 11 5 11:37 AM EST 12/01/19 25 Active Symbicort 160-4.5 MCG/ACT inhaler Inhale 2 puffs in the morning and at bedtime. Rinse mouth with water after use to reduce aftertaste and incidence of candidiasis. Do not swallow. 1 each 3 5 9:09 AM EST 03/14/20 25 Active Suboxone 8-2 MG SL filmIndications :Uncomplicated opioid dependence (CMS/HCC) ([facility]) Place 2 Film under the tongue Once [...] as needed for wheezing. 05/12/20 25 Active mirtazapine (Remeron) 7.5 MG tabletIndicatio ns:Unintentiona l weight loss,Recurrent major depressive disorder, in partial remission (CMS/HCC) Take 1 tablet (7.5 mg) by mouth at bedtime. 30 tablet 11 5 9:09 AM EST 06/20/20 25 Active Acetaminophen Extra Strength 500 MG tabletIndicatio ns:Chronic midline low back pain without sciatica TAKE 1 TABLET BY MOUTH EVERY 6 HOURS NEEDED FOR MILD PAIN FOR UP TO 10 DAYS 30 tablet 06/30/20 25 Active cholecalciferol (Vitamin D-3) 25 MCG tabletIndicatio ns:Vitamin D deficiency TAKE 1 TABLET BY MOUTH EVERY DAY 90 tablet 5 9:09 AM EST 07/12/20 25 Active Antacid Regular Strength 200-200-20 MG/5ML oral suspension GIVE 10 ML BY MOUTH FOUR TIMES DAILY BETWEEN MEALS AND AT BEDTIME NEEDED FOR CHEST PAIN FOR 7 DAYS 06/10/20 25 Active divalproex (Depakote ER) 500 MG 24 hr tabletIndicatio ns:Seizure (CMS/HCC) (HCC) Take 1 tablet (500 mg) by mouth Once per day. Do not crush, chew, or split. 30 tablet 11 5 2:58 PM EST 07/22/20 25 Active amitriptyline (Elavil) 10 MG tabletIndicatio ns:Primary insomnia Take 1 tablet (10 mg) by mouth at bedtime. 30 tablet 11 07/22/20 25 Active DULoxetine (Cymbalta) [address] capsuleIndicati ons:Recurrent major depressive disorder, in partial remission (CMS/HCC) Take 1 capsule (30 mg) by mouth Once per day. Do not crush or chew. 30 capsule 5 2:58 PM EST 07/22/20 25 Active Diclofenac Sodium 1 % gelIndications: Bilateral hip pain APPLY 1 APPLICATION TOPICALLY AFFECTED AREA(S) THREE TIMES DAILY 100 g 1 5 2:58 PM EST 07/25/20 25 Active amitriptyline (Elavil) 10 MG tablet TAKE 1 TO 2 TABLETS BY MOUTH AT BEDTIME 60 tablet 11 06/15/20 24 2024 Discontinued(R eorder (will not trigger notification to Pharmacy)) cholecalciferol (Vitamin D-3) 25 MCG tabletIndicatio ns:Vitamin D deficiency TAKE 1 TABLET BY MOUTH EVERY DAY 90 tablet 122024 Discontinued(R eorder (will not trigger notification to Pharmacy)) divalproex (Depakote) 500 MG EC tablet TAKE 1 TABLET BY MOUTH TWICE DAILY 180 tablet 03/25/202024 Discontinued(A lternate therapy) Diclofenac Sodium 1 % gelIndications: Bilateral hip pain To apply to the affected area 3 times a day 100 g 1 05/26/202024 Discontinued DULoxetine (Cymbalta) [address] capsule Take 30 mg by mouth Once per day. Do not crush or chew. 2024 Discontinued(R eorder (will not trigger notification to Pharmacy)) Active Problems Problem Noted Date Diagnosed Date [...] Encounters Date Type Department Care Team Description 08/01/2025 Patient Outreach [facility] [address] [place] [address] Bharath Welch MD Care Coordination ([facility] f/u) 07/27/2025 Telephone [facility] [address] [place], [place] [phone] Bharath Welch MD chart prep 07/24/2025 Refill [facility] [address] [place], [place] [phone] Bharath Welch MD Bilateral hip pain 07/22/2025 Refill [facility] [address] [place], [place] [phone] Mariella Luna PharmD Primary insomnia (Primary Dx); Seizure (CMS/HCC) (HCC); Recurrent major depressive disorder, in partial remission (CMS/HCC) 07/21/2025 Travel 07/20/2025 Orders Only [facility] [address] [place] [address] Howard Mg MD 07/13/2025 Patient Outreach [address] [address] Bharath Welch MD Care Management ([facility]- f/u call) 07/12/2025 Refill [facility] [address] [place], [place] [phone] Bharath Welch MD Vitamin D deficiency 06/29/2025 Patient Outreach [address] [address] Bharath Welch MD Care Coordination ([facility] f/u) 06/29/2025 Patient Outreach [address] [address] Bharath Welch MD Care Management (C3- f/u call) 06/29/2025 Refill [facility] [address] [place] [address] Bharath Welch MD Chronic midline low back pain without sciatica 06/20/2025 10:15 AM EDT Office Visit [facility] [address] [place], [place] [phone] Bharath Welch MD Diarrhea of infectious origin (Primary Dx); Hypogonadism in male; Primary hypertension; C. difficile colitis; Unintentional weight loss; Recurrent major depressive disorder, in partial remission (CMS/HCC); Chronic midline low back pain without sciatica 06/20/2025 Travel 06/20/2025 Patient Outreach [address] [address] Bharath Welch MD Care Management ([facility]- f/u call) 06/17/2025 Telephone [facility] [address] [place] [address] Bharath Welch MD Chart Prep 06/15/2025 Telephone [facility] [address] [place] [address] Bharath Welch MD Call Back Request 06/15/2025 Patient Outreach [address] [address] Bharath Welch MD 06/14/[address] [address] Bharath Welch MD Hospital Follow-up 06/14/2025 Patient Outreach [facility] [address] [place] [phone] Bharath Welch MD Transition Of Care (Tcm) (HDF scheduled. ) 06/13/2025 Patient Outreach [address] [address] Bharath Welch MD 06/11/2025 Orders Only GENERIC EXTERNAL DATA DEPARTMENT Provider, Generic External Data 06/10/2025 Telephone [facility] [address] [place] [address] Bharath Welch MD Nurse Triage 06/08/2025 Patient Outreach [address] [address] Bharath Welch MD Care Coordination ([facility] f/u) 06/08/2025 Patient Outreach [address] [address] Bharath Welch MD Care Management ([facility]- f/u call #2. Unable to leave v/m.) 05/27/2025 Patient Outreach [address] [address] Bharath Welch MD Care Management ([facility]- f/u call) 05/26/2025 2:45 PM EDT Office Visit [facility] [address] [place] [address] Bharath Welch MD Bilateral hip pain (Primary Dx); C. difficile colitis 05/26/2025 Travel 05/26/2025 Patient Outreach [facility] [address] [place] [phone] Bharath Welch MD Care Coordination (CM/[facility]W outreach) 05/25/2025 Telephone [facility] [address] [place] [address] Bharath Welch MD Chart Prep 05/25/2025 Results Follow-Up [facility] [address] [place] [address] Phani Gupta MD Gastrointestinal panel 05/24/2025 2:00 PM EDT Office Visit [facility] [address] [address] Maryann Gregory MD Primary insomnia; Primary hypertension 05/24/2025 Results Follow-Up [facility] [address] [place] [address] Phani Gupta MD CDiff Gene PCR, CDiff Toxin 05/24/2025 Orders Only [facility] [address] [place] [address] Phani Gupta MD 05/24/2025 Refill [facility] [address] [place] [address] Bharath Welch MD Primary hypertension 05/24/2025 Telephone [facility] [address] [place] [address] Bharath Welch MD Medication Question 05/23/2025 10:20 AM EDT Office Visit [facility] [address] [place] [address] Phani Gupta MD Diarrhea in adult patient (Primary Dx); Elevated blood pressure reading in office without diagnosis of hypertension 05/23/2025 Orders Only [facility] [address] [place] [address] Phani Gupta MD 05/23/2025 Travel 05/21/[address] [address] Bharath Welch MD Lumbago with sciatica, right side 05/20/2025 Patient Outreach [address] [address] Bharath Welch MD 05/20/[address] [address] Batsheva Gates MD Hospital Follow-up 05/20/2025 Patient Outreach [facility] [address] [place] [address] Bharath Welch MD Transition Of Care (Tcm) (HDF unscheduled. ) 05/18/2025 Telephone [facility] [address] [place] [address] Bharath Welch MD Nurse Triage 05/18/2025 Results Follow-Up [address] [address] Angélica Villarreal RN [facility] colon cancer screening 05/16/2025 Patient Outreach [address] [address] Bharath Welch MD 05/11/2025 2:45 PM EDT Office Visit [facility]OMET[facility] [address] [place] [address] Surinder, Uyen, OD Myopia of both eyes (Primary Dx) 05/11/2025 11:15 AM EDT Office Visit [facility] [address] [place] [address] Bharath Welch MD Primary hypertension (Primary Dx); History of Helicobacter pylori infection; Nausea 05/11/2025 Patient Outreach [address] [address] Bharath Welch MD Care Coordination ([facility] f/u) 05/11/2025 Patient Outreach [place] [address] [place] [address] Bharath Welch MD Care Management ([facility]- f/u call) 05/11/2025 Travel 05/10/2025 Telephone [facility] [address] [place] [address] Bharath Welch MD CHART PREP 05/03/2025 Telephone [facility] [address] [place] [address] Bharath Welch MD Lab Orders from Last 3 Months Immunizations Immunization Administration [...] your housing situation today? I have etienne abdi 03/30/[address] you li [...] Sign Reading Time Taken Comments Blood Pressure 144/86 07/21/2025 9:19 AM EST Pulse 77 07/21/2025 9:19 AM EST Temperature 36.8 C (98.3 F) 05/24/2025 1:54 PM EDT Respiratory Rate 20 06/20/2025 10:27 AM EDT Oxygen Saturation 98% 07/21/2025 9:19 AM EST Inhaled Oxygen Concentration - - Weight 59.9 kg (132 lb) 06/20/2025 10:27 AM EDT Height 177.8 cm (5' 10 ) 06/20/2025 10:27 AM EDT Body Mass Index 18.94 06/20/2025 10:27 AM EDT Plan of Treatment Upcoming Encounters Date Type Department Care Team (Late st Contact Info) Description 09/08/2025 9:30 AM EST Medication Management [facility] [address] [place] [address] Mariella Luna PharmD [address] [place] [address] 09/13/2025 10:00 AM EST Office Visit [facility] [address] [place] [address] Bharath Welch MD [address] [place] [address] 11/02/2025 9:00 AM EST Office Visit [facility] [address] [place] [address] Uyen Cadena, OD [address] [place] [address] Health Maintenance Due Date Last Done Comments CT Colonography 1971 Dental Prophylaxis 1971 Sigmoidoscopy 1971 Disability Screening 1971 Dental X-Ray: Bitewings 05/21/2012 05/20/2011 Dental Oral Exam 12/19/2020 06/19/2020, 06/19/2020 RSV Patients and Patients Aged 60 years or older (1 - Risk 50-74 years 1-dose series) 2021 Zoster Vaccines (1 of 2) 2021 FIT 02/26/2023 02/26/2022 Dental X-Ray: Full Mouth 06/20/2023 06/19/2020, 05/02 COVID-19 Vaccine ( season) 2025 10/17/2022, 08/01/2021, 01/09/2021, Additional history exists Influenza Vaccine (#1) 2025 , 10/27/2018, 05/16/2016, Additional history exists Hepatitis A Vaccines (2 of 2 - Risk 2-dose series) 08/12/2025 02/10/2025 Depression Monitoring 10/07/2025 04/06/2025, 025 Alcohol/Substance Use Screening 04/06/2026 04/06/2025 SDOH Screening 04/06/2026 04/06/2025 FOBT 05/12/2026 05/12/2025 Tobacco Screening 05/26/2026 05/26/2025 Lipid Panel 02/22/2027 02/22/2022 FIT DNA/Cologuard 05/12/2028 05/12/2025 Colonoscopy 07/19/2030 07/19/2025, 03/23/2020 Colorectal Cancer Screening 07/19/2030 DTaP/Tdap/Td Vaccines (3 - Td or Tdap) 04/01/2034 04/01/2024, 05/31/2011 Hepatitis B Vaccines Completed 11/06/2012, 07/02/2011, 05/31/2011 [...] all mood-altering substances General No Fredo Solis, audio specialist Procedure Name Priority Date/Time Associated Diagnosis Comments HM COLONOSCOPY Routine 07/19/2025 CT ABDOMEN PELVIS W CONTRAST Routine 06/11/2025 [...] 10:40 AM EDT Screening for colon cancer HIV 1/2 ANTIGEN/ANTIBODY, FOURTH GENERATION W/RFL Routine 02/04/2024 9:13 AM EDT Unintentional weight loss LIPID PANEL, STANDARD Routine 02/22/2022 11:05 AM EDT PANORAMIC RADIOGRAPHIC IMAGE Routine 06/19/2020 12:00 AM EDT COMPREHENSIVE ORAL EVALUATION - NEW OR ESTABLISHED PATIENT Routine 06/19/2020 12:00 AM EDT INTRAORAL - COMPLETE SERIES OF RADIOGRAPHIC IMAGES Routine 05/20/2011 12:00 AM EDT from Last 3 Months or Most Recently Relevant to Health Maintenance Results * Hm Colonoscopy (07/19/2025) us Historical Provider HEALTH MAINTENANCE Final Result * CT Abdomen Pelvis w/ Contrast (06/11/2025 3:51 PM EDT) Anatomical Region Laterality Modality Body, Pelvis, Abdomen Computed T omography 06/11/2025 3:51 PM EDT Narrative 06/11/2025 3:52 PM EDT [address] [address] [address] Scan Report Signed Patient: Fer Burrell MR#: Gabriel [id number] : 1970 Acct:[id number] Age/Sex: 54 / M ADM Date: 06/11/25 Loc: .ED Attending Dr: Ordering Physician: Denys Martínez DO Date of Service: 06/11/25 Procedure(s): CT abdomen pelvis w IV con Accession Number(s): [id number] cc: Bharath Welch MD; Denys Martínez DO Report Number: [id number]: Total DLP = 423.00 mGy-cm Reason for [...] by Lincoln Dunn MD in OV> 06/11/25 1552 DD/ 1551 TD/TT: 06/11/25 1551 Building Manager: Procedure Note Donotuseinterpreter, Image - 06/11/[address] [address] [address] Scan Report Signed Patient: Fer BurrellMR#: Gabriel [id number] : 1970Acct:[id number] Age/Sex: 54 / MADM Date: 06/11/25 Loc: HO.ED Attending Dr: Ordering Physician: Denys Martínez DO Date of Service: 06/11/25 Procedure(s): CT abdomen pelvis w IV con Accession Number(s): [id number] cc: Bharath Welch MD; Denys Martínez DO Report Number: [id number]: Total DLP = 423.00 mGy-cm Reason for [...] by Lincoln Dunn MD in OV> 06/11/25 1552 DD/ 1551 TD/TT: 06/11/25 1551 Building Manager: us [facility] External Provider IMG CT PROCEDURES Final Result * (ABNORMAL) CBC auto differential (06/11/2025 1:44 PM EDT) White Blood Count 7.5 4.8 - 10.8 X10*3/uL [facility] Red Blood Count 4.36(L) 4.60 - 5.80 X10*6/uL [facility] Hemoglobin 12.2(L) 14.0 - 18.0 g/dl [facility] Hematocrit 37.8(L) 42.0 - 52.0 % [facility] Mean Corpuscular Volume 86.7 80.0 - 98.0 fL [facility] Mean Corpuscular Hemoglobin 28.0 27.0 - 33.0 pg [facility] Mean Corpuscular HGB Conc 32.3 31.0 - 36.0 g/dl [facility] Red Cell Distribution Width 13.4 11.0 - 16.0 % [facility] Platelet Count 182 160 - 400 X10*3/uL [facility] Mean Platelet Volume 9.4 9.4 - 12.4 fL [facility] Neutrophils Percent Auto 66.8 45 - 73 % [facility] Imm Gran Pct Auto 0.3 0.0 - 0.4 % [facility] Lymphocytes Percent Auto 19.5(L) 20 - 40 % [facility] Monocytes Percent Auto 11.5(H) 2 - 11 % [facility] Eosinophils Percent Auto 1.2 0 - 4 % [facility] Basophils Percent Auto 0.7 0 - 2 % [facility] NRBC Pct Auto 0.0 0.0 - 0.2 /100WBC [facility] Neutrophils Absolute Auto 5.0 2.0 - 8.3 x10*3/uL [facility] Imm Gran Abs Auto 0.02 0.00 - 0.03 X10*3/uL [facility] Lymphocytes Absolute Auto 1.5 1.2 - 4.9 X10*3/uL [facility] Monocytes Absolute Auto 0.9 0.1 - 1.2 X10*3/uL [facility] Eosinophils Absolute Auto 0.1 0.0 - 0.4 X10*3/uL [facility] Basophils Absolute Auto 0.1 0.0 - 0.2 X10*3/uL [facility] NRBC Abs Auto 0.000 0.0 - 0.012 X10*3/uL [facility] 06/11/2025 1:44 PM EDT 06/11/2025 1:46 PM EDT [facility] - 06/11/2025 1:49 PM EDT PATIENT REFUSED LABS Generic External Data Provider LAB BLOOD ORDERAB LES Final Result Performing Organization Address [facility] de Phone Number [facility] [address] [place] [phone] * Magnesium (06/11/2025 1:44 PM EDT) [facility] Magnesium 2.2 1.6 - 2.6 mg/dL [facility] 06/11/2025 1:44 PM EDT 06/11/2025 1:46 PM EDT [facility] - 06/11/2025 2:02 PM EDT PATIENT REFUSED LABS Generic External Data Provider LAB BLOOD ORDERAB LES Final Result Performing Organization Address [facility] Phone Number [facility] [address] [place] [phone] * Lipase (06/11/2025 1:44 PM EDT) [facility] Lipase 29 8 - 78 U/L [facility] 06/11/2025 1:44 PM EDT 06/11/2025 1:46 PM EDT [facility] - 06/11/2025 2:02 PM EDT PATIENT REFUSED LABS Generic External Data Provider LAB BLOOD ORDERAB LES Final Result Performing Organization Address [facility] de Phone Number [facility] [address] [place] [phone] * (ABNORMAL) Comprehensive Metabolic Panel (06/11/2025 1:44 PM EDT) [facility] Sodium 144 135 - 145 mmol/L [facility] Potassium 3.6 3.3 - 5.1 mmol/L [facility] Chloride 108 96 - 108 mmol/L [facility] Carbon Dioxide 30(H) 22 - 29 mmol/L [facility] Anion Gap 10(L) 12 - 20 [facility] Urea Nitrogen (BUN) 15 9 - 16 mg/dL [facility] Creatinine, Serum 0.85 0.5 - 1.4 mg/dL [facility] Creatinine Clr Calc Pharmacy 84.0 [facility] Comment:eGFR (calculated fro m the MDRD study equation) and eCrCl(calculated from the Cockcroft-Gault equation) are based ondifferent parameters and may not yield comparable results.If eCrCl result is absurd, please check patient'sheight/weight. Estimated Glomerular Filt Rate >60 [facility] Comment:Chronic Kidney Disea se: Estimated GFR < 60 mL/min/1.05d2Epoauo Kidney Disease: Estimated GFR < 15 mL/min/1.73m2 Glucose 99 60 - 115 mg/dL [facility] Calcium 9.3 8.4 - 10.2 mg/dL [facility] Bilirubin, Total 0.5 0.0 - 1.0 mg/dL [facility] Aspartate Amino Transferase 25 5 - 37 U/L [facility] Alanine Aminotransferase 20 0 - 40 U/L [facility] Total Protein 7.7 6.5 - 8.0 g/dL [facility] Albumin Level 4.9 3.5 - 5.0 g/dL [facility] Alkaline Phosphatase 94 39 - 117 U/L [facility] 06/11/2025 1:44 PM EDT 06/11/2025 1:46 PM EDT Narrative [facility] - 06/11/2025 2:02 PM EDT PATIENT REFUSED LABS us Generic External Data Provider LAB BLOOD ORDERAB LES Final Result [facility] [address] [place] [phone] * Urinalysis w/reflex microscopic (06/11/2025 12:16 PM EDT) Color Urine Yellow [facility] Appearance Urine Clear [facility] PH 6.5 5.0 - 9.0 [facility] Glucose Urine UA Negative Negative mg/dL [facility] Urine Blood Negative Negative [facility] Specific [place] - Urine 1.015 1.005 - 1.025 [facility] Urine Protein Negative Neg-Trace mg/dL [facility] Urine Ketones Negative Negative mg/dL [facility] Nitrite Urine Negative Negative [facility] Leukocyte Esterase Urine Negative Negative [facility] 06/11/2025 12:1 6 PM EDT 06/11/2025 12:31 PM EDT Narrative [facility] - 06/11/2025 12:37 PM EDT Urine, Clean Catch us Generic External Data Provider LAB URINE ORDERAB LES Final Result Performing Organization Address [facility]/ZIP Co de Phone Number [facility] [address] [place] [phone] * Helicobacter pylori??Antigen, EIA, Stool (05/23/2025 2:30 PM EDT) H pylori Ag Stool SEE NOTE [facility] Comment:HELICOBACTER PYLORI AG, EIA, STOOL Micro Number: [id number] Test Status: Final Specimen Source: Stool Specimen Quality: Adequate H.pylori Ag: Not Detected Antimicrobials, proton pump inhibitors, and bismuth preparations inhibit H. pylori and ingestion up to two weeks prior to testing may cause false negative results. If clinically indicated the test should be repeated on a new specimen obtained two weeks after discontinuing treatment. Reference Range: Not DetectedTHIS TEST WAS PERFORMED AT:[id number] [place] [id number] CURRY MD Stool Rectal contents / Unknown 05/23/2025 2:30 PM EDT 05/24/2025 11:42 AM EDT Phani Gupta MD LAB BODY FLUIDS AND STOOLS ORDER NOEL Final Result Performing Organization Address City/[facility]/ZIP Co de Phone Number [facility] [address] [place] [phone] * CDiff Toxin (05/23/2025 1:22 PM EDT) [facility] CDiff Toxin Negative Negative [facility] CDIFF Interpretation SEE NOTE [facility] Comment:Likely C. difficile colonization. Continue contactprecautions. 05/23/2025 1:22 PM EDT 05/24/2025 11:45 AM EDT us Phani Gupta MD LAB BODY FLUIDS AND STOOLS ORDER NOEL Final Result Performing Organization Address [facility]/ZIP Co de Phone Number [facility] [address] [place] [phone] * (ABNORMAL) CDiff Gene PCR (05/23/2025 1:22 PM EDT) [facility] CDiff Gene PCR POSITIVE(A A) Negative [facility] Comment:Additional C. diffic ile toxin testing to be performed. 05/23/2025 1:22 PM EDT 05/24/2025 11:45 AM EDT us Phani Gupta MD LAB BODY FLUIDS AND STOOLS ORDER NOEL Final Result Performing Organization Address City/[facility] Co de Phone Number [facility] [address] [place] [phone] * (ABNORMAL) Gastrointestinal panel (05/23/2025 1:22 PM EDT) [facility] Campylobacter Not Detected Not Detect. [facility] Plesiomonas shigelloides Not Detected Not Detect. [facility] Salmonella Not Detected Not Detect. [facility] [facility] Vibrio Not Detected Not Detect. [facility] Vibrio cholerae Not Detected Not Detect. [facility] YERSINIA ENTEROCOLITICA Not Detected Not Detect. [facility] Enteroaggregative E. coli (EAEC) Not Detected Not Detect. [facility] Enteropathogenic E. coli (EPEC) Detected(A) Not Detect. [facility] Enterotoxigenic E. coli (ETEC) lt/st Not Detected Not Detect. [facility] Shiga-like toxin-producing E. coli (STEC) stx1/stx2 Not Detected Not Detect. [facility] E coli O157 Not applicable Not Detect. [facility] Comment:E. coli containing t he O157 antigen are a subset ofShiga-like toxin- producing E. coli (STEC). Shigella/Enteroinvasive E. coli (EIEC) Not Detected Not Detect. [facility] Cryptosporidium Not Detected Not Detect. [facility] Cyclospora cayetanensis Not Detected Not Detect. [facility] Entamoeba histolytica Not Detected Not Detect. [facility] Giardia lamblia Not Detected Not Detect. [facility] Adenovirus F 40/41 Not Detected Not Detect. [facility] Astrovirus Not Detected Not Detect. [facility] Norovirus GI/GII Not Detected Not Detect. [facility] Rotavirus A Not Detected Not Detect. [facility] Sapovirus Not Detected Not Detect. [facility] Comment: All results must be [...] assay is performed by Multiplexed PCR, utilizing the[employer] Film Array. Stool Rectal contents / Unknown 05/23/2025 1:22 PM EDT 05/24/2025 11:42 AM EDT us Phani Gupta MD LAB MICROBIOLOGY - GENERAL ORDER NOEL Final Result Performing Organization Address [facility] de Phone Number [facility] [address] [place] [phone] * Influenza B (ID NOW Rapid Molecular) (05/23/2025 10:50 AM EDT) [facility] Influenza B Negative Negative, Indeterminate [facility] Swab 05/23/2025 10:5 0 AM EDT us Phani Gupta MD POINT OF CARE TEST ENTER/EDIT OR DERABLES Final Result Performing Organization Address [facility] de Phone Number [facility] [address] [place] [phone] * Influenza A (ID NOW Rapid Molecular) (05/23/2025 10:50 AM EDT) [facility] Influenza A Negative Negative, Indeterminate [facility] Swab 05/23/2025 10:5 0 AM EDT us Phani Gupta MD POINT OF CARE TEST ENTER/EDIT OR DERABLES Final Result Performing Organization Address [facility] de Phone Number [facility] [address] [place] [phone] * POCT Rapid COVID Ag (05/23/2025 10:48 AM EDT) [facility] Rapid COVID Ag Negative Swab 05/23/2025 10:4 8 AM EDT us Phani Gupta MD POINT OF CARE TEST ENTER/EDIT OR DERABLES Final Result * Ova and Parasites,??Concentrate and Permanent Smear (05/23/2025 7:42 AM EDT) Ova and Parasite Trichrome SEE NOTE [facility] Comment: OVA AND PARASITES, CONC AND PERM SMEAR Micro Number: [id number] Test Status: Final Specimen Source: Stool Specimen [...] infection. For additional information, please refer to https://education.Theracos/faq/UXV968 (This link is being provided for informational/ educational purposes only.)THIS TEST WAS PERFORMED AT:[id number] [place] [id number] CURRY MD Stool Rectal contents / Unknown 05/23/2025 7:42 AM EDT 05/24/2025 11:42 AM EDT Phani Gupta MD LAB MICROBIOLOGY - GENERAL ORDER NOEL Final Result [facility] [address] [place] [phone] * (ABNORMAL) Cologuard?? colon cancer screening (05/12/2025 10:40 AM EDT) Cologuard Result Positive( A) Negative 05/17/2025 12:44 PM EDT [facility] (CLIA #:[id number]) Comment: The Cologuard (TM) test was performed [...] (Aric Garay al, N Engl J Med 2014;370(14):1495-8898.) Cologuard may produce a false negative or false positive result (no colorectal cancer or precancerous polyp present at colonoscopy follow up). A negative Cologuard test result does not guarantee the absence of CRC or advanced adenoma (pre-cancer). The current Cologuard screening interval is every 3 years. ([place] [employer] and U.S. Multi-Society Task Force). Cologuard performance data in a 10,000 patient pivotal study using colonoscopy as the reference method can be accessed at the following location: [email or web address]. Additional description of the Cologuard test process, warnings and precautions can be found at [email or web address]. Stool specimen (specimen) 05/12/2025 10:40 AM EDT 05/13/2025 9:11 AM EDT us Bharath Welch MD LAB MOLECULAR DIAGNOSTICS O RDERABLES Final Result [facility] (CLIA #:[id number]) [address] [place] [address], * HIV-1/2 Antigen and Antibodies, Fourth Generation, with Reflexes (02/04/2024 9:13 AM EDT) HIV AB/AG Nonreactive Nonreactive [facility] Comment:HIV-1 p24 Ag and/or HIV-1/HIV-2 Ab not detected.A test result that is nonreactive does not exclude thepossibility of exposure to or infection with HIV-1 and/orHIV-2. Nonreactive results in this assay for individualswith prior exposure to HIV-1 and/or HIV-2 may be due toantigen and antibody levels that are below the limit ofdetection of this assay.The Veveo HIV Ag/Ab Combo assay result andsupplemental assay results should be interpreted inconjunction with the patient's clinical presentation,history and other laboratory results. If the results areinconsistent with clinical evidence, additional testing issuggested to confirm the result. Blood Venous blood specimen / Unknown 02/04/2024 9:13 AM EDT 02/04/2024 11:41 AM EDT us Isa Chawla MD LAB BLOOD ORDERABLES Final Re sult [facility] [address] [place] [phone] * LIPID PANEL, STANDARD (02/22/2022 [...] Friedewald equation in the estimation of LDL-C. Sehrman CALDERON et al. MICHELE. 2013;310(19): 2979-7822 (http://education.[address] Lane/faq/HLX119) Non-HDL Cholesterol 111 <130 mg/dL (calc) [facility] Comment: For patients with diabetes plus 1 major ASCVD risk factor, treating to a non-HDL-C goal of <100 mg/dL (LDL-C of <70 mg/dL) is considered a therapeutic option. Triglycerides 77 <150 mg/dL [facility] 02/22/2022 11:0 5 AM EDT us Bharath Welch MD LAB BLOOD ORDERABLES Final Result [facility] [address] from Last 3 Months or Most Recently Relevant to Health Maintenance Insurance [facility] STAND ADULT Care Teams Beater Room Supervisor Relationship Specialty Start Date End Date Bharath Welch MD [address] [place] [phone] PCP - General Internal Medicine 01/21/14
== END 2025-08-02 13:52 | disposition home or self-care (01) ==
LOC: HO.ENCR 13:04
PROVIDERS: PCP Internal Medicine; Visit Provider Student in an Organized Health Care Education/Training Program
DX: Z86.39 Personal history of other endocrine, nutritional and metabolic disease (principal)
CPT/HCPCS: 99214

== ENCOUNTER → 2025-08-02 13:03 | Outpatient (BNVA) | payer MEDICAID, SELFPAY | PROVIDERS: PCP Internal Medicine; Visit Provider Student in an Organized Health Care Education/Training Program | DX: Z86.39 Personal history of other endocrine, nutritional and metabolic disease (principal) | CPT/HCPCS: 99212 ==

== ENCOUNTER 2025-08-05 08:25 | Outpatient (REF) | payer MEDICAID, SELFPAY ==
[2025-08-05 11:56] LABS: Hemoglobin 14.5 g/dl (14.0-18.0)
[2025-08-06 08:54] LABS: Follicle Stimulating Hormone 9.4 mIU/mL (1.4-12.8)
== END 2025-08-05 08:26 | disposition home or self-care (01) ==
LOC: HO.HHCL 08:25
PROVIDERS: PCP Internal Medicine; Visit Provider Student in an Organized Health Care Education/Training Program
DX: Z86.39 Personal history of other endocrine, nutritional and metabolic disease (principal)
CPT/HCPCS: 36415; 83001; 83002; 84270; 84402; 84403; 85018